=== PATIENT | male | born 1940 | race Caucasian/White ===

== ENCOUNTER → 2017-11-08 | Outpatient (CLI) | payer MEDICARE ==
--- NOTE | 2017-11-08 11:28 | US ---
EXAMINATION TYPE: US kidneys/renal and bladder DATE OF EXAM: 11/08/2017 COMPARISON: 06/03/[address] chest abdomen and pelvis June 01, 2015 CLINICAL HISTORY: N18.3 Stage Chronic Kidney Disease. EXAM MEASUREMENTS: Right Kidney: 9.7 x 4.4 x 6.0 cm Left Kidney: 10.9 x 5.2 x 4.8 cm Post Void Residual Volume: mL Right Kidney: 4.1 x 4.9 x 3.9 cyst on upper pole Left Kidney: No hydronephrosis or masses seen Bladder: Bilateral Jets seen: left only There is no evidence for hydronephrosis at this point in time. No nephrolithiasis is seen. No julia s are identified. The urinary bladder is not greatly distended. Distal left ureteral jet is seen. Ad jacent to bladder there is oval anechoic area correlates with reservoir from penile prosthesis. A 4.1 cm simple appearing exophytic cyst upper pole level right kidney is redemonstrated. IMPRESSION: No hydronephrosis is evident bilaterally.
== END | disposition home or self-care (01) ==
LOC: RADUSWWP 09:25
PROVIDERS: ATTEND Internal Medicine Nephrology
DX: N18.3 Chronic kidney disease, stage 3 (moderate) (principal)
CPT/HCPCS: 76770

== ENCOUNTER → 2017-12-28 | Day surgery (SDC) | payer MEDICARE ==
[2017-12-26 15:18] VITALS: BMI 30.5
[~2017-12-28] MED LIST: LACTATED RINGERS 1,000 ML IV ONE; LACTATED RINGERS 1,000 ML IV SCH; PROPOFOL 10 MG/ML 20 ML VIAL IV ONE
[2017-12-28 07:44] LABS: Glucose,Whole Blood 143 mg/dL (75-99)
[2017-12-28 08:18] VITALS: RESP 16; TEMP 98.3
--- NOTE | 2017-12-28 09:24 | P.PCN ---
Date of Procedure: 12/28/17 Procedure(s) Performed: Procedure: Total colonoscopy. Preoperative diagnosis: Screening for neoplasia, patient has history of polyps. Postoperative diagnosis: Exam within normal limits. Preparation: HalfLytely prep. Sedation: Was provided by anesthesia. Brief clinical history: The patient is a 77-year-old male who is scheduled for this evaluation for screening for neoplasia because of history of polyps. The patient has no abdominal complaints, bleeding or anemia. His last colonoscopy was around 5 years ago. Procedure: With the patient on his left lateral decubitus position and after informed consent and adequate sedation, the perianal area was inspected and it did not show any fissures or fistulas. There were no masses felt on digital rectal examination. The Olympus CFQ 160L video colonoscope was then inserted in the rectum in the usual fashion and advanced to the cecum. The mucosa appeared healthy. No polyps or tumors were seen or any obvious diverticular disease or other pathology. I retroflexed the endoscope in the rectum before the endoscope was withdrawn. The patient tolerated the procedure well. Plan: The patient was reassured. At his age, I did not recommend additional surveillance examinations and future colonoscopies can be based on his overall health and symptoms in the future. He will follow up with you as planned.
[2017-12-28 09:42] VITALS: BP 147/74; PULSE 70
== END ==
LOC: ORWHC2ENDO 07:17
DX: Z12.11 Encounter for screening for malignant neoplasm of colon (principal); Z86.010 Personal history of colon polyps; I25.10 Atherosclerotic heart disease of native coronary artery without angina pectoris; E11.9 Type 2 diabetes mellitus without complications; I10 Essential (primary) hypertension; E78.5 Hyperlipidemia, unspecified; K21.9 Gastro-esophageal reflux disease without esophagitis; I25.2 Old myocardial infarction; Z95.1 Presence of aortocoronary bypass graft; Z95.5 Presence of coronary angioplasty implant and graft; Z95.810 Presence of automatic (implantable) cardiac defibrillator; Z86.711 Personal history of pulmonary embolism; Z86.718 Personal history of other venous thrombosis and embolism; Z88.5 Allergy status to narcotic agent; Z88.0 Allergy status to penicillin; Z88.8 Allergy status to other drugs, medicaments and biological substances; Z91.041 Radiographic dye allergy status; Z91.048 Other nonmedicinal substance allergy status; Z79.890 Hormone replacement therapy; Z79.4 Long term (current) use of insulin; Z79.51 Long term (current) use of inhaled steroids; Z79.899 Other long term (current) drug therapy; Z79.01 Long term (current) use of anticoagulants; Z79.02 Long term (current) use of antithrombotics/antiplatelets
CPT/HCPCS: J2704; G0105

== ENCOUNTER → 2018-09-03 | Outpatient (CLI) | payer MEDICARE ==
--- NOTE | 2018-09-03 08:54 | CT ---
EXAMINATION TYPE: CT chest wo con DATE OF EXAM: 09/03/2018 COMPARISON: CT chest abdomen and pelvis June 01, 2015 HISTORY: asbestosis CT DLP: 844 mGycm. Automated Exposure Control for Dose Reduction was Utilized. TECHNIQUE: CT scan of the thorax is performed without IV contrast. FINDINGS: LUNGS: There is right greater than left bibasilar scarring and/or atelectasis redemonstrated. No susp icious parenchymal nodules or masses are identified. No calcified pleural plaques are clearly seen. N o pleural effusion or pneumothorax is noted. MEDIASTINUM: Lack of IV contrast is noted to limit evaluation for mediastinal and especially hilar ad enopathy. There are no definitive greater than 1 cm hilar or mediastinal lymph nodes. Sternotomy wire s are present. There is cardiomegaly seen. There is multilead pacemaker/AICD. Main pulmonary artery i s enlarged at 3.4 cm, CT findings suggesting underlying pulmonary artery hypertension. Enlarged right and left pulmonary arteries are noted. Post CABG changes with mediastinal clips are identified. Ther e is mild/moderate calcified plaque in the thoracic aorta noted. OTHER: There is redemonstration of 4.5 cm partially exophytic otherwise simple appearing cyst posteri or laterally upper pole level right kidney perhaps slightly larger from prior study. Dependent gallst one in gallbladder is seen. Moderate multilevel spurring in the mid to lower thoracic spine is seen. Bilateral gynecomastia is again seen. IMPRESSION: No calcified pleural plaques identified. Stable bibasilar scarring and/or atelectasis. No suspicious acute pulmonary process. Cardiomegaly redemonstrated.
== END | disposition home or self-care (01) ==
LOC: RADCTMAIN 07:42
PROVIDERS: ATTEND Internal Medicine Pulmonary Disease
DX: I51.7 Cardiomegaly (principal); J98.4 Other disorders of lung
CPT/HCPCS: 71250

== ENCOUNTER 2019-01-31 09:54 | Inpatient (IN) | payer MEDICARE ==
[2019-01-31] MEDS ORDERED: MAG HYDROX/AL HYDROX/SIMETH 30 ML, HYOSCYAMINE ELIXIR 10 ML, CIMETIDINE HCL 300 MG PO STA ×3 (10:18)
[2019-01-31] MEDS ORDERED: FAMOTIDINE 20 MG/2 ML VIAL IV STA (10:18)
--- NOTE | 2019-01-31 10:23 | ED ---
General Adult HPI - General Chief complaint: Chest Pain Stated complaint: chest pain Time Seen by Provider: 01/31/19 10:03 Source: patient, RN notes reviewed, old records reviewed Mode of arrival: wheelchair Limitations: no limitations - History of Present Illness Initial comments: 78-year-old male history of CAD, CK D, diabetes, hypertension presenting for evaluation of intermittent chest pain over the past one week. Pain has been nonexertional predominantly at rest. Describes it as a central chest pain with the burning sensation. Patient does have history of gastric reflux currently on omeprazole. Denies dyspnea, denies diaphoresis. Denies significant vomiting or diarrhea. He does report some radiating symptoms into his left arm and left neck. No sharp pain, no back pain. History of CAD status post CABG and stent placement approximately 3 years ago. Patient is currently anticoagulated on Eliquis, history of DVT PE. - Related Data Home Medications Medication Instructions Recorded Confirmed Isosorbide Mononitrate [Imdur] 30 mg PO DAILY 04/10/14 01/31/19 Multivitamin [Men's Multi-Vitamin] 1 tab PO DAILY 04/10/14 01/31/19 Simvastatin [Zocor] 40 mg PO HS 04/10/14 01/31/19 Aspirin 81 mg PO DAILY 04/11/14 01/31/19 Beclomethasone Dipropionate [Qvar 2 puff INHALATION RT-BID 05/29/15 01/31/19 80 mcg/puff] Carvedilol 25 mg PO BID 05/29/15 01/31/19 Insulin NPH/Reg Insulin 70/30 75 unit SQ AC-SUPPER 08/05/15 01/31/19 [humuLIN 70/30 VIAL] Montelukast [Singulair] 10 mg PO HS 08/05/15 01/31/19 Insulin NPH/Reg Insulin 70/30 65 unit SQ AC-BRKFST 05/11/16 01/31/19 [humuLIN 70/30 VIAL] Levothyroxine Sodium [Synthroid] 75 mcg PO DAILY 05/11/16 01/31/19 Losartan [Cozaar] 50 mg PO BID 05/11/16 01/31/19 Ergocalciferol (Vitamin D2) 50,000 unit PO Q30D 08/01/16 01/31/19 [Drisdol] Omeprazole 40 mg PO DAILY 08/01/16 01/31/19 Albuterol Inhaler [Ventolin Hfa 2 puff INHALATION RT-BID 12/26/17 01/31/19 Inhaler] Furosemide [Lasix] 40 mg PO BID 12/26/17 01/31/19 Gabapentin [Neurontin] 300 mg PO BID 12/26/17 01/31/19 Doxazosin [Cardura] 2 mg PO HS 01/31/19 01/31/19 Doxercalciferol [Hectorol] 0.5 mcg PO SUTUTHSA 01/31/19 01/31/19 Previous Rx's Medication Instructions Recorded amLODIPine [Norvasc] 10 mg PO DAILY #30 tab 08/10/15 Apixaban [Eliquis] 2.5 mg PO BID #60 tablet 05/16/16 Nitroglycerin Sl Tabs [Nitrostat] 0.4 mg SUBLINGUAL Q5M PRN #25 tab 05/16/16 Allergies Allergy/AdvReac Type Severity Reaction Status Date / Time adhesive Allergy Rash/Hives Verified 01/31/19 10:50 Iodinated Contrast- Oral and Allergy Rash/Hives,KIDNEY Verified 01/31/19 10:50 IV Dye PROBLEM [Iodinated Contrast Media - IV Dye] iodine Allergy Rash/Hives Verified 01/31/19 10:50 Penicillins Allergy Rash/Hives Verified 01/31/19 10:50 povidone-iodine Allergy Rash/Hives Verified 01/31/19 10:50 [From Betadine] baclofen AdvReac Confusion Verified 01/31/19 10:50 tramadol AdvReac Confusion Verified 01/31/19 10:50 Review of Systems ROS Statement: Those systems with pertinent positive or pertinent negative responses have been documented in the HPI. ROS Other: All systems not noted in ROS Statement are negative. 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 Last Myocardial Infarction Date:: 1991,2008, 04/2016 History of Any Multi-Drug Resistant Organisms: None Reported Past Surgical History: AICD, Coronary Bypass/CABG, Heart Catheterization With St ent, Orthopedic Surgery Additional Past Surgical History / Comment(s): PTCA with stent, bilateral carpal tunnel surgery, tendon repair on L ankle. debbie CATARACT SX with lens implants, penile implant, PTCA twice, 2009 quad bypass, DAVID Past Anesthesia/Blood Transfusion Reactions: No Reported Reaction Additional Past Anesthesia/Blood Transfusion Reaction / Comment(s): Pt states he received blood with his CABG-no reaction to his knowledge. Date of Last Stent Placement:: 2015 Type of Cardiac Device: AICD Device Placement Date:: 2012 Past Psychological History: Depression Smoking Status: Never smoker - Past Family History Father Family Medical History: Dementia, Diabetes Mellitus, Vascular Disorder Additional Family Medical History / Comment(s): AT AGE 84 VASCULAR ISSUES Mother Family Medical History: Congestive Heart Failure (CHF), Rheumatoid Arthritis (RA) Additional Family Medical History / Comment(s): bleeding ulcers General Exam Limitations: no limitations General appearance: alert, in no apparent distress Head exam: Present: atraumatic, normocephalic Eye exam: Present: normal appearance, PERRL, EOMI ENT exam: Present: normal exam Neck exam: Present: normal inspection. Absent: tenderness, meningismus Respiratory exam: Present: normal lung sounds bilaterally. Absent: respiratory distress, wheezes, rales Cardiovascular Exam: Present: regular rate, normal rhythm GI/Abdominal exam: Present: soft. Absent: distended, tenderness, guarding Extremities exam: Present: normal capillary refill, pedal edema (Trace pedal edema) Neurological exam: Present: alert, oriented X3, CN II-XII intact. Absent: motor sensory deficit Psychiatric exam: Present: normal affect, normal mood Skin exam: Present: warm, dry, intact. Absent: cyanosis, diaphoretic Course Vital Signs 01/31/19 01/31/19 01/31/19 09:55 10:08 11:20 Temperature 98.3 F Pulse Rate 79 60 Pulse Rate [ 62 Client Relationship Executive ] Respiratory 16 18 Rate Blood Pressure 150/78 146/71 O2 Sat by Pulse 98 95 Oximetry EKG Findings - EKG Comments: EKG Findings:: EKG: Interpreted as atrial paced rhythm with prolonged A-V, may be sinus rhythm, no definitive pacer spikes visualized on EKG, rate of 66, MS interval 254, QRS duration 108, QTC 461, T-wave flattening in the inferior leads, ST segment depression in lateral precordium, no ST segment elevation. Medical Decision Making - Medical Decision Making 78-year-old male presenting with a one-week history of intermittent chest pain which is nonexertional, central chest. Significant history of coronary artery disease with CABG and stenting. Patient is anticoagulated on Eliquis, he did take his morning dose this morning. EKG shows nonspecific ST segment changes, no ST segment elevation. Chest x-ray negative for acute cardiopulmonary disease, there is cardiomegaly noted. Patient has normal white blood cell count, stable hemoglobin, platelets are low at 110, creatinine 2.17 with history of chronic kidney disease, troponin is elevated 0.875. Patient is anticoagulated, nitroglycerin paste applied, given aspirin. We will be made for cardiology consultation, telemetry, serial cardiac enzymes. Case discussed with Dr. Quezada, we will admit. - Lab Data Result diagrams: 01/31/19 10:06 01/31/19 10:06 Lab Results 01/31/19 01/31/19 01/31/19 Range/Units 10:06 10:06 10:06 WBC 6.0 (3.8-10.6) k/uL RBC 4.51 (4.30-5.90) m/uL Hgb 14.0 (13.0-17.5) gm/dL Hct 41.6 (39.0-53.0) % MCV 92.2 (80.0-100.0) fL MCH 31.0 (25.0-35.0) pg MCHC 33.6 (31.0-37.0) g/dL RDW 14.2 (11.5-15.5) % Plt Count 110 L (150-450) k/uL Neutrophils % 74 % Lymphocytes % 14 % Monocytes % 7 % Eosinophils % 4 % Basophils % 0 % Neutrophils # 4.4 (1.3-7.7) k/uL Lymphocytes # 0.8 L (1.0-4.8) k/uL Monocytes # 0.4 (0-1.0) k/uL Eosinophils # 0.2 (0-0.7) k/uL Basophils # 0.0 (0-0.2) k/uL PT 10.3 (9.0-12.0) sec INR 1.0 (<1.2) APTT 23.4 (22.0-30.0) sec Sodium 143 (137-145) mmol/L Potassium 4.4 (3.5-5.1) mmol/L Chloride 112 H (98-107) mmol/L Carbon Dioxide 22 (22-30) mmol/L Anion Gap 9 mmol/L BUN 40 H (9-20) mg/dL Creatinine 2.17 H (0.66-1.25) mg/dL Est GFR (CKD-EPI)AfAm 33 (>60 ml/min/1.73 sqM) Est GFR (CKD-EPI)NonAf 28 (>60 ml/min/1.73 sqM) Glucose 180 H (74-99) mg/dL Calcium 9.0 (8.4-10.2) mg/dL Magnesium 2.2 (1.6-2.3) mg/dL Total Bilirubin 0.5 (0.2-1.3) mg/dL AST 36 (17-59) U/L ALT 42 (21-72) U/L Alkaline Phosphatase 66 (38-126) U/L Troponin I (0.000-0.034) ng/mL Total Protein 6.5 (6.3-8.2) g/dL Albumin 3.9 (3.5-5.0) g/dL 01/31/19 Range/Units 10:06 WBC (3.8-10.6) k/uL RBC (4.30-5.90) m/uL Hgb (13.0-17.5) gm/dL Hct (39.0-53.0) % MCV (80.0-100.0) fL MCH (25.0-35.0) pg MCHC (31.0-37.0) g/dL RDW (11.5-15.5) % Plt Count (150-450) k/uL Neutrophils % % Lymphocytes % % Monocytes % % Eosinophils % % Basophils % % Neutrophils # (1.3-7.7) k/uL Lymphocytes # (1.0-4.8) k/uL Monocytes # (0-1.0) k/uL Eosinophils # (0-0.7) k/uL Basophils # (0-0.2) k/uL PT (9.0-12.0) sec INR (<1.2) APTT (22.0-30.0) sec Sodium (137-145) mmol/L Potassium (3.5-5.1) mmol/L Chloride (98-107) mmol/L Carbon Dioxide (22-30) mmol/L Anion Gap mmol/L BUN (9-20) mg/dL Creatinine (0.66-1.25) mg/dL Est GFR (CKD-EPI)AfAm (>60 ml/min/1.73 sqM) Est GFR (CKD-EPI)NonAf (>60 ml/min/1.73 sqM) Glucose (74-99) mg/dL Calcium (8.4-10.2) mg/dL Magnesium (1.6-2.3) mg/dL Total Bilirubin (0.2-1.3) mg/dL AST (17-59) U/L ALT (21-72) U/L Alkaline Phosphatase (38-126) U/L Troponin I 0.874 H* (0.000-0.034) ng/mL Total Protein (6.3-8.2) g/dL Albumin (3.5-5.0) g/dL Critical Care Time Critical Care Time: Yes Total Critical Care Time: 35 Disposition Clinical Impression: NSTEMI (non-ST elevated myocardial infarction) Disposition: ADMITTED IP TO THIS [facility] Condition: Stable Is patient prescribed a controlled substance at d/c from ED?: No Referrals: Kuldeep Manjarrez MD [Primary Care Provider] - 1-2 days Decision to Admit Reason: Admit from EC Decision Date: 01/31/19 Decision Time: 12:08
[2019-01-31 10:34] LABS: Basophils % (A) 0 %; Eosinophils # (A) 0.2 k/uL (0-0.7); Eosinophils % (A) 4 %; HCT 41.6 % (39.0-53.0); Lymphocytes # (A) 0.8 k/uL (1.0-4.8); Lymphocytes % (A) 14 %; MCHC 33.6 g/dL (31.0-37.0); MCV 92.2 fL (80.0-100.0); Mean Platelet Volume 6.4; Monocytes # (A) 0.4 k/uL (0-1.0); Monocytes % (A) 7 %; Neutrophils # (A) 4.4 k/uL (1.3-7.7); Neutrophils % (A) 74 %; Platelet Count 110 k/uL (150-450); RBC 4.51 m/uL (4.30-5.90); RDW 14.2 % (11.5-15.5)
[2019-01-31 10:37] LABS: Partial Thromboplastin Time 23.4 sec (22.0-30.0); Prothrombin Time 10.3 sec (9.0-12.0)
[2019-01-31 10:41] LABS: Potassium 4.4 mmol/L (3.5-5.1)
--- NOTE | 2019-01-31 10:42 | XR ---
EXAMINATION TYPE: XR chest 2V DATE OF EXAM: 01/31/2019 COMPARISON: Chest x-ray November 12, 2017. CT chest September 03, 2018 HISTORY: Chest pain. TECHNIQUE: Frontal and lateral views of the chest are obtained. FINDINGS: Elevated right hemidiaphragm is redemonstrated. Overlying sternal wires and mediastinal cli ps are again seen. There is chronic parenchymal change without suspicious new focal air space opacit y, pleural effusion, or pneumothorax seen. The cardiac silhouette size is stable and mildly enlarged with dual lead pacemaker/AICD redemonstrated. The osseous structures are intact. IMPRESSION: Chronic parenchymal change and mild cardiomegaly without acute pulmonary process.
[2019-01-31 10:43] LABS: Albumin 3.9 g/dL (3.5-5.0); Magnesium 2.2 mg/dL (1.6-2.3); Total Bilirubin 0.5 mg/dL (0.2-1.3); Total Protein 6.5 g/dL (6.3-8.2)
[2019-01-31] MEDS ORDERED: NITROGLYCERIN OINT 1 INCH/GM PACKET TOPICAL STA (11:15)
[2019-01-31] MEDS ORDERED: ACETAMINOPHEN TAB 325 MG TAB PO PRN (11:58)
[2019-01-31] MEDS ORDERED: NALOXONE 0.4 MG/ML 1 ML VIAL IV PRN (11:58)
[2019-01-31] MEDS ORDERED: MORPHINE SULFATE 4 MG/ML SYRINGE IVP PRN (12:00)
[2019-01-31] MEDS ORDERED: ASPIRIN 325 MG TAB PO STA (12:00)
[2019-01-31] MEDS: SODIUM CHLORIDE 0.9% 1,000 ML IV SCH (13:16)
--- NOTE | 2019-01-31 14:38 | P.HPIM ---
History of Present Illness H&P Date: 01/31/19 Chief Complaint: Recurrent chest pain 1 week elevated troponin This is 78-year-old gentleman patient of Dr. 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 Patient was seen in emergency room secondary to chest discomfort off and on 1 week, radiating to the left arm, and the neck, right substernal chest discomfort, without relief using 2 sublingual nitroglycerin, however he found out nitroglycerin was patient's pain has been progressive now occurring at rest, patient does not have any exertional chest pain especially when he walks in the flat ground, patient denies any palpitations no syncope, no melena no GC, patient has GERD symptoms, Prior history included carries a defibrillator for a low ejection fraction also with a nonsustained arrhythmia he mentions that this current pain is different from his previous MO his first one in required 2 angioplasties in 1991, CABG in 2008 four-vessel disease. he has dye contrast ALLERGY secondary to CK D stage IV . He is off his Plavix a year ago, last cardiac cath was April 2016 no recent stress test, maintained on 3liquis currently In the emergency room, troponin was at 0.8, creatinine 2.17, hemoglobin 14, patient is on eliquis, Nitropaste was started, patient was chest pain-free at my evaluation in the emergency room today, EKG shows atrial paced 81, dr sevilla and Cardiology is requested. Review of Systems Constitutional: Reports as per HPI, Denies anorexia, Denies chills, Denies chronic headaches, Denies chronic pain, Denies daytime sleepiness, Denies fatigue, Denies fever, Denies lethargy, Denies malaise, Denies night sweats, Denies poor appetite, Denies sweats, Denies weakness, Denies weight gain, Denies weight loss Ears, nose, mouth and throat: Reports as per HPI, Denies ant. neck pain, Denies bleeding gums, Denies dental pain, Denies dysphagia, Denies epistaxis, Denies headache, Denies hoarseness, Denies mouth pain, Denies nasal congestion, Denies nasal discharge, Denies neck fullness/pressure, Denies neck lump, Denies nose pain, Denies odynophagia, Denies post-nasal drip, Denies sinus pain, Denies sinus pressure, Denies swelling in mouth, Denies swelling in throat, Denies sore throat, Denies vertigo, Denies voice changes Cardiovascular: Reports as per HPI, Reports chest pain, Denies claudication, Denies decreased exercise tolerance, Denies dyspnea on exertion, Denies edema, Denies high blood pressure, Denies irregular heart beat, Denies leg edema, Alonzo es lightheadedness, Denies orthopnea, Denies palpitations, Denies paroxysmal nocturnal dyspnea, Denies phlebitis, Denies rapid heart beat, Denies shortness of breath, Denies syncope Respiratory: Reports as per HPI Gastrointestinal: Reports as per HPI Genitourinary: Reports as per HPI, Denies decreased libido, Denies difficulties fathering child, Denies discharge, Denies dysuria, Denies erectile dysfunction, Denies flank pain, Denies genital pain, Denies genital sores, Denies hematuria, Denies impotence, Denies incontinence, Denies kidney stones, Denies nocturia, Denies polyuria, Denies testicular lump, Denies testicular pain, Denies urinary frequency, Denies urinary hesitancy, Denies urinary retention Musculoskeletal: Reports as per HPI Integumentary: Reports as per HPI Neurological: Reports as per HPI Psychiatric: Reports as per HPI Endocrine: Reports as per HPI Hematologic/Lymphatic: Reports as per HPI Allergic/Immunologic: Reports as per HPI Past Medical History Past Medical History: Blood Disorder, Coronary Artery Disease (CAD), CVA/TIA, Diabetes Mellitus, Deep Vein Thrombosis (DVT), GERD/Reflux, Hyperlipidemia, Hypertension, Myocardial Infarction (MO), Prostate Disorder, Pulmonary Embolus (PE), Renal Disease, Thyroid Disorder Additional Past Medical History / Comment(s): DVT L leg and pulmonary embolism in bilateral lungs, MTFHFR gene mutation/coagulopathy, IDDM type II, neuropathy bilateral feet, CKD stage III, kidney stone, BPH, TIA, ischemic cardiomyopathy, MIs, asbestosis, LULU with Cpap, lumbar stenosis with L side sciatica, falls, hypothyroid, 2ndary hyperparathyroidism in old PMH but pt does not recall this. Last Myocardial Infarction Date:: 1991,2008, 04/2016 History of Any Multi-Drug Resistant Organisms: None Reported Past Surgical History: AICD, Coronary Bypass/CABG, Heart Catheterization With Stent, Orthopedic Surgery Additional Past Surgical History / Comment(s): PCI/stent, DAVID, 2008 CABG 4 vessel, AICD, bilateral carpal tunnel releases, tendon repair L ankle, bilateral cataract removal/lens implants, colonoscopy, penile implant. Past Anesthesia/Blood Transfusion Reactions: No Reported Reaction Additional Past Anesthesia/Blood Transfusion Reaction / Comment(s): Pt states he received blood with his CABG-no reaction to his knowledge. Date of Last Stent Placement:: 2015 Type of Cardiac Device: AICD Device Placement Date:: 2012 Smoking Status: Never smoker - Past Family History Father Family Medical History: Dementia, Diabetes Mellitus, Vascular Disorder Additional Family Medical History / Comment(s): Father had vascular disease and from this at the age of 84 yrs. Mother Family Medical History: Congestive Heart Failure (CHF), Rheumatoid Arthritis (RA) Additional Family Medical History / Comment(s): Mother had bleeding ulcers and n ever recovered, she at the age of 67yrs. Medications and Allergies Home Medications Medication Instructions Recorded Confirmed Type Isosorbide Mononitrate [Imdur] 30 mg PO DAILY 04/10/14 01/31/19 History Multivitamin [Men's Multi-Vitamin] 1 tab PO DAILY 04/10/14 01/31/19 History Simvastatin [Zocor] 40 mg PO HS 04/10/14 01/31/19 History Aspirin 81 mg PO DAILY 04/11/14 01/31/19 History Beclomethasone Dipropionate [Qvar 2 puff INHALATION RT-BID 05/29/15 01/31/19 History 80 mcg/puff] Carvedilol 25 mg PO BID 05/29/15 01/31/19 History Insulin NPH/Reg Insulin 70/30 75 unit SQ AC-SUPPER 08/05/15 01/31/19 History [humuLIN 70/30 VIAL] Montelukast [Singulair] 10 mg PO HS 08/05/15 01/31/19 History amLODIPine [Norvasc] 10 mg PO DAILY #30 tab 08/10/15 01/31/19 Rx Insulin NPH/Reg Insulin 70/30 65 unit SQ AC-BRKFST 05/11/16 01/31/19 History [humuLIN 70/30 VIAL] Levothyroxine Sodium [Synthroid] 75 mcg PO DAILY 05/11/16 01/31/19 History Losartan [Cozaar] 50 mg PO BID 05/11/16 01/31/19 History Apixaban [Eliquis] 2.5 mg PO BID #60 tablet 05/16/16 01/31/19 Rx Nitroglycerin Sl Tabs [Nitrostat] 0.4 mg SUBLINGUAL Q5M PRN #25 tab 05/16/16 01/31/19 Rx Ergocalciferol (Vitamin D2) 50,000 unit PO Q30D 08/01/16 01/31/19 History [Drisdol] Omeprazole 40 mg PO DAILY 08/01/16 01/31/19 History Albuterol Inhaler [Ventolin Hfa 2 puff INHALATION RT-BID 12/26/17 01/31/19 History Inhaler] Furosemide [Lasix] 40 mg PO BID 12/26/17 01/31/19 History Gabapentin [Neurontin] 300 mg PO BID 12/26/17 01/31/19 History Doxazosin [Cardura] 2 mg PO HS 01/31/19 01/31/19 History Doxercalciferol [Hectorol] 0.5 mcg PO SUTUTHSA 01/31/19 01/31/19 History Allergies Allergy/AdvReac Type Severity Reaction Status Date / Time adhesive Allergy Rash/Hives Verified 01/31/19 10:50 Iodinated Contrast- Oral and Allergy Rash/Hives,KIDNEY Verified 01/31/19 10:50 IV Dye PROBLEM [Iodinated Contrast Media - IV Dye] iodine Allergy Rash/Hives Verified 01/31/19 10:50 Penicillins Allergy Rash/Hives Verified 01/31/19 10:50 povidone-iodine Allergy Rash/Hives Verified 01/31/19 10:50 [From Betadine] baclofen AdvReac Confusion Verified 01/31/19 10:50 tramadol AdvReac Confusion Verified 01/31/19 10:50 Physical Exam Vitals: Vital Signs Temp Pulse Pulse Resp BP Pulse Ox 01/31/19 13:17 63 18 138/71 96 01/31/19 11:20 60 18 146/71 95 01/31/19 10:08 62 01/31/19 09:55 98.3 F 79 16 150/78 98 Intake and Output 01/30/19 01/31/19 01/31/19 22:59 06:59 14:59 Other: Weight 102.058 kg - Constitutional General appearance: cooperative, no acute distress, obese - EENT Eyes: anicteric sclerae, EOMI, dentition normal, normal appearance ENT: NA/AT, normal oropharynx - Neck Neck: normal ROM - Respiratory Respiratory: bilateral: CTA, negative: diminished, dullness, rales, rhonchi, wheezing - Cardiovascular Rhythm: regular Heart sounds: normal: S1, S2 Abnormal Heart Sounds: no systolic murmur, no diastolic murmur, no rub, no S3 Gallop, no S4 Gallop, no click, no other - Gastrointestinal General gastrointestinal: normal bowel sounds, soft - Integumentary Integumentary: normal, normal turgor - Neurologic Neurologic: CNII-XII intact - Musculoskeletal Musculoskeletal: gait normal, strength equal bilaterally - Psychiatric Psychiatric: A&O x's 3, appropriate affect, intact judgment & insight Results CBC & Chem 7: 01/31/19 10:06 01/31/19 10:06 Labs: Abnormal Lab Results - Last 24 Hours (Table) 01/31/19 01/31/19 01/31/19 Range/Units 10:06 10:06 10:06 Plt Count 110 L (150-450) k/uL Lymphocytes # 0.8 L (1.0-4.8) k/uL Chloride 112 H (98-107) mmol/L BUN 40 H (9-20) mg/dL Creatinine 2.17 H (0.66-1.25) mg/dL Glucose 180 H (74-99) mg/dL Troponin I 0.874 H* (0.000-0.034) ng/mL Laboratory Results WBC 6.0 k/uL (3.8-10.6) 01/31/19 10:06 RBC 4.51 m/uL (4.30-5.90) 01/31/19 10:06 Hgb 14.0 gm/dL (13.0-17.5) 01/31/19 10:06 Hct 41.6 % (39.0-53.0) 01/31/19 10:06 MCV 92.2 fL (80.0-100.0) 01/31/19 10:06 MCH 31.0 pg (25.0-35.0) 01/31/19 10:06 MCHC 33.6 g/dL (31.0-37.0) 01/31/19 10:06 RDW 14.2 % (11.5-15.5) 01/31/19 10:06 Plt Count 110 k/uL (150-450) L 01/31/19 10:06 Neutrophils % 74 % 01/31/19 10:06 Lymphocytes % 14 % 01/31/19 10:06 Monocytes % 7 % 01/31/19 10:06 Eosinophils % 4 % 01/31/19 10:06 Basophils % 0 % 01/31/19 10:06 Neutrophils # 4.4 k/uL (1.3-7.7) 01/31/19 10:06 Lymphocytes # 0.8 k/uL (1.0-4.8) L 01/31/19 10:06 Monocytes # 0.4 k/uL (0-1.0) 01/31/19 10:06 Eosinophils # 0.2 k/uL (0-0.7) 01/31/19 10:06 Basophils # 0.0 k/uL (0-0.2) 01/31/19 10:06 PT 10.3 sec (9.0-12.0) 01/31/19 10:06 INR 1.0 (<1.2) 01/31/19 10:06 APTT 23.4 sec (22.0-30.0) 01/31/19 10:06 Sodium 143 mmol/L (137-145) 01/31/19 10:06 Potassium 4.4 mmol/L (3.5-5.1) 01/31/19 10:06 Chloride 112 mmol/L (98-107) H 01/31/19 10:06 Carbon Dioxide 22 mmol/L (22-30) 01/31/19 10:06 Anion Gap 9 mmol/L 01/31/19 10:06 BUN 40 mg/dL (9-20) H 01/31/19 10:06 Creatinine 2.17 mg/dL (0.66-1.25) H 01/31/19 10:06 Est GFR (CKD-EPI)AfAm 33 (>60 ml/min/1.73 sqM) 01/31/19 10:06 Est GFR (CKD-EPI)NonAf 28 (>60 ml/min/1.73 sqM) 01/31/19 10:06 Glucose 180 mg/dL (74-99) H 01/31/19 10:06 Calcium 9.0 mg/dL (8.4-10.2) 01/31/19 10:06 Magnesium 2.2 mg/dL (1.6-2.3) 01/31/19 10:06 Total Bilirubin 0.5 mg/dL (0.2-1.3) 01/31/19 10:06 AST 36 U/L (17-59) 01/31/19 10:06 ALT 42 U/L (21-72) 01/31/19 10:06 Alkaline Phosphatase 66 U/L (38-126) 01/31/19 10:06 Troponin I 0.874 ng/mL (0.000-0.034) H* 01/31/19 10:06 Total Protein 6.5 g/dL (6.3-8.2) 01/31/19 10:06 Albumin 3.9 g/dL (3.5-5.0) 01/31/19 10:06 Thrombosis Risk Factor Assmnt - DVT/VTE Prophylaxis DVT/VTE Prophylaxis: Pharmacologic Prophylaxis ordered - Choose All That Apply Any of the Below Risk Factors Present?: Yes Each Factor Represents 1 point: Acute MO, Obesity (BMI >25) Other Risk Factors: Yes Each Risk Factor Represents 3 Points: Positive Factor V Leiden, Age 75 years or older, History of DVT/PE Other congenital or acquired thrombophilia - If yes, enter type in comment: No Thrombosis Risk Factor Assessment Total Risk Factor Score: 11 Thrombosis Risk Factor Assessment Level: High Risk Assessment and Plan Plan: 1. 1. End STEMI suspected with Unstable Angina with prior hx of recent non-Q-wave MO inferior leads in 04/2016. with known history of CAD with prior CABG in the past in 2008 with risk factors to include hypertension ischemic cardiomyopathy with CK D stage IV AICD placement secondary to low ejection fraction coming in with crescendo type chest discomfort he will be seen consultation by cardiology, obtain with echocardiogram Nitropaste is currently maintained. Serial cardiac biomarkers will be obtained to include troponin and CK-MBs,. Patient's continue on aspirin and Coreg, losartan patient most likely would undergo cardiac cath however based on creatinine clearance, this needs to be evaluated fully regarding risk and benefit ratio of contrast-related injuries to the kidneys. he requires nephrology consultation secondary to contrast ALLERGY, and an elevated creatinine, oral prednisone is started for 624 maintain IV fluids at this time for the locations follow from nephrology regarding contrast prophylaxis, IV hydration 75 mL an hour, Mucomyst started, might need such a bicarb drip 2. History ischemic CVA. Continue eliquis2.5 bid , aspirin 162 mg orally once every day, correct and adjustments of of risk factors especially hypertension. 3. Spondylolithesis and left radiculopahy. Currently inactive exacerbation he is on gabapentin 300 mg twice a day no changes were made 4. CAD and ischemic cardiomyopathy S/P AICD placement. Continue aspirin 81 mg once every day, simvastatin 40 mg orally at bedtime, and Coreg 25 mg orally twice every day. 5. Hypertension and Hypertensive cardiovascular disease. , continue Coreg 25 mg orally twice every day, , Lasix 40 mg daily, losartan 50 mg twice a day and amlodipine 10 mg daily 6. Chronic Kidney disease stage 4. Appears to be stable at this time recheck CMP currently monitored and is at baseline. If patient would undergo cardiac cath, IV fluid for hydration, contrast prophylaxis started, consult nephrology 7. Secondary hyperparathyroidism. Stable. 8. Diabetes mellitus type 2. insulin 70/30 to 55 units breakfast 65 units bedtime units subcutaneously . 9. Hyperlipidemia. Continue simvastatin 40 mg orally at bedtime. 10. 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 Currently eliquis 2.5 mg twice a day history of recurrent PE in the past currently inactive 11. BPH. Continue Flomax 0.4 mg orally once every day. 12. Hypothyroidism. Continue Synthroid 175 g orally once every day. 13. GERD. Continue Prilosec 20 mg orally once every day. 14. DVT prophylaxis. Currently eliquis renal dose mg
[2019-01-31] MEDS: DOXERCALCIFEROL 0.5 MCG CAP PO SCH (16:12)
[2019-01-31] MEDS: FUROSEMIDE 40 MG TAB PO SCH (16:15)
--- NOTE | 2019-01-31 16:20 | US ---
EXAMINATION TYPE: US kidneys/renal and bladder DATE OF EXAM: 01/31/2019 COMPARISON: US CLINICAL HISTORY: alvin. ALVIN EXAM MEASUREMENTS: Right Kidney: 10.0 x 4.3 x 3.9 cm Left Kidney: 9.6 x 4.7 x 4.4 cm Right Kidney: Cyst with septation upper pole, increased in size since previous= 4.8 x 4.1 x 6.0 cm Left Kidney: Appeared wnl Bladder: New, echogenic linear focus posterior/rt= 3.5 x 1.5 x 2.8 cm/ cystic area sup to bladder vis ualized on previous- reservoir from penile prosthesis as on prior Bilateral Jets seen: No Incidental= echogenic lesion within spleen= 2.6 x 1.7 cm The upper pole cyst in the right kidney shows a similar appearance, there is internal septation. Cortical medullary differentiation is maintained. No hydronephrosis bilaterally. IMPRESSION: Findings are similar to prior exam. 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 Postop changes suspected w ithin the bladder.
[2019-01-31 16:25] LABS: Glucose,Whole Blood 81 mg/dL (75-99)
[2019-01-31] MEDS: INSULN ASP PRT/INSULIN ASPART 100 UNIT/ML 10 ML VIAL SQ SCH (17:54)
[2019-01-31] MEDS: CARVEDILOL 12.5 MG TAB PO SCH (17:54)
[2019-01-31] MEDS: ALBUTEROL NEBULIZED 2.5 MG/3 ML INHALATION SCH (19:36)
[2019-01-31] MEDS ORDERED: HEPARIN SODIUM,PORCINE 5,000 UNIT/ML 1 ML VIAL IV PRN (20:30)
[2019-01-31] MEDS ORDERED: HEPARIN SODIUM,PORCINE 5,000 UNIT/ML 1 ML VIAL IV ONE (20:30)
[2019-01-31 20:52] LABS: Glucose,Whole Blood 125 mg/dL (75-99)
[2019-01-31] MEDS: HEPARIN SOD,PORK IN 0.45% NACL 25,000 UNIT in 0.45% NACL 1 250ML.BAG IV SCH (20:56)
[2019-01-31] MEDS: DOXAZOSIN 2 MG TAB PO SCH (20:57)
[2019-01-31] MEDS: ATORVASTATIN 20 MG TAB PO SCH (20:57)
[2019-01-31] MEDS: LOSARTAN 50 MG TAB PO SCH (20:58)
[2019-01-31] MEDS: MONTELUKAST 10 MG TAB PO SCH (20:58)
[2019-01-31] MEDS: GABAPENTIN 300 MG CAP PO SCH (20:58)
[2019-01-31] MEDS ORDERED: APIXABAN 2.5 MG TABLET PO SCH (21:00)
[2019-02-01] MEDS: SODIUM CHLORIDE 0.9% 1,000 ML IV SCH ×3 (00:29→23:55)
[2019-02-01 04:05] LABS: Albumin 3.4 g/dL (3.5-5.0); Total Bilirubin 0.4 mg/dL (0.2-1.3); Total Protein 6.2 g/dL (6.3-8.2)
[2019-02-01 04:17] LABS: Basophils % (A) 0 %; Eosinophils # (A) 0.3 k/uL (0-0.7); Eosinophils % (A) 4 %; HCT 40.7 % (39.0-53.0); HGB 13.3 gm/dL (13.0-17.5); Lymphocytes # (A) 1.1 k/uL (1.0-4.8); Lymphocytes % (A) 15 %; MCH 29.9 pg (25.0-35.0); MCHC 32.5 g/dL (31.0-37.0); MCV 91.9 fL (80.0-100.0); Mean Platelet Volume 7.3; Monocytes # (A) 0.5 k/uL (0-1.0); Monocytes % (A) 7 %; Neutrophils # (A) 4.9 k/uL (1.3-7.7); Neutrophils % (A) 72 %; Platelet Count 102 k/uL (150-450); RBC 4.43 m/uL (4.30-5.90); RDW 14.3 % (11.5-15.5); WBC 6.8 k/uL (3.8-10.6)
[2019-02-01 05:02] LABS: Calcium 9.2 mg/dL (8.4-10.2); Magnesium 2.3 mg/dL (1.6-2.3); Potassium 4.2 mmol/L (3.5-5.1)
[2019-02-01 05:50] LABS: Glucose,Whole Blood 98 mg/dL (75-99)
[2019-02-01] MEDS: INSULN ASP PRT/INSULIN ASPART 100 UNIT/ML 10 ML VIAL SQ SCH ×2 (06:26→17:43)
[2019-02-01] MEDS: PANTOPRAZOLE 40 MG TABLET PO SCH (06:29)
[2019-02-01] MEDS: LEVOTHYROXINE 75 MCG TAB PO SCH (06:29)
[2019-02-01] MEDS: CARVEDILOL 12.5 MG TAB PO SCH ×2 (06:29→17:42)
[2019-02-01] MEDS: FUROSEMIDE 40 MG TAB PO SCH (08:19)
[2019-02-01] MEDS: GABAPENTIN 300 MG CAP PO SCH ×2 (08:19→21:11)
[2019-02-01] MEDS: ASPIRIN 81 MG PO SCH (08:19)
[2019-02-01] MEDS: amLODIPine 10 MG TAB PO SCH (08:19)
[2019-02-01] MEDS: LOSARTAN 50 MG TAB PO SCH (08:19)
[2019-02-01] MEDS: ALBUTEROL NEBULIZED 2.5 MG/3 ML INHALATION SCH ×2 (09:51→21:11)
[2019-02-01 09:59] LABS: Appearance,Urine Clear (Clear); Bilirubin,Urine Negative (Negative); Blood,Urine Negative (Negative); Color,Urine Light Yellow; Glucose,Urine (UA) Negative (Negative); Ketones,Urine Negative (Negative); Leukocyte Esterase,Urine Negative (Negative); Nitrite,Urine Negative (Negative); PH, Urine 5.5 (5.0-8.0); Protein,Urine Trace (Negative); Specific Gravity,Urine 1.013 (1.001-1.035); Urobilinogen,Urine <2.0 mg/dL (<2.0)
--- NOTE | 2019-02-01 11:11 | P.CRDCN ---
History of Present Illness Consult date: 02/01/19 History of present illness: This is a 78-year-old gentleman with history of ischemic heart disease with a previous bypass surgery and multiple stent placement and also, hyperlipidemia, chronic renal failure, factor V Leiden deficiency, cardiomyopathy, AICD implantation, comes here now with complaints of recurrent chest pains across the chest with some radiation to the jaw and also to the left hand. The pain seemed to mostly happening at rest. Patient took some nitroglycerin at home but they were not effective and apparently . Because of continued and recurrent pains patient came to the emergency room. He was put on Nitropaste with relief of pains. Currently is pain-free. Patient is also on anticoagulation therapy with eliquis. His troponin values showed mild elevation. The patient has underlying renal failure, the elevation of the troponins shows a trend suggestive of possible non-STEMI. Patient is advised to consider cardiac catheterization. Discussed with Dr. BART Shen who is planning to do a cardiac catheterization tomorrow. Meanwhile we'll continue with IV heparin, nitrates and rest of the medications along with aspirin. Prognosis is guarded. We'll also obtain an echocardiogram Review of Systems As per the chart Past Medical History Past Medical History: Blood Disorder, Coronary Artery Disease (CAD), CVA/TIA, Diabetes Mellitus, Deep Vein Thrombosis (DVT), GERD/Reflux, Hyperlipidemia, Hypertension, Myocardial Infarction ([place]), Prostate Disorder, Pulmonary Embolus (PE), Renal Disease, Thyroid Disorder Additional Past Medical History / Comment(s): DVT L leg and pulmonary embolism in bilateral lungs, MTFHFR gene mutation/coagulopathy, IDDM type II, neuropathy bilateral feet, CKD stage III, kidney stone, BPH, TIA, ischemic card iomyopathy, MIs, asbestosis, LULU with Cpap, lumbar stenosis with L side sciatica, falls, hypothyroid, 2ndary hyperparathyroidism in old PMH but pt does not recall this. Last Myocardial Infarction Date:: 1991,2008, 04/2016 History of Any Multi-Drug Resistant Organisms: None Reported Past Surgical History: AICD, Coronary Bypass/CABG, Heart Catheterization With Stent, Orthopedic Surgery Additional Past Surgical History / Comment(s): PCI/stent, DAVID, 2008 CABG 4 vessel, AICD, bilateral carpal tunnel releases, tendon repair L ankle, bilateral cataract removal/lens implants, colonoscopy, penile implant. Past Anesthesia/Blood Transfusion Reactions: No Reported Reaction Additional Past Anesthesia/Blood Transfusion Reaction / Comment(s): Pt states he received blood with his CABG-no reaction to his knowledge. Date of Last Stent Placement:: 2015 Type of Cardiac Device: AICD Device Placement Date:: 2012 Smoking Status: Never smoker - Past Family History Father Family Medical History: Dementia, Diabetes Mellitus, Vascular Disorder Additional Family Medical History / Comment(s): Father had vascular disease and from this at the age of 84 yrs. Mother Family Medical History: Congestive Heart Failure (CHF), Rheumatoid Arthritis (RA) Additional Family Medical History / Comment(s): Mother had bleeding ulcers and never recovered, she at the age of 67yrs. Medications and Allergies Home Medications Medication Instructions Recorded Confirmed Type Isosorbide Mononitrate [Imdur] 30 mg PO DAILY 04/10/14 01/31/19 History Multivitamin [Men's Multi-Vitamin] 1 tab PO DAILY 04/10/14 01/31/19 History Simvastatin [Zocor] 40 mg PO HS 04/10/14 01/31/19 History Aspirin 81 mg PO DAILY 04/11/14 01/31/19 History Beclomethasone Dipropionate [Qvar 2 puff INHALATION RT-BID 05/29/15 01/31/19 History 80 mcg/puff] Carvedilol 25 mg PO BID 05/29/15 01/31/19 History Insulin NPH/Reg Insulin 70/30 75 unit SQ AC-SUPPER 08/05/15 01/31/19 History [humuLIN 70/30 VIAL] Montelukast [Singulair] 10 mg PO HS 08/05/15 01/31/19 History amLODIPine [Norvasc] 10 mg PO DAILY #30 tab 08/10/15 01/31/19 Rx Insulin NPH/Reg Insulin 70/30 65 unit SQ AC-BRKFST 05/11/16 01/31/19 History [humuLIN 70/30 VIAL] Levothyroxine Sodium [Synthroid] 75 mcg PO DAILY 05/11/16 01/31/19 History Losartan [Cozaar] 50 mg PO BID 05/11/16 01/31/19 History Apixaban [Eliquis] 2.5 mg PO BID #60 tablet 05/16/16 01/31/19 Rx Nitroglycerin Sl Tabs [Nitrostat] 0.4 mg SUBLINGUAL Q5M PRN #25 tab 05/16/16 01/31/19 Rx Ergocalciferol (Vitamin D2) 50,000 unit PO Q30D 08/01/16 01/31/19 History [Drisdol] Omeprazole 40 mg PO DAILY 08/01/16 01/31/19 History Albuterol Inhaler [Ventolin Hfa 2 puff INHALATION RT-BID 12/26/17 01/31/19 History Inhaler] Furosemide [Lasix] 40 mg PO BID 12/26/17 01/31/19 History Gabapentin [Neurontin] 300 mg PO BID 12/26/17 01/31/19 History Doxazosin [Cardura] 2 mg PO HS 01/31/19 01/31/19 History Doxercalciferol [Hectorol] 0.5 mcg PO SUTUTHSA 01/31/19 01/31/19 History Allergies Allergy/AdvReac Type Severity Reaction Status Date / Time adhesive Allergy Rash/Hives Verified 01/31/19 10:50 Iodinated Contrast- Oral and Allergy Rash/Hives,KIDNEY Verified 01/31/19 10:50 IV Dye PROBLEM [Iodinated Contrast Media - IV Dye] iodine Allergy Rash/Hives Verified 01/31/19 10:50 Penicillins Allergy Rash/Hives Verified 01/31/19 10:50 povidone-iodine Allergy Rash/Hives Verified 01/31/19 10:50 [From Betadine] baclofen AdvReac Confusion Verified 01/31/19 10:50 tramadol AdvReac Confusion Verified 01/31/19 10:50 Physical Exam Vitals: Vital Signs Temp Pulse Pulse Resp BP BP Pulse Ox 02/01/19 10:00 60 02/01/19 09:51 60 02/01/19 08:00 97.9 F 61 18 147/64 95 02/01/19 04:00 98.4 F 61 16 158/74 92 L 02/01/19 00:00 61 18 145/68 92 L 01/31/19 20:00 98.3 F 60 18 160/72 93 L 01/31/19 19:44 70 16 01/31/19 19:36 72 16 01/31/19 15:00 98.5 F 61 18 161/73 93 L 01/31/19 13:17 63 18 138/71 96 01/31/19 11:20 60 18 146/71 95 Intake and Output 01/31/19 02/01/19 02/01/19 22:59 06:59 14:59 Intake Total 180 74.333 Output Total 300 275 Balance 180 -225.667 -275 Intake: Intake, IV Titration 74.333 Amount Heparin Sod,Pork in 0.45% 74.333 NaCl 25,000 unit In 0.45 % NaCl 1 250ml.bag @ 9. 798 UNITS/KG/HR 10 mls/hr IV .Q24H [facility] Rx#: [id number] Oral 180 Output: Urine 300 275 Other: Voiding Method Toilet Toilet Toilet # Voids 2 1 # Bowel Movements 1 Weight 100.5 kg GENERAL EXAM: Patient is alert and oriented and doesn't appear to be in any acute distress HEENT: Normocephalic. Normal reaction of pupils, equal size, normal range of extraocular motion. No erythema or exudates in the throat. NECK: No masses, no nuchal rigidity. CHEST: No chest wall deformity. LUNGS: Equal air entry with no crackles or wheeze. HEART: S1 and S2 normal with no audible mumurs or gallops. Regular rhythm, femorals equal on both sides.. ABDOMEN: No hepatosplenomegaly, normal bowel sounds, no guarding or rigidity. SKIN: No rashes CENTRAL NERVOUS SYSTEM: No focal deficits. EXTREMITIES: No cyanosis, clubbing or edema. Results 02/01/19 03:31 02/01/19 03:31 Cardiac Enzymes 01/31/19 01/31/19 01/31/19 Range/Units 10:06 15:33 21:48 AST (17-59) U/L Troponin I 0.874 H* 1.060 H* 1.210 H* (0.000-0.034) ng/mL 02/01/19 Range/Units 03:31 AST 42 (17-59) U/L Troponin I (0.000-0.034) ng/mL Coagulation 02/01/19 Range/Units 03:31 APTT 41.4 H (22.0-30.0) sec CBC 02/01/19 Range/Units 03:31 WBC 6.8 (3.8-10.6) k/uL RBC 4.43 (4.30-5.90) m/uL Hgb 13.3 (13.0-17.5) gm/dL Hct 40.7 (39.0-53.0) % Plt Count 102 L (150-450) k/uL Comprehensive Metabolic Panel 02/01/19 Range/Units 03:31 Sodium 144 (137-145) mmol/L Potassium 4.2 (3.5-5.1) mmol/L Chloride 115 H (98-107) mmol/L Carbon Dioxide 21 L (22-30) mmol/L BUN 44 H (9-20) mg/dL Creatinine 2.66 H (0.66-1.25) mg/dL Glucose 114 H (74-99) mg/dL Calcium 9.2 (8.4-10.2) mg/dL AST 42 (17-59) U/L ALT 35 (21-72) U/L Alkaline Phosphatase 69 (38-126) U/L Total Protein 6.2 L (6.3-8.2) g/dL Albumin 3.4 L (3.5-5.0) g/dL Current Medications Generic Name Dose Route Start Last Admin Trade Name Freq PRN Reason Stop Dose Admin Acetaminophen 650 mg 01/31/19 11:58 Tylenol Tab PO Q6HR PRN Mild Pain or Fever > 100.5 Albuterol Sulfate 2.5 mg 01/31/19 20:00 02/01/19 09:51 Ventolin Nebulized INHALATION 2.5 mg RT-BID [facility] Administration Amlodipine Besylate 10 mg 02/01/19 09:00 02/01/19 08:19 Norvasc PO 10 mg DAILY [facility]Y Administration Aspirin 81 mg 02/01/19 09:00 02/01/19 08:19 Aspirin PO 81 mg DAILY FREDY Administration Atorvastatin Calcium 20 mg 01/31/19 21:00 01/31/19 20:57 Lipitor PO 20 mg HS FREDY Administration Carvedilol 25 mg 01/31/19 17:30 02/01/19 06:29 Coreg PO 25 mg BID-W/MEALS FREDY Administration Doxazosin Mesylate 2 mg 01/31/19 21:00 01/31/19 20:57 Cardura PO 2 mg HS FREDY Administration Doxercalciferol 0.5 mcg 01/31/19 09:00 01/31/19 16:12 Hectorol PO Not Given SUTUTHSA [facility] Gabapentin 300 mg 01/31/19 21:00 02/01/19 08:19 Neurontin PO 300 mg BID FREDY Administration Heparin Sodium (Porcine) 0 unit 01/31/19 20:30 Heparin IV PER PROTOCOL PRN Low PTT Protocol Sodium Chloride 1,000 mls @ 75 mls/hr 01/31/19 12:00 02/01/19 00:29 Saline 0.9% IV Not Given .[id number] [facility] Heparin Sodium/Sodium Chloride 250 mls @ 10 mls/hr 01/31/19 20:30 02/01/19 04:22 25,000 unit/ Sodium Chloride IV 11.798 units/kg/hr .Q24H [facility] 12.041 mls/hr Titration Protocol 9.798 UNITS/KG/HR Insulin Aspart 65 unit 02/01/19 07:30 02/01/19 06:26 Novolog Mix 70-30 Vial SQ Not Given AC-BRKFST [facility] Insulin Aspart 75 unit 01/31/19 17:30 01/31/19 17:54 Novolog Mix 70-30 Vial SQ 75 unit AC-SUPPER [facility] Administration Levothyroxine Sodium 75 mcg 02/01/19 06:30 02/01/19 06:29 Synthroid PO 75 mcg 0630 [facility] Administration Montelukast Sodium 10 mg 01/31/19 21:00 01/31/19 20:58 Singulair PO 10 mg HS [facility] Administration Morphine Sulfate 4 mg 01/31/19 12:00 Morphine Sulfate (Inj) IVP Q4HR PRN Pain Naloxone HCl 0.2 mg 01/31/19 11:58 Narcan IV Q2M PRN Opioid Reversal Pantoprazole Sodium 40 mg 02/01/19 07:30 02/01/19 06:29 Protonix PO 40 mg AC-BRKFST [facility] Administration Intake and Output 01/31/19 02/01/19 02/01/19 22:59 06:59 14:59 Intake Total 180 74.333 Output Total 300 275 Balance 180 -225.667 -275 Intake: Intake, IV Titration 74.333 Amount Heparin Sod,Pork in 0.45% 74.333 NaCl 25,000 unit In 0.45 % NaCl 1 250ml.bag @ 9. 798 UNITS/KG/HR 10 mls/hr IV .Q24H [facility] Rx#: [id number] Oral 180 Output: Urine 300 275 Other: Voiding Method Toilet Toilet Toilet # Voids 2 1 # Bowel Movements 1 Weight 100.5 kg 02/01/19 03:31 02/01/19 03:31 EKG Interpretations (text) Atrial pacer rhythm, no acute ST-T changes Assessment and Plan (1) NSTEMI (non-ST elevated myocardial infarction) Current Visit: Yes Status: Acute Code(s): I21.4 - NON-ST ELEVATION (NSTEMI) MYOCARDIAL INFARCTION SNOMED Code(s): 93384349 (2) AICD (automatic cardioverter/defibrillator) present Current Visit: No Status: Acute Code(s): Z95.810 - PRESENCE OF AUTOMATIC (IMPLANTABLE) CARDIAC DEFIBRILLATOR SNOMED Code(s): 857158270 (3) CAD (coronary artery disease) Current Visit: No Status: Acute Code(s): I25.10 - ATHSCL HEART DISEASE OF [place] CORONARY ARTERY W/O ANG PCTRS SNOMED Code(s): 06268666 (4) CVA (cerebral infarction) Current Visit: No Status: Acute Code(s): I63.9 - CEREBRAL INFARCTION, UNSPECIFIED SNOMED Code(s): 821068022 (5) Chronic renal failure Current Visit: No Status: Acute Code(s): N18.9 - CHRONIC KIDNEY DISEASE, UNSPECIFIED SNOMED Code(s): 791591489 (6) Diabetes Current Visit: No Status: Acute Code(s): E11.9 - TYPE 2 DIABETES MELLITUS WITHOUT COMPLICATIONS SNOMED Code(s): 12455073 (7) Factor 5 Leiden mutation, heterozygous Current Visit: No Status: Acute Code(s): D68.51 - ACTIVATED PROTEIN C RESISTANCE SNOMED Code(s): 632929776 (8) HTN (hypertension) Current Visit: No Status: Acute Code(s): I10 - ESSENTIAL (PRIMARY) H YPERTENSION SNOMED Code(s): 38379950 Plan: We'll continue patient on IV heparin. Get an echocardiogram. Continue nitrates and the rest of the medication. Hold apixaban. Cardiac catheterization to be done by Dr. BART Shen tomorrow. Prognosis guarded
[2019-02-01 11:23] LABS: Glucose,Whole Blood 114 mg/dL (75-99)
[2019-02-01] MEDS ORDERED: ALPRAZolam 0.25 MG TAB PO PRN (11:31)
[2019-02-01] MEDS ORDERED: ALPRAZolam 0.5 MG TAB PO PRN (11:31)
[2019-02-01] MEDS ORDERED: SODIUM CHLORIDE 0.9% 1,000 ML in EMPTY BAG 1 BAG IV ONE (11:31)
[2019-02-01] MEDS ORDERED: NITROGLYCERIN SL TABS 0.4 MG TAB SUBLINGUAL PRN (11:31)
--- NOTE | 2019-02-01 12:22 | CONS ---
CONSULTATION REASON FOR CONSULT: Renal failure. HISTORY OF PRESENT ILLNESS: The patient is a 78-year-old male with history of CKD stage 4 secondary to nephrosclerosis and diabetic kidney disease. The patient's baseline creatinine has been about 2.5 to 2.7 mg/dL. He has been to education and will be proceeding with peritoneal dialysis down the road. This admission, however, he was admitted with chest pains. The troponin was 1.2 and it is currently increasing. Chest pain has resolved and patient is being considered for cardiac catheterization. He is maintained on Cozaar and patient get his Cozaar this morning. PAST MEDICAL HISTORY: Hypertension, type 2 diabetes, CKD stage 4, coronary artery disease, gastroesophageal reflux disease, CKD mineral bone disorder, history of PE, history of left leg DVT, history of TIA, lumbar stenosis, hypothyroidism, sciatica. PAST SURGICAL HISTORY: Coronary artery bypass surgery, cardiac catheterization, coronary stent placement, tendon repair, cataract surgery, lens implants, AICD. SOCIAL HISTORY: Negative for smoking, drug abuse or alcohol abuse. MEDICATIONS: Medications at home prior to admission: Imdur, multivitamin, Zocor, aspirin, Coreg, insulin, Singulair, Synthroid, Cozaar. Eliquis, Nitrostat, Drisdol, omeprazole, Lasix, Neurontin, Cardura, Hectorol. ALLERGIES: Allergies are multiple include IV DYE, PENICILLIN, BETADINE, BACLOFEN, TRAMADOL. REVIEW OF SYSTEMS: Review of systems as per HPI, other systems negative. PHYSICAL EXAMINATION: On examination, patient is comfortable, awake, not in any acute distress. He is alert and oriented x3. Blood pressure is 147/64, heart rate 60 per minute. He is afebrile. EXAMINATION OF THE HEART: S1, S2. EXAMINATION OF THE LUNGS: Bilateral breath sounds are heard. Abdomen is soft, nontender. Examination of the lower extremities shows trace edema bilaterally. ROOF FIXER exam is grossly intact. LABS: Labs show sodium 144, potassium 4.2, chloride 115, BUN 44, serum creatinine 2.6, hemoglobin 13.3 g/dL. Troponin 1.21. ASSESSMENT: 1. Chronic kidney disease and NKF stage 4 with serum creatinine not far from baseline. The patient was about 2.5 to 2.7 mg/dL in December of 2018 when he was seen in the office. His creatinine did go up from 2.1 to 2.6, however, we are not far from baseline at 2.6. Currently, patient is maintained on IV fluids. I will hold off on the Cozaar if we are planning for cardiac catheterization and we can proceed with the cardiac catheterization tomorrow. The patient did get his Cozaar today. He can be maintained on gentle IV hydration if the catheterization is planned. 2. Elevated troponin, rule out acute coronary syndrome and the patient is maintained on IV heparin. 3. Cardiomyopathy. 4. Chronic kidney disease mineral bone disorder, maintained on Hectorol. 5. Hypothyroidism. 6. Type 2 diabetes. PLAN: Hold Lasix, hold Cozaar. Start IV fluids if the catheterization is planned for tomorrow. Renal function is not far from baseline. However, patient did get his Cozaar today, so if we can wait one more day it might help the patient. He is aware of the risks of dye exposure and possible worsening of his renal function. MMODL / IJN: [id number] /
[2019-02-01] MEDS: diphenhydrAMINE ELIXIR 25 MG/10 ML CUP PO SCH ×2 (13:47→21:11)
[2019-02-01] MEDS: predniSONE 20 MG TAB PO SCH ×3 (13:48→21:11)
--- NOTE | 2019-02-01 15:21 | P.PN ---
Subjective Progress Note Date: 02/01/19 This is 78-year-old gentleman patient of Dr. 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 Patient was seen in emergency room secondary to chest discomfort off and on 1 week, radiating to the left arm, and the neck, right substernal chest discomfort, without relief using 2 sublingual nitroglycerin, however he found out nitroglycerin was patient's pain has been progressive now occurring at rest, patient does not have any exertional chest pain especially when he walks in the flat ground, patient denies any palpitations no syncope, no melena no GC, patient has GERD symptoms, Prior history included carries a defibrillator for a low ejection fraction also with a nonsustained arrhythmia he mentions that this current pain is different from his previous MS his first one in required 2 angioplasties in 1991, CABG in 2008 four-vessel disease. he has dye contrast ALLERGY secondary to CK D stage IV . He is off his Plavix a year ago, last cardiac cath was April 2016 no recent stress test, maintained on 3liquis currently In the emergency room, troponin was at 0.8, creatinine 2.17, hemoglobin 14, patient is on eliquis, Nitropaste was started, patient was chest pain-free at my evaluation in the emergency room today, EKG shows atrial paced 81, dr sevilla and Cardiology is requested. 02/01: Patient denies having any chest pain or shortness of breath and did okay through the night. He has been urinating without problems. He has been seen by cardiology with plan for heart catheterization tomorrow. Patient has been afebrile, heart rate in the 60s, blood pressure 133/73, pulse ox 92% on room air. Repeat troponins have been 1.060 and 1.210. BUN is 44 and creatinine 2.66. Urinalysis showed trace protein. Renal ultrasound showed similar findings with possible hemangioma within the spleen. Postop changes within the bladder. Cortical medullary differentiation is maintained. No hydronephrosis bilaterally. Patient is followed by Dr. Sevilla for chronic kidney disease stage IV with baseline of 2.6. Plan to hold Cozaar and Lasix, maintain IV fluids for planned heart catheterization. Review of Systems Constitutional: Reports as per HPI, Denies anorexia, Denies chills, Denies chronic headaches, Denies chronic pain, Denies daytime sleepiness, Denies fatigue, Denies fever, Denies lethargy, Denies malaise, Denies night sweats, Denies poor appetite, Denies sweats, Denies weakness, Denies weight gain, Denies weight loss Ears, nose, mouth and throat: Reports as per HPI, Denies ant. neck pain, Denies bleeding gums, Denies dental pain, Denies dysphagia, Denies epistaxis, Denies h eadache, Denies hoarseness, Denies mouth pain, Denies nasal congestion, Denies nasal discharge, Denies neck fullness/pressure, Denies neck lump, Denies nose pain, Denies odynophagia, Denies post-nasal drip, Denies sinus pain, Denies sinus pressure, Denies swelling in mouth, Denies swelling in throat, Denies sore throat, Denies vertigo, Denies voice changes Cardiovascular: Reports as per HPI, denies chest pain, Denies claudication, Denies decreased exercise tolerance, Denies dyspnea on exertion, Denies edema, Denies high blood pressure, Denies irregular heart beat, Denies leg edema, Denies lightheadedness, Denies orthopnea, Denies palpitations, Denies paroxysmal nocturnal dyspnea, Denies phlebitis, Denies rapid heart beat, Denies shortness of breath, Denies syncope Respiratory: Denies shortness of breath, denies cough, denies sputum production, denies hemoptysis Gastrointestinal: Reports as per HPI Genitourinary: Reports as per HPI, Denies decreased libido, Denies difficulties fathering child, Denies discharge, Denies dysuria, Denies erectile dysfunction, Denies flank pain, Denies genital pain, Denies genital sores, Denies hematuria, Denies impotence, Denies incontinence, Denies kidney stones, Denies nocturia, Denies polyuria, Denies testicular lump, Denies testicular pain, Denies urinary frequency, Denies urinary hesitancy, Denies urinary retention Musculoskeletal: No weakness, denies numbness Integumentary: Denies wounds, denies rash Neurological: Denies confusion, denies aphasia, denies seizure activity Objective - Vital Signs Vital signs: Vital Signs Temp 97.9 F 02/01/19 08:00 Pulse 60 02/01/19 10:00 Resp 18 02/01/19 08:00 BP 147/64 02/01/19 08:00 Pulse Ox 95 02/01/19 08:00 Intake & Output 01/31/19 02/01/19 02/01/19 18:59 06:59 18:59 Intake Total 180 74.333 91.712 Output Total 300 700 Balance 180 -225.667 -608.288 Weight 102.058 kg 100.5 kg Intake: Intake, IV Titration 74.333 91.712 Amount Heparin Sod,Pork in 0.45% 74.333 91.712 NaCl 25,000 unit In 0.45 % NaCl 1 250ml.bag @ 9. 798 UNITS/KG/HR 10 mls/hr IV .Q24H [facility] Rx#: [id number] Oral 180 Output: Urine 300 700 Other: Voiding Method Toilet Toilet # Voids 2 2 1 # Bowel Movements 1 - Exam General appearance: cooperative, no acute distress, obese patient resting comfor tably in recliner - EENT Eyes: anicteric sclerae, EOMI, dentition normal, normal appearance ENT: NA/AT, normal oropharynx - Neck Neck: normal ROM - Respiratory Respiratory: bilateral: CTA, negative: diminished, dullness, rales, rhonchi, wheezing - Cardiovascular Rhythm: regular Heart sounds: normal: S1, S2 Abnormal Heart Sounds: no systolic murmur, no diastolic murmur, no rub, no S3 Gallop, no S4 Gallop, no click, no other - Gastrointestinal General gastrointestinal: normal bowel sounds, soft - Integumentary Integumentary: normal, normal turgor - Neurologic Neurologic: CNII-XII intact - Musculoskeletal Musculoskeletal: gait normal, strength equal bilaterally - Psychiatric Psychiatric: A&O x's 3, appropriate affect, intact judgment & insight - Labs CBC & Chem 7: 02/01/19 03:31 02/01/19 03:31 Labs: Abnormal Lab Results - Last 24 Hours (Table) 01/31/19 01/31/19 01/31/19 Range/Units 15:33 20:49 21:48 Plt Count (150-450) k/uL APTT (22.0-30.0) sec Chloride (98-107) mmol/L Carbon Dioxide (22-30) mmol/L BUN (9-20) mg/dL Creatinine (0.66-1.25) mg/dL Glucose (74-99) mg/dL POC Glucose (mg/dL) 125 H (75-99) mg/dL Troponin I 1.060 H* 1.210 H* (0.000-0.034) ng/mL Total Protein (6.3-8.2) g/dL Albumin (3.5-5.0) g/dL Urine Protein (Negative) 02/01/19 02/01/19 02/01/19 Range/Units 03:31 03:31 03:31 Plt Count 102 L (150-450) k/uL APTT 41.4 H (22.0-30.0) sec Chloride 115 H (98-107) mmol/L Carbon Dioxide 21 L (22-30) mmol/L BUN 44 H (9-20) mg/dL Creatinine 2.66 H (0.66-1.25) mg/dL Glucose 114 H (74-99) mg/dL POC Glucose (mg/dL) (75-99) mg/dL Troponin I (0.000-0.034) ng/mL Total Protein 6.2 L (6.3-8.2) g/dL Albumin 3.4 L (3.5-5.0) g/dL Urine Protein (Negative) 02/01/19 02/01/19 02/01/19 Range/Units 04:15 10:28 11:21 Plt Count (150-450) k/uL APTT 56.9 H (22.0-30.0) sec Chloride (98-107) mmol/L Carbon Dioxide (22-30) mmol/L BUN (9-20) mg/dL Creatinine (0.66-1.25) mg/dL Glucose (74-99) mg/dL POC Glucose (mg/dL) 114 H (75-99) mg/dL Troponin I (0.000-0.034) ng/mL Total Protein (6.3-8.2) g/dL Albumin (3.5-5.0) g/dL Urine Protein Trace H (Negative) Assessment and Plan Plan: 1. NSTEMI. Cardiology consult appreciated. Continue IV heparin. Patient is scheduled for heart catheterization tomorrow with Dr. BART Shen. Nephrology is following in preparation for heart cath. Continue aspirin 81 mg daily, Lipitor 20 mg daily, Coreg 25 mg twice daily, morphine as needed for pain, Nitrostat for chest pain. 2. History ischemic CVA. Hold eliquis will patient is on heparin drip. Continue aspirin 81 mg daily and Lipitor 20 mg at bedtime. 3. Spondylolithesis and left radiculopahy. Currently inactive exacerbation he is on gabapentin 300 mg twice a day no changes were made 4. CAD and ischemic cardiomyopathy S/P AICD placement. Continue as in #1 5. Hypertension and Hypertensive cardiovascular disease. Continue oreg 25 mg orally twice every day and amlodipine 10 mg daily. Lasix and losartan on hold. 6. Chronic Kidney disease stage 4. Appears to be stable. Consult with nephrology appreciated. Patient is on IV fluids and Lasix and losartan on hold. Monitor renal function daily 7. Secondary hyperparathyroidism. Stable. 8. Diabetes mellitus type 2. insulin 70/30 to 55 units breakfast 65 units bedtime units subcutaneously . 9. Hyperlipidemia. Continue statin. 10. 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 Currently eliquis 2.5 mg twice a day history of recurrent PE in the past. Eliquis is currently on hold. 11. BPH. Continue Flomax 0.4 mg orally once every day. 12. Hypothyroidism. Continue Synthroid 175 g orally once every day. 13. GERD. Continue Prilosec 20 mg orally once every day. 14. DVT prophylaxis. Currently eliquis renal dose mg 15. Factor V Leiden mutation, stable Discharge plan: Home most likely on Monday Impression and plan of care have been directed as dictated by the signing physician. Jalyn Mohamud nurse practitioner acting as scribe for signing physician.
[2019-02-01 16:23] LABS: Glucose,Whole Blood 309 mg/dL (75-99)
--- NOTE | 2019-02-01 17:34 | ECHOF ---
Referral Reason:CP MEASUREMENTS -------- HEIGHT: 182.9 cm WEIGHT: 102.1 kg BP: 146/71 RVIDd: 3.7 cm (< 3.3) IVSd: 1.6 cm (0.6 - 1.1) LVIDd: 5.1 cm (3.9 - 5.3) LVPWd: 1.3 cm (0.6 - 1.1) IVSs: 1.9 cm LVIDs: 5.1 cm LVPWs: 1.6 cm LA Diam: 4.6 cm (2.7 - 3.8) LAESV Index (A-L): 30.18 ml/m Ao Diam: 3.4 cm (2.0 - 3.7) AV Cusp: 2.3 cm (1.5 - 2.6) MV EXCURSION: 17.701 mm (> 18.000) MV EF SLOPE: 33 mm/s (70 - 150) EPSS: 1.6 cm MV E Ezekiel: 0.83 m/s MV DecT: 379 ms MV A Ezekiel: 0.96 m/s MV E/A Ratio: 0.87 RAP: 5.00 mmHg RVSP: 57.23 mmHg FINDINGS -------- Sinus rhythm. Pacerwire seen in RV and RA. This was a technically difficult study with suboptimal apical views. The left ventricular size is normal. There is severe concentric left ventricular hypertrophy. Ove rall left ventricular systolic function is moderate-severely impaired with, an EF between 30 - 35 %. Basal inferior LV wall motion is akinetic. Basal inferoseptal LV wall motion is akinetic. Mid inferior LV wall motion is akinetic. Apical inferior LV wall motion is akinetic. The right ventricle is mildly enlarged. LA is midly dilated 29-33ml/m2. The right atrium is normal in size. There is mild aortic valve sclerosis. Mild mitral annular calcification present. Moderate mitral regurgitation is present. [id number] tricuspid regurgitation present. There is moderate pulmonary hypertension. The r ight ventricular systolic pressure, as measured by Doppler, is 57.23mmHg. The pulmonic valve was not well visualized. There is no pulmonic regurgitation present. The aortic root size is normal. IVC Not well visulized. There is no pericardial effusion. CONCLUSIONS -------- 1. Sinus rhythm. 2. Pacerwire seen in RV and RA. 3. This was a technically difficult study with suboptimal apical views. 4. The left ventricular size is normal. 5. There is severe concentric left ventricular hypertrophy. 6. Overall left ventricular systolic function is moderate-severely impaired with, an EF between 30 - 35 %. 7. Basal inferior LV wall motion is akinetic. 8. Basal inferoseptal LV wall motion is akinetic. 9. Mid inferior LV wall motion is akinetic. 10. Apical inferior LV wall motion is akinetic. 11. The right ventricle is mildly enlarged. 12. LA is midly dilated 29-33ml/m2. 13. There is mild aortic valve sclerosis. 14. Mild mitral annular calcification present. 15. Moderate mitral regurgitation is present. 16. [id number] tricuspid regurgitation present. 17. There is moderate pulmonary hypertension. 18. The pulmonic valve was not well visualized. 19. The aortic root size is normal. 20. IVC Not well visulized. 21. There is no pericardial effusion. [employer] SET UP OPERATOR: Cathy Hernandez RDCS
[2019-02-01] MEDS: HEPARIN SOD,PORK IN 0.45% NACL 25,000 UNIT in 0.45% NACL 1 250ML.BAG IV SCH (21:10)
[2019-02-01] MEDS: DOXAZOSIN 2 MG TAB PO SCH (21:11)
[2019-02-01] MEDS: MONTELUKAST 10 MG TAB PO SCH (21:11)
[2019-02-01] MEDS: ATORVASTATIN 20 MG TAB PO SCH (21:11)
[2019-02-01 21:18] LABS: Glucose,Whole Blood 278 mg/dL (75-99)
[2019-02-01] MEDS ORDERED: GABAPENTIN 300 MG CAP PO STA (22:47)
[2019-02-01] MEDS ORDERED: INSULN ASP PRT/INSULIN ASPART 100 UNIT/ML 10 ML VIAL SQ ONE (22:48)
[2019-02-01 22:59] LABS: Glucose,Whole Blood 308 mg/dL (75-99)
[2019-02-02 06:13] LABS: Glucose,Whole Blood 218 mg/dL (75-99)
[2019-02-02] MEDS: LEVOTHYROXINE 75 MCG TAB PO SCH (06:40)
[2019-02-02] MEDS: CARVEDILOL 12.5 MG TAB PO SCH ×2 (06:40→17:20)
[2019-02-02] MEDS: PANTOPRAZOLE 40 MG TABLET PO SCH (06:40)
[2019-02-02] MEDS: INSULIN ASPART (NovoLOG) 100 UNIT/ML VIAL SQ SCH ×4 (06:40→21:27)
[2019-02-02] MEDS: INSULN ASP PRT/INSULIN ASPART 100 UNIT/ML 10 ML VIAL SQ SCH ×3 (06:44→17:22)
--- NOTE | 2019-02-02 07:44 | P.PN ---
Subjective This is 78-year-old gentleman patient of Dr. 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 Patient was seen in emergency room secondary to chest discomfort off and on 1 week, radiating to the left arm, and the neck, right substernal chest discomfort, without relief using 2 sublingual nitroglycerin, however he found out nitroglycerin was patient's pain has been progressive now occurring at rest, patient does not have any exertional chest pain especially when he walks in the flat ground, patient denies any palpitations no syncope, no melena no GC, patient has GERD symptoms, Prior history included carries a defibrillator for a low ejection fraction also with a nonsustained arrhythmia he mentions that this current pain is different from his previous OR his first one in required 2 angioplasties in 1991, CABG in 2008 four-vessel disease. he has dye contrast ALLERGY secondary to CK D stage IV . He is off his Plavix a year ago, last cardiac cath was April 2016 no recent stress test, maintained on 3liquis currently In the emergency room, troponin was at 0.8, creatinine 2.17, hemoglobin 14, patient is on eliquis, Nitropaste was started, patient was chest pain-free at my evaluation in the emergency room today, EKG shows atrial paced 81, dr sevilla and Cardiology is requested. 02/01: Patient denies having any chest pain or shortness of breath and did okay through the night. He has been urinating without problems. He has been seen by cardiology with plan for heart catheterization tomorrow. Patient has been afebrile, heart rate in the 60s, blood pressure 133/73, pulse ox 92% on room air. Repeat troponins have been 1.060 and 1.210. BUN is 44 and creatinine 2.66. Urinalysis showed trace protein. Renal ultrasound showed similar findings with possible hemangioma within the spleen. Postop changes within the bladder. Cortical medullary differentiation is maintained. No hydronephrosis bilaterally. Patient is followed by Dr. Sevilla for chronic kidney disease stage IV with baseline of 2.6. Plan to hold Cozaar and Lasix, maintain IV fluids for planned heart catheterization. 02/02: Vital signs remain stable, he is afebrile, heart rate running in the 60s, blood pressure 166/78, 94% on room air. Echocardiogram shows severe left ventricular hypertrophy, moderate to severely impaired left ventricular systolic function with an ejection fraction between 30-35%, LV wall motion is akinetic, moderate mitral regurgitation, moderate tricuspid regurgitation, moderate pulmonary hypertension. He continues on IV heparin and nitrates, plans for cardiac catheterization today. Objective - Vital Signs Vital signs: Vital Signs Temp 97.4 F L 02/02/19 04:00 Pulse 64 02/02/19 04:00 Resp 18 02/02/19 04:00 BP 166/78 02/02/19 04:00 Pulse Ox 98 02/02/19 04:00 Intake & Output 02/01/19 02/02/19 02/02/19 18:59 06:59 18:59 Intake Total 895.667 Output Total 1350 200 Balance -454.333 -200 Weight 101.4 kg Intake: Intake, IV Titration 175.667 Amount Heparin Sod,Pork in 0.45% 175.667 NaCl 25,000 unit In 0.45 % NaCl 1 250ml.bag @ 9. 798 UNITS/KG/HR 10 mls/hr IV .Q24H [facility] Rx#: [id number] Oral 720 Output: Urine 1350 200 Other: Voiding Method Toilet Toilet Urinal # Voids 2 1 - Constitutional General appearance: Present: average body habitus, cooperative, no acute distress - EENT Eyes: Present: EOMI, PERRLA, normal appearance ENT: Present: hearing grossly normal, normal oropharynx - Respiratory Respiratory: bilateral: CTA, negative: dullness, rales, rhonchi, wheezing - Cardiovascular Rhythm: regular Heart sounds: normal: S1, S2 - Gastrointestinal General gastrointestinal: Present: normal bowel sounds, soft. Absent: distended, organomegaly, splenomegaly, tenderness - Neurologic Neurologic: Present: CNII-XII intact. Absent: focal deficits - Musculoskeletal Musculoskeletal: Present: gait normal - Psychiatric Psychiatric: Present: A&O x's 3, appropriate affect, intact judgment & insight - Labs CBC & Chem 7: 02/02/19 06:52 02/03/19 06:09 Labs: Abnormal Lab Results - Last 24 Hours (Table) 02/01/19 02/01/19 02/01/19 Range/Units 04:15 10:28 11:21 APTT 56.9 H (22.0-30.0) sec POC Glucose (mg/dL) 114 H (75-99) mg/dL Urine Protein Trace H (Negative) 02/01/19 02/01/19 02/01/19 Range/Units 16:12 21:17 22:57 APTT (22.0-30.0) sec POC Glucose (mg/dL) 309 H 278 H 308 H (75-99) mg/dL Urine Protein (Negative) 02/02/19 Range/Units 06:12 APTT (22.0-30.0) sec POC Glucose (mg/dL) 218 H (75-99) mg/dL Urine Protein (Negative) Assessment and Plan Plan: 1. NSTEMI. Cardiology consult appreciated. Continue IV heparin. Patient is scheduled for heart catheterization tomorrow with Dr. BART Shen. Nephrology is following in preparation for heart catheterization. Continue aspirin 81 mg daily, Lipitor 20 mg daily, Coreg 25 mg twice daily, morphine as needed for pain, Nitrostat for chest pain. 2. History ischemic CVA. Hold eliquis will patient is on heparin drip. Continue aspirin 81 mg daily and Lipitor 20 mg at bedtime. 3. Spondylolithesis and left radiculopahy. Currently inactive exacerbation he is on gabapentin 300 mg twice a day no changes were made 4. CAD and ischemic cardiomyopathy S/P AICD placement. Continue as in #1 5. Hypertension and Hypertensive cardiovascular disease. Continue Coreg 25 mg orally twice every day and amlodipine 10 mg daily. Lasix and losartan on hold. 6. Chronic Kidney disease stage 4. Stable. Consult with nephrology appreciated. Patient is on IV fluids and Lasix and losartan on hold. Monitor renal function daily 7. Secondary hyperparathyroidism. Stable. 8. Diabetes mellitus type 2. Insulin 70/30 to 55 units breakfast 65 units bedtime units subcutaneously. 9. Hyperlipidemia. Continue statin. 10. 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 Homed medication of Eliquis 2.5 mg twice a day, history of recurrent PE in the past, Eliquis is currently on hold, on IV Heparin. 11. BPH. Continue Flomax 0.4 mg orally once every day. 12. Hypothyroidism. Continue Synthroid 175 g orally once every day. 13. GERD. Continue Prilosec 20 mg orally once every day. 14. DVT prophylaxis. Heparin 15. Factor V Leiden mutation, stable Discharge plan: Home most likely on Monday The above impression and plan of care have been discussed and directed by signing physician. Christine Pepe nurse practitioner acting as scribe for signing physician.
[2019-02-02] MEDS: ALBUTEROL NEBULIZED 2.5 MG/3 ML INHALATION SCH ×2 (08:01→20:37)
[2019-02-02 08:15] LABS: Basophils % (A) 0 %; Eosinophils % (A) 0 %; HCT 42.7 % (39.0-53.0); HGB 14.2 gm/dL (13.0-17.5); Lymphocytes # (A) 0.5 k/uL (1.0-4.8); Lymphocytes % (A) 6 %; MCH 31.1 pg (25.0-35.0); MCHC 33.3 g/dL (31.0-37.0); MCV 93.4 fL (80.0-100.0); Monocytes # (A) 0.2 k/uL (0-1.0); Monocytes % (A) 2 %; Neutrophils # (A) 7.4 k/uL (1.3-7.7); Neutrophils % (A) 92 %; RBC 4.57 m/uL (4.30-5.90); RDW 14.4 % (11.5-15.5)
[2019-02-02 08:18] LABS: Calcium 8.8 mg/dL (8.4-10.2)
[2019-02-02] MEDS: DOXERCALCIFEROL 0.5 MCG CAP PO SCH (08:56)
[2019-02-02] MEDS: ASPIRIN 81 MG PO SCH (08:56)
[2019-02-02] MEDS: diphenhydrAMINE ELIXIR 25 MG/10 ML CUP PO SCH ×2 (08:56→20:22)
[2019-02-02] MEDS: GABAPENTIN 300 MG CAP PO SCH ×2 (08:57→20:22)
[2019-02-02] MEDS: amLODIPine 10 MG TAB PO SCH (08:57)
[2019-02-02] MEDS: predniSONE 20 MG TAB PO SCH ×3 (08:57→20:22)
[2019-02-02 10:20] LABS: Platelet Count 85 k/uL (150-450)
[2019-02-02 11:57] LABS: Glucose,Whole Blood 238 mg/dL (75-99)
[2019-02-02] MEDS ORDERED: INSULN ASP PRT/INSULIN ASPART 100 UNIT/ML 10 ML VIAL SQ ONE (12:56)
[2019-02-02] MEDS: HEPARIN SOD,PORK IN 0.45% NACL 25,000 UNIT in 0.45% NACL 1 250ML.BAG IV SCH (13:16)
--- NOTE | 2019-02-02 15:29 | PN ---
PROGRESS NOTE Patient is seen for followup for chronic kidney disease. He was admitted with chest pain and scheduled for cardiac catheterization today. Renal function is fairly stable. Serum creatinine is at 2.24 today from 2.6; however, his baseline has been at 2.6 to 2.7. Patient did receive IV fluids for a short period of time yesterday and it has been restarted as he is scheduled for cath today. The angiotensin receptor blockers are currently on hold. PHYSICAL EXAMINATION: Blood pressure this morning 168/76, heart rate 64 per minute. He is afebrile. Examination of the heart, S1, S2. Examination of the lungs, bilateral breath sounds are heard. Abdomen is soft, nontender. Examination of the lower extremities shows no significant edema. CUBING MACHINE TENDER exam is grossly intact. LABS: Show sodium of 142, potassium 5.0, BUN 40, serum creatinine 2.24, hemoglobin 14.2. ASSESSMENT: 1. Chronic kidney disease, NKF stage IV secondary to nephrosclerosis. Renal function at baseline. Scheduled for cardiac cath today. 2. Chest pain with elevated troponins, being followed by Cardiology and scheduled for cardiac cath today. 3. CKD mineral bone disorder, maintained on Hectorol. 4. Type 2 diabetes. 5. Hypothyroidism. 6. Cardiomyopathy. PLAN: Continue to hold off on the Cozaar, hold Lasix. Gentle IV hydration, cautiously and repeat labs in a.m. MMODL / IJN: [id number] /
[2019-02-02 17:15] LABS: Glucose,Whole Blood 254 mg/dL (75-99)
[2019-02-02] MEDS: SODIUM CHLORIDE 0.9% 1,000 ML IV SCH (17:21)
--- NOTE | 2019-02-02 18:43 | PN ---
PROGRESS NOTE Mr. De La Torre is in sinus rhythm, comfortable. He has had a non-ST elevation CT. He has chronic kidney disease, diabetes, hypertension, ischemic cardiomyopathy with prior bypass surgery and ICD. I am recommending coronary angiography. We plan to do it today, but because of unexpected emergency, this was delayed and we will perform the cardiac cath with possible PCI tomorrow. His [place] circumflex was stented through the graft. This was in 2015. Vital signs stable. S1-S2 heard normally. Short systolic murmur noted. Lungs revealed decent air entry. Abdomen and lower extremity exam is unchanged. PLAN: Continue IV heparin and hydrate him tomorrow. We will obtain BMP and proceed with cardiac cath and possible PCI around 10:30 am. MMODL / IJN: [id number] /
[2019-02-02] MEDS: MONTELUKAST 10 MG TAB PO SCH (20:22)
[2019-02-02] MEDS: DOXAZOSIN 2 MG TAB PO SCH (20:22)
[2019-02-02] MEDS: ATORVASTATIN 20 MG TAB PO SCH (20:22)
[2019-02-02 21:25] LABS: Glucose,Whole Blood 240 mg/dL (75-99)
[2019-02-03] MEDS: ALBUTEROL NEBULIZED 2.5 MG/3 ML INHALATION PRN ×2 (03:37→12:26)
[2019-02-03 06:16] LABS: Glucose,Whole Blood 162 mg/dL (75-99)
[2019-02-03] MEDS: INSULN ASP PRT/INSULIN ASPART 100 UNIT/ML 10 ML VIAL SQ SCH ×2 (06:22→17:43)
[2019-02-03] MEDS: FLUTICASONE 50MCG/SPRAY NASAL 16GM EA NOSTRIL SCH (06:28)
[2019-02-03] MEDS: SODIUM CHLORIDE 0.9% 1,000 ML IV SCH (06:31)
[2019-02-03] MEDS: LEVOTHYROXINE 75 MCG TAB PO SCH (06:31)
[2019-02-03] MEDS: CARVEDILOL 12.5 MG TAB PO SCH ×2 (06:34→16:49)
[2019-02-03] MEDS: INSULIN ASPART (NovoLOG) 100 UNIT/ML VIAL SQ SCH ×4 (06:35→21:47)
[2019-02-03] MEDS: DOXERCALCIFEROL 0.5 MCG CAP PO SCH (06:35)
[2019-02-03] MEDS: diphenhydrAMINE ELIXIR 25 MG/10 ML CUP PO SCH (06:35)
[2019-02-03] MEDS: ASPIRIN 81 MG PO SCH (06:35)
[2019-02-03] MEDS: amLODIPine 10 MG TAB PO SCH (06:35)
[2019-02-03] MEDS: PANTOPRAZOLE 40 MG TABLET PO SCH (06:35)
[2019-02-03] MEDS: GABAPENTIN 300 MG CAP PO SCH ×2 (06:36→20:16)
[2019-02-03] MEDS: predniSONE 20 MG TAB PO SCH (06:36)
[2019-02-03] MEDS: ALBUTEROL NEBULIZED 2.5 MG/3 ML INHALATION SCH ×2 (07:18→20:20)
[2019-02-03 08:03] LABS: Calcium 8.9 mg/dL (8.4-10.2); Potassium 4.9 mmol/L (3.5-5.1)
[2019-02-03] MEDS ORDERED: FUROSEMIDE 10 MG/ML 4 ML VIAL IV STA ×3 (09:58→19:38)
[2019-02-03] MEDS ORDERED: SODIUM CHLORIDE 0.9% 1,000 ML IV SCH (10:00)
[2019-02-03] MEDS ORDERED: LIDOCAINE 1% INJ 10MG/ML (20 ML MDV) ONE (10:10)
[2019-02-03] MEDS ORDERED: IV FLUID CONTINUATION 1,000 ML IV ONE (10:22)
[2019-02-03] MEDS ORDERED: LIDOCAINE 1% INJ 10MG/ML (20 ML MDV) SQ ONE (10:56)
[2019-02-03] MEDS ORDERED: MIDAZOLAM 2 MG/2 ML VIAL IV ONE (10:58)
[2019-02-03] MEDS ORDERED: MORPHINE SULFATE 4 MG/ML SYRINGE ONE (11:01)
[2019-02-03] MEDS ORDERED: BIVALIRUDIN BOLUS 250 MG/50 ML IV ONE (11:25)
[2019-02-03] MEDS: MORPHINE SULFATE 4 MG/ML SYRINGE IV ONE ×2 (11:25→11:39)
[2019-02-03] MEDS ORDERED: BIVALIRUDIN 250 MG in SODIUM CHLORIDE 0.9% 50 ML IV ONE (11:26)
[2019-02-03] MEDS ORDERED: IOPAMIDOL-370 100ML BTL INJ ONE ×2 (11:30→11:32)
[2019-02-03] MEDS ORDERED: NITROGLYCERIN 1000MCG/10ML SYRINGE INTRACORON ONE (11:32)
[2019-02-03] MEDS: NITROGLYCERIN 1000MCG/10ML SYRINGE INTRACORON ONE ×2 (11:32→11:39)
[2019-02-03] MEDS ORDERED: CLOPIDOGREL 75 MG TAB ONE (11:37)
[2019-02-03] MEDS ORDERED: CLOPIDOGREL 75 MG TAB PO ONE (11:44)
--- NOTE | 2019-02-03 11:54 | PN ---
PROGRESS NOTE Mr. De La Torre is in sinus rhythm. This gentleman is going for a cardiac cath today. We hydrated him and appears to be somewhat volume overloaded. Dr. Reyes felt that he was volume overloaded. We will give him some Lasix 40 mg IV push. Vital signs stable, otherwise S1-S2 heard normally. Fine rales over both bases. Short systolic murmur noted. Abdomen and lower extremity exam unchanged. The patient is going to for a cardiac cath today. We will give him the IV contrast very cautiously. Prognosis remains guarded. The patient and family understand the rationale, risks, benefits, options and wished to proceed. MMODL / IJN: [id number] /
[2019-02-03] MEDS ORDERED: ZOLPIDEM 5 MG TAB PO PRN (11:56)
[2019-02-03] MEDS ORDERED: RX INFO: IV CONTRAST WAS GIVEN 1 EACH MISC MISCELLANE PRN (11:56)
[2019-02-03] MEDS ORDERED: MAG HYDROX/AL HYDROX/SIMETH 30 ML CUP PO PRN (11:56)
[2019-02-03] MEDS ORDERED: ATROPINE SULFATE 0.1 MG/ML 10ML SYRINGE IV PRN (11:56)
[2019-02-03] MEDS ORDERED: NITROGLYCERIN SL TABS 0.4 MG TAB SUBLINGUAL PRN (11:56)
[2019-02-03 12:12] LABS: Glucose,Whole Blood 191 mg/dL (75-99)
--- NOTE | 2019-02-03 12:17 | P.PN ---
Subjective This is 78-year-old gentleman patient of Dr. 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 Patient was seen in emergency room secondary to chest discomfort off and on 1 week, radiating to the left arm, and the neck, right substernal chest discomfort, without relief using 2 sublingual nitroglycerin, however he found out nitroglycerin was patient's pain has been progressive now occurring at rest, patient does not have any exertional chest pain especially when he walks in the flat ground, patient denies any palpitations no syncope, no melena no GC, patient has GERD symptoms, Prior history included carries a defibrillator for a low ejection fraction also with a nonsustained arrhythmia he mentions that this current pain is different from his previous MD his first one in required 2 angioplasties in 1991, CABG in 2008 four-vessel disease. he has dye contrast ALLERGY secondary to CK D stage IV . He is off his Plavix a year ago, last cardiac cath was April 2016 no recent stress test, maintained on 3liquis currently In the emergency room, troponin was at 0.8, creatinine 2.17, hemoglobin 14, patient is on eliquis, Nitropaste was started, patient was chest pain-free at my evaluation in the emergency room today, EKG shows atrial paced 81, dr sevilla and Cardiology is requested. 02/01: Patient denies having any chest pain or shortness of breath and did okay through the night. He has been urinating without problems. He has been seen by cardiology with plan for heart catheterization tomorrow. Patient has been afebrile, heart rate in the 60s, blood pressure 133/73, pulse ox 92% on room air. Repeat troponins have been 1.060 and 1.210. BUN is 44 and creatinine 2.66. Urinalysis showed trace protein. Renal ultrasound showed similar findings with possible hemangioma within the spleen. Postop changes within the bladder. Cortical medullary differentiation is maintained. No hydronephrosis bilaterally. Patient is followed by Dr. Sevilla for chronic kidney disease stage IV with baseline of 2.6. Plan to hold Cozaar and Lasix, maintain IV fluids for planned heart catheterization. 02/02: Vital signs remain stable, he is afebrile, heart rate running in the 60s, blood pressure 166/78, 94% on room air. Echocardiogram shows severe left ventricular hypertrophy, moderate to severely impaired left ventricular systolic function with an ejection fraction between 30-35%, LV wall motion is akinetic, moderate mitral regurgitation, moderate tricuspid regurgitation, moderate pulmonary hypertension. He continues on IV heparin and nitrates, plans for cardiac catheterization today. 02/03: Cardiac catheterization was delayed yesterday due to unexpected emergency. He is currently having procedure done now. Vital signs are stable he is afebrile, heart rate running in the 60s, blood pressure 156/74, 94% on 2 L nasal cannula. Creatinine 2.32, BUN 45. Objective - Vital Signs Vital signs: Vital Signs Temp 97.5 F L 02/03/19 03:59 Pulse 60 02/03/19 06:30 Resp 18 02/03/19 06:30 BP 156/74 02/03/19 06:30 Pulse Ox 94 L 02/03/19 06:30 Intake & Output 02/02/19 02/03/19 02/03/19 18:59 06:59 18:59 Intake Total 793.86 0 Output Total 300 400 Balance 493.86 -400 0 Weight 103.3 kg Intake: Intake, IV Titration 193.86 Amount Heparin Sod,Pork in 0.45% 193.86 NaCl 25,000 unit In 0.45 % NaCl 1 250ml.bag @ 9. 798 UNITS/KG/HR 10 mls/hr IV .Q24H [facility] Rx#: [id number] Oral 600 0 Output: Urine 300 400 Other: Voiding Method Toilet Urinal # Voids 1 - Exam - Constitutional General appearance: Present: average body habitus, cooperative, no acute distress - EENT Eyes: Present: EOMI, PERRLA, normal appearance ENT: Present: hearing grossly normal, normal oropharynx - Respiratory Respiratory: bilateral: CTA, negative: dullness, rales, rhonchi, wheezing - Cardiovascular Rhythm: regular Heart sounds: normal: S1, S2 - Gastrointestinal General gastrointestinal: Present: normal bowel sounds, soft. Absent: distended, organomegaly, splenomegaly, tenderness - Neurologic Neurologic: Present: CNII-XII intact. Absent: focal deficits - Musculoskeletal Musculoskeletal: Present: gait normal - Psychiatric Psychiatric: Present: A&O x's 3, appropriate affect, intact judgment & insight - Labs CBC & Chem 7: 02/02/19 06:52 02/03/19 06:09 Labs: Abnormal Lab Results - Last 24 Hours (Table) 02/02/19 02/02/19 02/02/19 Range/Units 06:52 11:55 16:49 Plt Count 85 L (150-450) k/uL Lymphocytes # 0.5 L (1.0-4.8) k/uL APTT (22.0-30.0) sec Chloride (98-107) mmol/L Carbon Dioxide (22-30) mmol/L BUN (9-20) mg/dL Creatinine (0.66-1.25) mg/dL Glucose (74-99) mg/dL POC Glucose (mg/dL) 238 H 254 H (75-99) mg/dL 02/02/19 02/03/19 02/03/19 Range/Units 21:24 06:09 06:14 Plt Count (150-450) k/uL Lymphocytes # (1.0-4.8) k/uL APTT (22.0-30.0) sec Chloride 119 H (98-107) mmol/L Carbon Dioxide 19 L (22-30) mmol/L BUN 45 H (9-20) mg/dL Creatinine 2.32 H (0.66-1.25) mg/dL Glucose 158 H (74-99) mg/dL POC Glucose (mg/dL) 240 H 162 H (75-99) mg/dL 02/03/19 Range/Units 07:27 Plt Count (150-450) k/uL Lymphocytes # (1.0-4.8) k/uL APTT 57.0 H (22.0-30.0) sec Chloride (98-107) mmol/L Carbon Dioxide (22-30) mmol/L BUN (9-20) mg/dL Creatinine (0.66-1.25) mg/dL Glucose (74-99) mg/dL POC Glucose (mg/dL) (75-99) mg/dL Assessment and Plan Plan: 1. NSTEMI. Cardiology consult appreciated. Continue IV heparin. Patient is scheduled for heart catheterization today with Dr. BART Shen. Nephrology is following in preparation for heart catheterization. Continue aspirin 81 mg daily, Lipitor 20 mg daily, Coreg 25 mg twice daily, morphine as needed for pain, Nitrostat for chest pain. 2. History ischemic CVA. Hold eliquis, patient is on heparin drip. Continue aspirin 81 mg daily and Lipitor 20 mg at bedtime. 3. Spondylolithesis and left radiculopahy. Currently inactive exacerbation he is on gabapentin 300 mg twice a day no changes were made 4. CAD and ischemic cardiomyopathy S/P AICD placement. Continue as in #1 5. Hypertension and Hypertensive cardiovascular disease. Continue Coreg 25 mg orally twice every day and amlodipine 10 mg daily. Lasix and losartan on hold. 6. Chronic Kidney disease stage 4. Stable. Consult with nephrology appreciated. Patient is on IV fluids and Lasix and losartan on hold. Monitor renal function daily 7. Secondary hyperparathyroidism. Stable. 8. Diabetes mellitus type 2. Insulin 70/30 to 55 units breakfast 65 units bedtime units subcutaneously. 9. Hyperlipidemia. Continue statin. 10. 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 Homed medication of Eliquis 2.5 mg twice a day, history of recurrent PE in the past, Eliquis is currently on hold, on IV Heparin. 11. BPH. Continue Flomax 0.4 mg orally once every day. 12. Hypothyroidism. Continue Synthroid 175 g orally once every day. 13. GERD. Continue Prilosec 20 mg orally once every day. 14. DVT prophylaxis. Heparin 15. Factor V Leiden mutation, stable Discharge plan: Home most likely on Monday The above impression and plan of care have been discussed and directed by signing physician. Christine Pepe nurse practitioner acting as scribe for signing physician.
--- NOTE | 2019-02-03 14:30 | PN ---
PROGRESS NOTE Patient is seen for followup for chronic kidney disease. He is scheduled for cardiac catheterization today. The patient did not have the procedure yesterday. He is maintained on IV fluids. This morning he is complaining of mild shortness of breath. PHYSICAL EXAMINATION: Blood pressure was 156/74, heart rate 60 per minute. He is afebrile. Examination of the heart S1, S2. Examination of the lungs, decreased breath sounds bases. Abdomen is soft, nontender. There are bilateral basal crackles heard on examination of lungs. Examination lower extremity shows trace edema. SODA FLAKER exam is grossly intact. LABS: Show sodium 145, potassium 4.9, BUN 45, serum creatinine 2.32. ASSESSMENT: 1. Chronic kidney disease NKF stage IV, renal function fairly stable. 2. Acute non ST elevation myocardial infarction. Scheduled for cardiac catheterization today. 3. Mild volume overload. 4. Hypertension, currently controlled. 5. Cardiomyopathy, ejection fraction of 30-35 percent. PLAN: IV Lasix x1. Decrease IV fluids to 50 mL an hour and DC IV fluids about 4 hours after the catheterization. Repeat labs in a.m. Continue to avoid nephrotoxic agents. Avoid hypotension. MMODL / IJN: [id number] /
[2019-02-03 14:47] VITALS: BMI 30.9
--- NOTE | 2019-02-03 15:21 | CC ---
CARDIAC CATHETERIZATION REPORT CATHETERIZATION AND PCI OF VEIN GRAFT TO CIRCUMFLEX MARGINAL CORONARY ARTERY: PROCEDURE: 1. Left heart catheterization, coronary angiography and selective injection of bypass graft. 2. PTCA and stenting of a vein graft to the obtuse marginal branch of circumflex with a drug-eluting stent. PERFORMED BY: Dr. Sophia Shen. Moderate conscious sedation time was 50 minutes. Patient was administered a combination of Versed and morphine. His oxygen saturation, hemodynamics and EKG were monitored closely. CLINICAL INFORMATION: Mr. Perry De La Torre is a 78-year-old gentleman with a known history of CAD, type 2 diabetes, hypertension, hyperlipidemia, advanced renal failure secondary to diabetes. I performed multiple interventions of his various coronary arteries and this was starting way back in 1991. However, in 2008, he had aortocoronary bypass surgery with a SANCHEZ to LAD. The vein graft was placed to the 2 branches of the RCA and this was a jump graft with 2 anastomosis, one to the PDA and one to the PLV branches. Another vein graft was placed to the obtuse marginal branch of circumflex. He also had a SANCHEZ to LAD. However, in April of 2016 I performed stenting of the insertion site of the obtuse marginal graft and also the proximal portion of the obtuse marginal graft as well. In 2018 he came back with disease involving the obtuse marginal branch beyond insertion site. I had difficulty with guide support and I transferred him [place] [facility] [place] and there he had a stent placed to the obtuse marginal branch of circumflex beyond the insertion site. Since then he has done well, but he comes into the hospital with complaints of chest pain, had a troponin elevation suggestive of non-ST elevation KS. His creatinine is about 2.6. He also has ischemic cardiomyopathy with ejection fraction in the range of 30% to 35% with inferior wall hypokinesia. Because of his symptoms of chest pain and unstable angina and non ST elevation KS and known CAD, I recommended coronary angiography after adequate hydration and due discussion with Nephrology. The rationale, risks, benefits, options were explained to the patient. The patient and understood all details and wished to proceed with the procedure. PROCEDURE NOTE: Under local anesthesia and strict aseptic precautions, a 6-Sinhala introducer was placed in the right femoral artery. Using a standard left Iain catheter I performed selective coronary angiography of the left coronary artery and using a Dorothea catheter I performed selective coronary angiography of the [place] RCA, SANCHEZ as well as the vein graft to the 2 branches of RCA. An AR2 catheter was used to perform selective coronary angiography of the circumflex graft. A pigtail catheter was used to check LV pressure but LV gram was not performed. CATH FINDINGS: 1. This patient has a total occlusion of the left main coronary artery and RCA is totally occluded in the mid portion after an acute marginal branch. These findings are not new and these were also seen in April and July of 2016. 2. SAPHENOUS VEIN GRAFT TO THE RCA: This is a jump graft to 2 branches of RCA. The PDA and PLV branches have anastomosis from the same vein graft. Both the vein graft as well as the distal anastomotic sites are patent, but beyond insertion site, both the PDA and PLV have about a 50% to 55% blockage unchanged from 2016. 3. SAPHENOUS VEIN GRAFT TO THE OBTUSE MARGINAL BRANCH OF CIRCUMFLEX: This graft is widely patent at its origin, course and insertion site. The opacified obtuse marginal branch is also widely patent with good flow. However, just before the insertion site there is a 90% stenosis calcified and best seen in the AP cranial projection. This appears to be the culprit lesion. 4. LEFT INTERNAL MAMMARY ARTERY GRAFT TO LAD: This graft is widely patent at its origin, course and insertion site and opacified LAD has minor irregularities. No significant disease noted. FINAL IMPRESSION: This patient has a 95% stenosis involving the vein graft to the obtuse marginal in the body just before the insertion site. The vein graft to the RCA is patent with moderate disease in the branches of both PDA and PLV of RCA. The left main is totally occluded. RCA is totally occluded. SANCHEZ to LAD is patent and filling pressures are elevated at 21 mmHg. A pigtail catheter was used to check LV pressure, but LV gram was not performed and there was no gradient across aortic valve. PCI PROCEDURE DETAILS: I used a left coronary bypass guide catheter to cannulate the vein graft to the obtuse marginal branch of circumflex. A run-through wire was used to cross the lesion. Without predilatation I performed stenting of the body of the vein graft using a 3.5 caliber 12 mm long Xience stent. There was some difficulty and I had to deep throughout the guide catheter. Excellent angiographic result was achieved. Patient did not have any chest pain or new EKG changes. Excellent angiographic result without complication was achieved. The sheath was then taken out and I used a Perclose device to secure hemostasis. Because of some oozing FemoStop was applied. Patient tolerated procedure well without complication. He received Angiomax bolus and infusion and also received 600 mg of Plavix orally. Excellent angiographic result without complication was achieved. Results were discussed with the patient and family and I expect he will be discharged the next 24-48 hours. He was sent to the room in a stable condition. MMODL / IJN: [id number] /
[2019-02-03 16:38] LABS: Glucose,Whole Blood 246 mg/dL (75-99)
[2019-02-03] MEDS: MONTELUKAST 10 MG TAB PO SCH (20:16)
[2019-02-03] MEDS: DOXAZOSIN 2 MG TAB PO SCH (20:16)
[2019-02-03] MEDS: ATORVASTATIN 40 MG TAB PO SCH (20:16)
[2019-02-03 20:45] LABS: Glucose,Whole Blood 238 mg/dL (75-99)
[2019-02-04 05:51] LABS: Glucose,Whole Blood 107 mg/dL (75-99)
[2019-02-04] MEDS: CARVEDILOL 12.5 MG TAB PO SCH ×2 (06:43→17:46)
[2019-02-04] MEDS: LEVOTHYROXINE 75 MCG TAB PO SCH (06:43)
[2019-02-04] MEDS: INSULN ASP PRT/INSULIN ASPART 100 UNIT/ML 10 ML VIAL SQ SCH ×2 (06:45→17:46)
[2019-02-04] MEDS: INSULIN ASPART (NovoLOG) 100 UNIT/ML VIAL SQ SCH ×3 (06:48→16:45)
[2019-02-04] MEDS: PANTOPRAZOLE 40 MG TABLET PO SCH (06:51)
[2019-02-04 07:03] LABS: Basophils % (A) 0 %; Eosinophils # (A) 0.1 k/uL (0-0.7); Eosinophils % (A) 1 %; HCT 46.6 % (39.0-53.0); HGB 15.1 gm/dL (13.0-17.5); Lymphocytes # (A) 0.7 k/uL (1.0-4.8); Lymphocytes % (A) 5 %; MCH 30.3 pg (25.0-35.0); MCHC 32.3 g/dL (31.0-37.0); MCV 93.8 fL (80.0-100.0); Mean Platelet Volume 7.9; Monocytes # (A) 0.8 k/uL (0-1.0); Monocytes % (A) 7 %; Neutrophils # (A) 10.9 k/uL (1.3-7.7); Neutrophils % (A) 86 %; Platelet Count 102 k/uL (150-450); RBC 4.98 m/uL (4.30-5.90); RDW 14.5 % (11.5-15.5); WBC 12.6 k/uL (3.8-10.6)
[2019-02-04 07:19] LABS: Calcium 9.3 mg/dL (8.4-10.2); Potassium 4.5 mmol/L (3.5-5.1)
[2019-02-04] MEDS: ALBUTEROL NEBULIZED 2.5 MG/3 ML INHALATION SCH ×2 (08:39→20:25)
[2019-02-04] MEDS: FLUTICASONE 50MCG/SPRAY NASAL 16GM EA NOSTRIL SCH (09:09)
[2019-02-04] MEDS: GABAPENTIN 300 MG CAP PO SCH ×2 (09:09→20:02)
[2019-02-04] MEDS: amLODIPine 10 MG TAB PO SCH (09:09)
[2019-02-04] MEDS: CLOPIDOGREL 75 MG TAB PO SCH (09:09)
[2019-02-04] MEDS: FUROSEMIDE 40 MG TAB PO SCH (09:09)
[2019-02-04] MEDS: APIXABAN 2.5 MG TABLET PO SCH ×2 (09:09→20:02)
[2019-02-04] MEDS: ASPIRIN 81 MG PO SCH (09:09)
--- NOTE | 2019-02-04 09:16 | P.PN ---
Subjective Patient is seen in follow-up for acute kidney injury on chronic kidney disease. 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 Renal function is worsened with creatinine at 2.77 today. Patient underwent cardiac catheterization on February 03 and had a stent placed to the circumflex. He denies any chest pain or shortness of breath. He does of systolic CHF with ejection fraction of 30-35%. Good urine output. No vomiting or diarrhea. Vital signs are stable. General: The patient appeared well nourished and normally developed. HEENT: Head exam is unremarkable. Neck is without jugular venous distension. LUNGS: Lungs are clear to auscultation and percussion. Breath sounds decreased. HEART: Rate and Rhythm are regular. First and second heart sounds normal. No murmurs, rubs or gallops. ABDOMEN: Abdominal exam reveals normal bowel sounds. Non-tender and non- distended. No evidence of peritonitis. EXTREMITITES: No clubbing, cyanosis, or edema. Objective - Vital Signs Vital signs: Vital Signs Temp 98.5 F 02/04/19 07:39 Pulse 76 02/04/19 08:52 Resp 18 02/04/19 07:39 BP 168/78 02/04/19 07:39 Pulse Ox 93 L 02/04/19 07:39 Intake & Output 02/03/19 02/04/19 02/04/19 18:59 06:59 18:59 Intake Total 612.65 Output Total 1450 2750 Balance -837.35 -2750 Weight 103.3 kg 99.7 kg Intake: IV 132.65 Oral 480 Output: Urine 1450 2750 - Labs CBC & Chem 7: 02/04/19 06:14 02/04/19 06:14 Labs: Abnormal Lab Results - Last 24 Hours (Table) 02/03/19 02/03/19 02/03/19 Range/Units 12:09 16:36 20:44 WBC (3.8-10.6) k/uL Plt Count (150-450) k/uL Neutrophils # (1.3-7.7) k/uL Lymphocytes # (1.0-4.8) k/uL Sodium (137-145) mmol/L Chloride (98-107) mmol/L Carbon Dioxide (22-30) mmol/L BUN (9-20) mg/dL Creatinine (0.66-1.25) mg/dL POC Glucose (mg/dL) 191 H 246 H 238 H (75-99) mg/dL 02/04/19 02/04/19 02/04/19 Range/Units 05:50 06:14 06:14 WBC 12.6 H (3.8-10.6) k/uL Plt Count 102 L (150-450) k/uL Neutrophils # 10.9 H (1.3-7.7) k/uL Lymphocytes # 0.7 L (1.0-4.8) k/uL Sodium 146 H (137-145) mmol/L Chloride 113 H (98-107) mmol/L Carbon Dioxide 21 L (22-30) mmol/L BUN 58 H (9-20) mg/dL Creatinine 2.77 H (0.66-1.25) mg/dL POC Glucose (mg/dL) 107 H (75-99) mg/dL Assessment and Plan Plan: Assessment: 1. Acute kidney injury secondary to ATN secondary to contrast-induced nep hropathy as well as cardiorenal syndrome. Creatinine 2.77 today. 2. Chronic kidney disease stage IV secondary to diabetic kidney disease with baseline creatinine near 2. 3. Non-ST elevated myocardial infarction status post cardiac catheterization and stent placement to the circumflex on February 03. 4. Systolic CHF with ejection fraction of 30-35%. 5. Insulin-dependent diabetes mellitus. 6. Mild hypernatremia secondary to free water deficit from lack of oral water intake. 7. Mild metabolic acidosis secondary to acute kidney injury. 8. Hypertension with chronic kidney disease. Plan: Lasix 40 mg once daily was started this morning and can be continued. IV fluids have been discontinued. Avoid nephrotoxins. Continue to monitor renal function and urine output.
--- NOTE | 2019-02-04 10:28 | PN ---
PROGRESS NOTE Mr. De La Torre developed congestive heart failure yesterday after some hydration. He received additional Lasix this morning. He is resting comfortably. Breathing easier. Denies any chest pain. Right femoral cath site is clean and dry. Pulse is good. S1, S2 heard normally. Short systolic murmur noted. Lungs reveal improved air entry. Abdomen is soft. Lower extremities reveal diminished pulses. No edema. Plan is to switch him from IV to oral Lasix, increase activity and see how he does. His creatinine has gone up a little and we will continue to monitor this very closely. The patient underwent stenting of a vein graft to the obtuse marginal in the distal portion of the body of the graft with excellent result. Plan is to continue current medications including Eliquis which I will resume at 2.5 mg b.i.d. and aspirin and Plavix also will be continued. MMOSKARL / ARTUR: [id number] /
[2019-02-04 11:09] LABS: Glucose,Whole Blood 196 mg/dL (75-99)
--- NOTE | 2019-02-04 12:27 | P.PN ---
Subjective Progress Note Date: 02/04/19 This is 78-year-old gentleman patient of Dr. 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 Patient was seen in emergency room secondary to chest discomfort off and on 1 week, radiating to the left arm, and the neck, right substernal chest discomfort, without relief using 2 sublingual nitroglycerin, however he found out nitroglycerin was patient's pain has been progressive now occurring at rest, patient does not have any exertional chest pain especially when he walks in the flat ground, patient denies any palpitations no syncope, no melena no GC, patient has GERD symptoms, Prior history included carries a defibrillator for a low ejection fraction also with a nonsustained arrhythmia he mentions that this current pain is different from his previous [place] his first one in required 2 angioplasties in 1991, CABG in 2008 four-vessel disease. he has dye contrast ALLERGY secondary to CK D stage IV . He is off his Plavix a year ago, last cardiac cath was April 2016 no recent stress test, maintained on 3liquis currently In the emergency room, troponin was at 0.8, creatinine 2.17, hemoglobin 14, patient is on eliquis, Nitropaste was started, patient was chest pain-free at my evaluation in the emergency room today, EKG shows atrial paced 81, dr sevilla and Cardiology is requested. 02/01: Patient denies having any chest pain or shortness of breath and did okay through the night. He has been urinating without problems. He has been seen by cardiology with plan for heart catheterization tomorrow. Patient has been afebrile, heart rate in the 60s, blood pressure 133/73, pulse ox 92% on room air. Repeat troponins have been 1.060 and 1.210. BUN is 44 and creatinine 2.66. Urinalysis showed trace protein. Renal ultrasound showed similar findings with possible hemangioma within the spleen. Postop changes within the bladder. Cortical medullary differentiation is maintained. No hydronephrosis bilaterally. Patient is followed by Dr. Sevilla for chronic kidney disease stage IV with baseline of 2.6. Plan to hold Cozaar and Lasix, maintain IV fluids for planned heart catheterization. 02/02: Vital signs remain stable, he is afebrile, heart rate running in the 60s, blood pressure 166/78, 94% on room air. Echocardiogram shows severe left ventricular hypertrophy, moderate to severely impaired left ventricular systolic function with an ejection fraction between 30-35%, LV wall motion is akinetic, moderate mitral regurgitation, moderate tricuspid regurgitation, moderate pulmonary hypertension. He continues on IV heparin and nitrates, plans for cardiac catheterization today. 02/03: Cardiac catheterization was delayed yesterday due to unexpected emergency. He is currently having procedure done now. Vital signs are stable he is afebrile, heart rate running in the 60s, blood pressure 156/74, 94% on 2 L nasal cannula. Creatinine 2.32, BUN 45. 02/04: Patient underwent heart catheterization yesterday and PTCA and stenting of the vein graft to the obtuse marginal at the distal portion. He has been continued on eliquis at 2.5 mg twice daily, aspirin and Plavix. He has been afebrile, pulse ox 91% on 5 L, blood pressure 138/72, heart rate in the 70s and 80s. WBC 12.6, hemoglobin 15.1, platelet count 102. Sodium 146, potassium 4.5, chloride 113, CO2 21, BUN 58, creatinine 2.77. Capillary blood glucose running between 107-38. ProBNP this morning is 10,800. Dr. Lui recommends Lasix 40 mg daily starting this morning, DC IV fluids, avoid nephrotoxic agents and monitor urine output and renal function. Plan is to monitor overnight and discharged tomorrow. Review of Systems Constitutional: Denies anorexia, Denies chills, Denies chronic headaches, Denies chronic pain, Denies daytime sleepiness, Denies fatigue, Denies fever, Denies lethargy, Denies malaise, Denies night sweats, Denies poor appetite, Denies sweats, Denies weakness, Denies weight gain, Denies weight loss Ears, nose, mouth and throat: Denies ant. neck pain, Denies bleeding gums, Denies dental pain, Denies dysphagia, Denies epistaxis, Denies headache, Denies hoarseness, Denies mouth pain, Denies nasal congestion, Denies nasal discharge, Denies neck fullness/pressure, Denies neck lump, Denies nose pain, Denies odynophagia, Denies post-nasal drip, Denies sinus pain, Denies sinus pressure, Denies swelling in mouth, Denies swelling in throat, Denies sore throat, Denies vertigo, Denies voice changes Cardiovascular: denies chest pain, Denies claudication, Denies decreased exercise tolerance, Denies dyspnea on exertion, Denies edema, Denies high blood pressure, Denies irregular heart beat, Denies leg edema, Denies lightheadedness, Denies orthopnea, Denies palpitations, Denies paroxysmal nocturnal dyspnea, Denies phlebitis, Denies rapid heart beat, Denies shortness of breath, Denies syncope Respiratory: Denies shortness of breath, denies cough, denies sputum production, denies hemoptysis Gastrointestinal: Denies nausea, denies vomiting, denies diarrhea, denies abdominal pain, denies abdominal pain. Genitourinary: Reports as per HPI, Denies decreased libido, Denies difficulties fathering child, Denies discharge, Denies dysuria, Denies erectile dysfunction, Denies flank pain, Denies genital pain, Denies genital sores, Denies hematuria, Denies impotence, Denies incontinence, Denies kidney stones, Denies nocturia, Denies polyuria, Denies testicular lump, Denies testicular pain, Denies urinary frequency, Denies urinary hesitancy, Denies urinary retention Musculoskeletal: No weakness, denies numbness Integumentary: Denies wounds, denies rash Neurological: Denies confusion, denies aphasia, denies seizure activity Objective - Vital Signs Vital signs: Vital Signs Temp 98.8 F 02/04/19 11:50 Pulse 66 02/04/19 11:50 Resp 16 02/04/19 11:50 BP 138/72 02/04/19 11:50 Pulse Ox 88 L 02/04/19 11:50 Intake & Output 02/03/19 02/04/19 02/04/19 18:59 06:59 18:59 Intake Total 612.65 Output Total 1450 2750 Balance -837.35 -2750 Weight 103.3 kg 99.7 kg Intake: IV 132.65 Oral 480 Output: Urine 1450 2750 - Exam General appearance: cooperative, no acute distress, obese patient resting comfortably in bed - EENT Eyes: anicteric sclerae, EOMI, dentition normal, normal appearance ENT: NA/AT, normal oropharynx - Neck Neck: normal ROM - Respiratory Respiratory: bilateral: CTA, negative: diminished, dullness, rales, rhonchi, wheezing - Cardiovascular Rhythm: regular Heart sounds: normal: S1, S2 Abnormal Heart Sounds: no systolic murmur, no diastolic murmur, no rub, no S3 Gallop, no S4 Gallop, no click, no other - Gastrointestinal General gastrointestinal: normal bowel sounds, soft - Integumentary Integumentary: normal, normal turgor - Neurologic Neurologic: CNII-XII intact - Musculoskeletal Musculoskeletal: gait normal, strength equal bilaterally - Psychiatric Psychiatric: A&O x's 3, appropriate affect, intact judgment & insight - Labs CBC & Chem 7: 02/04/19 06:14 02/04/19 06:14 Labs: Abnormal Lab Results - Last 24 Hours (Table) 02/03/19 02/03/19 02/04/19 Range/Units 16:36 20:44 05:50 WBC (3.8-10.6) k/uL Plt Count (150-450) k/uL Neutrophils # (1.3-7.7) k/uL Lymphocytes # (1.0-4.8) k/uL Sodium (137-145) mmol/L Chloride (98-107) mmol/L Carbon Dioxide (22-30) mmol/L BUN (9-20) mg/dL Creatinine (0.66-1.25) mg/dL POC Glucose (mg/dL) 246 H 238 H 107 H (75-99) mg/dL 02/04/19 02/04/19 02/04/19 Range/Units 06:14 06:14 11:07 WBC 12.6 H (3.8-10.6) k/uL Plt Count 102 L (150-450) k/uL Neutrophils # 10.9 H (1.3-7.7) k/uL Lymphocytes # 0.7 L (1.0-4.8) k/uL Sodium 146 H (137-145) mmol/L Chloride 113 H (98-107) mmol/L Carbon Dioxide 21 L (22-30) mmol/L BUN 58 H (9-20) mg/dL Creatinine 2.77 H (0.66-1.25) mg/dL POC Glucose (mg/dL) 196 H (75-99) mg/dL Assessment and Plan Plan: 1. NSTEMI. Cardiology consult appreciated. Status post heart catheterization and PTCA and stent. Nephrology is following in preparation for heart cath. Continue aspirin 81 mg daily, eliquis 2.5 mg twice daily and Plavix 75 mg daily, Lipitor 40 mg daily, Coreg 25 mg twice daily. 2. History ischemic CVA. Hold eliquis will patient is on heparin drip. Continue aspirin 81 mg daily and Lipitor 20 mg at bedtime. 3. Spondylolithesis and left radiculopahy. Currently inactive exacerbation he is on gabapentin 300 mg twice a day no changes were made 4. CAD and ischemic cardiomyopathy S/P AICD placement. Continue as in #1 5. Hypertension and Hypertensive cardiovascular disease. Continue Coreg 25 mg orally twice every day and amlodipine 10 mg daily. Lasix at 40 mg daily and losartan on hold. 6. Chronic Kidney disease stage 4. Appears to be stable. Consult with nephrology appreciated. IV fluids discontinued and resume 40 mg oral daily of Lasix and losartan on hold. Monitor renal function daily 7. Secondary hyperparathyroidism. Stable. 8. Diabetes mellitus type 2. insulin 70/30 to 65 units breakfast 75 units bedtime units subcutaneously . 9. Hyperlipidemia. Continue statin. 10. 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 Currently eliquis 2.5 mg twice a day history of recurrent PE in the past. Eliquis is currently on hold. 11. BPH. Continue Flomax 0.4 mg orally once every day. 12. Hypothyroidism. Continue Synthroid 175 g orally once every day. 13. GERD. Continue Prilosec 20 mg orally once every day. 14. DVT prophylaxis. Currently eliquis renal dose mg Discharge plan: Home on Monday Impression and plan of care have been directed as dictated by the signing phys jevon. Jalyn Mohamud nurse practitioner acting as scribe for signing physician.
[2019-02-04 16:35] LABS: Glucose,Whole Blood 210 mg/dL (75-99)
[2019-02-04] MEDS: ATORVASTATIN 40 MG TAB PO SCH (20:02)
[2019-02-04] MEDS: DOXAZOSIN 2 MG TAB PO SCH (20:02)
[2019-02-04] MEDS: MONTELUKAST 10 MG TAB PO SCH (20:03)
[2019-02-04 20:29] LABS: Glucose,Whole Blood 163 mg/dL (75-99)
[2019-02-05] MEDS: INSULIN ASPART (NovoLOG) 100 UNIT/ML VIAL SQ SCH ×3 (00:11→11:47)
[2019-02-05 06:23] LABS: Glucose,Whole Blood 74 mg/dL (75-99)
[2019-02-05] MEDS: CARVEDILOL 12.5 MG TAB PO SCH (06:48)
[2019-02-05] MEDS: LEVOTHYROXINE 75 MCG TAB PO SCH (06:48)
[2019-02-05] MEDS: PANTOPRAZOLE 40 MG TABLET PO SCH (06:52)
[2019-02-05 06:57] LABS: Calcium 8.6 mg/dL (8.4-10.2); Magnesium 2.3 mg/dL (1.6-2.3)
[2019-02-05 07:35] VITALS: RESP 16; TEMP 98.4
[2019-02-05] MEDS: INSULN ASP PRT/INSULIN ASPART 100 UNIT/ML 10 ML VIAL SQ SCH (07:38)
[2019-02-05] MEDS: ALBUTEROL NEBULIZED 2.5 MG/3 ML INHALATION SCH (08:26)
[2019-02-05] MEDS: GABAPENTIN 300 MG CAP PO SCH (09:10)
[2019-02-05] MEDS: APIXABAN 2.5 MG TABLET PO SCH (09:10)
[2019-02-05] MEDS: amLODIPine 10 MG TAB PO SCH (09:10)
[2019-02-05] MEDS: CLOPIDOGREL 75 MG TAB PO SCH (09:10)
[2019-02-05] MEDS: FUROSEMIDE 40 MG TAB PO SCH (09:10)
[2019-02-05] MEDS: ASPIRIN 81 MG PO SCH (09:11)
[2019-02-05] MEDS: FLUTICASONE 50MCG/SPRAY NASAL 16GM EA NOSTRIL SCH (09:11)
--- NOTE | 2019-02-05 10:41 | P.PN ---
Subjective Patient is seen in follow-up for acute kidney injury on chronic kidney disease. 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 Renal function worsened with creatinine peaking at 2.77 this admission - 2.49 today. Patient underwent cardiac catheterization on February 03 and had a stent placed to the circumflex. He denies any chest pain or shortness of breath. He does of systolic CHF with ejection fraction of 30-35%. Good urine output. No vomiting or diarrhea. Vital signs are stable. General: The patient appeared well nourished and normally developed. HEENT: Head exam is unremarkable. Neck is without jugular venous distension. LUNGS: Lungs are clear to auscultation and percussion. Breath sounds decreased. HEART: Rate and Rhythm are regular. First and second heart sounds normal. No murmurs, rubs or gallops. ABDOMEN: Abdominal exam reveals normal bowel sounds. Non-tender and non- distended. No evidence of peritonitis. EXTREMITITES: No clubbing, cyanosis, or edema. Objective - Vital Signs Vital signs: Vital Signs Temp 98.4 F 02/05/19 07:31 Pulse 72 02/05/19 08:42 Resp 16 02/05/19 07:35 BP 154/70 02/05/19 07:31 Pulse Ox 92 L 02/05/19 07:35 Intake & Output 02/04/19 02/05/19 02/05/19 18:59 06:59 18:59 Intake Total 462 240 Output Total 600 2400 Balance -138 -2400 240 Weight 99 kg Intake: Oral 462 240 Output: Urine 600 2400 Other: # Voids 1 - Labs CBC & Chem 7: 02/04/19 06:14 02/05/19 06:04 Labs: Abnormal Lab Results - Last 24 Hours (Table) 02/04/19 02/04/19 02/04/19 Range/Units 11:07 16:32 20:27 Chloride (98-107) mmol/L BUN (9-20) mg/dL Creatinine (0.66-1.25) mg/dL Glucose (74-99) mg/dL POC Glucose (mg/dL) 196 H 210 H 163 H (75-99) mg/dL 02/05/19 02/05/19 Range/Units 06:04 06:22 Chloride 112 H (98-107) mmol/L BUN 49 H (9-20) mg/dL Creatinine 2.49 H (0.66-1.25) mg/dL Glucose 65 L (74-99) mg/dL POC Glucose (mg/dL) 74 L (75-99) mg/dL Assessment and Plan Plan: Assessment: 1. Acute kidney injury secondary to ATN secondary to contrast-induced nephropathy as well as cardiorenal syndrome. Creatinine peaked at 2.77 this admission and is down to 2.49 today. 2. Chronic kidney disease stage IV secondary to diabetic kidney disease with baseline creatinine near 2. 3. Non-ST elevated myocardial infarction status post cardiac catheterization and stent placement to the circumflex on February 03. 4. Systolic CHF with ejection fraction of 30-35%. 5. Insulin-dependent diabetes mellitus. 6. Mild hypernatremia secondary to free water deficit from lack of oral water intake. Better. 7. Mild metabolic acidosis secondary to acute kidney injury. Better. 8. Hypertension with chronic kidney disease. Plan: Maintain Lasix 40 mg once daily. Stable to be discharged home from nephrology standpoint. Follow up outpatient in the next 1-2 weeks.
[2019-02-05 11:41] LABS: Glucose,Whole Blood 124 mg/dL (75-99)
[2019-02-05] MEDS: DOXERCALCIFEROL 0.5 MCG CAP PO SCH (11:45)
[2019-02-05 11:52] VITALS: BP 162/72; PULSE 60
--- NOTE | 2019-02-05 13:17 | PN ---
PROGRESS NOTE Mr. De La Torre underwent stenting of a vein graft to the circumflex marginal performed on February 03. He is doing well. His right groin site is clean and dry. Vitals are stable. He is ambulating without symptoms. I will increase the Lasix to 40 mg b.i.d. and he will continue aspirin, Plavix, and Eliquis which will be a 2.5 mg b.i.d. and I will discontinue aspirin after 2 or 3 weeks. Vitals are stable, S1-S2 heard normally, short systolic murmur noted. Lungs reveal improved entry. Abdomen and lower extremity exam otherwise is unchanged. I expect that patient will be discharged today. We will increase activity and hopefully he will go home this afternoon. I will see him in the office as scheduled within the next 2 weeks or so. ELIZABETH / ARTUR: [id number] /
--- NOTE | 2019-02-05 14:27 | P.DS ---
Providers Date of admission: 01/31/19 12:00 Expected date of discharge: 02/05/19 Attending physician: Susie Quezada Consults: 01/31/19 11:59 Consult Physician Urgent Consulting Provider: Eloy Shen Consult Reason/Comments: NSTEMI Do you want consulting provider notified?: Yes 01/31/19 12:42 Consult Physician Routine Consulting Provider: Pavithra Sevilla Consult Reason/Comments: allan, may need heart cath Do you want consulting provider notified?: Yes 02/03/19 11:57 Consult Physician Routine Consulting Provider: [facility] Consult Reason/Comments: Post Interventional patient Do you want consulting provider notified?: Already Contacted Primary care physician: [facility] Course: This is 78-year-old gentleman patient of Dr. 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 Patient was seen in emergency room secondary to chest discomfort off and on 1 week, radiating to the left arm, and the neck, right substernal chest discomfort, without relief using 2 sublingual nitroglycerin, however he found out nitroglycerin was patient's pain has been progressive now occurring at rest, patient does not have any exertional chest pain especially when he walks in the flat ground, patient denies any palpitations no syncope, no melena no GC, patient has GERD symptoms, Prior history included carries a defibrillator for a low ejection fraction also with a nonsustained arrhythmia he mentions that this current pain is different from his previous [place] his first one in required 2 angioplasties in 1991, CABG in 2008 four-vessel disease. he has dye contrast ALLERGY secondary to CK D stage IV . He is off his Plavix a year ago, last cardiac cath was April 2016 no recent stress test, maintained on 3liquis currently In the emergency room, troponin was at 0.8, creatinine 2.17, hemoglobin 14, patient is on eliquis, Nitropaste was started, patient was chest pain-free at my evaluation in the emergency room today, EKG shows atrial paced 81, dr sevilla and Cardiology is requested. 02/01: Patient denies having any chest pain or shortness of breath and did okay through the night. He has been urinating without problems. He has been seen by cardiology with plan for heart catheterization tomorrow. Patient has been afebrile, heart rate in the 60s, blood pressure 133/73, pulse ox 92% on room air. Repeat troponins have been 1.060 and 1.210. BUN is 44 and creatinine 2.66. Urinalysis showed trace protein. Renal ultrasound showed similar findings with possible hemangioma within the spleen. Postop changes within the bladder. Cortical medullary differentiation is maintained. No hydronephrosis bilaterally. Patient is followed by Dr. Sevilla for chronic kidney disease stage IV with baseline of 2.6. Plan to hold Cozaar and Lasix, maintain IV fluids for planned heart catheterization. 02/02: Vital signs remain stable, he is afebrile, heart rate running in the 60s, blood pressure 166/78, 94% on room air. Echocardiogram shows severe left ventricular hypertrophy, moderate to severely impaired left ventricular systolic function with an ejection fraction between 30-35%, LV wall motion is akinetic, moderate mitral regurgitation, moderate tricuspid regurgitation, moderate pulmonary hypertension. He continues on IV heparin and nitrates, plans for cardiac catheterization today. 02/03: Cardiac catheterization was delayed yesterday due to unexpected emergency. He is currently having procedure done now. Vital signs are stable he is afebrile, heart rate running in the 60s, blood pressure 156/74, 94% on 2 L nasal cannula. Creatinine 2.32, BUN 45. 02/04: Patient underwent heart catheterization yesterday and PTCA and stenting of the vein graft to the obtuse marginal at the distal portion. He has been continued on eliquis at 2.5 mg twice daily, aspirin and Plavix. He has been afebrile, pulse ox 91% on 5 L, blood pressure 138/72, heart rate in the 70s and 80s. WBC 12.6, hemoglobin 15.1, platelet count 102. Sodium 146, potassium 4.5, chloride 113, CO2 21, BUN 58, creatinine 2.77. Capillary blood glucose running between 107-38. ProBNP this morning is 10,800. Dr. Lui recommends Lasix 40 mg daily starting this morning, DC IV fluids, avoid nephrotoxic agents and monitor urine output and renal function. Plan is to monitor overnight and discharged tomorrow. 02/05: Patient denies having any chest pain or shortness of breath. He states he has been ambulating in his room without any difficulty. He denies any lightheadedness or dizziness. He has been afebrile, heart rate in the 60s and 70s, blood pressure 162/72, pulse ox 89% on room air. Sodium 144, potassium 4.0, chloride 112, CO2 24, BUN 49 and creatinine 2.49. Patient has been cleared for discharge by cardiology and nephrology. Patient will be discharged home today in stable condition. Discharge diagnoses: 1. NSTEMI. 2. History ischemic CVA. 3. Spondylolithesis and left radiculopahy. 4. CAD and ischemic cardiomyopathy S/P AICD placement. 5. Hypertension and Hypertensive cardiovascular disease. 6. Chronic Kidney disease stage 4. 7. Secondary hyperparathyroidism. 8. Diabetes mellitus type 2. 9. Hyperlipidemia. 10. 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 11. BPH. 12. Hypothyroidism. 13. GERD. Discharge plan: Home Impression and plan of care have been directed as dictated by the signing physician. Jalyn Mohamud nurse practitioner acting as scribe for signing physician. Patient Condition at Discharge: Good Plan - Discharge Summary Discharge Rx Participant: No New Discharge Prescriptions: New Clopidogrel [Plavix] 75 mg PO DAILY #30 tab Continue Simvastatin [Zocor] 40 mg PO HS Isosorbide Mononitrate [Imdur] 30 mg PO DAILY Multivitamin [Men's Multi-Vitamin] 1 tab PO DAILY Aspirin 81 mg PO DAILY Carvedilol 25 mg PO BID Beclomethasone Dipropionate [Qvar 80 mcg/puff] 2 puff INHALATION RT-BID Montelukast [Singulair] 10 mg PO HS Insulin NPH/Reg Insulin 70/30 [humuLIN 70/30 VIAL] 75 unit SQ AC-SUPPER amLODIPine [Norvasc] 10 mg PO DAILY #30 tab Losartan [Cozaar] 50 mg PO BID Levothyroxine Sodium [Synthroid] 75 mcg PO DAILY Insulin NPH/Reg Insulin 70/30 [humuLIN 70/30 VIAL] 65 unit SQ AC-BRKFST Apixaban [Eliquis] 2.5 mg PO BID #60 tablet Nitroglycerin Sl Tabs [Nitrostat] 0.4 mg SUBLINGUAL Q5M PRN #25 tab PRN Reason: Chest Pain Omeprazole 40 mg PO DAILY Ergocalciferol (Vitamin D2) [Drisdol] 50,000 unit PO Q30D Gabapentin [Neurontin] 300 mg PO BID Albuterol Inhaler [Ventolin Hfa Inhaler] 2 puff INHALATION RT-BID Doxercalciferol [Hectorol] 0.5 mcg PO SUTUTHSA Doxazosin [Cardura] 2 mg PO HS Changed Furosemide [Lasix] 40 mg PO DAILY #0 Discharge Medication List Isosorbide Mononitrate [Imdur] 30 mg PO DAILY 04/10/14 [History] Multivitamin [Men's Multi-Vitamin] 1 tab PO DAILY 04/10/14 [History] Simvastatin [Zocor] 40 mg PO HS 04/10/14 [History] Aspirin 81 mg PO DAILY 04/11/14 [History] Beclomethasone Dipropionate [Qvar 80 mcg/puff] 2 puff INHALATION RT-BID 05/29/15 [History] Carvedilol 25 mg PO BID 05/29/15 [History] Insulin NPH/Reg Insulin 70/30 [humuLIN 70/30 VIAL] 75 unit SQ AC-SUPPER 08/05/15 [History] Montelukast [Singulair] 10 mg PO HS 08/05/15 [History] amLODIPine [Norvasc] 10 mg PO DAILY #30 tab 08/10/15 [Rx] Insulin NPH/Reg Insulin 70/30 [humuLIN 70/30 VIAL] 65 unit SQ AC-BRKFST 05/11/16 [History] Levothyroxine Sodium [Synthroid] 75 mcg PO DAILY 05/11/16 [History] Losartan [Cozaar] 50 mg PO BID 05/11/16 [History] Apixaban [Eliquis] 2.5 mg PO BID #60 tablet 05/16/16 [Rx] Nitroglycerin Sl Tabs [Nitrostat] 0.4 mg SUBLINGUAL Q5M PRN #25 tab 05/16/16 [Rx] Ergocalciferol (Vitamin D2) [Drisdol] 50,000 unit PO Q30D 08/01/16 [History] Omeprazole 40 mg PO DAILY 08/01/16 [History] Albuterol Inhaler [Ventolin Hfa Inhaler] 2 puff INHALATION RT-BID 12/26/17 [History] Gabapentin [Neurontin] 300 mg PO BID 12/26/17 [History] Doxazosin [Cardura] 2 mg PO HS 01/31/19 [History] Doxercalciferol [Hectorol] 0.5 mcg PO SUTUTHSA 01/31/19 [History] Clopidogrel [Plavix] 75 mg PO DAILY #30 tab 02/05/19 [Rx] Furosemide [Lasix] 40 mg PO DAILY #0 02/05/19 [Rx] Follow up Appointment(s)/Referral(s): Pavithra Sevilla MD [STAFF PHYSICIAN] - 03/07/19 1:40 pm Eloy Shen MD [STAFF PHYSICIAN] - 02/22/19 10:15 am (pacer interrogation and appointment combined) Kuldeep Manjarrez MD [Primary Care Provider] - 02/07/19 11:30 am ( with SCIENTIFIC PROGRAMMER ANALYST) Patient Instructions/Handouts: *Surgery [facility] - After Heart Catheterization - Copier Operator Instructions, Heart Failure (DC), Chronic Kidney Disease (DC), Coronary Intravascular Stent Placement (DC) Discharge Disposition: HOME SELF-CARE
== END 2019-02-05 13:20 | disposition home or self-care (01) | DRG 246 ==
LOC: EC 09:54 → 3SCARD 12:00
PROVIDERS: ADMIT Family Medicine; ATTEND Family Medicine
PROC: 027034Z Dilation of Coronary Artery, One Artery with Drug-eluting Intraluminal Device, Percutaneous Approach (ICD-10-PCS; principal; 2019-02-03 10:20)
PROC: 4A023N7 Measurement of Cardiac Sampling and Pressure, Left Heart, Percutaneous Approach (ICD-10-PCS; principal; 2019-02-03 10:20)
PROC: B2111ZZ Fluoroscopy of Multiple Coronary Arteries using Low Osmolar Contrast (ICD-10-PCS; principal; 2019-02-03 10:20)
DX: I21.4 Non-ST elevation (NSTEMI) myocardial infarction (principal); N17.0 Acute kidney failure with tubular necrosis; D68.51 Activated protein C resistance; D68.59 Other primary thrombophilia; E87.0 Hyperosmolality and hypernatremia; E87.2 Acidosis; I13.0 Hypertensive heart and chronic kidney disease with heart failure and stage 1 through stage 4 chronic kidney disease, or unspecified chronic kidney disease; I50.22 Chronic systolic (congestive) heart failure; N18.4 Chronic kidney disease, stage 4 (severe); N25.81 Secondary hyperparathyroidism of renal origin; E03.9 Hypothyroidism, unspecified; E11.22 Type 2 diabetes mellitus with diabetic chronic kidney disease; E78.5 Hyperlipidemia, unspecified; G47.33 Obstructive sleep apnea (adult) (pediatric); I08.1 Rheumatic disorders of both mitral and tricuspid valves; I25.5 Ischemic cardiomyopathy; I27.20 Pulmonary hypertension, unspecified; E11.40 Type 2 diabetes mellitus with diabetic neuropathy, unspecified; I25.710 Atherosclerosis of autologous vein coronary artery bypass graft(s) with unstable angina pectoris; K21.9 Gastro-esophageal reflux disease without esophagitis; M89.9 Disorder of bone, unspecified; N14.1 Nephropathy induced by other drugs, medicaments and biological substances; N40.0 Benign prostatic hyperplasia without lower urinary tract symptoms; T50.8X5A Adverse effect of diagnostic agents, initial encounter; Z79.01 Long term (current) use of anticoagulants; I25.2 Old myocardial infarction; Z79.4 Long term (current) use of insulin; Z79.82 Long term (current) use of aspirin; Z79.890 Hormone replacement therapy; Z79.899 Other long term (current) drug therapy; Z82.49 Family history of ischemic heart disease and other diseases of the circulatory system; Z83.3 Family history of diabetes mellitus; Z86.711 Personal history of pulmonary embolism; Z86.718 Personal history of other venous thrombosis and embolism; Z86.73 Personal history of transient ischemic attack (TIA), and cerebral infarction without residual deficits; Z87.442 Personal history of urinary calculi; Z91.041 Radiographic dye allergy status; Z95.810 Presence of automatic (implantable) cardiac defibrillator; Z98.42 Cataract extraction status, left eye; Z98.41 Cataract extraction status, right eye; Z96.1 Presence of intraocular lens
CPT/HCPCS: 36415; 71046; 76770; 80048; 80053; 81003; 83735; 83880; 84484; 85025; 85610; 85730; 93005; 93306; 93459; 94640; 94660; 94760; 96374; 99291; C1874

== ENCOUNTER 2020-03-03 06:44 | Emergency (ER) | payer MEDICARE ==
[2020-03-03 06:52] VITALS: TEMP 98
--- NOTE | 2020-03-03 07:36 | ED ---
Abdominal Pain HPI - General Chief Complaint: Abdominal Pain Stated Complaint: constipation Time Seen by Provider: 03/03/20 06:58 Source: patient, family, RN notes reviewed, old records reviewed Mode of arrival: ambulatory Limitations: no limitations - History of Present Illness Initial Comments: Patient is a 79-year-old male who presents emergency room today with complaints of urinary retention related to constipation. He's not had a bowel movement in 3 days. He also states that he has not been able to urinate since 2 PM yesterday afternoon. Patient states that he has had no fevers or chills. He reports that he is had history of constipation related to urinary retention in the past. Patient states that he's had no other significant complaints. Patient reports that he follows with Dr. Cutler. He denies any nausea or vomiting. Patient reports that he's had Dulcolax, Benefiber yesterday to promote a bowel movement was unsuccessful. - Related Data Home Medications Medication Instructions Recorded Confirmed Isosorbide Mononitrate [Imdur] 30 mg PO DAILY 04/10/14 01/31/19 Multivitamin [Men's Multi-Vitamin] 1 tab PO DAILY 04/10/14 01/31/19 Simvastatin [Zocor] 40 mg PO HS 04/10/14 01/31/19 Aspirin 81 mg PO DAILY 04/11/14 01/31/19 Beclomethasone Dipropionate [Qvar 2 puff INHALATION RT-BID 05/29/15 01/31/19 80 mcg/puff] Carvedilol 25 mg PO BID 05/29/15 01/31/19 Insulin NPH/Reg Insulin 70/30 75 unit SQ AC-SUPPER 08/05/15 01/31/19 [humuLIN 70/30 VIAL] Montelukast [Singulair] 10 mg PO HS 08/05/15 01/31/19 Insulin NPH/Reg Insulin 70/30 65 unit SQ AC-BRKFST 05/11/16 01/31/19 [humuLIN 70/30 VIAL] Levothyroxine Sodium [Synthroid] 75 mcg PO DAILY 05/11/16 01/31/19 Losartan [Cozaar] 50 mg PO BID 05/11/16 01/31/19 Ergocalciferol (Vitamin D2) 50,000 unit PO Q30D 08/01/16 01/31/19 [Drisdol] Omeprazole 40 mg PO DAILY 08/01/16 01/31/19 Albuterol Inhaler (Bulk) [Ventolin 2 puff INHALATION RT-BID 12/26/17 01/31/19 Hfa Inhaler (Bulk)] Gabapentin [Neurontin] 300 mg PO BID 12/26/17 01/31/19 Doxazosin [Cardura] 2 mg PO HS 01/31/19 01/31/19 Doxercalciferol [Hectorol] 0.5 mcg PO SUTUTHSA 01/31/19 01/31/19 Previous Rx's Medication Instructions Recorded amLODIPine [Norvasc] 10 mg PO DAILY #30 tab 08/10/15 Apixaban [Eliquis] 2.5 mg PO BID #60 tablet 05/16/16 Nitroglycerin Sl Tabs [Nitrostat] 0.4 mg SUBLINGUAL Q5M PRN #25 tab 05/16/16 Clopidogrel [Plavix] 75 mg PO DAILY #30 tab 02/05/19 Furosemide [Lasix] 40 mg PO DAILY #0 02/05/19 Allergies Allergy/AdvReac Type Severity Reaction Status Date / Time adhesive Allergy Rash/Hives Verified 01/31/19 10:50 Iodinated Contrast Media Allergy Rash/Hives,KIDNEY Verified 01/31/19 10:50 [Iodinated Contrast Media - PROBLEM IV Dye] iodine Allergy Rash/Hives Verified 01/31/19 10:50 Penicillins Allergy Rash/Hives Verified 01/31/19 10:50 povidone-iodine Allergy Rash/Hives Verified 01/31/19 10:50 [From Betadine] baclofen AdvReac Confusion Verified 01/31/19 10:50 tramadol AdvReac Confusion Verified 01/31/19 10:50 Review of Systems ROS Statement: Those systems with pertinent positive or pertinent negative responses have been documented in the HPI. ROS Other: All systems not noted in ROS Statement are negative. Past Medical History Past Medical History: Blood Disorder, Coronary Artery Disease (CAD), CVA/TIA, Diabetes Mellitus, Deep Vein Thrombosis (DVT), GERD/Reflux, Hyperlipidemia, Hypertension, Myocardial Infarction (CT), Prostate Disorder, Pulmonary Embolus (PE), Renal Disease, Thyroid Disorder Additional Past Medical History / Comment(s): DVT L leg and pulmonary embolism in bilateral lungs, MTFHFR gene mutation/coagulopathy, IDDM type II, neurop athy bilateral feet, CKD stage III, kidney stone, BPH, TIA, ischemic cardiomyopathy, MIs, asbestosis, LULU with Cpap, lumbar stenosis with L side sciatica, falls, hypothyroid, 2ndary hyperparathyroidism in old PMH but pt does not recall this. Last Myocardial Infarction Date:: 1991,2008, 04/2016 History of Any Multi-Drug Resistant Organisms: None Reported Past Surgical History: AICD, Coronary Bypass/CABG, Heart Catheterization With Stent, Orthopedic Surgery Additional Past Surgical History / Comment(s): PCI/stent, DAVID, 2008 CABG 4 vessel, AICD, bilateral carpal tunnel releases, tendon repair L ankle, bilateral cataract removal/lens implants, colonoscopy, penile implant. Past Anesthesia/Blood Transfusion Reactions: No Reported Reaction Additional Past Anesthesia/Blood Transfusion Reaction / Comment(s): Pt states he received blood with his CABG-no reaction to his knowledge. Date of Last Stent Placement:: 2015 Type of Cardiac Device: AICD Device Placement Date:: 2012 Past Psychological History: Depression Smoking Status: Never smoker Past Alcohol Use History: None Reported Past Drug Use History: None Reported - Past Family History Father Family Medical History: Dementia, Diabetes Mellitus, Vascular Disorder Additional Family Medical History / Comment(s): Father had vascular disease and from this at the age of 84 yrs. Mother Family Medical History: Congestive Heart Failure (CHF), Rheumatoid Arthritis (RA) Additional Family Medical History / Comment(s): Mother had bleeding ulcers and never recovered, she at the age of 67yrs. General Exam - General Exam Comments Initial Comments: 79-year-old male. Alert and oriented. No significant distress. Limitations: no limitations General appearance: alert, in no apparent distress Head exam: Present: atraumatic, normocephalic, normal inspection Eye exam: Present: normal appearance, PERRL, EOMI. Absent: scleral icterus, conjunctival injection, periorbital swelling ENT exam: Present: normal exam, mucous membranes moist Neck exam: Present: normal inspection Respiratory exam: Present: normal lung sounds bilaterally. Absent: respiratory distress, wheezes, rales, rhonchi, stridor Cardiovascular Exam: Present: regular rate, normal rhythm, normal heart sounds. Absent: systolic murmur, diastolic murmur, rubs, gallop, clicks GI/Abdominal exam: Present: soft, tenderness (bladder distension), normal bowel sounds. Absent: distended, guarding, rebound, rigid Extremities exam: Present: normal inspection, full ROM, normal capillary refill. Absent: tenderness, pedal edema, joint swelling, calf tenderness Back exam: Present: normal inspection Neurological exam: Present: alert, oriented X3, CN II-XII intact Psychiatric exam: Present: normal affect, normal mood Skin exam: Present: warm, dry, intact, normal color. Absent: rash Course Vital Signs 03/03/20 06:48 Temperature 98 F Pulse Rate 78 Respiratory 18 Rate Blood Pressure 150/80 O2 Sat by Pulse 97 Oximetry Medical Decision Making - Medical Decision Making Jason is a 79-year-old male with history of prostate disorder, multiple comorbid is. He presents today with lower abdominal pain unable to have bowel movement for 3 days. He tried fiber stool softeners. He states that since 2 PM last night he was unable to urinate. I examine him lower abdominal distention. Ultrasound of the bladder shows 1000 mL of urine in the bladder. Stat Wilcox was placed. He does have history of penile implant. After flatus please see reports significant improvement as lower abdominal pain. Approximately one liters drained of urine slowly, KUB shows normal bowel gas pattern. Monitor stools noted. He was given an enema. Rectal tone is normal. denies small bowel movement emergency department. I discussed using magnesium citrate to help prevent a bowel movement and Patient is follow-up with urology to have the Wilcox catheter removed in 3 days. Patient is agreeable to treatment plan will comply. Return parameters were discussed. - Lab Data Result diagrams: 03/03/20 07:38 03/03/20 07:38 Lab Results 03/03/20 03/03/20 03/03/20 Range/Units 07:38 07:38 07:38 WBC 10.0 (3.8-10.6) k/uL RBC 4.85 (4.30-5.90) m/uL Hgb 15.0 (13.0-17.5) gm/dL Hct 43.4 (39.0-53.0) % MCV 89.4 (80.0-100.0) fL MCH 30.8 (25.0-35.0) pg MCHC 34.5 (31.0-37.0) g/dL RDW 14.3 (11.5-15.5) % Plt Count 115 L (150-450) k/uL Neutrophils % 83 % Lymphocytes % 8 % Monocytes % 6 % Eosinophils % 2 % Basophils % 0 % Neutrophils # 8.3 H (1.3-7.7) k/uL Lymphocytes # 0.8 L (1.0-4.8) k/uL Monocytes # 0.6 (0-1.0) k/uL Eosinophils # 0.2 (0-0.7) k/uL Basophils # 0.0 (0-0.2) k/uL Sodium 136 L (137-145) mmol/L Potassium 4.1 (3.5-5.1) mmol/L Chloride 101 (98-107) mmol/L Carbon Dioxide 24 (22-30) mmol/L Anion Gap 11 mmol/L BUN 49 H (9-20) mg/dL Creatinine 2.36 H (0.66-1.25) mg/dL Est GFR (CKD-EPI)AfAm 29 (>60 ml/min/1.73 sqM) Est GFR (CKD-EPI)NonAf 25 (>60 ml/min/1.73 sqM) Glucose 191 H (74-99) mg/dL Calcium 9.0 (8.4-10.2) mg/dL Total Bilirubin 0.8 (0.2-1.3) mg/dL AST 33 (17-59) U/L ALT 29 (4-49) U/L Alkaline Phosphatase 84 (38-126) U/L Total Protein 7.6 (6.3-8.2) g/dL Albumin 4.3 (3.5-5.0) g/dL Urine Color Yellow Urine Appearance Clear (Clear) Urine pH 5.0 (5.0-8.0) Ur Specific [place] 1.011 (1.001-1.035) Urine Protein Negative (Negative) Urine Glucose (UA) Negative (Negative) Urine Ketones Negative (Negative) Urine Blood Negative (Negative) Urine Nitrite Negative (Negative) Urine Bilirubin Negative (Negative) Urine Urobilinogen <2.0 (<2.0) mg/dL Ur Leukocyte Esterase Negative (Negative) - Radiology Data Radiology results: report reviewed KUB shows a nonacute abdomen. Disposition Clinical Impression: Constipation, Urinary retention, Chronic renal failure Disposition: HOME SELF-CARE Condition: Good Instructions (If sedation given, give patient instructions): Urinary Retention in Men (ED), Constipation (ED) Additional Instructions: Is advised to increase fluid intake. Follow-up with urology to have the Wilcox catheter removed in 2-3 days. Patient should increase her daily fiber intake. Use magnesium citrate at home to help promote bowel movements. Is patient prescribed a controlled substance at d/c from ED?: No Referrals: Kuldeep Manjarrez MD [Primary Care Provider] - 1-2 days Geovani Soler MD [STAFF PHYSICIAN] - 1-2 days Time of Disposition: 09:21
[2020-03-03 07:49] LABS: Basophils % (A) 0 %; Eosinophils # (A) 0.2 k/uL (0-0.7); Eosinophils % (A) 2 %; HCT 43.4 % (39.0-53.0); Lymphocytes # (A) 0.8 k/uL (1.0-4.8); Lymphocytes % (A) 8 %; MCH 30.8 pg (25.0-35.0); MCHC 34.5 g/dL (31.0-37.0); MCV 89.4 fL (80.0-100.0); Mean Platelet Volume 7.4; Monocytes # (A) 0.6 k/uL (0-1.0); Monocytes % (A) 6 %; Neutrophils # (A) 8.3 k/uL (1.3-7.7); Neutrophils % (A) 83 %; Platelet Count 115 k/uL (150-450); RBC 4.85 m/uL (4.30-5.90); RDW 14.3 % (11.5-15.5)
[2020-03-03 07:53] LABS: Appearance,Urine Clear (Clear); Bilirubin,Urine Negative (Negative); Blood,Urine Negative (Negative); Color,Urine Yellow; Glucose,Urine (UA) Negative (Negative); Ketones,Urine Negative (Negative); Leukocyte Esterase,Urine Negative (Negative); Nitrite,Urine Negative (Negative); Protein,Urine Negative (Negative); Specific Gravity,Urine 1.011 (1.001-1.035); Urobilinogen,Urine <2.0 mg/dL (<2.0)
[2020-03-03 08:02] LABS: Albumin 4.3 g/dL (3.5-5.0); Potassium 4.1 mmol/L (3.5-5.1); Total Bilirubin 0.8 mg/dL (0.2-1.3); Total Protein 7.6 g/dL (6.3-8.2)
--- NOTE | 2020-03-03 08:21 | XR ---
EXAMINATION TYPE: XR KUB DATE OF EXAM: 03/03/2020 COMPARISON: NONE HISTORY: Pain TECHNIQUE: One view abdominal series FINDINGS: The osseous structures are intact. Hypertrophic and degenerative change of the spine. Arthropathy of the hips. Subsegmental changes at the lung bases. There is sternotomy wires and cardiac lead. The bow el gas pattern is nonspecific. IMPRESSION: 1. Nonspecific abdomen.
[2020-03-03] MEDS ORDERED: DOCUSATE 283 MG/5 ML ENEMA RECTAL STA (08:35)
[2020-03-03 10:45] VITALS: BP 142/79; PULSE 80; RESP 16
== END 2020-03-03 10:44 | disposition home or self-care (01) ==
LOC: EC 06:44
DX: K59.00 Constipation, unspecified (principal); R33.9 Retention of urine, unspecified; I13.10 Hypertensive heart and chronic kidney disease without heart failure, with stage 1 through stage 4 chronic kidney disease, or unspecified chronic kidney disease; E11.22 Type 2 diabetes mellitus with diabetic chronic kidney disease; I43 Cardiomyopathy in diseases classified elsewhere; N18.3 Chronic kidney disease, stage 3 (moderate); I25.10 Atherosclerotic heart disease of native coronary artery without angina pectoris; E11.40 Type 2 diabetes mellitus with diabetic neuropathy, unspecified; K21.9 Gastro-esophageal reflux disease without esophagitis; I25.2 Old myocardial infarction; E03.9 Hypothyroidism, unspecified; G47.33 Obstructive sleep apnea (adult) (pediatric); Z99.89 Dependence on other enabling machines and devices; Z86.73 Personal history of transient ischemic attack (TIA), and cerebral infarction without residual deficits; Z95.810 Presence of automatic (implantable) cardiac defibrillator; Z95.1 Presence of aortocoronary bypass graft; Z95.5 Presence of coronary angioplasty implant and graft; Z79.82 Long term (current) use of aspirin; Z79.51 Long term (current) use of inhaled steroids; Z79.4 Long term (current) use of insulin; Z79.890 Hormone replacement therapy; Z79.899 Other long term (current) drug therapy; Z91.048 Other nonmedicinal substance allergy status; Z91.041 Radiographic dye allergy status; Z88.0 Allergy status to penicillin; Z88.8 Allergy status to other drugs, medicaments and biological substances; Z88.5 Allergy status to narcotic agent
CPT/HCPCS: 36415; 51702; 74018; 80053; 81003; 85025; 99285

== ENCOUNTER 2020-03-24 13:16 | Inpatient (IN) | payer MEDICARE ==
[2020-03-24] MEDS ORDERED: SODIUM CHLORIDE 0.9% 500 ML 500 ML IV STA (14:12)
[2020-03-24 14:41] LABS: Basophils % (A) 0 %; Eosinophils % (A) 0 %; HCT 45.1 % (39.0-53.0); HGB 14.8 gm/dL (13.0-17.5); Lymphocytes # (A) 0.6 k/uL (1.0-4.8); Lymphocytes % (A) 6 %; MCH 30.8 pg (25.0-35.0); MCHC 32.8 g/dL (31.0-37.0); MCV 93.7 fL (80.0-100.0); Mean Platelet Volume 7.2; Monocytes # (A) 0.6 k/uL (0-1.0); Monocytes % (A) 6 %; Neutrophils # (A) 9.2 k/uL (1.3-7.7); Neutrophils % (A) 87 %; Platelet Count 137 k/uL (150-450); RBC 4.81 m/uL (4.30-5.90); RDW 14.1 % (11.5-15.5); WBC 10.6 k/uL (3.8-10.6)
[2020-03-24 14:56] LABS: Prothrombin Time 10.3 sec (9.0-12.0)
[2020-03-24 14:57] LABS: Albumin 4.2 g/dL (3.5-5.0); Calcium 9.3 mg/dL (8.4-10.2); Magnesium 2.4 mg/dL (1.6-2.3); Potassium 4.2 mmol/L (3.5-5.1); Total Bilirubin 0.5 mg/dL (0.2-1.3); Total Protein 7.2 g/dL (6.3-8.2)
--- NOTE | 2020-03-24 14:59 | ED ---
General Adult HPI <Flo Brewer - Last Filed: 03/24/20 16:17> - General Source: patient, RN notes reviewed Mode of arrival: EMS Limitations: no limitations <Bernard Manzanares - Last Filed: 03/24/20 16:22> - General Chief complaint: Syncope Stated complaint: syncope Time Seen by Provider: 03/24/20 13:33 - History of Present Illness Initial comments: 79-year-old male with a complicated past medical history including quadruple bypass, multiple MIs with stenting with the last one being in January 2019 pr esents to the emergency department for a chief complaint of near syncope. Patient was getting out of his car when he took a few steps and felt very lightheaded. CT did slowly lowered to the ground and fell as if he was going to pass out. He does not believe he lost consciousness. He did not hit his head or sustain injury injuries. He is currently anticoagulated on Plavix and I liquids. He is denying any chest pain or shortness of breath at this time. States he feels well at this time. Patient also has a defibrillator. States he was supposed to see his drywall hanger last month but with the pandemic was able to see them. (Bernard Manzanares) - Related Data Home Medications Medication Instructions Recorded Confirmed Isosorbide Mononitrate [Imdur] 30 mg PO DAILY 04/10/14 01/31/19 Multivitamin [Men's Multi-Vitamin] 1 tab PO DAILY 04/10/14 01/31/19 Simvastatin [Zocor] 40 mg PO HS 04/10/14 01/31/19 Aspirin 81 mg PO DAILY 04/11/14 01/31/19 Beclomethasone Dipropionate [Qvar 2 puff INHALATION RT-BID 05/29/15 01/31/19 80 mcg/puff] Carvedilol 25 mg PO BID 05/29/15 01/31/19 Insulin NPH/Reg Insulin 70/30 75 unit SQ AC-SUPPER 08/05/15 01/31/19 [humuLIN 70/30 VIAL] Montelukast [Singulair] 10 mg PO HS 08/05/15 01/31/19 Insulin NPH/Reg Insulin 70/30 65 unit SQ AC-BRKFST 05/11/16 01/31/19 [humuLIN 70/30 VIAL] Levothyroxine Sodium [Synthroid] 75 mcg PO DAILY 05/11/16 01/31/19 Losartan [Cozaar] 50 mg PO BID 05/11/16 01/31/19 Ergocalciferol (Vitamin D2) 50,000 unit PO Q30D 08/01/16 01/31/19 [Drisdol] Omeprazole 40 mg PO DAILY 08/01/16 01/31/19 Albuterol Inhaler (Mhu) [Ventolin 2 puff INHALATION RT-BID 12/26/17 01/31/19 Hfa Inhaler (Mhu)] Gabapentin [Neurontin] 300 mg PO BID 12/26/17 01/31/19 Doxazosin [Cardura] 2 mg PO HS 01/31/19 01/31/19 Doxercalciferol [Hectorol] 0.5 mcg PO SUTUTHSA 01/31/19 01/31/19 Previous Rx's Medication Instructions Recorded amLODIPine [Norvasc] 10 mg PO DAILY #30 tab 08/10/15 Apixaban [Eliquis] 2.5 mg PO BID #60 tablet 05/16/16 Nitroglycerin Sl Tabs [Nitrostat] 0.4 mg SUBLINGUAL Q5M PRN #25 tab 05/16/16 Clopidogrel [Plavix] 75 mg PO DAILY #30 tab 02/05/19 Furosemide [Lasix] 40 mg PO DAILY #0 02/05/19 Allergies Allergy/AdvReac Type Severity Reaction Status Date / Time adhesive Allergy Rash/Hives Verified 01/31/19 10:50 Iodinated Contrast Media Allergy Rash/Hives,KIDNEY Verified 01/31/19 10:50 [Iodinated Contrast Media - PROBLEM IV Dye] iodine Allergy Rash/Hives Verified 01/31/19 10:50 Penicillins Allergy Rash/Hives Verified 01/31/19 10:50 povidone-iodine Allergy Rash/Hives Verified 01/31/19 10:50 [From Betadine] baclofen AdvReac Confusion Verified 01/31/19 10:50 tramadol AdvReac Confusion Verified 01/31/19 10:50 Review of Systems ROS Other: All systems not noted in ROS Statement are negative. <Flo Brewer - Last Filed: 03/24/20 16:17> ROS Other: All systems not noted in ROS Statement are negative. <Bernard Manzanares P - Last Filed: 03/24/20 16:22> ROS Statement: Those systems with pertinent positive or pertinent negative responses have been documented in the HPI. Past Medical History Past Medical History: Blood Disorder, Coronary Artery Disease (CAD), CVA/TIA, Diabetes Mellitus, Deep Vein Thrombosis (DVT), GERD/Reflux, Hyperlipidemia, Hypertension, Myocardial Infarction (LA), Prostate Disorder, Pulmonary Embolus (PE), Renal Disease, Thyroid Disorder Additional Past Medical History / Comment(s): DVT L leg and pulmonary embolism in bilateral lungs, MTFHFR gene mutation/coagulopathy, IDDM type II, neuropathy bilateral feet, CKD stage III, kidney stone, BPH, TIA, ischemic cardiomyopathy, MIs, asbestosis, LULU with Cpap, lumbar stenosis with L side sciatica, falls, hypothyroid, 2ndary hyperparathyroidism in old PMH but pt does not recall this. Last Myocardial Infarction Date:: 1991,2008, 04/2016 History of Any Multi-Drug Resistant Organisms: None Reported Past Surgical History: AICD, Coronary Bypass/CABG, Heart Catheterization With Stent, Orthopedic Surgery Additional Past Surgical History / Comment(s): PCI/stent, DAVID, 2008 CABG 4 vessel, AICD, bilateral carpal tunnel releases, tendon repair L ankle, bilateral cataract removal/lens implants, colonoscopy, penile implant. Past Anesthesia/Blood Transfusion Reactions: No Reported Reaction Additional Past Anesthesia/Blood Transfusion Reaction / Comment(s): Pt states he received blood with his CABG-no reaction to his knowledge. Date of Last Stent Placement:: 2015 Type of Cardiac Device: AICD Device Placement Date:: 2012 Past Psychological History: Depression Smoking Status: Never smoker Past Alcohol Use History: None Reported Past Drug Use History: None Reported - Past Family History Father Family Medical History: Dementia, Diabetes Mellitus, Vascular Disorder Additional Family Medical History / Comment(s): Father had vascular disease and from this at the age of 84 yrs. Mother Family Medical History: Congestive Heart Failure (CHF), Rheumatoid Arthritis (RA) Additional Family Medical History / Comment(s): Mother had bleeding ulcers and never recovered, she at the age of 67yrs. <Bernard Manzanares P - Last Filed: 03/24/20 16:22> General Exam Limitations: no limitations General appearance: alert, in no apparent distress Head exam: Present: atraumatic, normocephalic, normal inspection Eye exam: Present: normal appearance, PERRL, EOMI. Absent: scleral icterus, conjunctival injection, periorbital swelling ENT exam: Present: normal exam, mucous membranes moist Neck exam: Present: normal inspection, full ROM Respiratory exam: Present: normal lung sounds bilaterally. Absent: respiratory distress, wheezes, rales, rhonchi, stridor Cardiovascular Exam: Present: regular rate, normal rhythm, normal heart sounds. Absent: systolic murmur, diastolic murmur, rubs, gallop, clicks Extremities exam: Absent: calf tenderness (no tenderness bilaterally) <Bernard Manzanares - Last Filed: 03/24/20 16:22> Course <Flo Brewer - Last Filed: 03/24/20 16:17> Vital Signs 03/24/20 03/24/20 13:22 16:02 Temperature 98.6 F Pulse Rate 81 68 Respiratory 18 17 Rate Blood Pressure 132/78 149/87 O2 Sat by Pulse 96 97 Oximetry - Reevaluation(s) Reevaluation #1: 03/24/20 16:17 PEs supervision: I proceeded evaluate this case patient did present with complains of a near syncopal episode. This time he is asymptomatic a my exam however patient will be admitted and evaluated for the same. Case was discussed with Dr. Quezada. (Flo Brewer) EKG Findings - EKG Comments: EKG Findings:: Normal sinus rhythm, ventricular rate 70, CO interval 164, QTc 447, compared to EKG from January 2019 <Bernard Manzanares - Last Filed: 03/24/20 16:22> Medical Decision Making - Lab Data Result diagrams: 03/24/20 13:55 03/24/20 13:55 <Flo Brewer - Last Filed: 03/24/20 16:17> - Lab Data Result diagrams: 03/24/20 13:55 03/24/20 13:55 <Bernard Manzanares - Last Filed: 03/24/20 16:22> - Medical Decision Making Vitals are stable. HPI and physical exam is negative. CBC unremarkable. CMP does show evidence of chronic kidney disease which appears to be patient's baseline. Sightly elevated troponin of 0.036 which could be related to kidney function but with near-syncope could also be cardiac. Chest x-ray shows chronic changes without acute process. Discussed case with Dr. Quezada who does accept the admission. Troponin is pending. Cardiology consulted. Patient is already anticoagulated. She does recommend echo as well as carotid Doppler. Home medications were not yet updated so were not ordered. (Bernard Manzanares) - Lab Data Lab Results 03/24/20 03/24/20 03/24/20 Range/Units 13:55 13:55 13:55 WBC 10.6 (3.8-10.6) k/uL RBC 4.81 (4.30-5.90) m/uL Hgb 14.8 (13.0-17.5) gm/dL Hct 45.1 (39.0-53.0) % MCV 93.7 (80.0-100.0) fL MCH 30.8 (25.0-35.0) pg MCHC 32.8 (31.0-37.0) g/dL RDW 14.1 (11.5-15.5) % Plt Count 137 L (150-450) k/uL Neutrophils % 87 % Lymphocytes % 6 % Monocytes % 6 % Eosinophils % 0 % Basophils % 0 % Neutrophils # 9.2 H (1.3-7.7) k/uL Lymphocytes # 0.6 L (1.0-4.8) k/uL Monocytes # 0.6 (0-1.0) k/uL Eosinophils # 0.0 (0-0.7) k/uL Basophils # 0.0 (0-0.2) k/uL PT 10.3 (9.0-12.0) sec INR 1.0 (<1.2) APTT 21.3 L (22.0-30.0) sec Sodium 139 (137-145) mmol/L Potassium 4.2 (3.5-5.1) mmol/L Chloride 105 (98-107) mmol/L Carbon Dioxide 22 (22-30) mmol/L Anion Gap 12 mmol/L BUN 68 H (9-20) mg/dL Creatinine 2.23 H (0.66-1.25) mg/dL Est GFR (CKD-EPI)AfAm 31 (>60 ml/min/1.73 sqM) Est GFR (CKD-EPI)NonAf 27 (>60 ml/min/1.73 sqM) Glucose 207 H (74-99) mg/dL Calcium 9.3 (8.4-10.2) mg/dL Magnesium 2.4 H (1.6-2.3) mg/dL Total Bilirubin 0.5 (0.2-1.3) mg/dL AST 27 (17-59) U/L ALT 29 (4-49) U/L Alkaline Phosphatase 67 (38-126) U/L Troponin I (0.000-0.034) ng/mL Total Protein 7.2 (6.3-8.2) g/dL Albumin 4.2 (3.5-5.0) g/dL /04/08 Range/Units 13:55 WBC (3.8-10.6) k/uL RBC (4.30-5.90) m/uL Hgb (13.0-17.5) gm/dL Hct (39.0-53.0) % MCV (80.0-100.0) fL MCH (25.0-35.0) pg MCHC (31.0-37.0) g/dL RDW (11.5-15.5) % Plt Count (150-450) k/uL Neutrophils % % Lymphocytes % % Monocytes % % Eosinophils % % Basophils % % Neutrophils # (1.3-7.7) k/uL Lymphocytes # (1.0-4.8) k/uL Monocytes # (0-1.0) k/uL Eosinophils # (0-0.7) k/uL Basophils # (0-0.2) k/uL PT (9.0-12.0) sec INR (<1.2) APTT (22.0-30.0) sec Sodium (137-145) mmol/L Potassium (3.5-5.1) mmol/L Chloride (98-107) mmol/L Carbon Dioxide (22-30) mmol/L Anion Gap mmol/L BUN (9-20) mg/dL Creatinine (0.66-1.25) mg/dL Est GFR (CKD-EPI)AfAm (>60 ml/min/1.73 sqM) Est GFR (CKD-EPI)NonAf (>60 ml/min/1.73 sqM) Glucose (74-99) mg/dL Calcium (8.4-10.2) mg/dL Magnesium (1.6-2.3) mg/dL Total Bilirubin (0.2-1.3) mg/dL AST (17-59) U/L ALT (4-49) U/L Alkaline Phosphatase (38-126) U/L Troponin I 0.036 H* (0.000-0.034) ng/mL Total Protein (6.3-8.2) g/dL Albumin (3.5-5.0) g/dL Disposition <Flo Brewer - Last Filed: 03/24/20 16:17> Is patient prescribed a controlled substance at d/c from ED?: No Time of Disposition: 16:22 <Bernard Manzanares - Last Filed: 03/24/20 16:22> Clinical Impression: Near syncope Disposition: ADMITTED IP TO THIS HOSP Condition: Fair Referrals: Kuldeep Manjarrez MD [Primary Care Provider] - 1-2 days
[2020-03-24 15:02] LABS: Partial Thromboplastin Time 21.3 sec (22.0-30.0)
--- NOTE | 2020-03-24 15:04 | XR ---
EXAMINATION TYPE: XR chest 1V portable DATE OF EXAM: 03/24/2020 COMPARISON: Chest CT September 03, 2018. Chest x-ray January 31, 2019. HISTORY: Cough. TECHNIQUE: Single AP portable frontal upright view of the chest is obtained. FINDINGS: There is chronic parenchymal changes with elevated right hemidiaphragm redemonstrated. Ther e is no new suspicious focal air space opacity, pleural effusion, or pneumothorax seen bilaterally. The cardiac silhouette size is stable and upper limits of normal with dual-lead pacemaker. Overlying sternal wires are redemonstrated. The osseous structures are intact. IMPRESSION: Chronic changes without acute process. No significant change from prior studies.
[2020-03-24] MEDS ORDERED: NITROGLYCERIN SL TABS 0.4 MG TAB SUBLINGUAL PRN (16:16)
[2020-03-24] MEDS ORDERED: ASPIRIN 81 MG PO STA (16:16)
[2020-03-24 16:27] LABS: Appearance,Urine Clear (Clear); Bilirubin,Urine Negative (Negative); Blood,Urine Negative (Negative); Color,Urine Yellow; Glucose,Urine (UA) Negative (Negative); Ketones,Urine Negative (Negative); Leukocyte Esterase,Urine Negative (Negative); Nitrite,Urine Negative (Negative); PH, Urine 5.5 (5.0-8.0); Protein,Urine Negative (Negative); Urobilinogen,Urine <2.0 mg/dL (<2.0)
--- NOTE | 2020-03-24 16:58 | US ---
EXAMINATION TYPE: US carotid duplex BILAT DATE OF EXAM: 03/24/2020 COMPARISON: Carotid ultrasound August 05, 2015 CLINICAL HISTORY: syncope. TIA x 6 years ago, HTN EXAM MEASUREMENTS: RIGHT: Peak Systolic Velocity (PSV) cm/sec ----- Right CCA: 45.3 ----- Right ICA: 72.4 ----- Right ECA: 102.1 ICA/CCA ratio: 1.6 RIGHT: End Diastole cm/sec ----- Right CCA: 0.0 ----- Right ICA: 8.7 ----- Right ECA: 0.0 LEFT: Peak Systolic Velocity (PSV) cm/sec ----- Left CCA: 44.1 ----- Left ICA: 62.7 ----- Left ECA: 85.6 ICA/CCA ratio: 1.4 LEFT: End Diastole cm/sec ----- Left CCA: 0.0 ----- Left ICA: 0.0 ----- Left ECA: 0.0 VERTEBRALS (direction of flow): Right Vertebral: Antegrade Left Vertebral: Antegrade Rhythm: Arrhythmia- seen on image 23 Persistent mild to moderate scattered peripheral plaque bilaterally with stable most prominent plaque right carotid bulb level. Velocity measurements and ratios remain within normal limits in both inter nal carotid arteries. IMPRESSION: No hemodynamically significant stenosis in either internal carotid artery. Note is made of arrhythmia noted during real-time scanning, correlate clinically. Criteria for Assigning % of Stenosis / Diameter reduction (Estimation based on the indirect measurements of the internal carotid artery velocities (ICA PSV). 1. Normal (no stenosis)=ICA PSV < 125 cm/s: ratio < 2.0: ICA EDV<40 cm/s. 2. Less than 50% stenosis=ICA PSV < 125 cm/s: ratio < 2.0: ICA EDV<40 cm/s. 3. 50 to 69% stenosis=ICA PSV of 125 to 230 cm/s: ration 2.0 ? 4.0: ICA EDV 40-100 cm/s. 4. Greater than 70% stenosis to near occlusion= ICA PSV > 230 cm/s: ratio > 4.0: ICA EDV > 100 cm/s. 5. Near occlusion= ICA PSV velocities may be low or undetectable: variable ratio and ICA EDV. 6. Total occlusion=unable to detect flow.
[2020-03-24 19:24] LABS: Glucose,Whole Blood 259 mg/dL (75-99)
[2020-03-24] MEDS ORDERED: ALBUTEROL NEBULIZED 2.5 MG/3 ML INHALATION PRN (19:50)
[2020-03-24] MEDS ORDERED: hydrALAZINE HCL 20 MG/ML 1 ML VIAL IVP PRN (19:56)
[2020-03-24] MEDS ORDERED: INSULN ASP PRT/INSULIN ASPART 100 UNIT/ML 10 ML VIAL SQ SCH (20:00)
[2020-03-24] MEDS: hydrALAZINE HCL 50 MG TAB PO SCH (20:30)
[2020-03-24] MEDS: APIXABAN 2.5 MG TABLET PO SCH (20:30)
[2020-03-24] MEDS ORDERED: MONTELUKAST 10 MG TAB PO SCH (21:00)
[2020-03-24] MEDS ORDERED: ATORVASTATIN 20 MG TAB PO SCH (21:00)
[2020-03-24] MEDS ORDERED: GABAPENTIN 300 MG CAP PO SCH (21:00)
[2020-03-24] MEDS ORDERED: DOXAZOSIN 2 MG TAB PO SCH (21:00)
[2020-03-25 03:27] LABS: Basophils % (A) 0 %; Eosinophils # (A) 0.1 k/uL (0-0.7); Eosinophils % (A) 1 %; HCT 42.7 % (39.0-53.0); HGB 14.1 gm/dL (13.0-17.5); Lymphocytes # (A) 1.1 k/uL (1.0-4.8); Lymphocytes % (A) 12 %; MCH 31.1 pg (25.0-35.0); MCV 94.4 fL (80.0-100.0); Mean Platelet Volume 7.3; Monocytes # (A) 0.6 k/uL (0-1.0); Monocytes % (A) 6 %; Neutrophils # (A) 7.4 k/uL (1.3-7.7); Neutrophils % (A) 79 %; Platelet Count 137 k/uL (150-450); RBC 4.52 m/uL (4.30-5.90); RDW 14.2 % (11.5-15.5); WBC 9.4 k/uL (3.8-10.6)
[2020-03-25 03:45] LABS: Albumin 3.5 g/dL (3.5-5.0); Calcium 8.8 mg/dL (8.4-10.2); Potassium 3.7 mmol/L (3.5-5.1); Total Bilirubin 0.3 mg/dL (0.2-1.3); Total Protein 6.3 g/dL (6.3-8.2)
[2020-03-25] MEDS: FLUTICASONE 110 MCG INHALER INHALATION SCH ×2 (04:03→09:07)
[2020-03-25 06:14] LABS: Glucose,Whole Blood 80 mg/dL (75-99)
[2020-03-25] MEDS ORDERED: LEVOTHYROXINE 75 MCG TAB PO SCH (06:30)
[2020-03-25] MEDS ORDERED: INSULN ASP PRT/INSULIN ASPART 100 UNIT/ML 10 ML VIAL SQ SCH (07:30)
[2020-03-25] MEDS ORDERED: CARVEDILOL 12.5 MG TAB PO SCH (07:30)
[2020-03-25] MEDS ORDERED: PANTOPRAZOLE 40 MG TABLET PO SCH (07:30)
[2020-03-25 08:29] VITALS: BP 134/75; PULSE 70; RESP 18; TEMP 97.7
[2020-03-25] MEDS ORDERED: FUROSEMIDE 80 MG TAB PO SCH (09:00)
[2020-03-25] MEDS ORDERED: ASPIRIN 81 MG PO SCH (09:00)
[2020-03-25] MEDS ORDERED: ASPIRIN 325 MG TAB PO SCH (09:00)
[2020-03-25] MEDS ORDERED: ISOSORBIDE MONONITRATE ER 30 MG TAB.ER.24H PO SCH (09:00)
[2020-03-25] MEDS ORDERED: LOSARTAN 50 MG TAB PO SCH (09:00)
[2020-03-25] MEDS ORDERED: GABAPENTIN 300 MG CAP PO SCH (09:00)
[2020-03-25] MEDS: APIXABAN 2.5 MG TABLET PO SCH (10:10)
[2020-03-25] MEDS: CLOPIDOGREL 75 MG TAB PO SCH (10:10)
[2020-03-25 10:19] LABS: Glucose,Whole Blood 85 mg/dL (75-99)
[2020-03-25] MEDS: hydrALAZINE HCL 50 MG TAB PO SCH (10:46)
--- NOTE | 2020-03-25 11:00 | ECHOF ---
Referral Reason:syncope MEASUREMENTS -------- HEIGHT: 182.9 cm WEIGHT: 86.2 kg BP: 126/65 RVIDd: 3.6 cm (< 3.3) IVSd: 1.6 cm (0.6 - 1.1) LVIDd: 5.0 cm (3.9 - 5.3) LVPWd: 1.6 cm (0.6 - 1.1) IVSs: 2.1 cm LVIDs: 3.6 cm LVPWs: 1.8 cm LA Diam: 4.1 cm (2.7 - 3.8) LAESV Index (A-L): 22.97 ml/m Ao Diam: 3.6 cm (2.0 - 3.7) AV Cusp: 2.0 cm (1.5 - 2.6) MV EXCURSION: 7.636 mm (> 18.000) MV EF SLOPE: 4 mm/s (70 - 150) EPSS: 1.6 cm MV E Ezekiel: 0.46 m/s MV DecT: 302 ms MV A Ezekiel: 0.94 m/s MV E/A Ratio: 0.49 RAP: 5.00 mmHg RVSP: 30.01 mmHg FINDINGS -------- AICD This was a technically adequate study. The left ventricular size is normal. There is moderate concentric left ventricular hypertrophy. O verall left ventricular systolic function is moderately impaired with, an EF between 35 - 40 %. The right ventricle is mildly enlarged. The left atrium is mildly dilated. The right atrium is normal in size. Interatrial and interventricular septum intact. There is mild aortic valve sclerosis. Mild mitral regurgitation is present. Mild tricuspid regurgitation present. Right ventricular systolic pressure is normal at < 35 mmHg. There is no pulmonic regurgitation present. The aortic root size is normal. IVC Not well visulized. There is no pericardial effusion. CONCLUSIONS -------- 1. AICD 2. This was a technically adequate study. 3. The left ventricular size is normal. 4. There is moderate concentric left ventricular hypertrophy. 5. Overall left ventricular systolic function is moderately impaired with, an EF between 35 - 40 %. 6. The right ventricle is mildly enlarged. 7. The left atrium is mildly dilated. 8. The right atrium is normal in size. 9. Interatrial and interventricular septum intact. 10. There is mild aortic valve sclerosis. 11. Mild mitral regurgitation is present. 12. Mild tricuspid regurgitation present. 13. Right ventricular systolic pressure is normal at < 35 mmHg. 14. There is no pulmonic regurgitation present. 15. The aortic root size is normal. 16. IVC Not well visulized. 17. There is no pericardial effusion. STEWARD/STEWARDESS THIRD: Cathy Hernandez RDCS
[2020-03-25 11:13] LABS: Glucose,Whole Blood 127 mg/dL (75-99)
--- NOTE | 2020-03-25 13:51 | P.HPIM ---
History of Present Illness H&P Date: 03/25/20 HISTORY AND PHYSICAL AND DISCHARGE SUMMARY: This is 79-year-old male patient of Dr. 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 The patient complains of near syncopal episode when he was getting out of his car he took a couple steps and he felt very lightheaded. He had not morning himself to the ground. He thought he was going to pass out. Patient denies loss of consciousness. He denies hitting his head or having any injuries. Patient was brought into [facility] emergency center by EMS for evaluation. He denied having any chest pain or shortness of breath. He was feeling back to his baseline. Blood pressure 132/78, heart rate 81, afebrile, pulse ox 96% on room air. EKG sinus rhythm with no acute changes. Hemoglobin 14.8, WBC 10.6, platelet count 137. Electrolytes normal, BUN 16 creatinine 2.23, blood sugar 207. Liver function tests normal, magnesium 2.4. Troponin 0.036. Patient placed on the cardiac stepdown unit and cardiology consult obtained. Echocardiogram reveals EF of 35-40%, mild mitral regurgitation, mild tricuspid regurgitation. Carotid ultrasound revealed no hemodynamically significant stenosis. Orthostatics were positive. Patient was evaluated by Dr. De Jesus with recommendations to decrease hydralazine to 25 mg twice daily. Patient was cleared for discharge and will be discharged home today in stable condition. Review of Systems Constitutional: Denies chills, Denies fatigue, Denies fever, Denies lethargy, Denies malaise, Denies poor appetite, Denies weight loss Eyes: denies blurred vision, denies pain Ears, nose, mouth and throat: Denies dysphagia, Denies headache, Denies nasal congestion, Denies nasal discharge, Denies sore throat, Denies vertigo Cardiovascular: Reports lightheadedness, Denies chest pain, Denies shortness of breath, Denies syncope Respiratory: Denies cough, Denies cough with sputum, Denies dyspnea, Denies excessive sputum, Denies hemoptysis, Denies home oxygen, Denies respiratory infections, Denies wheezing Gastrointestinal: Denies abdominal pain, Denies BRBPR, Denies diarrhea, Denies loss of appetite, Denies nausea, Denies vomiting Genitourinary: Denies dysuria, Denies urinary frequency, Denies urinary retention Musculoskeletal: Denies frequent falls, Denies gait dysfunction, Denies muscle weakness, Denies myalgias Integumentary: Denies pruritus, Denies rash, Denies wounds Neurological: Denies numbness, Denies weakness Psychiatric: Denies anxiety, Denies depression Endocrine: Denies fatigue, Denies weight change Past Medical History Past Medical History: Blood Disorder, Coronary Artery Disease (CAD), CVA/TIA, Diabetes Mellitus, Deep Vein Thrombosis (DVT), GERD/Reflux, Hyperlipidemia, Hypertension, Myocardial Infarction (ND), Prostate Disorder, Pulmonary Embolus (PE), Renal Disease, Thyroid Disorder Additional Past Medical History / Comment(s): DVT L leg and pulmonary embolism in bilateral lungs, MTFHFR gene mutation/coagulopathy, IDDM type II, neuropathy bilateral feet, CKD stage III, kidney stone, BPH, TIA, ischemic cardiomyopathy, MIs, asbestosis, LULU with Cpap, lumbar stenosis with L side sciatica, falls, hypothyroid, 2ndary hyperparathyroidism in old PMH but pt does not recall this. Last Myocardial Infarction Date:: 1991,2008, 04/2016 History of Any Multi-Drug Resistant Organisms: None Reported Past Surgical History: AICD, Coronary Bypass/CABG, Heart Catheterization With Stent, Orthopedic Surgery Additional Past Surgical History / Comment(s): PCI/stent, DAVID, 2008 CABG 4 vessel, AICD, bilateral carpal tunnel releases, tendon repair L ankle, bilateral cataract removal/lens implants, colonoscopy, penile implant. Past Anesthesia/Blood Transfusion Reactions: No Reported Reaction Additional Past Anesthesia/Blood Transfusion Reaction / Comment(s): Pt states he received blood with his CABG-no reaction to his knowledge. Date of Last Stent Placement:: 2015 Type of Cardiac Device: AICD Device Placement Date:: 2012 Past Psychological History: Depression Additional Psychological History / Comment(s): pt is retired from [employer], He also used to work at [employer]. Pt lives at home with his . He uses a cane and occasionally a walker-denies any falls. Pt states he drives. They have used [facility] in the past. Smoking Status: Never smoker Past Alcohol Use History: None Reported Past Drug Use History: None Reported - Past Family History Father Family Medical History: Dementia, Diabetes Mellitus, Vascular Disorder Additional Family Medical History / Comment(s): Father had vascular disease and from this at the age of 84 yrs. Mother Family Medical History: Congestive Heart Failure (CHF), Rheumatoid Arthritis (RA) Additional Family Medical History / Comment(s): Mother had bleeding ulcers and never recovered, she at the age of 67yrs. Medications and Allergies Home Medications Medication Instructions Recorded Confirmed Type Isosorbide Mononitrate [Imdur] 30 mg PO DAILY 04/10/14 03/24/20 History Multivitamin [Men's Multi-Vitamin] 1 tab PO DAILY 04/10/14 03/24/20 History Simvastatin [Zocor] 40 mg PO HS 04/10/14 03/24/20 History Aspirin 81 mg PO DAILY 04/11/14 03/24/20 History Beclomethasone Dipropionate [Qvar 2 puff INHALATION RT-BID 05/29/15 03/24/20 History 80 mcg/puff] Carvedilol 25 mg PO BID 05/29/15 03/24/20 History Insulin NPH/Reg Insulin 70/30 75 unit SQ AC-SUPPER 08/05/15 03/24/20 History [humuLIN 70/30 VIAL] Montelukast [Singulair] 10 mg PO HS 08/05/15 03/24/20 History Insulin NPH/Reg Insulin 70/30 65 unit SQ AC-BRKFST 05/11/16 03/24/20 History [humuLIN 70/30 VIAL] Levothyroxine Sodium [Synthroid] 75 mcg PO DAILY 05/11/16 03/24/20 History Apixaban [Eliquis] 2.5 mg PO BID #60 tablet 05/16/16 03/24/20 Rx Nitroglycerin Sl Tabs [Nitrostat] 0.4 mg SUBLINGUAL Q5M PRN #25 tab 05/16/16 03/24/20 Rx Ergocalciferol (Vitamin D2) 50,000 unit PO Q30D 08/01/16 03/24/20 History [Drisdol] Gabapentin [Neurontin] 300 mg PO DAILY 12/26/17 03/24/20 History Doxazosin [Cardura] 2 mg PO HS 01/31/19 03/24/20 History Doxercalciferol [Hectorol] 0.5 mcg PO SUTUTHSA 01/31/19 03/24/20 History Clopidogrel [Plavix] 75 mg PO DAILY #30 tab 02/05/19 03/24/20 Rx Acetaminophen/Chlorpheniramine 1 tab PO Q4H PRN 03/24/20 03/24/20 History [Coricidin Hbp Cold-Flu Tablet] Albuterol Inhaler [Ventolin Hfa 2 puff INHALATION BID PRN 03/24/20 03/24/20 History Inhaler] Furosemide [Lasix] 80 mg PO DAILY 03/24/20 03/24/20 History Gabapentin [Neurontin] 600 mg PO HS 03/24/20 03/24/20 History Insulin NPH/Reg Insulin 70/30 See Protocol SQ DAILY PRN 03/24/20 03/24/20 History [humuLIN 70/30 VIAL] Omeprazole 20 mg PO DAILY 03/24/20 03/24/20 History Semaglutide [Ozempic] 0.5 mg SQ Q7D 03/24/20 03/24/20 History methylPREDNISolone [Medrol Dose 4 mg PO DIRECTED 03/24/20 03/24/20 History Pack] hydrALAZINE HCL 25 mg PO BID #0 03/25/20 03/24/20 Rx Allergies Allergy/AdvReac Type Severity Reaction Status Date / Time adhesive Allergy Rash/Hives Verified 03/24/20 18:44 Iodinated Contrast Media Allergy Rash/Hives,KIDNEY Verified 03/24/20 18:44 [Iodinated Contrast Media - PROBLEM IV Dye] iodine Allergy Rash/Hives Verified 03/24/20 18:44 Penicillins Allergy Rash/Hives Verified 03/24/20 18:44 povidone-iodine Allergy Rash/Hives Verified 03/24/20 18:44 [From Betadine] baclofen AdvReac Confusion Verified 03/24/20 18:44 tramadol AdvReac Confusion Verified 03/24/20 18:44 Physical Exam Vitals: Vital Signs Temp Pulse Pulse Resp BP BP BP 03/25/20 09:19 70 03/25/20 09:08 70 03/25/20 08:00 97.7 F 70 18 134/75 114/67 03/25/20 06:34 72 140/92 03/25/20 03:56 97.8 F 68 16 03/24/20 23:30 71 16 143/75 148/78 03/24/20 20:21 204/94 169/66 03/24/20 19:47 97.9 F 73 18 190/86 143/81 03/24/20 18:21 75 17 167/89 03/24/20 16:02 68 17 149/87 03/24/20 13:22 98.6 F 81 18 132/78 BP Pulse Ox 03/25/20 09:19 03/25/20 09:08 03/25/20 08:00 157/76 95 03/25/20 06:34 03/25/20 03:56 126/65 97 03/24/20 23:30 157/78 96 03/24/20 20:21 209/95 03/24/20 19:47 98 03/24/20 18:21 100 03/24/20 16:02 97 03/24/20 13:22 96 Intake and Output 03/24/20 03/25/20 03/25/20 22:59 06:59 14:59 Other: # Voids 2 1 Weight 90.718 kg 86.5 kg - Constitutional General appearance: cooperative, no acute distress, obese - EENT Eyes: anicteric sclerae, EOMI, dentition normal, normal appearance ENT: NA/AT, normal oropharynx - Neck Neck: normal ROM - Respiratory Respiratory: bilateral: CTA, negative: diminished, dullness, rales, rhonchi, wheezing - Cardiovascular Rhythm: regular Heart sounds: normal: S1, S2 Abnormal Heart Sounds: no systolic murmur, no diastolic murmur, no rub, no S3 Gallop, no S4 Gallop, no click, no other - Gastrointestinal General gastrointestinal: normal bowel sounds, soft - Integumentary Integumentary: normal, normal turgor - Neurologic Neurologic: CNII-XII intact - Musculoskeletal Musculoskeletal: gait normal, strength equal bilaterally - Psychiatric Psychiatric: A&O x's 3, appropriate affect, intact judgment & insight Results CBC & Chem 7: 03/25/20 02:08 03/25/20 02:08 Labs: Abnormal Lab Results - Last 24 Hours (Table) 03/24/20 03/24/20 03/24/20 Range/Units 13:55 13:55 13:55 Plt Count 137 L (150-450) k/uL Neutrophils # 9.2 H (1.3-7.7) k/uL Lymphocytes # 0.6 L (1.0-4.8) k/uL APTT 21.3 L (22.0-30.0) sec Chloride (98-107) mmol/L Carbon Dioxide (22-30) mmol/L BUN 68 H (9-20) mg/dL Creatinine 2.23 H (0.66-1.25) mg/dL Glucose 207 H (74-99) mg/dL POC Glucose (mg/dL) (75-99) mg/dL Magnesium 2.4 H (1.6-2.3) mg/dL Troponin I (0.000-0.034) ng/mL Triglycerides (<150) mg/dL HDL Cholesterol (40-60) mg/dL 03/24/20 03/24/20 03/24/20 Range/Units 13:55 19:22 20:27 Plt Count (150-450) k/uL Neutrophils # (1.3-7.7) k/uL Lymphocytes # (1.0-4.8) k/uL APTT (22.0-30.0) sec Chloride (98-107) mmol/L Carbon Dioxide (22-30) mmol/L BUN (9-20) mg/dL Creatinine (0.66-1.25) mg/dL Glucose (74-99) mg/dL POC Glucose (mg/dL) 259 H (75-99) mg/dL Magnesium (1.6-2.3) mg/dL Troponin I 0.036 H* 0.036 H* (0.000-0.034) ng/mL Triglycerides (<150) mg/dL HDL Cholesterol (40-60) mg/dL 03/25/20 03/25/20 03/25/20 Range/Units 02:08 02:08 02:08 Plt Count 137 L (150-450) k/uL Neutrophils # (1.3-7.7) k/uL Lymphocytes # (1.0-4.8) k/uL APTT (22.0-30.0) sec Chloride 109 H (98-107) mmol/L Carbon Dioxide 21 L (22-30) mmol/L BUN 69 H (9-20) mg/dL Creatinine 2.14 H (0.66-1.25) mg/dL Glucose 112 H (74-99) mg/dL POC Glucose (mg/dL) (75-99) mg/dL Magnesium (1.6-2.3) mg/dL Troponin I 0.048 H* (0.000-0.034) ng/mL Triglycerides 294 H (<150) mg/dL HDL Cholesterol 31 L (40-60) mg/dL 03/25/20 Range/Units 11:11 Plt Count (150-450) k/uL Neutrophils # (1.3-7.7) k/uL Lymphocytes # (1.0-4.8) k/uL APTT (22.0-30.0) sec Chloride (98-107) mmol/L Carbon Dioxide (22-30) mmol/L BUN (9-20) mg/dL Creatinine (0.66-1.25) mg/dL Glucose (74-99) mg/dL POC Glucose (mg/dL) 127 H (75-99) mg/dL Magnesium (1.6-2.3) mg/dL Troponin I (0.000-0.034) ng/mL Triglycerides (<150) mg/dL HDL Cholesterol (40-60) mg/dL Thrombosis Risk Factor Assmnt - DVT/VTE Prophylaxis DVT/VTE Prophylaxis: Pharmacologic Prophylaxis ordered - Choose All That Apply Each Factor Represents 1 point: Varicose veins Each Risk Factor Represents 3 Points: Age 75 years or older, History of DVT/PE Thrombosis Risk Factor Assessment Total Risk Factor Score: 7 Thrombosis Risk Factor Assessment Level: High Risk Assessment and Plan Plan: 1. Near syncopal episode secondary to orthostatic hypotension. Consult with cardiology appreciated. Hydralazine dosing adjusted. 2. History ischemic CVA. 3. Spondylolithesis and left radiculopahy. 4. CAD and ischemic cardiomyopathy S/P AICD placement. 5. Hypertension and Hypertensive cardiovascular disease. 6. Chronic Kidney disease stage 4. 7. Secondary hyperparathyroidism. 8. Diabetes mellitus type 2. 9. Hyperlipidemia. 10. 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 11. BPH. 12. Hypothyroidism. 13. GERD. Patient admitted for 1 night stay. Discharge plan: Home Discharge Medication List Isosorbide Mononitrate [Imdur] 30 mg PO DAILY 04/10/14 [History] Multivitamin [Men's Multi-Vitamin] 1 tab PO DAILY 04/10/14 [History] Simvastatin [Zocor] 40 mg PO HS 04/10/14 [History] Aspirin 81 mg PO DAILY 04/11/14 [History] Beclomethasone Dipropionate [Qvar 80 mcg/puff] 2 puff INHALATION RT-BID 05/29/15 [History] Carvedilol 25 mg PO BID 05/29/15 [History] Insulin NPH/Reg Insulin 70/30 [humuLIN 70/30 VIAL] 75 unit SQ AC-SUPPER 08/05/15 [History] Montelukast [Singulair] 10 mg PO HS 08/05/15 [History] Insulin NPH/Reg Insulin 70/30 [humuLIN 70/30 VIAL] 65 unit SQ AC-BRKFST 05/11/16 [History] Levothyroxine Sodium [Synthroid] 75 mcg PO DAILY 05/11/16 [History] Apixaban [Eliquis] 2.5 mg PO BID #60 tablet 05/16/16 [Rx] Nitroglycerin Sl Tabs [Nitrostat] 0.4 mg SUBLINGUAL Q5M PRN #25 tab 05/16/16 [Rx] Ergocalciferol (Vitamin D2) [Drisdol] 50,000 unit PO Q30D 08/01/16 [History] Gabapentin [Neurontin] 300 mg PO DAILY 12/26/17 [History] Doxazosin [Cardura] 2 mg PO HS 01/31/19 [History] Doxercalciferol [Hectorol] 0.5 mcg PO SUTUTHSA 01/31/19 [History] Clopidogrel [Plavix] 75 mg PO DAILY #30 tab 02/05/19 [Rx] Acetaminophen/Chlorpheniramine [Coricidin Hbp Cold-Flu Tablet] 1 tab PO Q4H PRN 03/24/20 [History] Albuterol Inhaler [Ventolin Hfa Inhaler] 2 puff INHALATION BID PRN 03/24/20 [History] Furosemide [Lasix] 80 mg PO DAILY 03/24/20 [History] Gabapentin [Neurontin] 600 mg PO HS 03/24/20 [History] Insulin NPH/Reg Insulin 70/30 [humuLIN 70/30 VIAL] See Protocol SQ DAILY PRN 03/24/20 [History] Omeprazole 20 mg PO DAILY 03/24/20 [History] Semaglutide [Ozempic] 0.5 mg SQ Q7D 03/24/20 [History] methylPREDNISolone [Medrol Dose Pack] 4 mg PO DIRECTED 03/24/20 [History] hydrALAZINE HCL 25 mg PO BID #0 03/25/20 [Rx] Impression and plan of care have been directed as dictated by the signing physician. Jalyn Mohamud nurse practitioner acting as scribe for signing physician.
--- NOTE | 2020-03-25 14:04 | P.CRDCN ---
History of Present Illness History of present illness: This is Catia Starkey PA-C scribing on behalf of Dr. Morris The patient was interviewed and examined by Dr. Morris HPI Patient is a 79-year-old male with a history of CAD status post CABG and PCI, ischemic cardiomyopathy status post ICD, CKD, hypertension, diabetes, dyslipidemia. He follows with Dr. Shen in the office. In January 2019 he underwent a left heart catheterization and PTCA and stenting of the SVG to the OM. At that time she had patent SVG to the RCA, and 50-55% blockages of the PDA and PLV which were unchanged from 2016, patent SANCHEZ to the LAD, and left main an d RCA totally occluded which was unchanged again from 2016. Patient was recently started on azithromycin and steroids for an upper respiratory infection. Since then he had been experiencing intermittent dizzy spells. These symptoms were similar to symptoms he experienced when he had orthostatic h ypotension and has losartan dose was decreased at that time. Yesterday he was driving and then he got out of his car and walked about 15 steps. He got very dizzy and went down to the ground but did not have any complete syncope. No complete loss of consciousness. No chest pain or shortness of breath, palpitations or any other symptoms. Denies any shocks from the device. Upon arrival to the emergency department his blood pressure was 132/78 and heart rate was 81. EKG shows sinus mechanism with Q waves inferiorly, nonspecific ST segment changes, incomplete right bundle branch block. He is admitted for further workup. Orthostatic vital signs positive. Telemetry reveals no arrhythmias, PACs. Patient was examined by Dr. Morris this morning. No further syncopal episodes. No chest pain or shortness of breath. ROS: No fevers, chills or rigors, Positive for cough no nausea, vomiting or diarrhea, no hematuria, dysuria, no musculoskeletal complaints, no strokes or seizures, no skin lesions. EXAMINATION: Patient is afebrile, pulse in the 70s, respirations 18, blood pressure 140/92, oxygen saturation 95% on room air Positive orthostatic vital signs, there is a drop from 157/76 when the patient is supine down to 114/67 when the patient is standing Dr. Morris examined the patient Patient is in no acute distress Lungs clear to auscultation bilaterally Heart is regular, no audible murmurs No JVD No edema REVIEW OF LABS, ECG & MEDICAL DATA WBC 9.4, hemoglobin 14.1, platelets 137, potassium 3.7, BUN 69, creatinine 2.14 LDL 45 Troponin 0.048, 0.036 Coronavirus not detected Echocardiogram shows EF 35-40% IMPRESSION / ASSESSMENT: #1 presyncope, likely orthostatic hypotension #2 history of CAD status post CABG and PCI #3 known ischemic cardiomyopathy status post ICD, EF 35-40% by recent echocardiogram #4 hypertension #5 diabetes #6 dyslipidemia #7 chronic kidney disease #8 borderline abnormal troponins, flat, in the setting of CKD and known ischemic cardiomyopathy, no symptoms of angina or acute EKG changes to suggest ACS #9 history of atrial fibrillation, anticoagulated with eliquis PLAN: device interogation to look for any ventricular arrhythmias Decrease hydralazine to 25 mg twice daily If this is normal and his symptoms improve he may go home from a cardiac standpoint for outpatient follow-up with Dr. Shen in the office Past Medical History Past Medical History: Blood Disorder, Coronary Artery Disease (CAD), CVA/TIA, Diabetes Mellitus, Deep Vein Thrombosis (DVT), GERD/Reflux, Hyperlipidemia, Hypertension, Myocardial Infarction (VT), Prostate Disorder, Pulmonary Embolus (PE), Renal Disease, Thyroid Disorder Additional Past Medical History / Comment(s): DVT L leg and pulmonary embolism in bilateral lungs, MTFHFR gene mutation/coagulopathy, IDDM type II, neuropat hy bilateral feet, CKD stage III, kidney stone, BPH, TIA, ischemic cardiomyopathy, MIs, asbestosis, LULU with Cpap, lumbar stenosis with L side sciatica, falls, hypothyroid, 2ndary hyperparathyroidism in old PMH but pt does not recall this. Last Myocardial Infarction Date:: 1991,2008, 04/2016 History of Any Multi-Drug Resistant Organisms: None Reported Past Surgical History: AICD, Coronary Bypass/CABG, Heart Catheterization With Stent, Orthopedic Surgery Additional Past Surgical History / Comment(s): PCI/stent, DAVID, 2008 CABG 4 vessel, AICD, bilateral carpal tunnel releases, tendon repair L ankle, bilateral cataract removal/lens implants, colonoscopy, penile implant. Past Anesthesia/Blood Transfusion Reactions: No Reported Reaction Additional Past Anesthesia/Blood Transfusion Reaction / Comment(s): Pt states he received blood with his CABG-no reaction to his knowledge. Date of Last Stent Placement:: 2015 Type of Cardiac Device: AICD Device Placement Date:: 2012 Past Psychological History: Depression Additional Psychological History / Comment(s): pt is retired from [employer], He also used to work at [employer]. Pt lives at home with his . He uses a cane and occasionally a walker-denies any falls. Pt states he drives. They have used [facility] in the past. Smoking Status: Never smoker Past Alcohol Use History: None Reported Past Drug Use History: None Reported - Past Family History Father Family Medical History: Dementia, Diabetes Mellitus, Vascular Disorder Additional Family Medical History / Comment(s): Father had vascular disease and from this at the age of 84 yrs. Mother Family Medical History: Congestive Heart Failure (CHF), Rheumatoid Arthritis (RA) Additional Family Medical History / Comment(s): Mother had bleeding ulcers and never recovered, she at the age of 67yrs. Medications and Allergies Home Medications Medication Instructions Recorded Confirmed Type Isosorbide Mononitrate [Imdur] 30 mg PO DAILY 04/10/14 03/24/20 History Multivitamin [Men's Multi-Vitamin] 1 tab PO DAILY 04/10/14 03/24/20 History Simvastatin [Zocor] 40 mg PO HS 04/10/14 03/24/20 History Aspirin 81 mg PO DAILY 04/11/14 03/24/20 History Beclomethasone Dipropionate [Qvar 2 puff INHALATION RT-BID 05/29/15 03/24/20 History 80 mcg/puff] Carvedilol 25 mg PO BID 05/29/15 03/24/20 History Insulin NPH/Reg Insulin 70/30 75 unit SQ AC-SUPPER 08/05/15 03/24/20 History [humuLIN 70/30 VIAL] Montelukast [Singulair] 10 mg PO HS 08/05/15 03/24/20 History Insulin NPH/Reg Insulin 70/30 65 unit SQ AC-BRKFST 05/11/16 03/24/20 History [humuLIN 70/30 VIAL] Levothyroxine Sodium [Synthroid] 75 mcg PO DAILY 05/11/16 03/24/20 History Apixaban [Eliquis] 2.5 mg PO BID #60 tablet 05/16/16 03/24/20 Rx Nitroglycerin Sl Tabs [Nitrostat] 0.4 mg SUBLINGUAL Q5M PRN #25 tab 05/16/16 03/24/20 Rx Ergocalciferol (Vitamin D2) 50,000 unit PO Q30D 08/01/16 03/24/20 History [Drisdol] Gabapentin [Neurontin] 300 mg PO DAILY 12/26/17 03/24/20 History Doxazosin [Cardura] 2 mg PO HS 01/31/19 03/24/20 History Doxercalciferol [Hectorol] 0.5 mcg PO SUTUTHSA 01/31/19 03/24/20 History Clopidogrel [Plavix] 75 mg PO DAILY #30 tab 02/05/19 03/24/20 Rx Acetaminophen/Chlorpheniramine 1 tab PO Q4H PRN 03/24/20 03/24/20 History [Coricidin Hbp Cold-Flu Tablet] Albuterol Inhaler [Ventolin Hfa 2 puff INHALATION BID PRN 03/24/20 03/24/20 History Inhaler] Furosemide [Lasix] 80 mg PO DAILY 03/24/20 03/24/20 History Gabapentin [Neurontin] 600 mg PO HS 03/24/20 03/24/20 History Insulin NPH/Reg Insulin 70/30 See Protocol SQ DAILY PRN 03/24/20 03/24/20 History [humuLIN 70/30 VIAL] Omeprazole 20 mg PO DAILY 03/24/20 03/24/20 History Semaglutide [Ozempic] 0.5 mg SQ Q7D 03/24/20 03/24/20 History methylPREDNISolone [Medrol Dose 4 mg PO DIRECTED 03/24/20 03/24/20 History Pack] hydrALAZINE HCL 25 mg PO BID #0 03/25/20 03/24/20 Rx Allergies Allergy/AdvReac Type Severity Reaction Status Date / Time adhesive Allergy Rash/Hives Verified 03/24/20 18:44 Iodinated Contrast Media Allergy Rash/Hives,KIDNEY Verified 03/24/20 18:44 [Iodinated Contrast Media - PROBLEM IV Dye] iodine Allergy Rash/Hives Verified 03/24/20 18:44 Penicillins Allergy Rash/Hives Verified 03/24/20 18:44 povidone-iodine Allergy Rash/Hives Verified 03/24/20 18:44 [From Betadine] baclofen AdvReac Confusion Verified 03/24/20 18:44 tramadol AdvReac Confusion Verified 03/24/20 18:44 Physical Exam Vitals: Vital Signs Temp Pulse Pulse Resp BP BP BP 03/25/20 09:19 70 03/25/20 09:08 70 03/25/20 08:00 97.7 F 70 18 134/75 114/67 03/25/20 06:34 72 140/92 03/25/20 03:56 97.8 F 68 16 03/24/20 23:30 71 16 143/75 148/78 03/24/20 20:21 204/94 169/66 03/24/20 19:47 97.9 F 73 18 190/86 143/81 03/24/20 18:21 75 17 167/89 03/24/20 16:02 68 17 149/87 03/24/20 13:22 98.6 F 81 18 132/78 BP Pulse Ox 03/25/20 09:19 03/25/20 09:08 03/25/20 08:00 157/76 95 03/25/20 06:34 03/25/20 03:56 126/65 97 03/24/20 23:30 157/78 96 03/24/20 20:21 209/95 03/24/20 19:47 98 03/24/20 18:21 100 03/24/20 16:02 97 03/24/20 13:22 96 Intake and Output 03/24/20 03/25/20 03/25/20 22:59 06:59 14:59 Other: # Voids 2 Weight 90.718 kg 86.5 kg Results 03/25/20 02:08 03/25/20 02:08 Cardiac Enzymes 03/24/20 03/24/20 03/24/20 Range/Units 13:55 13:55 20:27 AST 27 (17-59) U/L Troponin I 0.036 H* 0.036 H* (0.000-0.034) ng/mL 03/25/20 03/25/20 Range/Units 02:08 02:08 AST 24 (17-59) U/L Troponin I 0.048 H* (0.000-0.034) ng/mL Coagulation 03/24/20 Range/Units 13:55 PT 10.3 (9.0-12.0) sec APTT 21.3 L (22.0-30.0) sec Lipids 03/25/20 Range/Units 02:08 Triglycerides 294 H (<150) mg/dL Cholesterol 135 (<200) mg/dL HDL Cholesterol 31 L (40-60) mg/dL CBC 03/24/20 03/25/20 Range/Units 13:55 02:08 WBC 10.6 9.4 (3.8-10.6) k/uL RBC 4.81 4.52 (4.30-5.90) m/uL Hgb 14.8 14.1 (13.0-17.5) gm/dL Hct 45.1 42.7 (39.0-53.0) % Plt Count 137 L 137 L (150-450) k/uL Comprehensive Metabolic Panel 03/24/20 03/25/20 Range/Units 13:55 02:08 Sodium 139 141 (137-145) mmol/L Potassium 4.2 3.7 (3.5-5.1) mmol/L Chloride 105 109 H (98-107) mmol/L Carbon Dioxide 22 21 L (22-30) mmol/L BUN 68 H 69 H (9-20) mg/dL Creatinine 2.23 H 2.14 H (0.66-1.25) mg/dL Glucose 207 H 112 H (74-99) mg/dL Calcium 9.3 8.8 (8.4-10.2) mg/dL AST 27 24 (17-59) U/L ALT 29 27 (4-49) U/L Alkaline Phosphatase 67 57 (38-126) U/L Total Protein 7.2 6.3 (6.3-8.2) g/dL Albumin 4.2 3.5 (3.5-5.0) g/dL Current Medications Generic Name Dose Route Start Last Admin Trade Name Freq PRN Reason Stop Dose Admin Albuterol Sulfate 2.5 mg 03/24/20 19:50 03/25/20 09:07 Ventolin Nebulized INHALATION 2.5 mg BID PRN Administration Shortness Of Breath Apixaban 2.5 mg 03/24/20 21:00 03/24/20 20:30 Eliquis PO 2.5 mg BID FREDY Administration Atorvastatin Calcium 20 mg 03/24/20 21:00 03/24/20 20:30 Lipitor PO 20 mg HS [facility] Administration Carvedilol 25 mg 03/25/20 07:30 03/25/20 06:34 Coreg PO 25 mg BID-W/MEALS FREDY Administration Clopidogrel Bisulfate 75 mg 03/25/20 09:00 Plavix PO DAILY [facility] Doxazosin Mesylate 2 mg 03/24/20 21:00 03/25/20 00:05 Cardura PO Not Given HS [facility] Fluticasone Propionate 2 puff 03/24/20 20:00 03/25/20 09:07 Flovent 110 Mcg Inhaler INHALATION 2 puff RT-BID [facility] Administration Furosemide 80 mg 03/25/20 09:00 Lasix PO DAILY [facility] Gabapentin 300 mg 03/25/20 09:00 Neurontin PO DAILY [facility] Gabapentin 600 mg 03/24/20 21:00 03/24/20 20:30 Neurontin PO 600 mg HS [facility] Administration Hydralazine HCl 10 mg 03/24/20 19:56 Apresoline IVP Q4HR PRN Blood Pressure - High Hydralazine HCl 25 mg 03/25/20 21:00 Apresoline PO BID [facility] Insulin Aspart 65 unit 03/25/20 07:30 Novolog Mix 70-30 Vial SQ AC-BRKFST [facility] Insulin Aspart 75 unit 03/24/20 20:00 03/24/20 20:30 Novolog Mix 70-30 Vial SQ 75 unit AC-SUPPER [facility] Administration Isosorbide Mononitrate 30 mg 03/25/20 09:00 Imdur PO DAILY [facility] Levothyroxine Sodium 75 mcg 03/25/20 06:30 03/25/20 06:34 Synthroid PO 75 mcg 0630 [facility] Administration Losartan Potassium 50 mg 03/25/20 09:00 03/25/20 09:39 Cozaar PO Not Given DAILY [facility] Montelukast Sodium 10 mg 03/24/20 21:00 03/24/20 20:30 Singulair PO 10 mg HS [facility] Administration Nitroglycerin 0.4 mg 03/24/20 16:16 Nitrostat SUBLINGUAL Q5M PRN Chest Pain Pantoprazole Sodium 40 mg 03/25/20 07:30 03/25/20 06:34 Protonix PO 40 mg AC-BRKFST [facility] Administration Intake and Output 03/24/20 03/25/20 03/25/20 22:59 06:59 14:59 Other: # Voids 2 Weight 90.718 kg 86.5 kg 03/25/20 02:08 03/25/20 02:08
[2020-03-25] MEDS ORDERED: hydrALAZINE HCL 50 MG TAB PO SCH (21:00)
== END 2020-03-25 12:54 | disposition home or self-care (01) | DRG 312 ==
LOC: EC 13:16 → 3SCARD 16:15
PROVIDERS: ADMIT Family Medicine; ATTEND Family Medicine
DX: I95.1 Orthostatic hypotension (principal); N25.81 Secondary hyperparathyroidism of renal origin; N18.4 Chronic kidney disease, stage 4 (severe); D68.59 Other primary thrombophilia; N40.0 Benign prostatic hyperplasia without lower urinary tract symptoms; Z96.1 Presence of intraocular lens; K21.9 Gastro-esophageal reflux disease without esophagitis; E03.9 Hypothyroidism, unspecified; E11.22 Type 2 diabetes mellitus with diabetic chronic kidney disease; E78.5 Hyperlipidemia, unspecified; F32.9 Major depressive disorder, single episode, unspecified; I25.10 Atherosclerotic heart disease of native coronary artery without angina pectoris; I25.5 Ischemic cardiomyopathy; I25.82 Chronic total occlusion of coronary artery; I45.10 Unspecified right bundle-branch block; I13.10 Hypertensive heart and chronic kidney disease without heart failure, with stage 1 through stage 4 chronic kidney disease, or unspecified chronic kidney disease; Z11.59 Encounter for screening for other viral diseases; Z83.3 Family history of diabetes mellitus; Z82.49 Family history of ischemic heart disease and other diseases of the circulatory system; Z81.8 Family history of other mental and behavioral disorders; Z79.4 Long term (current) use of insulin; Z79.02 Long term (current) use of antithrombotics/antiplatelets; Z79.82 Long term (current) use of aspirin; Z79.01 Long term (current) use of anticoagulants; Z79.890 Hormone replacement therapy; Z79.899 Other long term (current) drug therapy; Z88.6 Allergy status to analgesic agent; Z88.1 Allergy status to other antibiotic agents; Z91.041 Radiographic dye allergy status; Z88.0 Allergy status to penicillin; Z91.09 Other allergy status, other than to drugs and biological substances; Z86.711 Personal history of pulmonary embolism; Z87.442 Personal history of urinary calculi; Z95.1 Presence of aortocoronary bypass graft; Z95.810 Presence of automatic (implantable) cardiac defibrillator; Z86.73 Personal history of transient ischemic attack (TIA), and cerebral infarction without residual deficits; I25.2 Old myocardial infarction; Z95.5 Presence of coronary angioplasty implant and graft; Z98.890 Other specified postprocedural states
CPT/HCPCS: 36415; 71045; 80053; 80061; 81003; 83036; 83735; 84443; 84484; 85025; 85610; 85730; 87635; 93005; 93306; 93880; 94640; 96360; 96361; 99285

== ENCOUNTER → 2021-06-21 | Outpatient (CLI) | payer MEDICARE ==
--- NOTE | 2021-06-21 15:42 | XR ---
EXAMINATION TYPE: XR chest 2V DATE OF EXAM: 06/21/2021 COMPARISON: 03/24/2020 TECHNIQUE: PA and lateral views submitted. HISTORY: Cough. FINDINGS: Postsurgical change and cardiac device with subsegmental changes at the lung bases. Elevated right he midiaphragm. No overt failure or pneumothorax IMPRESSION: 1. No acute process basilar atelectasis with cardiomegaly favored..
== END | disposition home or self-care (01) ==
LOC: RADXRMAIN 15:15
PROVIDERS: ATTEND Nurse Practitioner Gerontology
DX: J98.6 Disorders of diaphragm (principal)
CPT/HCPCS: 71046

== ENCOUNTER 2021-06-26 13:38 | Observation (INO) | payer MEDICARE ==
[2021-06-26 15:09] LABS: Basophils % (A) 0 %; Eosinophils # (A) 0.1 k/uL (0-0.7); Eosinophils % (A) 2 %; HCT 41.4 % (39.0-53.0); HGB 13.6 gm/dL (13.0-17.5); Lymphocytes # (A) 0.6 k/uL (1.0-4.8); Lymphocytes % (A) 10 %; MCH 29.2 pg (25.0-35.0); MCV 88.6 fL (80.0-100.0); Monocytes # (A) 0.5 k/uL (0-1.0); Monocytes % (A) 8 %; Neutrophils # (A) 4.8 k/uL (1.3-7.7); Neutrophils % (A) 78 %; Platelet Count 102 k/uL (150-450); RBC 4.68 m/uL (4.30-5.90); RDW 14.7 % (11.5-15.5); WBC 6.2 k/uL (3.8-10.6)
[2021-06-26 15:11] LABS: Partial Thromboplastin Time 24.1 sec (22.0-30.0); Prothrombin Time 11.1 sec (9.0-12.0)
[2021-06-26 15:28] LABS: Appearance,Urine Clear (Clear); Bilirubin,Urine Negative (Negative); Blood,Urine Negative (Negative); Color,Urine Light Yellow; Glucose,Urine (UA) Negative (Negative); Ketones,Urine Negative (Negative); Leukocyte Esterase,Urine Negative (Negative); Nitrite,Urine Negative (Negative); Protein,Urine Trace (Negative); Specific Gravity,Urine 1.006 (1.001-1.035); Urobilinogen,Urine <2.0 mg/dL (<2.0)
--- NOTE | 2021-06-26 15:28 | XR ---
EXAMINATION TYPE: XR chest 2V DATE OF EXAM: 06/26/2021 COMPARISON: June 21, 2021 HISTORY: Weakness TECHNIQUE: 2 views FINDINGS: There is no heart failure nor confluent pneumonic infiltrate. There is left axillary pacema ker. There are sternal wires. Costophrenic angles are clear. IMPRESSION: No active cardiopulmonary disease. No change.
[2021-06-26 15:32] LABS: Albumin 3.7 g/dL (3.5-5.0); Calcium 8.9 mg/dL (8.4-10.2); Phosphorus 3.7 mg/dL (2.5-4.5); Potassium 4.2 mmol/L (3.5-5.1); Total Bilirubin 0.5 mg/dL (0.2-1.3); Total Protein 6.6 g/dL (6.3-8.2)
--- NOTE | 2021-06-26 17:27 | ED ---
Weakness HPI - General Chief complaint: Weakness Stated complaint: weakness, sent from Time Seen by Provider: 06/26/21 14:00 Source: patient, family, RN notes reviewed Mode of arrival: wheelchair Limitations: no limitations - History of Present Illness Initial comments: This is a 80-year-old male with a history of multiple medical issues who was sent in by his doctor for further evaluation because of generalized weakness lethargy and sleeping a lot. Patient does have a known history of abnormal kidney function and heart disease. He's had no chest pain fevers chills nausea vomiting sweats or other symptoms. He was noted apparently have some elevated lab work on outpatient labs I have no access to at this time. MD Complaint: generalized weakness - Related Data Home Medications Medication Instructions Recorded Confirmed Isosorbide Mononitrate [Imdur] 30 mg PO DAILY 04/10/14 06/26/21 Multivitamin [Men's Multi-Vitamin] 1 tab PO DAILY 04/10/14 06/26/21 Simvastatin [Zocor] 40 mg PO HS 04/10/14 06/26/21 Beclomethasone Dipropionate [Qvar 2 puff INHALATION RT-BID 05/29/15 06/26/21 80 mcg/puff] Carvedilol 25 mg PO BID 05/29/15 06/26/21 Insulin NPH/Reg Insulin 70/30 75 unit SQ AC-SUPPER 08/05/15 06/26/21 [humuLIN 70/30 VIAL] Montelukast [Singulair] 10 mg PO HS 08/05/15 06/26/21 Insulin NPH/Reg Insulin 70/30 65 unit SQ AC-BRKFST 05/11/16 06/26/21 [humuLIN 70/30 VIAL] Levothyroxine Sodium [Synthroid] 75 mcg PO DAILY 05/11/16 06/26/21 Ergocalciferol (Vitamin D2) 50,000 unit PO Q30D 08/01/16 06/26/21 [Drisdol] Gabapentin [Neurontin] 300 mg PO DAILY 12/26/17 06/26/21 Albuterol Inhaler [Ventolin Hfa 2 puff INHALATION RT-Q4H PRN 03/24/20 06/26/21 Inhaler] Furosemide [Lasix] 40 mg PO BID 03/24/20 06/26/21 Gabapentin [Neurontin] 600 mg PO HS 03/24/20 06/26/21 Insulin NPH/Reg Insulin 70/30 See Protocol SQ DAILY PRN 03/24/20 06/26/21 [humuLIN 70/30 VIAL] Omeprazole 20 mg PO DAILY 03/24/20 06/26/21 Dulaglutide [Trulicity] 1.5 mg SQ FR 06/26/21 06/26/21 Fluticasone Propionate [Flovent 2 puff INHALATION RT-BID PRN 06/26/21 06/26/21 Hfa 220 mcg] Ipratropium-Albuterol Nebulize 3 ml INHALATION RT-QID PRN 06/26/21 06/26/21 [Duoneb 0.5 mg-3 mg/3 ml Soln] Spironolactone [Aldactone] 12.5 mg PO DAILY 06/26/21 06/26/21 Previous Rx's Medication Instructions Recorded Apixaban [Eliquis] 2.5 mg PO BID #60 tablet 05/16/16 Nitroglycerin Sl Tabs [Nitrostat] 0.4 mg SUBLINGUAL Q5M PRN #25 tab 05/16/16 Clopidogrel [Plavix] 75 mg PO DAILY #30 tab 02/05/19 hydrALAZINE HCL 25 mg PO BID #0 03/25/20 Allergies Allergy/AdvReac Type Severity Reaction Status Date / Time adhesive Allergy Rash/Hives Verified 06/26/21 16:43 Iodinated Contrast Media Allergy Rash/Hives,KIDNEY Verified 06/26/21 16:43 [Iodinated Contrast Media - PROBLEM IV Dye] iodine Allergy Rash/Hives Verified 06/26/21 16:43 Penicillins Allergy Rash/Hives Verified 06/26/21 16:43 povidone-iodine Allergy Rash/Hives Verified 06/26/21 16:43 [From Betadine] baclofen AdvReac Confusion Verified 06/26/21 16:43 tramadol AdvReac Confusion Verified 06/26/21 16:43 Review of Systems ROS Statement: Those systems with pertinent positive or pertinent negative responses have been documented in the HPI. ROS Other: All systems not noted in ROS Statement are negative. Past Medical History Past Medical History: Blood Disorder, Coronary Artery Disease (CAD), CVA/TIA, Diabetes Mellitus, Deep Vein Thrombosis (DVT), GERD/Reflux, Hyperlipidemia, Hypertension, Myocardial Infarction (MO), Prostate Disorder, Pulmonary Embolus (PE), Renal Disease, Thyroid Disorder Additional Past Medical History / Comment(s): DVT L leg and pulmonary embolism in bilateral lungs, MTFHFR gene mutation/coagulopathy, IDDM type II, neuropathy bilateral feet, CKD stage III, kidney stone, BPH, TIA, ischemic cardiomyopathy, MIs, asbestosis, LULU with Cpap, lumbar stenosis with L side sciatica, falls, hypothyroid, 2ndary hyperparathyroidism in old PMH but pt does not recall this. Last Myocardial Infarction Date:: 1991,2008, 04/2016 History of Any Multi-Drug Resistant Organisms: None Reported Past Surgical History: AICD, Coronary Bypass/CABG, Heart Catheterization With Stent, Orthopedic Surgery Additional Past Surgical History / Comment(s): PCI/stent, DAVID, 2008 CABG 4 vessel, AICD, bilateral carpal tunnel releases, tendon repair L ankle, bilateral cataract removal/lens implants, colonoscopy, penile implant. Past Anesthesia/Blood Transfusion Reactions: No Reported Reaction Additional Past Anesthesia/Blood Transfusion Reaction / Comment(s): Pt states he received blood with his CABG-no reaction to his knowledge. Date of Last Stent Placement:: 2015 Type of Cardiac Device: AICD Device Placement Date:: 2012 Past Psychological History: Depression Smoking Status: Never smoker Past Alcohol Use History: None Reported Past Drug Use History: None Reported - Past Family History Father Family Medical History: Dementia, Diabetes Mellitus, Vascular Disorder Additional Family Medical History / Comment(s): Father had vascular disease and from this at the age of 84 yrs. Mother Family Medical History: Congestive Heart Failure (CHF), Rheumatoid Arthritis (RA) Additional Family Medical History / Comment(s): Mother had bleeding ulcers and never recovered, she at the age of 67yrs. General Exam - General Exam Comments Initial Comments: This is a well-developed well-nourished awake alert oriented 3 male Limitations: no limitations General appearance: alert, in no apparent distress Head exam: Present: atraumatic, normocephalic, normal inspection Eye exam: Present: normal appearance, PERRL, EOMI. Absent: scleral icterus, conjunctival injection, periorbital swelling ENT exam: Present: normal exam, mucous membranes moist Neck exam: Present: normal inspection, full ROM, other (No stridor JVD or bruits). Absent: tenderness, meningismus, lymphadenopathy Respiratory exam: Present: normal lung sounds bilaterally. Absent: respiratory distress, wheezes, rales, rhonchi, stridor Cardiovascular Exam: Present: regular rate, normal rhythm, normal heart sounds. Absent: systolic murmur, diastolic murmur, rubs, gallop, clicks GI/Abdominal exam: Present: soft, normal bowel sounds. Absent: distended, tenderness, guarding, rebound, rigid Extremities exam: Present: normal inspection, full ROM, normal capillary refill, pedal edema (Trace edema). Absent: tenderness, joint swelling, calf tenderness Back exam: Present: normal inspection Neurological exam: Present: alert, oriented X3, CN II-XII intact Psychiatric exam: Present: normal affect, normal mood Skin exam: Present: warm, dry, intact, normal color. Absent: rash Course Vital Signs 06/26/21 06/26/21 13:44 14:00 Temperature 97.9 F Pulse Rate 77 Respiratory 18 18 Rate Blood Pressure 153/79 O2 Sat by Pulse 98 Oximetry - Reevaluation(s) Reevaluation #1: 06/26/21 17:27 Old EKG compared with today's from 03/24/20 no overt changes EKG Findings - EKG Results: EKG: interpreted by ERMD, sinus rhythm (Sinus rhythm rate is 66. Interval 204 QRS duration 106 QT since QTC 42/505 and complete left bundle-branch block prolonged QT noted) Medical Decision Making - Medical Decision Making I did discuss [employer] the patient family members as well as with Dr. Manjarrez patient will be admitted for inpatient evaluation and treatment with cardiology and nephrology consultation. - Lab Data Result diagrams: 06/26/21 14:12 06/26/21 14:12 Lab Results 06/26/21 06/26/21 06/26/21 Range/Units 14:12 14:12 14:12 WBC 6.2 (3.8-10.6) k/uL RBC 4.68 (4.30-5.90) m/uL Hgb 13.6 (13.0-17.5) gm/dL Hct 41.4 (39.0-53.0) % MCV 88.6 (80.0-100.0) fL MCH 29.2 (25.0-35.0) pg MCHC 33.0 (31.0-37.0) g/dL RDW 14.7 (11.5-15.5) % Plt Count 102 L (150-450) k/uL MPV 8.0 Neutrophils % 78 % Lymphocytes % 10 % Monocytes % 8 % Eosinophils % 2 % Basophils % 0 % Neutrophils # 4.8 (1.3-7.7) k/uL Lymphocytes # 0.6 L (1.0-4.8) k/uL Monocytes # 0.5 (0-1.0) k/uL Eosinophils # 0.1 (0-0.7) k/uL Basophils # 0.0 (0-0.2) k/uL PT 11.1 (9.0-12.0) sec INR 1.0 (<1.2) APTT 24.1 (22.0-30.0) sec Sodium 137 (137-145) mmol/L Potassium 4.2 (3.5-5.1) mmol/L Chloride 106 (98-107) mmol/L Carbon Dioxide 21 L (22-30) mmol/L Anion Gap 10 mmol/L BUN 46 H (9-20) mg/dL Creatinine 2.31 H (0.66-1.25) mg/dL Est GFR (CKD-EPI)AfAm 30 (>60 ml/min/1.73 sqM) Est GFR (CKD-EPI)NonAf 26 (>60 ml/min/1.73 sqM) Glucose 145 H (74-99) mg/dL Plasma Lactic Acid Taye (0.7-2.0) mmol/L Calcium 8.9 (8.4-10.2) mg/dL Phosphorus 3.7 (2.5-4.5) mg/dL Total Bilirubin 0.5 (0.2-1.3) mg/dL AST 33 (17-59) U/L ALT 26 (4-49) U/L Alkaline Phosphatase 71 (38-126) U/L Creatine Kinase 216 H (55-170) U/L Troponin I (0.000-0.034) ng/mL NT-Pro-B Natriuret Pep pg/mL Total Protein 6.6 (6.3-8.2) g/dL Albumin 3.7 (3.5-5.0) g/dL Urine Color Urine Appearance (Clear) Urine pH (5.0-8.0) Ur Specific [place] (1.001-1.035) Urine Protein (Negative) Urine Glucose (UA) (Negative) Urine Ketones (Negative) Urine Blood (Negative) Urine Nitrite (Negative) Urine Bilirubin (Negative) Urine Urobilinogen (<2.0) mg/dL Ur Leukocyte Esterase (Negative) 06/26/21 06/26/21 06/26/21 Range/Units 14:12 14:12 14:12 WBC (3.8-10.6) k/uL RBC (4.30-5.90) m/uL Hgb (13.0-17.5) gm/dL Hct (39.0-53.0) % MCV (80.0-100.0) fL MCH (25.0-35.0) pg MCHC (31.0-37.0) g/dL RDW (11.5-15.5) % Plt Count (150-450) k/uL MPV Neutrophils % % Lymphocytes % % Monocytes % % Eosinophils % % Basophils % % Neutrophils # (1.3-7.7) k/uL Lymphocytes # (1.0-4.8) k/uL Monocytes # (0-1.0) k/uL Eosinophils # (0-0.7) k/uL Basophils # (0-0.2) k/uL PT (9.0-12.0) sec INR (<1.2) APTT (22.0-30.0) sec Sodium (137-145) mmol/L Potassium (3.5-5.1) mmol/L Chloride (98-107) mmol/L Carbon Dioxide (22-30) mmol/L Anion Gap mmol/L BUN (9-20) mg/dL Creatinine (0.66-1.25) mg/dL Est GFR (CKD-EPI)AfAm (>60 ml/min/1.73 sqM) Est GFR (CKD-EPI)NonAf (>60 ml/min/1.73 sqM) Glucose (74-99) mg/dL Plasma Lactic Acid Taye 1.1 (0.7-2.0) mmol/L Calcium (8.4-10.2) mg/dL Phosphorus (2.5-4.5) mg/dL Total Bilirubin (0.2-1.3) mg/dL AST (17-59) U/L ALT (4-49) U/L Alkaline Phosphatase (38-126) U/L Creatine Kinase (55-170) U/L Troponin I 0.090 H* (0.000-0.034) ng/mL NT-Pro-B Natriuret Pep 9830 pg/mL Total Protein (6.3-8.2) g/dL Albumin (3.5-5.0) g/dL Urine Color Urine Appearance (Clear) Urine pH (5.0-8.0) Ur Specific [place] (1.001-1.035) Urine Protein (Negative) Urine Glucose (UA) (Negative) Urine Ketones (Negative) Urine Blood (Negative) Urine Nitrite (Negative) Urine Bilirubin (Negative) Urine Urobilinogen (<2.0) mg/dL Ur Leukocyte Esterase (Negative) 06/26/21 Range/Units 15:14 WBC (3.8-10.6) k/uL RBC (4.30-5.90) m/uL Hgb (13.0-17.5) gm/dL Hct (39.0-53.0) % MCV (80.0-100.0) fL MCH (25.0-35.0) pg MCHC (31.0-37.0) g/dL RDW (11.5-15.5) % Plt Count (150-450) k/uL MPV Neutrophils % % Lymphocytes % % Monocytes % % Eosinophils % % Basophils % % Neutrophils # (1.3-7.7) k/uL Lymphocytes # (1.0-4.8) k/uL Monocytes # (0-1.0) k/uL Eosinophils # (0-0.7) k/uL Basophils # (0-0.2) k/uL PT (9.0-12.0) sec INR (<1.2) APTT (22.0-30.0) sec Sodium (137-145) mmol/L Potassium (3.5-5.1) mmol/L Chloride (98-107) mmol/L Carbon Dioxide (22-30) mmol/L Anion Gap mmol/L BUN (9-20) mg/dL Creatinine (0.66-1.25) mg/dL Est GFR (CKD-EPI)AfAm (>60 ml/min/1.73 sqM) Est GFR (CKD-EPI)NonAf (>60 ml/min/1.73 sqM) Glucose (74-99) mg/dL Plasma Lactic Acid Taye (0.7-2.0) mmol/L Calcium (8.4-10.2) mg/dL Phosphorus (2.5-4.5) mg/dL Total Bilirubin (0.2-1.3) mg/dL AST (17-59) U/L ALT (4-49) U/L Alkaline Phosphatase (38-126) U/L Creatine Kinase (55-170) U/L Troponin I (0.000-0.034) ng/mL NT-Pro-B Natriuret Pep pg/mL Total Protein (6.3-8.2) g/dL Albumin (3.5-5.0) g/dL Urine Color Light Yellow Urine Appearance Clear (Clear) Urine pH 6.0 (5.0-8.0) Ur Specific [place] 1.006 (1.001-1.035) Urine Protein Trace H (Negative) Urine Glucose (UA) Negative (Negative) Urine Ketones Negative (Negative) Urine Blood Negative (Negative) Urine Nitrite Negative (Negative) Urine Bilirubin Negative (Negative) Urine Urobilinogen <2.0 (<2.0) mg/dL Ur Leukocyte Esterase Negative (Negative) - Radiology Data Radiology results: report reviewed (Imaging reviewed no acute findings.), image reviewed Disposition Clinical Impression: Renal insufficiency, Elevated troponin, Generalized weakness, Failure to thrive Disposition: ADMITTED IP TO THIS [facility] Condition: Fair Referrals: Kuldeep Manjarrez MD [Primary Care Provider] - 1-2 days
[2021-06-26] MEDS ORDERED: ACETAMINOPHEN TAB 325 MG TAB PO PRN (17:29)
[2021-06-26] MEDS ORDERED: NALOXONE 0.4 MG/ML 1 ML VIAL IV PRN (17:29)
[2021-06-26] MEDS: SODIUM CHLORIDE 0.9% 1,000 ML IV SCH (18:59)
[2021-06-26] MEDS ORDERED: W ADAP INHALATION SCH (20:00)
[2021-06-26] MEDS ORDERED: BECLOMETHASONE DIPROPIONATE INHALATION SCH (20:00)
[2021-06-26 20:08] LABS: Glucose,Whole Blood 83 mg/dL (75-99)
[2021-06-26] MEDS: INSULIN ASPART (NovoLOG) 100 UNIT/ML VIAL SQ SCH (21:20)
[2021-06-26] MEDS: APIXABAN 2.5 MG TABLET PO SCH (21:27)
[2021-06-26] MEDS: ATORVASTATIN 20 MG TAB PO SCH (21:27)
[2021-06-26] MEDS: MONTELUKAST 10 MG TAB PO SCH (21:27)
[2021-06-26] MEDS: hydrALAZINE HCL 25 MG TAB PO SCH (21:28)
[2021-06-26] MEDS: GABAPENTIN 300 MG CAP PO SCH (21:28)
[2021-06-26] MEDS: FUROSEMIDE 40 MG TAB PO SCH (21:29)
[2021-06-26] MEDS: carvediloL 12.5 MG TAB PO SCH (21:31)
[2021-06-27 06:17] LABS: Glucose,Whole Blood 202 mg/dL (75-99)
[2021-06-27] MEDS: carvediloL 12.5 MG TAB PO SCH ×2 (06:47→16:27)
[2021-06-27] MEDS: INSULIN ASPART (NovoLOG) 100 UNIT/ML VIAL SQ SCH ×4 (06:47→21:58)
[2021-06-27] MEDS: LEVOTHYROXINE 75 MCG TAB PO SCH (06:47)
[2021-06-27] MEDS: INSULN ASP PRT/INSULIN ASPART 100 UNIT/ML 10 ML VIAL SQ SCH (07:48)
[2021-06-27] MEDS: APIXABAN 2.5 MG TABLET PO SCH ×2 (08:33→21:58)
[2021-06-27] MEDS: GABAPENTIN 300 MG CAP PO SCH ×2 (08:34→21:58)
[2021-06-27] MEDS: FUROSEMIDE 40 MG TAB PO SCH ×2 (08:34→21:58)
[2021-06-27] MEDS: CLOPIDOGREL 75 MG TAB PO SCH (08:34)
[2021-06-27] MEDS: ISOSORBIDE MONONITRATE ER 30 MG TAB.ER.24H PO SCH (08:34)
[2021-06-27] MEDS: PANTOPRAZOLE 40 MG TABLET PO SCH (08:34)
[2021-06-27] MEDS: MULTIVITAMINS, THERA 1 EACH TAB PO SCH (08:34)
[2021-06-27] MEDS: hydrALAZINE HCL 25 MG TAB PO SCH ×2 (08:34→21:58)
[2021-06-27] MEDS: ALBUTEROL NEBULIZED 2.5 MG/3 ML INHALATION PRN ×3 (10:54→20:05)
[2021-06-27] MEDS ORDERED: FUROSEMIDE 10 MG/ML 4 ML VIAL IV STA (11:02)
--- NOTE | 2021-06-27 11:09 | P.HPIM ---
History of Present Illness H&P Date: 06/27/21 Chief Complaint: Weakness History of present illness: His is an 80-year-old man known to Dr. Manjarrez past medical history significant for coronary artery disease, CVA, diverticulitis, DVT, GERD, hyperlipidemia, hypertension, myocardial infarction, chronic kidney disease stage III, BPH, ischemic cardio myopathy, obstructive sleep apnea to use plain a CPAP machine, hypothyroidism. Was sent to the emergency room for evaluation after called the office with complaints of generalized weakness, lethargy denies fatigue. Patient also stands some exertional dyspnea. Patient was supposed to attend a family reunion yesterday but due to his increased fatigue and shortness of breath with exertion he declined to go. Approximate 2 weeks ago patient did utilize a nebulizer due to some shortness of breath he did bring up some clear sputum however he did not have any fever or chills. Patient denies any syncope. She denies any chest pain. Upon evaluation patient has has had elevated troponin. At this time patient is resting, patient is found resting comfortably in bed without any complaints or concerns. Patient is in no acute distress. Patient states that he continues to have some fatigue and no shortness of breath or chest pain at this time. Patient denies any nausea or vomiting. Upon was 0.089, W BC 6.2, hemoglobin 13.6, potassium 4.2, BUN 46, creatinine 2.31, BNP 9830 Review Of Systems: Constitutional: No fever, no chills, no night sweats. No weight change. No weakness, fatigue or lethargy. No daytime sleepiness. EENT: No headache. No blurred vision or double vision, no loss of vision. No loss of Hearing, no ringing in the ears, no dizziness. No nasal drainage or congestion. No epistaxis. No sore throat. Lungs: No shortness of breath, cough, no sputum production. No wheezing. Cardiovascular: No chest pain, no lower extremity edema. No palpitations. No paroxysmal nocturnal dyspnea. No orthopnea. No lightheadedness or dizziness. No syncopal episodes. Abdominal: no abdominal discomfort. No nausea, vomiting. no diarrhea. No constipation. No bloody or tarry stools. no loss of appetite. Genitourinary: No dysuria, increased frequency, urgency. No urinary retention. Musculoskeletal: No myalgias. No muscle weakness, no gait dysfunction, no frequent falls. No back pain. No neck pain. Integumentary: No wounds, no lesions. No rash or pruritus. No unusual bruising. No change in hair or nails. Neurologic: No aphasia. No facial droop. No change in mentation. No head injury. No headache. No paralysis. No paresthesia. Psychiatric: No depression. No anxiety. No mood swings. Endocrine: No abnormal blood sugars. No weight change. No excessive sweating or thirst. Social history: Patient is started from [place] throat is better. He is m arried. He was at home with his . He utilizes a cane and occasional walker. It has CPAP machine at home. Patient is able to drive. Has used [facility] home care in the past. Family history: Patient has 3 children son with a history of diabetes and hypothyroidism, daughter history of fibromyalgia, other daughter healthy. One sister who has had breast cancer who is alive, mother at 67 related to coronary artery disease and rheumatoid arthritis, dad at 83 related to dementia and infection. Physical examination General Appearance: Alert, cooperative, no distress, this is an 80-year-old male appears younger stated age. Neck HEENT: Supple, no lymphadenopathy, no thyroid enlargement, no carotid bruits. Lungs: Clear to auscultation without crackles or wheezes no rhonchi, no deformity. Chest Wall: Chest wall normal expansion with deep inspiration no tenderness and no deformity was found on exam, no costochondral pain or discomfort. Heart: Regular rate and rhythm, S1, S2 normal, no murmur, rub or gallop. Back: Symmetric, no curvature, ROM normal, no CVA tenderness. Abdomen: Soft, non-tender, no rebound or rigidity, no hepatosplenomegaly. Extremities: Extremities normal, atraumatic, no cyanosis or edema. Pulses: 2+ and symmetric. Skin: Skin color, texture, tugor normal, no rashes or lesions. Neurologic: Alert oriented x3 cranial nerves II through XII intact, no motor deficit, no abnormal balance or gait Assessment and plan: 1. Weakness and fatigue. Consult cardiology, we will continue to monitor the patient's kidney function and repeat troponin. 2. Elevated troponin with history of coronary artery disease. Repeat troponin 0.089, cardiology consult appreciated. 3. Congestive heart failure. Lasix 40 mg by mouth twice a day, Imdur 30 mg by mouth 4. Chronic renal disease. Consult nephrology, continue to monitor BMP 5. Diabetes mellitus. Accu-Cheks before meals at bedtime, NovoLog sliding scale, NovoLog 70/30 50 units at breakfast, 50 units at dinner 6. Hyperlipidemia. Atorvastatin 20 mg by mouth at bedtime 7. Hypertension. Coreg 25 mg by mouth twice a day, hydralazine 25 mg by mouth twice a day 8. Osteoarthritis. Gabapentin 30 mg daily, 60 mg at night 9. Hypothyroidism Levothyroxine 75 MCG's by mouth 10. Coronary artery disease. Continue Plavix 75 mg by mouth daily 11. History of DVT and MTFHFR gene mutation/coagulopathy and DVT prophylaxis. Eliquis 2.5 mg twice a day 12. GERD and GI prophylaxis. Protonix 40 mg by mouth daily CODE STATUS: Full code Patient be admitted for minimum of 2 nights day. Discharge plan: Possible discharge tomorrow Impression and plan of care have been directed as dictated by the signing physician. Hallie Palacios nurse practitioner acting as scribe for signing physician. Past Medical History Past Medical History: Blood Disorder, Coronary Artery Disease (CAD), CVA/TIA, Diabetes Mellitus, Deep Vein Thrombosis (DVT), GERD/Reflux, Hyperlipidemia, Hypertension, Myocardial Infarction (TX), Prostate Disorder, Pulmonary Embolus (PE), Renal Disease, Thyroid Disorder Additional Past Medical History / Comment(s): DVT L leg and pulmonary embolism in bilateral lungs, MTFHFR gene mutation/coagulopathy, IDDM type II, neuropathy bilateral feet, CKD stage III, kidney stone, BPH, TIA, ischemic cardiomyopathy, MIs, asbestosis, LULU with Cpap, lumbar stenosis with L side sciatica, falls, hypothyroid, 2ndary hyperparathyroidism in old PMH but pt does not recall this. Last Myocardial Infarction Date:: 1991,2008, 04/2016 History of Any Multi-Drug Resistant Organisms: None Reported Past Surgical History: AICD, Coronary Bypass/CABG, Heart Catheterization With Stent, Orthopedic Surgery Additional Past Surgical History / Comment(s): PCI/stent, DAVID, 2008 CABG 4 vessel, AICD, bilateral carpal tunnel releases, tendon repair L ankle, bilateral cataract removal/lens implants, colonoscopy, penile implant. Past Anesthesia/Blood Transfusion Reactions: No Reported Reaction Additional Past Anesthesia/Blood Transfusion Reaction / Comment(s): Pt states he received blood with his CABG-no reaction to his knowledge. Date of Last Stent Placement:: 2015 Type of Cardiac Device: AICD Device Placement Date:: 2012 Past Psychological History: Depression Additional Psychological History / Comment(s): pt is retired from [employer], He also used to work at [employer]. Pt lives at home with his . He uses a cane and occasionally a walker-denies any falls. Pt states he drives. They have used [facility] in the past. Smoking Status: Never smoker Past Alcohol Use History: None Reported Past Drug Use History: None Reported - Past Family History Father Family Medical History: Dementia, Diabetes Mellitus, Vascular Disorder Additional Family Medical History / Comment(s): Father had vascular disease and from this at the age of 84 yrs. Mother Family Medical History: Congestive Heart Failure (CHF), Rheumatoid Arthritis (RA) Additional Family Medical History / Comment(s): Mother had bleeding ulcers and never recovered, she at the age of 67yrs. Medications and Allergies Home Medications Medication Instructions Recorded Confirmed Type Isosorbide Mononitrate [Imdur] 30 mg PO DAILY 04/10/14 06/26/21 History Multivitamin [Men's Multi-Vitamin] 1 tab PO DAILY 04/10/14 06/26/21 History Simvastatin [Zocor] 40 mg PO HS 04/10/14 06/26/21 History Beclomethasone Dipropionate [Qvar 2 puff INHALATION RT-BID 05/29/15 06/26/21 History 80 mcg/puff] Carvedilol 25 mg PO BID 05/29/15 06/26/21 History Insulin NPH/Reg Insulin 70/30 75 unit SQ AC-SUPPER 08/05/15 06/26/21 History [humuLIN 70/30 VIAL] Montelukast [Singulair] 10 mg PO HS 08/05/15 06/26/21 History Insulin NPH/Reg Insulin 70/30 65 unit SQ AC-BRKFST 05/11/16 06/26/21 History [humuLIN 70/30 VIAL] Levothyroxine Sodium [Synthroid] 75 mcg PO DAILY 05/11/16 06/26/21 History Apixaban [Eliquis] 2.5 mg PO BID #60 tablet 05/16/16 06/26/21 Rx Nitroglycerin Sl Tabs [Nitrostat] 0.4 mg SUBLINGUAL Q5M PRN #25 tab 05/16/16 06/26/21 Rx Ergocalciferol (Vitamin D2) 50,000 unit PO Q30D 08/01/16 06/26/21 History [Drisdol] Gabapentin [Neurontin] 300 mg PO DAILY 12/26/17 06/26/21 History Clopidogrel [Plavix] 75 mg PO DAILY #30 tab 02/05/19 06/26/21 Rx Albuterol Inhaler [Ventolin Hfa 2 puff INHALATION RT-Q4H PRN 03/24/20 06/26/21 History Inhaler] Furosemide [Lasix] 40 mg PO BID 03/24/20 06/26/21 History Gabapentin [Neurontin] 600 mg PO HS 03/24/20 06/26/21 History Insulin NPH/Reg Insulin 70/30 See Protocol SQ DAILY PRN 03/24/20 06/26/21 History [humuLIN 70/30 VIAL] Omeprazole 20 mg PO DAILY 03/24/20 06/26/21 History hydrALAZINE HCL 25 mg PO BID #0 03/25/20 06/26/21 Rx Dulaglutide [Trulicity] 1.5 mg SQ FR 06/26/21 06/26/21 History Fluticasone Propionate [Flovent 2 puff INHALATION RT-BID PRN 06/26/21 06/26/21 History Hfa 220 mcg] Ipratropium-Albuterol Nebulize 3 ml INHALATION RT-QID PRN 06/26/21 06/26/21 History [Duoneb 0.5 mg-3 mg/3 ml Soln] Spironolactone [Aldactone] 12.5 mg PO DAILY 06/26/21 06/26/21 History Allergies Allergy/AdvReac Type Severity Reaction Status Date / Time adhesive Allergy Rash/Hives Verified 06/26/21 16:43 Iodinated Contrast Media Allergy Rash/Hives,KIDNEY Verified 06/26/21 16:43 [Iodinated Contrast Media - PROBLEM IV Dye] iodine Allergy Rash/Hives Verified 06/26/21 16:43 Penicillins Allergy Rash/Hives Verified 06/26/21 16:43 povidone-iodine Allergy Rash/Hives Verified 06/26/21 16:43 [From Betadine] baclofen AdvReac Confusion Verified 06/26/21 16:43 tramadol AdvReac Confusion Verified 06/26/21 16:43 Physical Exam Vitals: Vital Signs Temp Pulse Pulse Resp BP BP Pulse Ox 06/27/21 08:00 98.4 F 63 20 146/84 94 L 06/27/21 04:50 97.8 F 68 18 155/86 96 06/26/21 23:15 76 18 161/88 93 L 06/26/21 19:30 98 F 67 18 163/96 94 L 06/26/21 18:57 98 F 75 16 126/71 98 06/26/21 17:30 65 17 149/87 95 06/26/21 17:00 65 18 144/88 93 L 06/26/21 16:30 63 19 142/85 92 L 06/26/21 16:00 66 18 137/80 96 06/26/21 15:30 61 17 141/80 93 L 06/26/21 15:00 65 19 135/72 92 L 06/26/21 14:30 60 17 148/85 91 L 06/26/21 14:10 97 06/26/21 14:00 18 06/26/21 13:44 97.9 F 77 18 153/79 98 Intake and Output 06/26/21 06/27/21 06/27/21 22:59 06:59 14:59 Intake Total 480 240 Output Total 325 825 Balance 155 -825 240 Intake: Oral 480 240 Output: Urine 325 825 Other: Voiding Method Urinal Urinal Weight 93.44 kg 92.4 kg Results CBC & Chem 7: 06/26/21 14:12 06/26/21 14:12 Labs: Abnormal Lab Results - Last 24 Hours (Table) 06/26/21 06/26/21 06/26/21 Range/Units 14:12 14:12 14:12 Plt Count 102 L (150-450) k/uL Lymphocytes # 0.6 L (1.0-4.8) k/uL Carbon Dioxide 21 L (22-30) mmol/L BUN 46 H (9-20) mg/dL Creatinine 2.31 H (0.66-1.25) mg/dL Glucose 145 H (74-99) mg/dL POC Glucose (mg/dL) (75-99) mg/dL Creatine Kinase 216 H (55-170) U/L Troponin I 0.090 H* (0.000-0.034) ng/mL Urine Protein (Negative) 06/26/21 06/26/21 06/26/21 Range/Units 15:14 18:43 21:31 Plt Count (150-450) k/uL Lymphocytes # (1.0-4.8) k/uL Carbon Dioxide (22-30) mmol/L BUN (9-20) mg/dL Creatinine (0.66-1.25) mg/dL Glucose (74-99) mg/dL POC Glucose (mg/dL) (75-99) mg/dL Creatine Kinase (55-170) U/L Troponin I 0.089 H* 0.089 H* (0.000-0.034) ng/mL Urine Protein Trace H (Negative) 06/27/21 Range/Units 06:15 Plt Count (150-450) k/uL Lymphocytes # (1.0-4.8) k/uL Carbon Dioxide (22-30) mmol/L BUN (9-20) mg/dL Creatinine (0.66-1.25) mg/dL Glucose (74-99) mg/dL POC Glucose (mg/dL) 202 H (75-99) mg/dL Creatine Kinase (55-170) U/L Troponin I (0.000-0.034) ng/mL Urine Protein (Negative)
[2021-06-27 11:30] LABS: Glucose,Whole Blood 146 mg/dL (75-99)
[2021-06-27 11:31] LABS: Calcium 9.1 mg/dL (8.4-10.2); Potassium 4.2 mmol/L (3.5-5.1)
--- NOTE | 2021-06-27 13:30 | CONS ---
CONSULTATION REASON FOR CONSULT: Renal failure. HISTORY OF PRESENT ILLNESS: Patient is an 80-year-old male with history of chronic kidney disease, NKF stage 3B to 4 with baseline creatinine about 2-2.3 mg/dL secondary to nephrosclerosis. The patient was admitted to the hospital with complaints of increased lethargy, fatigue. He had been having shortness of breath and increased sleepiness. Workup did not reveal any significant anemia and renal function is close to baseline. Patient was noted to have borderline elevated troponins and also volume overload. He has been diuresed and states he is feeling better. Patient also states that he had increase his Lasix a few days prior to admission and had noticed improvement in his lower extremity swelling and breathing. No history of fever, chills, nausea, vomiting, abdominal pain or diarrhea. No significant urinary symptoms. PAST MEDICAL HISTORY: Significant for CKD stage 3B to 4, hypertension, coronary artery disease, dyslipidemia, type 2 diabetes, neuropathy, gastroesophageal reflux disease, history of CVA, TIA, history of DVT, PE, hypothyroidism, MTHFR gene mutation/coagulopathy, cardiomyopathy, lumbar stenosis, CKD mineral bone disorder. PAST SURGICAL HISTORY: AICD, coronary artery bypass surgery, coronary stent placement, cataract surgeries, penile implant, colonoscopy. SOCIAL HISTORY: Negative for smoking, drug abuse or alcohol abuse. MEDICATIONS ON ADMISSION: Included Imdur, multivitamin, Zocor, carvedilol, insulin, Singulair, Synthroid vitamin D, Neurontin, Lasix, Trulicity, Aldactone, Eliquis, Nitrostat, Plavix, hydralazine. ALLERGIES: Include IV CONTRAST, ADHESIVE TAPE, IODINE, PENICILLIN, BACLOFEN, BETADINE, TRAMADOL causes confusion. REVIEW OF SYSTEMS: As per HPI. Other systems negative. EXAMINATION: Patient is comfortable, awake, alert, oriented x3, not in any acute distress. Blood pressure 146/84, heart rate 63 per minute, he is afebrile. Examination of the heart S1, S2. Examination of the lungs, bilateral breath sounds are heard. Abdomen is soft, nontender. Examination of lower extremities shows edema 1+ bilaterally, mainly in the ankles. 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 LAB: Shows on 06/26/2021, sodium 137, potassium 4.2, chloride 106, CO2 is 21, BUN 46, creatinine 2.3, hemoglobin 13.6 g/dL. UA shows trace protein, otherwise negative. Troponin borderline 0.89. ASSESSMENT: 1. Chronic kidney disease stage 3B to 4, renal function fairly stable. 2. Mild volume overload, currently maintained on oral Lasix. I will give one dose of IV Lasix and the patient can resume his usual dose of loop diuretics at 40 mg b.i.d. following that. 3. Borderline troponin. 4. Coronary artery disease with history of coronary stents. 5. Type 2 diabetes. 6. Chronic kidney disease mineral bone disorder. PLAN: IV Lasix x1 and following that patient can continue with his oral dose of loop diuretics. Repeat labs in a.m. Consider stress test as per Cardiology. Thank you for this consultation. Will continue to follow the patient with you during his hospitalization. MMODL / IJN: [id number] /
--- NOTE | 2021-06-27 14:14 | P.CRDCN ---
History of Present Illness Consult date: 06/27/21 History of present illness: HISTORY OF PRESENT ILLNESS: This is a 80-year-old male with a past medical history significant for ischemic cardiomyopathy with previous AICD implantation, coronary artery disease with previous CABG and PCI, hypertension, hyperlipidemia, diabetes, and chronic kidney disease. Patient follows in the office with Dr. Shen. We have been asked to see the patient in consultation for abnormal troponins. Patient examined at the bedside. Patient's family is also present at the time of examination. Patient reports he presented to the hospital secondary to generalized weakness and fatigue for the past 2 weeks. Patient's family member at the bedside states that the patient has been feeling short of breath with minimal exertion such as walking to the bathroom. Family also reports that they saw his personnel officer last week who increased his Lasix to twice a day dosing due to increased lower extremity edema. At the time of examination, the patient denies chest pain or pressure. He denies shortness of breath. EKG reveals sinus mechanism with no signs of acute ischemia. Incomplete left bundle-branch block. Prolonged QT. Chest xray no active cardiopulmonary disease. Laboratory data: WBC 6.2. Hemoglobin 13.6. Platelet count 102. Sodium 140. Potassium 4.2. BUN 45. Creatinine 2.44. Lactic acid 1.1. Troponin 0.090. 0.089. 0.089. 0.076. ProBNP 9830. Current home cardiac medications include Aldactone 12.5 mg daily, simvastatin 40 mg daily, Imdur 30 mg daily, hydralazine 25 mg twice a day, Lasix 40 mg twice a day, Plavix 75 mg daily, carvedilol 25 mg twice a day, and Eliquis 2.5 mg twice a day Most recent echocardiogram obtained in March 2020 revealed ejection fraction 35- 40%. Mild mitral regurgitation. Mild tricuspid regurgitation. REVIEW OF SYSTEMS: At the time of my exam: CONSTITUTIONAL: Denies fever or chills. HEENT: Denies blurred vision, vision changes, or eye pain. Denies hemoptysis CARDIOVASCULAR: Denies chest pain. Denies orthopnea. Denies PND. Denies palpitations RESPIRATORY: Denies shortness of breath. GASTROINTESTINAL: Denies abdominal pain. Denies nausea or vomiting. HEMATOLOGIC: Denies bleeding disorders. GENITOURINARY: Denies any blood in urine. SKIN: Denies pruitis. Denies rash. PHYSICAL EXAM: VITAL SIGNS: Reviewed. GENERAL: Well-developed in no acute distress. HEENT: Head is normocephalic. Pupils are equal, round. Sclerae anicteric. Mucous membranes of the mouth are moist. Neck supple. No JVD or thyromegaly LUNGS: Respirations even and unlabored. Lungs diminished bilaterally. HEART: Regular rate and rhythm. S1 and S2 heard. Systolic murmur noted. ABDOMEN: Soft. Nondistended. Nontender. EXTREMITIES: Normal range of motion. No clubbing or cyanosis. Peripheral pulses intact. Trace bilateral lower extremity edema NEUROLOGIC: Awake and alert. Oriented x 3. ASSESSMENT: Generalized weakness and fatigue History of ischemic cardiomyopathy with previous AICD implantation Coronary artery disease with previous CABG and PCI Possible mild acute exacerbation of chronic systolic congestive heart failure Hypertension Hyperlipidemia Diabetes mellitus History of DVT, on anticoagulation with Eliquis Chronic kidney disease Abnormal troponins, not suggestive of acute coronary syndrome, likely secondary to chronic kidney disease PLAN: Obtain 2-D echo to assess cardiac structure and function Continue anticoagulation with Eliquis Continue home cardiac medications Patient received one time dose of IV Lasix per nephrology. Continue oral Lasix at this time as patient appears to be relatively euvolemic. Further recommendations pending patient's course Nurse practitioner note has been reviewed by physician. Signing provider agrees with the documented findings, assessment, and plan of care. Past Medical History Past Medical History: Blood Disorder, Coronary Artery Disease (CAD), CVA/TIA, Diabetes Mellitus, Deep Vein Thrombosis (DVT), GERD/Reflux, Hyperlipidemia, Hypertension, Myocardial Infarction ([place]), Prostate Disorder, Pulmonary Embolus (PE), Renal Disease, Thyroid Disorder Additional Past Medical History / Comment(s): DVT L leg and pulmonary embolism i n bilateral lungs, MTFHFR gene mutation/coagulopathy, IDDM type II, neuropathy bilateral feet, CKD stage III, kidney stone, BPH, TIA, ischemic cardiomyopathy, MIs, asbestosis, LULU with Cpap, lumbar stenosis with L side sciatica, falls, hypothyroid, 2ndary hyperparathyroidism in old PMH but pt does not recall this. Last Myocardial Infarction Date:: 1991,2008, 04/2016 History of Any Multi-Drug Resistant Organisms: None Reported Past Surgical History: AICD, Coronary Bypass/CABG, Heart Catheterization With Stent, Orthopedic Surgery Additional Past Surgical History / Comment(s): PCI/stent, DAVID, 2008 CABG 4 vessel, AICD, bilateral carpal tunnel releases, tendon repair L ankle, bilateral cataract removal/lens implants, colonoscopy, penile implant. Past Anesthesia/Blood Transfusion Reactions: No Reported Reaction Additional Past Anesthesia/Blood Transfusion Reaction / Comment(s): Pt states he received blood with his CABG-no reaction to his knowledge. Date of Last Stent Placement:: 2015 Type of Cardiac Device: AICD Device Placement Date:: 2012 Past Psychological History: Depression Additional Psychological History / Comment(s): pt is retired from [employer], He also used to work at [employer]. Pt lives at home with his . He uses a cane and occasionally a walker-denies any falls. Pt states he drives. They have used [facility] in the past. Smoking Status: Never smoker Past Alcohol Use History: None Reported Past Drug Use History: None Reported - Past Family History Father Family Medical History: Dementia, Diabetes Mellitus, Vascular Disorder Additional Family Medical History / Comment(s): Father had vascular disease and from this at the age of 84 yrs. Mother Family Medical History: Congestive Heart Failure (CHF), Rheumatoid Arthritis (RA) Additional Family Medical History / Comment(s): Mother had bleeding ulcers and never recovered, she at the age of 67yrs. Medications and Allergies Home Medications Medication Instructions Recorded Confirmed Type Isosorbide Mononitrate [Imdur] 30 mg PO DAILY 04/10/14 06/26/21 History Multivitamin [Men's Multi-Vitamin] 1 tab PO DAILY 04/10/14 06/26/21 History Simvastatin [Zocor] 40 mg PO HS 04/10/14 06/26/21 History Beclomethasone Dipropionate [Qvar 2 puff INHALATION RT-BID 05/29/15 06/26/21 History 80 mcg/puff] Carvedilol 25 mg PO BID 05/29/15 06/26/21 History Insulin NPH/Reg Insulin 70/30 75 unit SQ AC-SUPPER 08/05/15 06/26/21 History [humuLIN 70/30 VIAL] Montelukast [Singulair] 10 mg PO HS 08/05/15 06/26/21 History Insulin NPH/Reg Insulin 70/30 65 unit SQ AC-BRKFST 05/11/16 06/26/21 History [humuLIN 70/30 VIAL] Levothyroxine Sodium [Synthroid] 75 mcg PO DAILY 05/11/16 06/26/21 History Apixaban [Eliquis] 2.5 mg PO BID #60 tablet 05/16/16 06/26/21 Rx Nitroglycerin Sl Tabs [Nitrostat] 0.4 mg SUBLINGUAL Q5M PRN #25 tab 05/16/16 06/26/21 Rx Ergocalciferol (Vitamin D2) 50,000 unit PO Q30D 08/01/16 06/26/21 History [Drisdol] Gabapentin [Neurontin] 300 mg PO DAILY 12/26/17 06/26/21 History Clopidogrel [Plavix] 75 mg PO DAILY #30 tab 02/05/19 06/26/21 Rx Albuterol Inhaler [Ventolin Hfa 2 puff INHALATION RT-Q4H PRN 03/24/20 06/26/21 History Inhaler] Furosemide [Lasix] 40 mg PO BID 03/24/20 06/26/21 History Gabapentin [Neurontin] 600 mg PO HS 03/24/20 06/26/21 History Insulin NPH/Reg Insulin 70/30 See Protocol SQ DAILY PRN 03/24/20 06/26/21 History [humuLIN 70/30 VIAL] Omeprazole 20 mg PO DAILY 03/24/20 06/26/21 History hydrALAZINE HCL 25 mg PO BID #0 03/25/20 06/26/21 Rx Dulaglutide [Trulicity] 1.5 mg SQ FR 06/26/21 06/26/21 History Fluticasone Propionate [Flovent 2 puff INHALATION RT-BID PRN 06/26/21 06/26/21 History Hfa 220 mcg] Ipratropium-Albuterol Nebulize 3 ml INHALATION RT-QID PRN 06/26/21 06/26/21 History [Duoneb 0.5 mg-3 mg/3 ml Soln] Spironolactone [Aldactone] 12.5 mg PO DAILY 06/26/21 06/26/21 History Allergies Allergy/AdvReac Type Severity Reaction Status Date / Time adhesive Allergy Rash/Hives Verified 06/26/21 16:43 Iodinated Contrast Media Allergy Rash/Hives,KIDNEY Verified 06/26/21 16:43 [Iodinated Contrast Media - PROBLEM IV Dye] iodine Allergy Rash/Hives Verified 06/26/21 16:43 Penicillins Allergy Rash/Hives Verified 06/26/21 16:43 povidone-iodine Allergy Rash/Hives Verified 06/26/21 16:43 [From Betadine] baclofen AdvReac Confusion Verified 06/26/21 16:43 tramadol AdvReac Confusion Verified 06/26/21 16:43 Physical Exam Vitals: Vital Signs Temp Pulse Pulse Resp BP BP Pulse Ox 06/27/21 12:00 98.0 F 62 18 124/62 99 06/27/21 11:05 62 06/27/21 10:54 61 06/27/21 08:00 98.4 F 63 20 146/84 94 L 06/27/21 04:50 97.8 F 68 18 155/86 96 06/26/21 23:15 76 18 161/88 93 L 06/26/21 19:30 98 F 67 18 163/96 94 L 06/26/21 18:57 98 F 75 16 126/71 98 06/26/21 17:30 65 17 149/87 95 06/26/21 17:00 65 18 144/88 93 L 06/26/21 16:30 63 19 142/85 92 L 06/26/21 16:00 66 18 137/80 96 06/26/21 15:30 61 17 141/80 93 L 06/26/21 15:00 65 19 135/72 92 L 06/26/21 14:30 60 17 148/85 91 L 06/26/21 14:10 97 Intake and Output 06/26/21 06/27/21 06/27/21 22:59 06:59 14:59 Intake Total 480 240 Output Total 325 825 500 Balance 155 825 -260 Intake: Oral 480 240 Output: Urine 325 825 500 Other: Voiding Method Urinal Urinal Weight 93.44 kg 92.4 kg Results 06/26/21 14:12 06/27/21 10:48 Cardiac Enzymes 06/26/21 06/26/21 06/26/21 Range/Units 14:12 14:12 18:43 AST 33 (17-59) U/L Troponin I 0.090 H* 0.089 H* (0.000-0.034) ng/mL 06/26/21 06/27/21 Range/Units 21:31 10:48 AST (17-59) U/L Troponin I 0.089 H* 0.076 H* (0.000-0.034) ng/mL Coagulation 06/26/21 Range/Units 14:12 PT 11.1 (9.0-12.0) sec APTT 24.1 (22.0-30.0) sec CBC 06/26/21 Range/Units 14:12 WBC 6.2 (3.8-10.6) k/uL RBC 4.68 (4.30-5.90) m/uL Hgb 13.6 (13.0-17.5) gm/dL Hct 41.4 (39.0-53.0) % Plt Count 102 L (150-450) k/uL Comprehensive Metabolic Panel 06/26/21 06/27/21 Range/Units 14:12 10:48 Sodium 137 140 (137-145) mmol/L Potassium 4.2 4.2 (3.5-5.1) mmol/L Chloride 106 107 (98-107) mmol/L Carbon Dioxide 21 L 23 (22-30) mmol/L BUN 46 H 45 H (9-20) mg/dL Creatinine 2.31 H 2.44 H (0.66-1.25) mg/dL Glucose 145 H 168 H (74-99) mg/dL Calcium 8.9 9.1 (8.4-10.2) mg/dL AST 33 (17-59) U/L ALT 26 (4-49) U/L Alkaline Phosphatase 71 (38-126) U/L Total Protein 6.6 (6.3-8.2) g/dL Albumin 3.7 (3.5-5.0) g/dL Current Medications Generic Name Dose Route Start Last Admin Trade Name Freq PRN Reason Stop Dose Admin Acetaminophen 650 mg 06/26/21 17:29 Acetaminophen Tab 325 Mg Tab PO Q6HR PRN Mild Pain or Fever > 100.5 Albuterol Sulfate 2.5 mg 06/26/21 17:32 06/27/21 10:54 Albuterol Nebulized 2.5 Mg/3 Ml INHALATION 2.5 mg RT-Q4H PRN Administration Shortness Of Breath Apixaban 2.5 mg 06/26/21 21:00 06/27/21 08:33 Apixaban 2.5 Mg Tablet PO 2.5 mg BID FREDY Administration Protocol Atorvastatin Calcium 20 mg 06/26/21 21:00 06/26/21 21:27 Atorvastatin 20 Mg Tab PO 20 mg HS FREDY Administration Carvedilol 25 mg 06/26/21 21:00 06/27/21 06:47 Carvedilol 12.5 Mg Tab PO 25 mg BID-W/MEALS FREDY Administration Clopidogrel Bisulfate 75 mg 06/27/21 09:00 06/27/21 08:34 Clopidogrel 75 Mg Tab PO 75 mg DAILY FREDY Administration Ergocalciferol 1,250 mcg 07/21/21 09:00 Ergocalciferol 1,250 Mcg (50,000 Iu) Capsule PO Q30D FREDY Fluticasone Propionate 2 puff 06/26/21 17:32 Fluticasone 220 Mcg Inhaler INHALATION RT-BID PRN Shortness Of Breath Furosemide 40 mg 06/26/21 21:00 06/27/21 08:34 Furosemide 40 Mg Tab PO 40 mg BID FREDY Administration Gabapentin 300 mg 06/27/21 09:00 06/27/21 08:34 Gabapentin 300 Mg Cap PO 300 mg DAILY FREDY Administration Gabapentin 600 mg 06/26/21 21:00 06/26/21 21:28 Gabapentin 300 Mg Cap PO 600 mg HS FREDY Administration Hydralazine HCl 25 mg 06/26/21 21:00 06/27/21 08:34 Hydralazine Hcl 25 Mg Tab PO 25 mg BID FREDY Administration Sodium Chloride 1,000 mls @ 20 mls/hr 06/26/21 17:30 06/26/21 18:59 Saline 0.9% IV 20 mls/hr .Q24H FREDY Administration Insulin Aspart 0 unit 06/26/21 21:00 06/27/21 12:24 Insulin Aspart (Novolog) 100 Unit/Ml Vial SQ 1 unit ACHS FREDY Administration Protocol Insulin Aspart 50 unit 06/27/21 07:30 06/27/21 07:48 Insuln Asp Prt/Insulin Aspart 100 Unit/Ml 10 Ml Vial SQ 50 unit AC-BRKFST FREDY Administration Insulin Aspart 50 unit 06/27/21 17:30 Insuln Asp Prt/Insulin Aspart 100 Unit/Ml 10 Ml Vial SQ AC-SUPPER [facility] Isosorbide Mononitrate 30 mg 06/27/21 09:00 06/27/21 08:34 Isosorbide Mononitrate Er 30 Mg Tab.Er.24h PO 30 mg DAILY FREDY Administration Levothyroxine Sodium 75 mcg 06/27/21 06:30 06/27/21 06:47 Levothyroxine 75 Mcg Tab PO 75 mcg DAILY@0630 FREDY Administration Montelukast Sodium 10 mg 06/26/21 21:00 06/26/21 21:27 Montelukast 10 Mg Tab PO 10 mg HS FREDY Administration Multivitamins 1 each 06/27/21 09:00 06/27/21 08:34 Multivitamins, Thera 1 Each Tab PO 1 each DAILY FREDY Administration Naloxone HCl 0.2 mg 06/26/21 17:29 Naloxone 0.4 Mg/Ml 1 Ml Vial IV Q2M PRN Opioid Reversal Non-Formulary Medication 1.5 mg 07/02/21 09:00 Dulaglutide [Trulicity] SQ FR FREDY Pantoprazole Sodium 40 mg 06/27/21 09:00 06/27/21 08:34 Pantoprazole 40 Mg Tablet PO 40 mg DAILY FREDY Administration Spironolactone 12.5 mg 06/28/21 09:00 Spironolactone 25 Mg Tab PO DAILY FREDY Intake and Output 06/26/21 06/27/21 06/27/21 22:59 06:59 14:59 Intake Total 480 240 Output Total 325 825 500 Balance 155 -825 -260 Intake: Oral 480 240 Output: Urine 325 825 500 Other: Voiding Method Urinal Urinal Weight 93.44 kg 92.4 kg 06/26/21 14:12 06/27/21 10:48
[2021-06-27 16:52] LABS: Glucose,Whole Blood 140 mg/dL (75-99)
[2021-06-27] MEDS ORDERED: INSULN ASP PRT/INSULIN ASPART 100 UNIT/ML 10 ML VIAL SQ SCH (17:30)
[2021-06-27] MEDS: FLUTICASONE 220 MCG INHALER INHALATION PRN (20:05)
[2021-06-27 20:09] LABS: Glucose,Whole Blood 162 mg/dL (75-99)
[2021-06-27] MEDS: SODIUM CHLORIDE 0.9% 1,000 ML IV SCH (21:46)
[2021-06-27] MEDS: MONTELUKAST 10 MG TAB PO SCH (21:58)
[2021-06-27] MEDS: ATORVASTATIN 20 MG TAB PO SCH (21:58)
[2021-06-28 06:16] LABS: Glucose,Whole Blood 153 mg/dL (75-99)
[2021-06-28] MEDS: LEVOTHYROXINE 75 MCG TAB PO SCH (06:49)
[2021-06-28] MEDS: carvediloL 12.5 MG TAB PO SCH (06:49)
[2021-06-28] MEDS: INSULIN ASPART (NovoLOG) 100 UNIT/ML VIAL SQ SCH ×2 (06:50→12:30)
[2021-06-28] MEDS: ALBUTEROL NEBULIZED 2.5 MG/3 ML INHALATION PRN ×2 (07:38→11:10)
[2021-06-28] MEDS: FLUTICASONE 220 MCG INHALER INHALATION PRN (07:39)
[2021-06-28 08:15] VITALS: TEMP 97.8
[2021-06-28] MEDS: MULTIVITAMINS, THERA 1 EACH TAB PO SCH (08:17)
[2021-06-28] MEDS: GABAPENTIN 300 MG CAP PO SCH (08:17)
[2021-06-28] MEDS: PANTOPRAZOLE 40 MG TABLET PO SCH (08:17)
[2021-06-28] MEDS: ISOSORBIDE MONONITRATE ER 30 MG TAB.ER.24H PO SCH (08:17)
[2021-06-28] MEDS: APIXABAN 2.5 MG TABLET PO SCH (08:17)
[2021-06-28] MEDS: CLOPIDOGREL 75 MG TAB PO SCH (08:17)
[2021-06-28] MEDS: INSULN ASP PRT/INSULIN ASPART 100 UNIT/ML 10 ML VIAL SQ SCH (08:17)
[2021-06-28] MEDS: hydrALAZINE HCL 25 MG TAB PO SCH (08:17)
[2021-06-28] MEDS: FUROSEMIDE 40 MG TAB PO SCH (08:17)
[2021-06-28] MEDS ORDERED: SPIRONOLACTONE 25 MG TAB PO SCH (09:00)
[2021-06-28 09:23] LABS: Basophils % (A) 0 %; Eosinophils # (A) 0.1 k/uL (0-0.7); Eosinophils % (A) 3 %; HCT 44.4 % (39.0-53.0); Hypochromasia Slight; Lymphocytes # (A) 0.5 k/uL (1.0-4.8); Lymphocytes % (A) 10 %; MCH 28.6 pg (25.0-35.0); MCHC 31.7 g/dL (31.0-37.0); MCV 90.4 fL (80.0-100.0); Mean Platelet Volume 8.2; Monocytes # (A) 0.4 k/uL (0-1.0); Monocytes % (A) 8 %; Neutrophils # (A) 3.6 k/uL (1.3-7.7); Neutrophils % (A) 76 %; Platelet Count 113 k/uL (150-450); RBC 4.91 m/uL (4.30-5.90); RDW 14.8 % (11.5-15.5); WBC 4.7 k/uL (3.8-10.6)
[2021-06-28] MEDS ORDERED: FUROSEMIDE 10 MG/ML 4 ML VIAL IV STA (10:08)
[2021-06-28 10:14] LABS: Albumin 3.6 g/dL (3.5-5.0); Calcium 9.3 mg/dL (8.4-10.2); Total Bilirubin 0.5 mg/dL (0.2-1.3); Total Protein 6.6 g/dL (6.3-8.2)
--- NOTE | 2021-06-28 10:28 | P.DS ---
Providers Date of admission: 06/26/21 17:30 Expected date of discharge: 06/28/21 Attending physician: Kuldeep Manjarrez Consults: 06/26/21 17:30 Consult Physician Routine Consulting Provider: Gonzalo Spears Consult Reason/Comments: Heart failure, elevated troponin Do you want consulting provider notified?: Yes 06/26/21 17:31 Consult Physician Routine Consulting Provider: Pavithra Reyes Consult Reason/Comments: Renal insufficiency Do you want consulting provider notified?: Yes Primary care physician: Kuldeep Loki [facility] Course: History of present illness: This is an 80-year-old man known to Dr. Manjarrez past medical history significant for coronary artery disease, CVA, diverticulitis, DVT, GERD, hyperlipidemia, hypertension, myocardial infarction, chronic kidney disease stage III, BPH, ischemic cardio myopathy, obstructive sleep apnea to use plain a CPAP machine, hypothyroidism. Was sent to the emergency room for evaluation after called the office with complaints of generalized weakness, lethargy denies fatigue. Patient also stands some exertional dyspnea. Patient was supposed to attend a family reunion yesterday but due to his increased f atigue and shortness of breath with exertion he declined to go. Approximate 2 weeks ago patient did utilize a nebulizer due to some shortness of breath he did bring up some clear sputum however he did not have any fever or chills. Patient denies any syncope. She denies any chest pain. Upon evaluation patient has has had elevated troponin. At this time patient is resting, patient is found resting comfortably in bed without any complaints or concerns. Patient is in no acute distress. Patient states that he continues to have some fatigue and no shortness of breath or chest pain at this time. Patient denies any nausea or vomiting. Upon was 0.089, W BC 6.2, hemoglobin 13.6, potassium 4.2, BUN 46, creatinine 2.31, BNP 9830 8/9: Patient denies any shortness of breath, chest pain, no nausea or vomiting. He has been seen by cardiology and cleared for discharge. Patient is also been seen by nephrology and cleared for discharge. Repeat blood work reveals CBC with platelet count 113 otherwise unremarkable. Electrolytes were normal. BUN 51 creatinine 2.48. Blood sugars are running between 140 and 240. Echocardiogram reveals EF of 25-30% with mild mitral regurgitation, mild tricu spid regurgitation, mild pulmonary hypertension. Patient will be discharged home today in stable condition. No changes made to his home medication list. Assessment and plan: 1. Weakness and fatigue. 2. Elevated troponin with history of coronary artery disease. Acute coronary syndrome ruled out. 3. Chronic systolic heart failure. 4. Chronic renal disease stage IIIb to IV 5. Diabetes mellitus2. 6. Hyperlipidemia. 7. Hypertension. 8. Osteoarthritis. 9. Hypothyroidism 10. Coronary artery disease. 11. History of DVT and MTFHFR gene mutation/coagulopathy. 12. GERD. Discharge plan: Home Impression and plan of care have been directed as dictated by the signing physician. Jalyn Mohamud nurse practitioner acting as scribe for signing physician. Patient Condition at Discharge: Good Plan - Discharge Summary New Discharge Prescriptions: Continue Simvastatin [Zocor] 40 mg PO HS Isosorbide Mononitrate [Imdur] 30 mg PO DAILY Multivitamin [Men's Multi-Vitamin] 1 tab PO DAILY Carvedilol 25 mg PO BID Beclomethasone Dipropionate [Qvar 80 mcg/puff] 2 puff INHALATION RT-BID Montelukast [Singulair] 10 mg PO HS Insulin NPH/Reg Insulin 70/30 [humuLIN 70/30 VIAL] 75 unit SQ AC-SUPPER Levothyroxine Sodium [Synthroid] 75 mcg PO DAILY Insulin NPH/Reg Insulin 70/30 [humuLIN 70/30 VIAL] 65 unit SQ AC-BRKFST Apixaban [Eliquis] 2.5 mg PO BID #60 tablet Nitroglycerin Sl Tabs [Nitrostat] 0.4 mg SUBLINGUAL Q5M PRN #25 tab PRN Reason: Chest Pain Ergocalciferol (Vitamin D2) [Drisdol] 50,000 unit PO Q30D Gabapentin [Neurontin] 300 mg PO DAILY Clopidogrel [Plavix] 75 mg PO DAILY #30 tab Gabapentin [Neurontin] 600 mg PO HS Albuterol Inhaler [Ventolin Hfa Inhaler] 2 puff INHALATION RT-Q4H PRN PRN Reason: Shortness Of Breath Omeprazole 20 mg PO DAILY Insulin NPH/Reg Insulin 70/30 [humuLIN 70/30 VIAL] See Protocol SQ DAILY PRN PRN Reason: Blood Sugar - High Furosemide [Lasix] 40 mg PO BID hydrALAZINE HCL 25 mg PO BID #0 Spironolactone [Aldactone] 12.5 mg PO DAILY Fluticasone Propionate [Flovent Hfa 220 mcg] 2 puff INHALATION RT-BID PRN PRN Reason: Shortness Of Breath Dulaglutide [Trulicity] 1.5 mg SQ FR Ipratropium-Albuterol Nebulize [Duoneb 0.5 mg-3 mg/3 ml Soln] 3 ml INHALATION RT-QID PRN PRN Reason: Shortness Of Breath Discharge Medication List Isosorbide Mononitrate [Imdur] 30 mg PO DAILY 04/10/14 [History] Multivitamin [Men's Multi-Vitamin] 1 tab PO DAILY 04/10/14 [History] Simvastatin [Zocor] 40 mg PO HS 04/10/14 [History] Beclomethasone Dipropionate [Qvar 80 mcg/puff] 2 puff INHALATION RT-BID 05/29/15 [History] Carvedilol 25 mg PO BID 05/29/15 [History] Insulin NPH/Reg Insulin 70/30 [humuLIN 70/30 VIAL] 75 unit SQ AC-SUPPER 08/05/15 [History] Montelukast [Singulair] 10 mg PO HS 08/05/15 [History] Insulin NPH/Reg Insulin 70/30 [humuLIN 70/30 VIAL] 65 unit SQ AC-BRKFST 05/11/16 [History] Levothyroxine Sodium [Synthroid] 75 mcg PO DAILY 05/11/16 [History] Apixaban [Eliquis] 2.5 mg PO BID #60 tablet 05/16/16 [Rx] Nitroglycerin Sl Tabs [Nitrostat] 0.4 mg SUBLINGUAL Q5M PRN #25 tab 05/16/16 [Rx] Ergocalciferol (Vitamin D2) [Drisdol] 50,000 unit PO Q30D 08/01/16 [History] Gabapentin [Neurontin] 300 mg PO DAILY 12/26/17 [History] Clopidogrel [Plavix] 75 mg PO DAILY #30 tab 02/05/19 [Rx] Albuterol Inhaler [Ventolin Hfa Inhaler] 2 puff INHALATION RT-Q4H PRN 03/24/20 [History] Furosemide [Lasix] 40 mg PO BID 03/24/20 [History] Gabapentin [Neurontin] 600 mg PO HS 03/24/20 [History] Insulin NPH/Reg Insulin 70/30 [humuLIN 70/30 VIAL] See Protocol SQ DAILY PRN 03/24/20 [History] Omeprazole 20 mg PO DAILY 03/24/20 [History] hydrALAZINE HCL 25 mg PO BID #0 03/25/20 [Rx] Dulaglutide [Trulicity] 1.5 mg SQ FR 06/26/21 [History] Fluticasone Propionate [Flovent Hfa 220 mcg] 2 puff INHALATION RT-BID PRN 06/26/21 [History] Ipratropium-Albuterol Nebulize [Duoneb 0.5 mg-3 mg/3 ml Soln] 3 ml INHALATION RT-QID PRN 06/26/21 [History] Spironolactone [Aldactone] 12.5 mg PO DAILY 06/26/21 [History] Follow up Appointment(s)/Referral(s): Pavithra Reyes MD [STAFF PHYSICIAN] - 1 Week (Office will call you with appointment date & time) Eloy Shen MD [STAFF PHYSICIAN] - 1 Week (Office will call you with appointment date & time) Kuldeep Manjarrez MD [Primary Care Provider] - 1-2 days Patient Instructions/Handouts: Heart Failure (DC), Chronic Kidney Disease (DC) Discharge Disposition: HOME SELF-CARE
--- NOTE | 2021-06-28 11:00 | ECHOF ---
Referral Reason:SOB, LV function MEASUREMENTS -------- HEIGHT: 177.8 cm WEIGHT: 90.7 kg BP: 163/89 IVSd: 1.0 cm (0.6 - 1.1) LVIDd: 5.7 cm (3.9 - 5.3) LVPWd: 1.3 cm (0.6 - 1.1) IVSs: 1.7 cm LVIDs: 4.8 cm LVPWs: 1.4 cm Ao Diam: 2.9 cm (2.0 - 3.7) AV Cusp: 2.0 cm (1.5 - 2.6) LA Diam: 3.1 cm (2.7 - 3.8) MV EXCURSION: 17.007 mm (> 18.000) MV EF SLOPE: 73 mm/s (70 - 150) EPSS: 0.7 cm MV E Ezekiel: 0.68 m/s MV DecT: 200 ms MV A Ezekiel: 0.94 m/s MV E/A Ratio: 0.73 RAP: 5.00 mmHg RVSP: 39.18 mmHg FINDINGS -------- AICD This was a technically difficult study with suboptimal views. The left ventricular size is normal. Left ventricular wall thickness is normal. Overall left vent ricular systolic function is severely impaired with, an EF between 25 - 30 %. The right ventricle is normal in size. The left atrial size is normal. The right atrial size is normal. Lumason used Aortic valve is trileaflet and is mildly thickened. The mitral valve is normal. The mitral valve leaflets are mildly thickened. Mild mitral annular c alcification present. Mild mitral regurgitation is present. The tricuspid valve appears structurally normal. Mild tricuspid regurgitation present. There is m ild pulmonary hypertension. The right ventricular systolic pressure, as measured by Doppler, is 39. 18mmHg. There is no pulmonic regurgitation present. The aortic root size is normal. IVC Not well visulized. There is no pericardial effusion. CONCLUSIONS -------- 1. AICD 2. The left ventricular size is normal. 3. Left ventricular wall thickness is normal. 4. Overall left ventricular systolic function is severely impaired with, an EF between 25 - 30 %. 5. Aortic valve is trileaflet and is mildly thickened. 6. The mitral valve leaflets are mildly thickened. 7. Mild mitral annular calcification present. 8. Mild mitral regurgitation is present. 9. Mild tricuspid regurgitation present. 10. There is mild pulmonary hypertension. 11. The right ventricular systolic pressure, as measured by Doppler, is 39.18mmHg. 12. There is no pericardial effusion. 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
[2021-06-28 11:31] VITALS: BP 167/78; PULSE 66; RESP 18
--- NOTE | 2021-06-28 11:40 | P.PN ---
Subjective Progress Note Date: 06/28/21 HISTORY OF PRESENT ILLNESS: This is a 80-year-old male with a past medical history significant for ischemic cardiomyopathy with previous AICD implantation, coronary artery disease with previous CABG and PCI, hypertension, hyperlipidemia, diabetes, and chronic kidney disease. Patient follows in the office with Dr. Shen. We have been asked to see the patient in consultation for abnormal troponins. Patient examined at the bedside. Patient's family is also present at the time of examination. Patient reports he presented to the hospital secondary to generalized weakness and fatigue for the past 2 weeks. Patient's family member at the bedside states that the patient has been feeling short of breath with minimal exertion such as walking to the bathroom. Family also reports that they saw his horse racing manager last week who increased his Lasix to twice a day dosing due to increased lower extremity edema. At the time of examination, the patient denies chest pain or pressure. He denies shortness of breath. EKG reveals sinus mechanism with no signs of acute ischemia. Incomplete left bundle-branch block. Prolonged QT. Chest xray no active cardiopulmonary disease. Laboratory data: WBC 6.2. Hemoglobin 13.6. Platelet count 102. Sodium 140. Potassium 4.2. BUN 45. Creatinine 2.44. Lactic acid 1.1. Troponin 0.090. 0.089. 0.089. 0.076. ProBNP 9830. Current home cardiac medications include Aldactone 12.5 mg daily, simvastatin 40 mg daily, Imdur 30 mg daily, hydralazine 25 mg twice a day, Lasix 40 mg twice a day, Plavix 75 mg daily, carvedilol 25 mg twice a day, and Eliquis 2.5 mg twice a day Most recent echocardiogram obtained in March 2020 revealed ejection fraction 35- 40%. Mild mitral regurgitation. Mild tricuspid regurgitation. 06/28/2021 Patient examined this morning. He denies shortness of breath. He denies chest pain or pressure. He has been up ambulating in the omhan with physical therapy. Vital signs are stable. Echocardiogram completed revealed ejection fraction 25- 30%. Mild mitral regurgitation. Mild tricuspid regurgitation. Mild pulmonary hypertension. PHYSICAL EXAM: VITAL SIGNS: Reviewed. GENERAL: Well-developed in no acute distress. HEENT: Head is normocephalic. Pupils are equal, round. Sclerae anicteric. Mucous membranes of the mouth are moist. Neck supple. No JVD or thyromegaly LUNGS: Respirations even and unlabored. Lungs diminished bilaterally. HEART: Regular rate and rhythm. S1 and S2 heard. Systolic murmur noted. ABDOMEN: Soft. Nondistended. Nontender. EXTREMITIES: Normal range of motion. No clubbing or cyanosis. Peripheral pulses intact. Trace bilateral lower extremity edema NEUROLOGIC: Awake and alert. Oriented x 3. ASSESSMENT: Generalized weakness and fatigue History of ischemic cardiomyopathy with previous AICD implantation Coronary artery disease with previous CABG and PCI Possible mild acute exacerbation of chronic systolic congestive heart failure Hypertension Hyperlipidemia Diabetes mellitus History of DVT, on anticoagulation with Eliquis Chronic kidney disease Abnormal troponins, not suggestive of acute coronary syndrome, likely secondary to chronic kidney disease PLAN: Continue current cardiac medications Patient may be discharged home today from a cardiac standpoint He is to follow up outpatient with Dr. Shen Nurse practitioner note has been reviewed by physician. Signing provider agrees with the documented findings, assessment, and plan of care. Objective - Vital Signs Vital signs: Vital Signs Temp 97.8 F 06/28/21 08:00 Pulse 66 06/28/21 11:31 Resp 18 06/28/21 11:31 BP 167/78 06/28/21 11:31 Pulse Ox 97 06/28/21 11:31 Intake & Output 06/27/21 06/28/21 06/28/21 18:59 06:59 18:59 Intake Total 360 240 Output Total 500 950 Balance -140 -950 240 Weight 91.1 kg Intake: Oral 360 240 Output: Urine 500 950 Other: Voiding Method Urinal - Labs CBC & Chem 7: 06/28/21 08:58 06/28/21 08:58 Labs: Abnormal Lab Results - Last 24 Hours (Table) 06/27/21 06/27/21 06/27/21 Range/Units 10:48 16:51 20:08 Plt Count (150-450) k/uL Lymphocytes # (1.0-4.8) k/uL BUN (9-20) mg/dL Creatinine (0.66-1.25) mg/dL Glucose (74-99) mg/dL POC Glucose (mg/dL) 140 H 162 H (75-99) mg/dL Troponin I 0.076 H* (0.000-0.034) ng/mL 06/28/21 06/28/2106/28/21 Range/Units 06:15 08:58 08:58 Plt Count 113 L (150-450) k/uL Lymphocytes # 0.5 L (1.0-4.8) k/uL BUN 51 H (9-20) mg/dL Creatinine 2.48 H (0.66-1.25) mg/dL Glucose 240 H (74-99) mg/dL POC Glucose (mg/dL) 153 H (75-99) mg/dL Troponin I (0.000-0.034) ng/mL
[2021-06-28 11:48] LABS: Glucose,Whole Blood 156 mg/dL (75-99)
--- NOTE | 2021-06-29 11:22 | CDI ---
Documentation Clarification Form Date: 06/29/2021 10:54:00 AM From: Marilin Mitchell Admit Date: 06/26/2021 05:30:00 PM Patient Name: Perry De La Torre Visit Number: [id number] Discharge Date: 06/28/2021 02:15:00 PM ATTENTION: The Clinical Documentation Specialists (CDI) and [facility] Coding Staff appreciate your assistance in clarifying documentation. Please respond to the clarification below the line at the bottom and electronically sign. The CDI & [facility] Coding staff will review the response and follow-up if needed. Please note: Queries are made part of the Legal Health Record. If you have any questions, please contact the author of this message via ITS. Dr. Kuldeep Manjarrez Per cardiac consult Patient has possible mild acute exacerbation of systolic CHF. Only CHF is documented in DCS and [facility] & [facility]. Please clarify if patient had possible acute/chronic systolic CHF. Possible diagnoses must be confirmed by attending. History/Risk Factors: CHF CKD 3B, HTN, CAD. patient is on home Lasix which recently was switched from once a day to twice a day. Clinical Indicators: VS/Pulse OX: As low as 91% RA BNP: 9830 Echocardiogram Results: Left systolic ventricular function severely impaired. Treatment: IV Lasix Oral Lasix I's and O's In your professional opinion, can you please clarify if you think the patient has possible A/C systolic CHF as documented by cardiology consult:? [ xx] Acute on Chronic Systolic Heart Failure (reduced EF) [ ] Other, please specify [ ] Unable to determine MTDD
--- NOTE | 2021-06-29 20:05 | PN ---
PROGRESS NOTE DATE OF SERVICE: 06/28/2021. The patient is seen for followup for acute kidney injury and chronic kidney disease. He was admitted with shortness of breath, found to be mildly volume overloaded. Patient was diuresed. He is currently feeling better. His troponin has been borderline and it was not further elevated. He currently feels very well and will be discharged home. PHYSICAL EXAMINATION: On examination today, blood pressure 167/78, heart rate 66 per minute, he is afebrile. Examination of the heart S1, S2. Examination of the lungs, bilateral breath sounds are heard. Abdomen is soft, nontender. Examination of lower extremities shows no significant edema. OFFICE MACHINERY OR EQUIPMENT INSTALLER exam grossly intact. LAB: Show sodium 138, potassium 4.0, BUN 51, creatinine 2.48, hemoglobin 14.0 g/dL. ASSESSMENT: 1. Chronic kidney disease, NKF stage 3B to 4 secondary to nephrosclerosis. 2. Mild volume overload, currently improved. 3. Coronary artery disease with history of coronary stents. 4. Chronic kidney disease mineral bone disorder. 5. Type 2 diabetes. PLAN: Patient can be discharged home. Continue Lasix p.o. b.i.d. at home post discharge. Followup as outpatient in about 2-3 days time. MMODL / IJN: [id number] /
[2021-07-02] MEDS ORDERED: NON FORMULARY DRUG (Dulaglutide [Trulicity] 1.5 MG/0.5 ML Pen.Injctr) SQ SCH (09:00)
[2021-07-21] MEDS ORDERED: ERGOCALCIFEROL 1,250 MCG (50,000 IU) CAPSULE PO SCH (09:00)
== END 2021-06-28 14:15 | disposition home or self-care (01) ==
LOC: EC 13:38 → 3SCARD 17:30 → INTOOBSV 17:30 → 3SCARD 17:47 → UNDODISIN 06-28 14:15
PROVIDERS: ADMIT Internal Medicine Geriatric Medicine; ATTEND Internal Medicine Geriatric Medicine
DX: R53.1 Weakness (principal); R53.83 Other fatigue; I13.0 Hypertensive heart and chronic kidney disease with heart failure and stage 1 through stage 4 chronic kidney disease, or unspecified chronic kidney disease; I50.23 Acute on chronic systolic (congestive) heart failure; E11.22 Type 2 diabetes mellitus with diabetic chronic kidney disease; N18.4 Chronic kidney disease, stage 4 (severe); I25.10 Atherosclerotic heart disease of native coronary artery without angina pectoris; E78.5 Hyperlipidemia, unspecified; M19.90 Unspecified osteoarthritis, unspecified site; E03.9 Hypothyroidism, unspecified; K21.9 Gastro-esophageal reflux disease without esophagitis; E72.12 Methylenetetrahydrofolate reductase deficiency; D68.9 Coagulation defect, unspecified; G47.33 Obstructive sleep apnea (adult) (pediatric); I25.2 Old myocardial infarction; N40.0 Benign prostatic hyperplasia without lower urinary tract symptoms; I25.5 Ischemic cardiomyopathy; J61 Pneumoconiosis due to asbestos and other mineral fibers; F32.9 Major depressive disorder, single episode, unspecified; G62.9 Polyneuropathy, unspecified; I27.20 Pulmonary hypertension, unspecified; R62.7 Adult failure to thrive; Z68.27 Body mass index [BMI] 27.0-27.9, adult; N28.9 Disorder of kidney and ureter, unspecified; E11.40 Type 2 diabetes mellitus with diabetic neuropathy, unspecified; I44.7 Left bundle-branch block, unspecified; E83.9 Disorder of mineral metabolism, unspecified; N25.81 Secondary hyperparathyroidism of renal origin; Z79.899 Other long term (current) drug therapy; Z79.51 Long term (current) use of inhaled steroids; Z79.890 Hormone replacement therapy; Z79.01 Long term (current) use of anticoagulants; Z79.02 Long term (current) use of antithrombotics/antiplatelets; Z79.4 Long term (current) use of insulin; Z86.718 Personal history of other venous thrombosis and embolism; Z87.19 Personal history of other diseases of the digestive system; Z86.73 Personal history of transient ischemic attack (TIA), and cerebral infarction without residual deficits; Z95.5 Presence of coronary angioplasty implant and graft; Z86.711 Personal history of pulmonary embolism; Z87.442 Personal history of urinary calculi; Z95.810 Presence of automatic (implantable) cardiac defibrillator; Z95.1 Presence of aortocoronary bypass graft; Z98.890 Other specified postprocedural states; Z91.041 Radiographic dye allergy status; Z88.5 Allergy status to narcotic agent; Z88.0 Allergy status to penicillin; Z88.8 Allergy status to other drugs, medicaments and biological substances; Z91.048 Other nonmedicinal substance allergy status; Z83.3 Family history of diabetes mellitus; Z83.79 Family history of other diseases of the digestive system; Z82.61 Family history of arthritis; Z80.3 Family history of malignant neoplasm of breast; Z81.8 Family history of other mental and behavioral disorders; Z82.49 Family history of ischemic heart disease and other diseases of the circulatory system; Z82.69 Family history of other diseases of the musculoskeletal system and connective tissue
CPT/HCPCS: 96376; 96374; 99285; 36415; 94640 ×4; 93005; 97161; 97165; 83880; 80053 ×2; 80048; 82550; 83605; 84100; 84484 ×2; 85025 ×2; 85610; 85730; 81003; 71046; G0378 ×3; C8929; J1940 ×2; Q9950; 93306

== ENCOUNTER 2021-07-31 19:47 | Emergency (ER) | payer MEDICARE ==
[2021-07-31] MEDS ORDERED: DIPH,PERTUS(ACELL)TETVAC-LF 0.5 ML VIAL IM ONE (19:52)
[2021-07-31 19:54] VITALS: RESP 18
--- NOTE | 2021-07-31 19:57 | ED ---
General Adult HPI - General Chief complaint: Fall Stated complaint: Fall Source: patient, EMS Mode of arrival: EMS Limitations: no limitations - History of Present Illness Initial comments: Patient presents to the ED by ambulance for evaluation status post falling. Per EMS, the patient fell from a height of one step while coming out of his house and going into his garage. Per EMS, the patient has a hematoma to the back of his head. Per EMS, the patient has also been repetitive in his questioning at times. Patient reports being on Plavix and Eliquis. Patient is currently only complaining of having a headache. Patient states that he is unsure of what caused him to fall, and he has also uncertain of LOC. Patient was placed in a c-collar by EMS. Patient denies focal numbness/weakness/neuro deficit, visual changes, speech difficulty, neck/back/extremity pain, chest pain, dyspnea, palpitations, dizziness, abdominal pain, nausea/vomiting/diarrhea, bloody or melanotic stool, dysuria or urinary symptoms, or any other symptoms or complaints. Patient is unsure of his last tetanus shot. Prior to 2 trauma was activated just prior to patient's arrival to the ED. - Related Data Home Medications Medication Instructions Recorded Confirmed Isosorbide Mononitrate [Imdur] 30 mg PO DAILY 04/10/14 06/26/21 Multivitamin [Men's Multi-Vitamin] 1 tab PO DAILY 04/10/14 06/26/21 Simvastatin [Zocor] 40 mg PO HS 04/10/14 06/26/21 Beclomethasone Dipropionate [Qvar 2 puff INHALATION RT-BID 05/29/15 06/26/21 80 mcg/puff] Carvedilol 25 mg PO BID 05/29/15 06/26/21 Insulin NPH/Reg Insulin 70/30 75 unit SQ AC-SUPPER 08/05/15 06/26/21 [humuLIN 70/30 VIAL] Montelukast [Singulair] 10 mg PO HS 08/05/15 06/26/21 Insulin NPH/Reg Insulin 70/30 65 unit SQ AC-BRKFST 05/11/16 06/26/21 [humuLIN 70/30 VIAL] Levothyroxine Sodium [Synthroid] 75 mcg PO DAILY 05/11/16 06/26/21 Ergocalciferol (Vitamin D2) 50,000 unit PO Q30D 08/01/16 06/26/21 [Drisdol] Gabapentin [Neurontin] 300 mg PO DAILY 12/26/17 06/26/21 Albuterol Inhaler [Ventolin Hfa 2 puff INHALATION RT-Q4H PRN 03/24/20 06/26/21 Inhaler] Furosemide [Lasix] 40 mg PO BID 03/24/20 06/26/21 Gabapentin [Neurontin] 600 mg PO HS 03/24/20 06/26/21 Insulin NPH/Reg Insulin 70/30 See Protocol SQ DAILY PRN 03/24/20 06/26/21 [humuLIN 70/30 VIAL] Omeprazole 20 mg PO DAILY 03/24/20 06/26/21 Dulaglutide [Trulicity] 1.5 mg SQ FR 06/26/21 06/26/21 Fluticasone Propionate [Flovent 2 puff INHALATION RT-BID PRN 06/26/21 06/26/21 Hfa 220 mcg] Ipratropium-Albuterol Nebulize 3 ml INHALATION RT-QID PRN 06/26/21 06/26/21 [Duoneb 0.5 mg-3 mg/3 ml Soln] Spironolactone [Aldactone] 12.5 mg PO DAILY 06/26/21 06/26/21 Previous Rx's Medication Instructions Recorded Apixaban [Eliquis] 2.5 mg PO BID #60 tablet 05/16/16 Nitroglycerin Sl Tabs [Nitrostat] 0.4 mg SUBLINGUAL Q5M PRN #25 tab 05/16/16 Clopidogrel [Plavix] 75 mg PO DAILY #30 tab 02/05/19 hydrALAZINE HCL 25 mg PO BID #0 03/25/20 Allergies Allergy/AdvReac Type Severity Reaction Status Date / Time adhesive Allergy Rash/Hives Verified 06/26/21 16:43 Iodinated Contrast Media Allergy Rash/Hives,KIDNEY Verified 06/26/21 16:43 [Iodinated Contrast Media - PROBLEM IV Dye] iodine Allergy Rash/Hives Verified 06/26/21 16:43 Penicillins Allergy Rash/Hives Verified 06/26/21 16:43 povidone-iodine Allergy Rash/Hives Verified 06/26/21 16:43 [From Betadine] baclofen AdvReac Confusion Verified 06/26/21 16:43 tramadol AdvReac Confusion Verified 06/26/21 16:43 Review of Systems ROS Statement: Those systems with pertinent positive or pertinent negative responses have been documented in the HPI. ROS Other: All systems not noted in ROS Statement are negative. Past Medical History Past Medical History: Blood Disorder, Coronary Artery Disease (CAD), CVA/TIA, Diabetes Mellitus, Deep Vein Thrombosis (DVT), GERD/Reflux, Hyperlipidemia, Hypertension, Myocardial Infarction (DE), Prostate Disorder, Pulmonary Embolus (PE), Renal Disease, Thyroid Disorder Additional Past Medical History / Comment(s): DVT L leg and pulmonary embolism in bilateral lungs, MTFHFR gene mutation/coagulopathy, IDDM type II, neuropathy bilateral feet, CKD stage III, kidney stone, BPH, TIA, ischemic cardiomyopathy, MIs, asbestosis, LULU with Cpap, lumbar stenosis with L side sciatica, falls, hypothyroid, 2ndary hyperparathyroidism in old PMH but pt does not recall this. Last Myocardial Infarction Date:: 1991,2008, 04/2016 History of Any Multi-Drug Resistant Organisms: None Reported Past Surgical History: AICD, Coronary Bypass/CABG, Heart Catheterization With Stent, Orthopedic Surgery Additional Past Surgical History / Comment(s): PCI/stent, DAVID, 2008 CABG 4 vessel, AICD, bilateral carpal tunnel releases, tendon repair L ankle, bilateral cataract removal/lens implants, colonoscopy, penile implant. Past Anesthesia/Blood Transfusion Reactions: No Reported Reaction Additional Past Anesthesia/Blood Transfusion Reaction / Comment(s): Pt states he received blood with his CABG-no reaction to his knowledge. Date of Last Stent Placement:: 2015 Type of Cardiac Device: AICD Device Placement Date:: 2012 Past Psychological History: Depression Smoking Status: Never smoker Past Alcohol Use History: None Reported Past Drug Use History: None Reported - Past Family History Father Family Medical History: Dementia, Diabetes Mellitus, Vascular Disorder Additional Family Medical History / Comment(s): Father had vascular disease and from this at the age of 84 yrs. Mother Family Medical History: Congestive Heart Failure (CHF), Rheumatoid Arthritis (RA) Additional Family Medical History / Comment(s): Mother had bleeding ulcers and never recovered, she at the age of 67yrs. General Exam Limitations: no limitations General appearance: alert, in no apparent distress Head exam: Present: other (A hematoma is noted to the patient's left occipital scalp) Eye exam: Present: normal appearance, PERRL, EOMI ENT exam: Present: mucous membranes moist, TM's normal bilaterally Neck exam: Present: other (Mild posterior cervical tenderness; no step-off deformity; c-collar is in place; trachea is in midline) Respiratory exam: Present: normal lung sounds bilaterally. Absent: respiratory distress, wheezes, rales, rhonchi, stridor, chest wall tenderness Cardiovascular Exam: Present: regular rate, normal rhythm, normal heart sounds, other (Normal radial and dorsalis pedis pulses bilaterally) GI/Abdominal exam: Present: soft. Absent: distended, tenderness, guarding Extremities exam: Present: full ROM, other (Pelvis is stable and nontender; patient has full range of motion at bilateral hips without any pain; superficial abrasions are noted to right lateral knee and dorsum of the left foot). Absent: tenderness, pedal edema Back exam: Present: normal inspection, other (No step-off deformity). Absent: tenderness Neurological exam: Present: alert, oriented X3, CN II-XII intact. Absent: motor sensory deficit Psychiatric exam: Present: normal affect, normal mood Skin exam: Present: warm, dry, normal color Course Vital Signs 07/31/21 19:47 Pulse Rate 76 Respiratory 18 Rate Blood Pressure 183/110 O2 Sat by Pulse 95 Oximetry - Reevaluation(s) Reevaluation #1: 07/31/21 20:31 Patient remains alert and breathing comfortably. Patient's head/cervical spine CT report was received from radiologist by telephone. K-Centra has been ordered for reversal of the patient's Eliquis. Patient's systolic blood pressure has currently improved to 140s. Patient's information has been supplied to [facility] for trauma transfer. They state that they will call us back. Patient and his family have been updated. 07/31/21 20:41 Case, H&P and test results were discussed with Dr. Sal (trauma surgery). He agrees with plan to transfer the patient to another facility with neurosurgical coverage. He has no further recommendations at this time. 07/31/21 20:59 Case, H&P and CT findings were discussed with Dr. Son (trauma surgeon at [facility]). He states that they are completely full, and he cannot accept patient due to bed/nursing limitations. 07/31/21 21:01 ED manager of community relations is currently on the phone with [facility] for attempted trauma transfer. 07/31/21 21:06 Case, H&P, test results and ED management were discussed with Dr. Leos (ER physician at [facility]). He accepts ambulance transfer to their ED. He has no further recommendations at this time. 07/31/21 21:10 Patient remains A&O x 4. Patient denies development of any new pain or symptoms while in the ED. Patient and family are aware of the patient's test results and my discussions as above. They all agree with transfer to [facility] this time. EKG Findings - EKG Comments: EKG Findings:: Normal sinus rhythm with frequent PVCs, ventricular rate of 78 bpm, normal CO and QRS intervals, mildly prolonged QTc interval of 469 ms, nonspecific T-wave abnormality, normal axis Medical Decision Making - Medical Decision Making Patient's trauma workup is significant for subarachnoid hemorrhage. Patient was given K Centra in the ED for reversal of his Eliquis. Patient has been alert and stable while in the ED. Patient's troponin is elevated, but he denies hav ing any chest pain, and his EKG does not show any ST elevation. Given the patient's intracranial hemorrhage, will abstain from aspirin and anticoagulation. Patient will be transferred to [facility] for trauma/neurosurgical management. - Lab Data Result diagrams: 07/31/21 19:54 07/31/21 19:54 Lab Results 07/31/21 07/31/21 07/31/21 Range/Units 19:54 19:54 19:54 WBC 6.4 (3.8-10.6) k/uL RBC 5.58 (4.30-5.90) m/uL Hgb 16.5 (13.0-17.5) gm/dL Hct 48.3 (39.0-53.0) % MCV 86.5 (80.0-100.0) fL MCH 29.6 (25.0-35.0) pg MCHC 34.2 (31.0-37.0) g/dL RDW 15.0 (11.5-15.5) % Plt Count 99 L (150-450) k/uL MPV 7.6 Neutrophils % 70 % Lymphocytes % 13 % Monocytes % 9 % Eosinophils % 4 % Basophils % 0 % Neutrophils # 4.5 (1.3-7.7) k/uL Lymphocytes # 0.8 L (1.0-4.8) k/uL Monocytes # 0.6 (0-1.0) k/uL Eosinophils # 0.3 (0-0.7) k/uL Basophils # 0.0 (0-0.2) k/uL PT 10.5 (9.0-12.0) sec INR 1.0 (<1.2) APTT 22.2 (22.0-30.0) sec Sodium 137 (137-145) mmol/L Potassium 4.8 (3.5-5.1) mmol/L Chloride 102 (98-107) mmol/L Carbon Dioxide 21 L (22-30) mmol/L Anion Gap 14 mmol/L BUN 64 H (9-20) mg/dL Creatinine 2.93 H (0.66-1.25) mg/dL Est GFR (CKD-EPI)AfAm 22 (>60 ml/min/1.73 sqM) Est GFR (CKD-EPI)NonAf 19 (>60 ml/min/1.73 sqM) Glucose 179 H (74-99) mg/dL Calcium 9.6 (8.4-10.2) mg/dL Total Bilirubin 0.7 (0.2-1.3) mg/dL AST 41 (17-59) U/L ALT 29 (4-49) U/L Alkaline Phosphatase 75 (38-126) U/L Troponin I (0.000-0.034) ng/mL Total Protein 7.8 (6.3-8.2) g/dL Albumin 4.4 (3.5-5.0) g/dL Serum Alcohol <10 mg/dL Blood Type Blood Type Recheck Bld Type Recheck Status Antibody Screen Spec Expiration Date 07/31/21 07/31/21 Range/Units 19:54 19:54 WBC (3.8-10.6) k/uL RBC (4.30-5.90) m/uL Hgb (13.0-17.5) gm/dL Hct (39.0-53.0) % MCV (80.0-100.0) fL MCH (25.0-35.0) pg MCHC (31.0-37.0) g/dL RDW (11.5-15.5) % Plt Count (150-450) k/uL MPV Neutrophils % % Lymphocytes % % Monocytes % % Eosinophils % % Basophils % % Neutrophils # (1.3-7.7) k/uL Lymphocytes # (1.0-4.8) k/uL Monocytes # (0-1.0) k/uL Eosinophils # (0-0.7) k/uL Basophils # (0-0.2) k/uL PT (9.0-12.0) sec INR (<1.2) APTT (22.0-30.0) sec Sodium (137-145) mmol/L Potassium (3.5-5.1) mmol/L Chloride (98-107) mmol/L Carbon Dioxide (22-30) mmol/L Anion Gap mmol/L BUN (9-20) mg/dL Creatinine (0.66-1.25) mg/dL Est GFR (CKD-EPI)AfAm (>60 ml/min/1.73 sqM) Est GFR (CKD-EPI)NonAf (>60 ml/min/1.73 sqM) Glucose (74-99) mg/dL Calcium (8.4-10.2) mg/dL Total Bilirubin (0.2-1.3) mg/dL AST (17-59) U/L ALT (4-49) U/L Alkaline Phosphatase (38-126) U/L Troponin I 0.046 H* (0.000-0.034) ng/mL Total Protein (6.3-8.2) g/dL Albumin (3.5-5.0) g/dL Serum Alcohol mg/dL Blood Type AB Positive Blood Type Recheck AB Pos Bld Type Recheck Status No Antibody Screen NEGATIVE Spec Expiration Date 08/03/20212353 - Radiology Data Radiology results: report reviewed (Noncontrast CT head and C-spine: Small areas of likely acute subarachnoid hemorrhage within the medial bifrontal lobes and superior left frontal lobe. No mass effect or midline shift. No acute fracture or traumatic subluxation of the cervical spine.), image reviewed (Chest and pelvis x-rays are negative) Critical Care Time Critical Care Time: Yes Total Critical Care Time: 60 Disposition Clinical Impression: Fall, Head injury, Scalp hematoma, Abrasions of multiple sites, Renal insufficiency, Elevated troponin, Subarachnoid hemorrhage Disposition: OTHER INSTITUTION NOT DEFINED Condition: Stable Is patient prescribed a controlled substance at d/c from ED?: No Referrals: Kuldeep Manjarrez MD [Primary Care Provider] - 1-2 days Time of Disposition: 21:06 - Out of Hospital Transfer - Req. Specs Out of Hospital Transfer - Requested Specifics: Other Emergency Center ([facility])
[2021-07-31 20:23] LABS: Partial Thromboplastin Time 22.2 sec (22.0-30.0); Prothrombin Time 10.5 sec (9.0-12.0)
[2021-07-31 20:29] LABS: ALT 29 U/L (4-49); AST 41 U/L (17-59); African American GFR (CKD) 22 (>60 ml/min/1.73 sqM); Albumin 4.4 g/dL (3.5-5.0); Alcohol <10 mg/dL; Alkaline Phosphatase 75 U/L (38-126); Anion Gap 14 mmol/L; Blood Urea Nitrogen 64 mg/dL (9-20); Calcium 9.6 mg/dL (8.4-10.2); Carbon Dioxide 21 mmol/L (22-30); Chloride 102 mmol/L (98-107); Glucose 179 mg/dL (74-99); Non-African American GFR(CKD) 19 (>60 ml/min/1.73 sqM); Potassium 4.8 mmol/L (3.5-5.1); Sodium 137 mmol/L (137-145); Total Bilirubin 0.7 mg/dL (0.2-1.3); Total Protein 7.8 g/dL (6.3-8.2)
[2021-07-31] MEDS ORDERED: Kcentra PER PHARMACY 1 EACH MISC MISCELLANE PRN (20:31)
--- NOTE | 2021-07-31 20:35 | CT ---
EXAMINATION TYPE: CT brain cspine wo con DATE OF EXAM: 07/31/2021 COMPARISON: CT head 08/06/2015 HISTORY: fall, hit head, on thinners CT DLP: 1568.3 mGycm. Automated Exposure Control for Dose Reduction was Utilized. TECHNIQUE: Multiple contiguous axial CT images of the head were performed from the skull base through the vertex without the administration of intravenous contrast. 2-D sagittal and coronal reformats were obtained . Multiple contiguous axial CT images of the cervical spine was performed from the skull bases through the lung apices without the administration of intravenous contrast. 2-D sagittal and coronal reformat s were obtained. FINDINGS: Head: Moderate diffuse irregular atrophy. Small areas of subarachnoid hemorrhage within the sulci of the me dial parafalcine bilateral frontal lobes additional multifocal areas of small subarachnoid hemorrhage within the sulci of the superior left frontal lobe. Significant mass effect or midline shift. Modera te burden of decreased attenuation within the periventricular and deep white matter bilaterally likel y chronic small vessel ischemic change. Ortiz-white differentiation is preserved. No ventriculomegaly. Calvarium appears intact. Visualized paranasal sinuses and mastoid air cells are clear. Bilateral gl obes appear symmetric and unremarkable. C-spine: Cervical vertebral body heights and alignment are maintained. No acute fracture or traumatic subluxat ion. Moderate degenerative disc changes at C5-6 C6-7 with osteophyte formation, disc height loss, and unco vertebral hypertrophy. Multilevel facet arthropathy most pronounced in the cervical spine, right grea ter than left. No significant spinal canal stenosis or neural foraminal narrowing. No prevertebral soft-tissue swelling. Paraspinal soft tissues appear unremarkable. Lung apices appear clear. IMPRESSION: 1. Small areas of likely acute subarachnoid hemorrhage within the medial bifrontal lobes and superior left frontal lobe. No mass effect or midline shift. 2. No acute fracture or traumatic subluxation of the cervical spine. Findings discussed with Dr. Steven, ER physician, by Dr. Cabello via telephone at 2030 on 07/31/2021
--- NOTE | 2021-07-31 20:37 | XR ---
EXAMINATION TYPE: XR pelvis AP view DATE OF EXAM: 07/31/2021 CLINICAL HISTORY: Fall, pain TECHNIQUE: A single AP view of the pelvis is obtained. COMPARISON: None. FINDINGS: No acute fracture or dislocation. Sacrum is obscured by overlying bowel gas. Moderate degenerative ch anges of the bilateral hips, sacroiliac joints, and lower lumbar spine. Atherosclerotic vascular calc ifications of the inguinal vessels bilaterally. IMPRESSION: No acute fracture or dislocation.
[2021-07-31 20:38] LABS: Basophils % (A) 0 %; Eosinophils # (A) 0.3 k/uL (0-0.7); Eosinophils % (A) 4 %; HCT 48.3 % (39.0-53.0); HGB 16.5 gm/dL (13.0-17.5); Lymphocytes # (A) 0.8 k/uL (1.0-4.8); Lymphocytes % (A) 13 %; MCH 29.6 pg (25.0-35.0); MCHC 34.2 g/dL (31.0-37.0); MCV 86.5 fL (80.0-100.0); Mean Platelet Volume 7.6; Monocytes # (A) 0.6 k/uL (0-1.0); Monocytes % (A) 9 %; Neutrophils # (A) 4.5 k/uL (1.3-7.7); Neutrophils % (A) 70 %; Platelet Count 99 k/uL (150-450); RBC 5.58 m/uL (4.30-5.90); WBC 6.4 k/uL (3.8-10.6)
--- NOTE | 2021-07-31 20:38 | XR ---
EXAMINATION TYPE: XR chest 1V portable DATE OF EXAM: 07/31/2021 COMPARISON: Chest radiograph 06/26/2021 HISTORY: Fall, pain TECHNIQUE: Single frontal view of the chest is obtained. FINDINGS: Dual-lead pacemaker and intracardiac device with power pack overlying the left chest. Multiple intact sternotomy wires. Unchanged appearance of the cardiomediastinal silhouette. No focal consolidation, pleural effusion, or pneumothorax. Visualized osseous structures appear intact. Limited views of the upper abdomen appear unremarkable. IMPRESSION: No acute cardiopulmonary process.
[2021-07-31] MEDS ORDERED: EMPTY BAG 1 BAG with HUMAN PROTHROMBIN COMPLX 2,220 UNIT IV ONE (20:45)
[2021-07-31] MEDS ORDERED: LABETALOL 5 MG/ML VIAL MDV IVP STA (21:33)
[2021-07-31 22:37] VITALS: BP 169/90; PULSE 71; TEMP 98
== END 2021-07-31 21:45 | disposition other institution (70) ==
LOC: EC 19:47
DX: S00.03XA Contusion of scalp, initial encounter (principal); S06.6X0A Traumatic subarachnoid hemorrhage without loss of consciousness, initial encounter; S80.211A Abrasion, right knee, initial encounter; N28.9 Disorder of kidney and ureter, unspecified; R77.8 Other specified abnormalities of plasma proteins; E11.22 Type 2 diabetes mellitus with diabetic chronic kidney disease; I12.9 Hypertensive chronic kidney disease with stage 1 through stage 4 chronic kidney disease, or unspecified chronic kidney disease; N18.30 Chronic kidney disease, stage 3 unspecified; I25.10 Atherosclerotic heart disease of native coronary artery without angina pectoris; Z23 Encounter for immunization; K21.9 Gastro-esophageal reflux disease without esophagitis; E78.5 Hyperlipidemia, unspecified; I25.2 Old myocardial infarction; E07.9 Disorder of thyroid, unspecified; F32.9 Major depressive disorder, single episode, unspecified; N40.0 Benign prostatic hyperplasia without lower urinary tract symptoms; Z79.4 Long term (current) use of insulin; Z79.02 Long term (current) use of antithrombotics/antiplatelets; Z79.01 Long term (current) use of anticoagulants; Z88.0 Allergy status to penicillin; Z91.041 Radiographic dye allergy status; Z88.1 Allergy status to other antibiotic agents; Z86.73 Personal history of transient ischemic attack (TIA), and cerebral infarction without residual deficits; Z86.718 Personal history of other venous thrombosis and embolism; Z86.711 Personal history of pulmonary embolism; Z87.442 Personal history of urinary calculi; Z95.1 Presence of aortocoronary bypass graft; Z88.5 Allergy status to narcotic agent; W10.8XXA Fall (on) (from) other stairs and steps, initial encounter
CPT/HCPCS: 99291; 96374; 96375; 90471; 93005; 86900; 86901; 80053; 84484; 85025; 85610; 85730; 86850; 72170; 71045; 72125; 70450; 90715; G0480; J7168; 80320

== ENCOUNTER 2021-08-12 06:54 | Emergency (ER) | payer MEDICARE ==
[2021-08-12 06:58] LABS: Glucose,Whole Blood 156 mg/dL (75-99)
[2021-08-12 07:03] VITALS: RESP 18; TEMP 97.4
[2021-08-12 07:45] LABS: Basophils % (A) 1 %; Eosinophils # (A) 0.2 k/uL (0-0.7); Eosinophils % (A) 3 %; HCT 48.4 % (39.0-53.0); HGB 16.2 gm/dL (13.0-17.5); Lymphocytes # (A) 0.6 k/uL (1.0-4.8); Lymphocytes % (A) 9 %; MCH 29.2 pg (25.0-35.0); MCHC 33.5 g/dL (31.0-37.0); MCV 87.1 fL (80.0-100.0); Mean Platelet Volume 8.5; Monocytes # (A) 0.5 k/uL (0-1.0); Monocytes % (A) 7 %; Neutrophils # (A) 5.2 k/uL (1.3-7.7); Neutrophils % (A) 78 %; Platelet Count 111 k/uL (150-450); RBC 5.56 m/uL (4.30-5.90); RDW 15.3 % (11.5-15.5); WBC 6.6 k/uL (3.8-10.6)
[2021-08-12 07:59] LABS: Calcium 8.9 mg/dL (8.4-10.2); Potassium 3.8 mmol/L (3.5-5.1); Total Bilirubin 0.6 mg/dL (0.2-1.3); Total Protein 7.5 g/dL (6.3-8.2)
[2021-08-12 08:06] VITALS: BP 149/85; PULSE 80
[2021-08-12] MEDS ORDERED: hydrALAZINE HCL 25 MG TAB PO STA (08:06)
--- NOTE | 2021-08-12 08:07 | ED ---
General Adult HPI - General Chief complaint: Recheck/Abnormal Lab/Rx Stated complaint: hypoglycemia Time Seen by Provider: 08/12/21 07:05 Source: patient, EMS, RN notes reviewed, old records reviewed Mode of arrival: EMS Limitations: no limitations - History of Present Illness Initial comments: 80 yo male presenting with episode of hypoglycemia and fall. Patient had been in his bed, was found by his had fallen next to the bed EMS arrived he was confused, blood sugar was in the 40s. He is a known diabetic he is on NovoLog 7030. He took his usual dose last night at dinner time. He has no complaints the time my evaluation. He had been given dextrose by paramedics prior to arrival. He is hemodynamically stable. He denies pain complaints. Uncertain if he had had head trauma but he did have a recent intracranial hemorrhage and is anticoagulated. He was followed at [facility] regarding this intracranial hemorrhage and did not require surgical management. - Related Data Home Medications Medication Instructions Recorded Confirmed Isosorbide Mononitrate [Imdur] 30 mg PO DAILY 04/10/14 06/26/21 Multivitamin [Men's Multi-Vitamin] 1 tab PO DAILY 04/10/14 06/26/21 Simvastatin [Zocor] 40 mg PO HS 04/10/14 06/26/21 Beclomethasone Dipropionate [Qvar 2 puff INHALATION RT-BID 05/29/15 06/26/21 80 mcg/puff] Carvedilol 25 mg PO BID 05/29/15 06/26/21 Insulin NPH/Reg Insulin 70/30 75 unit SQ AC-SUPPER 08/05/15 06/26/21 [humuLIN 70/30 VIAL] Montelukast [Singulair] 10 mg PO HS 08/05/15 06/26/21 Insulin NPH/Reg Insulin 70/30 65 unit SQ AC-BRKFST 05/11/16 06/26/21 [humuLIN 70/30 VIAL] Levothyroxine Sodium [Synthroid] 75 mcg PO DAILY 05/11/16 06/26/21 Ergocalciferol (Vitamin D2) 50,000 unit PO Q30D 08/01/16 06/26/21 [Drisdol] Gabapentin [Neurontin] 300 mg PO DAILY 12/26/17 06/26/21 Albuterol Inhaler [Ventolin Hfa 2 puff INHALATION RT-Q4H PRN 03/24/20 06/26/21 Inhaler] Furosemide [Lasix] 40 mg PO BID 03/24/20 06/26/21 Gabapentin [Neurontin] 600 mg PO HS 03/24/20 06/26/21 Insulin NPH/Reg Insulin 70/30 See Protocol SQ DAILY PRN 03/24/20 06/26/21 [humuLIN 70/30 VIAL] Omeprazole 20 mg PO DAILY 03/24/20 06/26/21 Dulaglutide [Trulicity] 1.5 mg SQ FR 06/26/21 06/26/21 Fluticasone Propionate [Flovent 2 puff INHALATION RT-BID PRN 06/26/21 06/26/21 Hfa 220 mcg] Ipratropium-Albuterol Nebulize 3 ml INHALATION RT-QID PRN 06/26/21 06/26/21 [Duoneb 0.5 mg-3 mg/3 ml Soln] Spironolactone [Aldactone] 12.5 mg PO DAILY 06/26/21 06/26/21 Previous Rx's Medication Instructions Recorded Apixaban [Eliquis] 2.5 mg PO BID #60 tablet 05/16/16 Nitroglycerin Sl Tabs [Nitrostat] 0.4 mg SUBLINGUAL Q5M PRN #25 tab 05/16/16 Clopidogrel [Plavix] 75 mg PO DAILY #30 tab 02/05/19 hydrALAZINE HCL 25 mg PO BID #0 03/25/20 Allergies Allergy/AdvReac Type Severity Reaction Status Date / Time adhesive Allergy Rash/Hives Verified 06/26/21 16:43 Iodinated Contrast Media Allergy Rash/Hives,KIDNEY Verified 06/26/21 16:43 [Iodinated Contrast Media - PROBLEM IV Dye] iodine Allergy Rash/Hives Verified 06/26/21 16:43 Penicillins Allergy Rash/Hives Verified 06/26/21 16:43 povidone-iodine Allergy Rash/Hives Verified 06/26/21 16:43 [From Betadine] baclofen AdvReac Confusion Verified 06/26/21 16:43 tramadol AdvReac Confusion Verified 06/26/21 16:43 Review of Systems ROS Statement: Those systems with pertinent positive or pertinent negative responses have been documented in the HPI. ROS Other: All systems not noted in ROS Statement are negative. Past Medical History Past Medical History: Blood Disorder, Coronary Artery Disease (CAD), COPD, CVA/TIA, Diabetes Mellitus, Deep Vein Thrombosis (DVT), GERD/Reflux, Hyperlipidemia, Hypertension, Myocardial Infarction (CO), Prostate Disorder, Pulmonary Embolus (PE), Renal Disease, Thyroid Disorder Additional Past Medical History / Comment(s): DVT L leg and pulmonary embolism in bilateral lungs, MTFHFR gene mutation/coagulopathy, IDDM type II, neuropath y bilateral feet, CKD stage III, kidney stone, BPH, TIA, ischemic cardiomyopathy, MIs, asbestosis, LULU with Cpap, lumbar stenosis with L side sciatica, falls, hypothyroid, 2ndary hyperparathyroidism in old PMH but pt does not recall this. Last Myocardial Infarction Date:: 1991,2008, 04/2016 History of Any Multi-Drug Resistant Organisms: None Reported Past Surgical History: AICD, Coronary Bypass/CABG, Heart Catheterization With Stent, Orthopedic Surgery Additional Past Surgical History / Comment(s): PCI/stent, DAVID, 2008 CABG 4 vessel, AICD, bilateral carpal tunnel releases, tendon repair L ankle, bilateral cataract removal/lens implants, colonoscopy, penile implant. Past Anesthesia/Blood Transfusion Reactions: No Reported Reaction Additional Past Anesthesia/Blood Transfusion Reaction / Comment(s): Pt states he received blood with his CABG-no reaction to his knowledge. Date of Last Stent Placement:: 2015 Type of Cardiac Device: AICD Device Placement Date:: 2012 Past Psychological History: Depression Smoking Status: Never smoker Past Alcohol Use History: None Reported Past Drug Use History: None Reported - Past Family History Father Family Medical History: Dementia, Diabetes Mellitus, Vascular Disorder Additional Family Medical History / Comment(s): Father had vascular disease and from this at the age of 84 yrs. Mother Family Medical History: Congestive Heart Failure (CHF), Rheumatoid Arthritis (RA) Additional Family Medical History / Comment(s): Mother had bleeding ulcers and never recovered, she at the age of 67yrs. General Exam Limitations: no limitations General appearance: alert, in no apparent distress Head exam: Present: atraumatic, normocephalic Eye exam: Present: normal appearance, PERRL ENT exam: Present: normal exam Neck exam: Present: normal inspection. Absent: tenderness, meningismus Respiratory exam: Present: normal lung sounds bilaterally. Absent: respiratory distress, wheezes Cardiovascular Exam: Present: regular rate, normal rhythm GI/Abdominal exam: Present: soft. Absent: distended, tenderness, guarding Extremities exam: Present: normal inspection, normal capillary refill. Absent: pedal edema Neurological exam: Present: alert, oriented X3, CN II-XII intact. Absent: motor sensory deficit Psychiatric exam: Present: normal affect, normal mood Skin exam: Present: warm, dry, intact. Absent: cyanosis, diaphoretic Course Vital Signs 08/12/21 08/12/21 06:55 08:05 Temperature 97.4 F L Pulse Rate 72 80 Respiratory 18 18 Rate Blood Pressure 158/81 149/85 O2 Sat by Pulse 93 L 94 L Oximetry Medical Decision Making - Medical Decision Making 80-year-old male presenting with hypoglycemic episode and fall. I did repeat a head CT on this patient with any recent intracranial hemorrhage. The previously noted traumatic subarachnoid hemorrhage is resolved. He has no complaints of headache, no pain complaints whatsoever. Laboratory studies are essentially unremarkable. He is stable CK D. Repeat blood sugar 87. Patient fed in the ED he has an appointment with his primary care physician this morning and will maintain this appointment. He will monitor his glucose closely and reduce insulin. - Lab Data Result diagrams: 08/12/21 07:38 08/12/21 07:38 Lab Results 08/12/21 08/12/21 08/12/21 Range/Units 06:57 07:38 07:38 WBC 6.6 (3.8-10.6) k/uL RBC 5.56 (4.30-5.90) m/uL Hgb 16.2 (13.0-17.5) gm/dL Hct 48.4 (39.0-53.0) % MCV 87.1 (80.0-100.0) fL MCH 29.2 (25.0-35.0) pg MCHC 33.5 (31.0-37.0) g/dL RDW 15.3 (11.5-15.5) % Plt Count 111 L (150-450) k/uL MPV 8.5 Neutrophils % 78 % Lymphocytes % 9 % Monocytes % 7 % Eosinophils % 3 % Basophils % 1 % Neutrophils # 5.2 (1.3-7.7) k/uL Lymphocytes # 0.6 L (1.0-4.8) k/uL Monocytes # 0.5 (0-1.0) k/uL Eosinophils # 0.2 (0-0.7) k/uL Basophils # 0.0 (0-0.2) k/uL Sodium 138 (137-145) mmol/L Potassium 3.8 (3.5-5.1) mmol/L Chloride 104 (98-107) mmol/L Carbon Dioxide 23 (22-30) mmol/L Anion Gap 11 mmol/L BUN 61 H (9-20) mg/dL Creatinine 2.74 H (0.66-1.25) mg/dL Est GFR (CKD-EPI)AfAm 24 (>60 ml/min/1.73 sqM) Est GFR (CKD-EPI)NonAf 21 (>60 ml/min/1.73 sqM) Glucose 116 H (74-99) mg/dL POC Glucose (mg/dL) 156 H (75-99) mg/dL POC Glu Php Mysql Web Developer ID Adam, [place] Calcium 8.9 (8.4-10.2) mg/dL Total Bilirubin 0.6 (0.2-1.3) mg/dL AST 31 (17-59) U/L ALT 23 (4-49) U/L Alkaline Phosphatase 87 (38-126) U/L Total Protein 7.5 (6.3-8.2) g/dL Albumin 4.0 (3.5-5.0) g/dL 08/12/21 Range/Units 08:40 WBC (3.8-10.6) k/uL RBC (4.30-5.90) m/uL Hgb (13.0-17.5) gm/dL Hct (39.0-53.0) % MCV (80.0-100.0) fL MCH (25.0-35.0) pg MCHC (31.0-37.0) g/dL RDW (11.5-15.5) % Plt Count (150-450) k/uL MPV Neutrophils % % Lymphocytes % % Monocytes % % Eosinophils % % Basophils % % Neutrophils # (1.3-7.7) k/uL Lymphocytes # (1.0-4.8) k/uL Monocytes # (0-1.0) k/uL Eosinophils # (0-0.7) k/uL Basophils # (0-0.2) k/uL Sodium (137-145) mmol/L Potassium (3.5-5.1) mmol/L Chloride (98-107) mmol/L Carbon Dioxide (22-30) mmol/L Anion Gap mmol/L BUN (9-20) mg/dL Creatinine (0.66-1.25) mg/dL Est GFR (CKD-EPI)AfAm (>60 ml/min/1.73 sqM) Est GFR (CKD-EPI)NonAf (>60 ml/min/1.73 sqM) Glucose (74-99) mg/dL POC Glucose (mg/dL) 87 (75-99) mg/dL POC Glu Php Mysql Web Developer ID Eric Luna Calcium (8.4-10.2) mg/dL Total Bilirubin (0.2-1.3) mg/dL AST (17-59) U/L ALT (4-49) U/L Alkaline Phosphatase (38-126) U/L Total Protein (6.3-8.2) g/dL Albumin (3.5-5.0) g/dL Disposition Clinical Impression: Diabetes, Hypoglycemia Disposition: HOME SELF-CARE Condition: Fair Instructions (If sedation given, give patient instructions): Hypoglycemia in a Person with Diabetes (ED) Is patient prescribed a controlled substance at d/c from ED?: No Referrals: Kuldeep Manjarrez MD [Primary Care Provider] - 1-2 days Time of Disposition: 08:39
--- NOTE | 2021-08-12 08:12 | CT ---
EXAMINATION TYPE: CT brain eliazar wo con DATE OF EXAM: 08/12/2021 COMPARISON: 07/31/2021 HISTORY: Fall from bed this am, Low blood sugar CT DLP: [address] of the brain was performed. The ventricles, basal cisterns and sulci overlying the cerebral convexities demonstrate mild enlargem ent. Previously noted small areas of subarachnoid hemorrhage have resolved in the interval. No new hemorrh age seen. No sulcal effacement noted. There is decreased attenuation about the periventricular white matter and deep white matter of both cerebral hemispheres, compatible with chronic small vessel ische luba. No mass effects are seen. If symptoms persist consider MRI. Osseous calvarium is intact. IMPRESSION: 1. Age related atrophic and chronic small vessel ischemic change without acute intracranial process seen at this time. CT Cervical Spine: Unenhanced CT of the cervical spine was performed with bone and soft tissue window settings submitted . Coronal and sagittal reconstruction is obtained. There is normal alignment and prevertebral soft tissues. No evidence for acute cervical fracture . Scattered degenerative disc disease and spondylosis. Biapical scarring. IMPRESSION: 1. No evidence for acute fracture or subluxation of the cervical spine.
[2021-08-12 08:41] LABS: Glucose,Whole Blood 87 mg/dL (75-99)
== END 2021-08-12 09:12 | disposition home or self-care (01) ==
LOC: EC 06:54
DX: E11.649 Type 2 diabetes mellitus with hypoglycemia without coma (principal); I12.9 Hypertensive chronic kidney disease with stage 1 through stage 4 chronic kidney disease, or unspecified chronic kidney disease; E11.22 Type 2 diabetes mellitus with diabetic chronic kidney disease; N18.30 Chronic kidney disease, stage 3 unspecified; I25.10 Atherosclerotic heart disease of native coronary artery without angina pectoris; I25.2 Old myocardial infarction; K21.9 Gastro-esophageal reflux disease without esophagitis; J44.9 Chronic obstructive pulmonary disease, unspecified; E07.9 Disorder of thyroid, unspecified; E78.5 Hyperlipidemia, unspecified; F32.9 Major depressive disorder, single episode, unspecified; Z79.4 Long term (current) use of insulin; Z79.01 Long term (current) use of anticoagulants; Z88.0 Allergy status to penicillin; Z88.5 Allergy status to narcotic agent; Z91.041 Radiographic dye allergy status; Z88.1 Allergy status to other antibiotic agents; Z86.73 Personal history of transient ischemic attack (TIA), and cerebral infarction without residual deficits; Z86.718 Personal history of other venous thrombosis and embolism; Z86.711 Personal history of pulmonary embolism; Z87.442 Personal history of urinary calculi; Z95.1 Presence of aortocoronary bypass graft; Z88.8 Allergy status to other drugs, medicaments and biological substances; Z79.02 Long term (current) use of antithrombotics/antiplatelets
CPT/HCPCS: 36415; 70450; 72125; 80053; 85025; 99285

== ENCOUNTER → 2021-10-12 | Outpatient (CLI) | payer MEDICARE ==
[2021-10-12 11:53] LABS: HCT 45.1 % (39.0-53.0); HGB 15.3 gm/dL (13.0-17.5); Hyperchromasia Slight; MCH 30.3 pg (25.0-35.0); MCHC 33.9 g/dL (31.0-37.0); MCV 89.4 fL (80.0-100.0); Platelet Count 122 k/uL (150-450); Poikilocytosis Slight; RBC 5.04 m/uL (4.30-5.90); RDW 15.5 % (11.5-15.5); WBC 8.8 k/uL (3.8-10.6)
[2021-10-12 12:03] LABS: Potassium 4.3 mmol/L (3.5-5.1)
== END | disposition home or self-care (01) ==
LOC: LABPAT 11:26
PROVIDERS: ATTEND Internal Medicine Clinical Cardiac Electrophysiology
DX: Z01.812 Encounter for preprocedural laboratory examination (principal); I47.2 Ventricular tachycardia
CPT/HCPCS: 80051; 82565; 84520; 85027

== ENCOUNTER 2021-10-18 09:34 | Day surgery (SDC) | payer MEDICARE ==
[2021-10-08 17:37] VITALS: BMI 26.4
[~2021-10-18 09:34] MED LIST changes: +CLINDAMYCIN 600 MG in SODIUM CHLORIDE 0.9% 250 ML IRRIGATION PRN; +CLINDAMYCIN 900 MG in DEXTROSE 5% IN WATER 50 ML IVPB PRN; -LACTATED RINGERS 1,000 ML IV ONE; -LACTATED RINGERS 1,000 ML IV SCH; -PROPOFOL 10 MG/ML 20 ML VIAL IV ONE; +SODIUM CHLORIDE 0.9% 1,000 ML IV SCH; +diphenhydrAMINE 50 MG/ML 1 ML VIAL IVP PRN; +methylPREDNISolone SOD SUCCI 125 MG/2 ML VIAL IV PRN
[2021-10-18 10:11] LABS: Glucose,Whole Blood 208 mg/dL (75-99)
[2021-10-18 10:13] VITALS: RESP 18
[2021-10-18] MEDS ORDERED: PROPOFOL 10 MG/ML 20 ML VIAL IV ONE (11:34)
[2021-10-18] MEDS ORDERED: .fentaNYL (PF) 50 MCG/ML AMP ONE (11:34)
[2021-10-18] MEDS ORDERED: MIDAZOLAM 2 MG/2 ML VIAL ONE (11:34)
[2021-10-18] MEDS ORDERED: LIDOCAINE 1% INJ 10MG/ML (20 ML MDV) ONE (12:06)
[2021-10-18] MEDS ORDERED: LIDOCAINE 1% INJ 10MG/ML (20 ML MDV) IM ONE (12:26)
[2021-10-18] MEDS ORDERED: INSULIN ASPART (NovoLOG) 100 UNIT/ML VIAL SQ SCH (12:30)
[2021-10-18] MEDS ORDERED: ACETAMINOPHEN IV (For NPO) 1,000 MG in EMPTY BAG 1 BAG IVPB ONE (13:14)
[2021-10-18] MEDS ORDERED: ACETAMINOPHEN TAB 325 MG TAB PO PRN (13:14)
--- NOTE | 2021-10-18 13:50 | P.PRLE ---
RE: Perry De La Torre Dear Leonie Perry underwent dual-chamber ICD generator change successfully His device testing parameters were within normal limits No changes in medications have been made at this time he will continue to follow-up with you and with Dr. Shen as before Thank you for entrusting me with the care of the patient Warm regards Sincerely Tano Morris
--- NOTE | 2021-10-18 14:12 | PCN ---
PROCEDURE NOTE Mr. De La Torre is a patient of Dr. Shen who has a dual-chamber ICD that was implanted many years back. His ICD is at [facility]. He has ischemic cardiomyopathy, ejection fraction 35%, class 2 CHF, chronic kidney disease. He underwent dual-chamber ICD generator change. Cinefluoroscopy of the leads showed chronically implanted atrial lead without any fractures or breaks. Lead position in the right atrial appendage. RV lead without any fractures or breaks screwed in the RV apex. The left pectoral area was prepped and draped as per protocol. Lidocaine 1% was used for local anesthesia. An incision was made directly over the previous surgical site and carried down to the level of the generator. Partial capsulectomy was performed and the generator was explanted. The old generator, Medtronic, was explanted. The new Medtronic generator was implanted. This was an ICD [place] DR MRI DF1 device, model number DDPB 3D1, serial number [id number]. The chronic right atrial lead was a Medtronic model number 5076, 52 cm in length and serial number [id number]. P waves were 1.8 mV. Pacing impedance 570 ohms, pacing threshold 0.75 V at 0.4 milliseconds. The RV lead was a Medtronic model number 6935, 65 cm in length and serial number [id number]. R-waves 20 mV, pacing impedance 494 ohms. High-voltage impedance 79 ohms, pacing threshold 0.75 V at 0.4 milliseconds. The wound was closed in 3 layers and dressed per protocol. Shock and T-wave was used to induce ventricular fibrillation. This resulted in several dropouts, but it was finally successfully defibrillated. Shocking impedance 77 ohms successfully 10 joules. beat was AX adequate charge time. No post-shock noise. RESULT: 1. Successful dual-chamber ICD generator change. 2. DFT at or below 10 joules. 3. The device was programmed programming at nominal sensitivity with appropriate antitachycardia pacing, cardioversion and defibrillation. PLAN: IV antibiotics. MMODL / IJN: [id number] /
[2021-10-18] MEDS ORDERED: CLINDAMYCIN 900 MG in DEXTROSE 5% IN WATER 50 ML IVPB SCH ×2 (17:00)
[2021-10-18 17:06] VITALS: BP 146/73; PULSE 67
== END 2021-10-18 17:08 | disposition home or self-care (01) ==
LOC: CATHEP 09:34
PROVIDERS: ATTEND Internal Medicine Clinical Cardiac Electrophysiology
DX: Z45.02 Encounter for adjustment and management of automatic implantable cardiac defibrillator (principal); I25.5 Ischemic cardiomyopathy; I13.0 Hypertensive heart and chronic kidney disease with heart failure and stage 1 through stage 4 chronic kidney disease, or unspecified chronic kidney disease; E11.22 Type 2 diabetes mellitus with diabetic chronic kidney disease; N18.9 Chronic kidney disease, unspecified; I50.9 Heart failure, unspecified; Z20.822 Contact with and (suspected) exposure to COVID-19; I25.2 Old myocardial infarction; G47.33 Obstructive sleep apnea (adult) (pediatric); J44.9 Chronic obstructive pulmonary disease, unspecified; J61 Pneumoconiosis due to asbestos and other mineral fibers; E07.9 Disorder of thyroid, unspecified; E11.40 Type 2 diabetes mellitus with diabetic neuropathy, unspecified; E78.5 Hyperlipidemia, unspecified; Z95.1 Presence of aortocoronary bypass graft; Z79.01 Long term (current) use of anticoagulants; Z79.890 Hormone replacement therapy; Z79.4 Long term (current) use of insulin; Z79.899 Other long term (current) drug therapy; Z88.0 Allergy status to penicillin; Z91.048 Other nonmedicinal substance allergy status; Z91.041 Radiographic dye allergy status; Z88.5 Allergy status to narcotic agent; Z91.09 Other allergy status, other than to drugs and biological substances
CPT/HCPCS: 33263; 93641; 87635; C1769; C1721; J2250; J2001; J3010; J2704

== ENCOUNTER → 2023-08-23 | Outpatient (CLI) | payer MEDICARE ==
--- NOTE | 2023-08-23 12:22 | CT ---
EXAMINATION TYPE: CT brain wo con CT DLP: 1126.5 mGycm, Automated exposure control for dose reduction was used. DATE OF EXAM: 08/23/2023 11:54 AM COMPARISON: 08/12/2021. CLINICAL INDICATION:Male, 83 years old with history of G93.40 ENCEPHALOPATHY, UNSPECIFIED, Encephalop athy, unspecified TECHNIQUE: Brain: Axial CT images of the brain were obtained with coronal and sagittal reformats created and rev iewed. Contrast used: None. Oral contrast used: None. FINDINGS: Brain: Extra-axial spaces: No abnormal extra-axial fluid collections. Ventricular system: Dilatation in proportion to cerebral atrophy. Cerebral parenchyma: Cerebral atrophy. No acute intraparenchymal hemorrhage or mass effect. The nobles -white junction is well differentiated. Scattered hypoattenuating areas are seen within the white mat ter. Cerebellum: Unremarkable. Mass effect: No evidence of midline shift. Intracranial vasculature: unremarkable Soft tissues: Normal. Calvarium/osseous structures: No depressed skull fracture. Paranasal sinuses and mastoid air cells: Mild scattered paranasal sinus disease. Visualized orbits: Bilateral aphakia IMPRESSION: 1. No acute intracranial process. 2. Nonspecific white matter changes, likely secondary to chronic small vessel ischemic disease.
== END | disposition home or self-care (01) ==
LOC: RADCTMAIN 11:24
PROVIDERS: ATTEND Internal Medicine Geriatric Medicine
DX: G93.40 Encephalopathy, unspecified (principal); R90.82 White matter disease, unspecified
CPT/HCPCS: 70450

== ENCOUNTER 2025-05-26 06:56 | Inpatient (IN) | payer MEDICARE ==
--- NOTE | 2025-05-26 07:35 | ED ---
SOB HPI - General Chief Complaint: Shortness of Breath Stated Complaint: KIARA Time Seen by Provider: 05/26/25 07:05 Source: patient, family Mode of arrival: wheelchair Limitations: no limitations - History of Present Illness Initial Comments: 84-year-old male presents emergency department reporting shortness of breath. Patient has history of coronary artery disease with bypass, asthma, PE on Eliquis. States that he started having shortness of breath over the past couple of days. Patient was up all night last night coughing. Denies that it is produ ctive. No sick contacts. Denies any chest pain. No lower extremity swelling. Has a history of PE however is compliant with his Eliquis and denies any missed doses. No nausea or vomiting. Does admit that he was on antibiotics for a left foot infection. Has had diarrhea for a month. Reports to 2 daily episodes. Denies black or bloody stools. No fevers. Patient admits that he used to take his Lasix twice a day, 3 times a week however as of a couple of months ago they reduced him down to once a day due to his chronic kidney disease. No other alleviating, precipitating modifying factors - Related Data Home Medications Medication Instructions Recorded Confirmed Isosorbide Mononitrate [Imdur] 30 mg PO DAILY 04/10/14 05/26/25 Simvastatin [Zocor] 40 mg PO 04/10/14 05/26/25 Insulin NPH/Reg Insulin 70/30 75 unit SQ DAILY 08/05/15 05/26/25 [humuLIN 70/30 VIAL] Montelukast [Singulair] 10 mg PO 08/05/15 05/26/25 Insulin NPH/Reg Insulin 70/30 65 unit SQ 05/11/16 05/26/25 [humuLIN 70/30 VIAL] Gabapentin [Neurontin] 300 mg PO DAILY 12/26/17 05/26/25 Albuterol Inhaler [Ventolin Hfa 2 puff INHALATION RT-BID 03/24/20 05/26/25 Inhaler] Furosemide [Lasix] 40 mg PO DAILY 03/24/20 05/26/25 Gabapentin [Neurontin] 600 mg PO 03/24/20 05/26/25 Omeprazole 20 mg PO DAILY 03/24/20 05/26/25 Dulaglutide [Trulicity] 3 mg SQ SA 05/26/25 05/26/25 Ergocalciferol [Vitamin D2 (1250 1,250 mcg PO Q14D 05/26/25 05/26/25 Mcg = 28121 Iu)] Levothyroxine Sodium [Synthroid] 88 mcg PO DAILY 05/26/25 05/26/25 Losartan [Cozaar] 25 mg PO DAILY 05/26/25 05/26/25 Metoprolol Tartrate [Lopressor] 50 mg PO BID 05/26/25 05/26/25 Nitroglycerin Sl Tabs [Nitrostat] 0.4 mg SL Q5M PRN 05/26/25 05/26/25 Vitamin B Complex W/Vitamin C 1 tab PO DAILY 05/26/25 05/26/25 allopurinoL 100 mg PO DAILY 05/26/25 05/26/25 calcitrioL 0.25 mcg PO MOTH 05/26/25 05/26/25 Previous Rx's Medication Instructions Recorded Apixaban [Eliquis] 2.5 mg PO BID #60 tablet 05/16/16 Dapagliflozin Propanediol [Farxiga] 5 mg PO DAILY 90 Days #90 tablet 05/28/25 Vericiguat [Verquvo] 2.5 mg PO DAILY 90 Days #90 tablet 05/28/25 Aspirin 81 mg PO DAILY tab 05/29/25 hydrALAZINE HCL [Apresoline] 25 mg PO TID 7 Days #21 tab 05/29/25 Allergies Allergy/AdvReac Type Severity Reaction Status Date / Time adhesive Allergy Rash/Hives Verified 05/26/25 11:00 empagliflozin Allergy Rapid Verified 05/26/25 11:00 [From Jardiance] Heart Rate Iodinated Contrast Media Allergy Rash/Hives,KIDNEY Verified 05/26/25 11:00 [Iodinated Contrast Media - PROBLEM IV Dye] iodine Allergy Rash/Hives Verified 05/26/25 11:00 Penicillins Allergy Rash/Hives Verified 05/26/25 11:00 povidone-iodine Allergy Rash/Hives Verified 05/26/25 11:00 [From Betadine] baclofen AdvReac Confusion Verified 05/26/25 11:00 tramadol AdvReac Confusion Verified 05/26/25 11:00 Review of Systems ROS Statement: Those systems with pertinent positive or pertinent negative responses have been documented in the HPI. ROS Other: All systems not noted in ROS Statement are negative. Past Medical History Past Medical History: Blood Disorder, Coronary Artery Disease (CAD), COPD, CVA/TIA, Diabetes Mellitus, Deep Vein Thrombosis (DVT), GERD/Reflux, Hearing Disorder / Deafness, Hyperlipidemia, Hypertension, Myocardial Infarction (DC), Prostate Disorder, Pulmonary Embolus (PE), Renal Disease, Sleep Apnea/CPAP/BIPAP, Thyroid Disorder Additional Past Medical History / Comment(s): DVT L leg and pulmonary embolism in bilateral lungs, MTHFR gene mutation/coagulopathy, IDDM type II, neuropathy bilateral feet, CKD stage IV, kidney stone, BPH, TIA, ischemic cardiomyopathy, MIs, asbestosis, LULU with Cpap, lumbar stenosis with L side sciatica, falls, hypothyroid,fall with brain bleed 07/31/[address] head now resolved Last Myocardial Infarction Date:: 1991,2008, 04/2016,2017 History of Any Multi-Drug Resistant Organisms: None Reported Past Surgical History: AICD, Coronary Bypass/CABG, Heart Catheterization With Stent, Orthopedic Surgery Additional Past Surgical History / Comment(s): PCI/stent, DAVID, 2008 CABG 4 vessel, AICD, bilateral carpal tunnel releases, tendon repair L ankle, bilateral cataract removal/lens implants, colonoscopy, penile implant. left foot Past Anesthesia/Blood Transfusion Reactions: No Reported Reaction Additional Past Anesthesia/Blood Transfusion Reaction / Comment(s): Pt states he received blood with his CABG-no reaction to his knowledge. Date of Last Stent Placement:: 2015 Type of Cardiac Device: AICD Device Placement Date:: 2012 Past Psychological History: Depression Smoking Status: Never smoker Past Alcohol Use History: None Reported Past Drug Use History: None Reported - Past Family History Father Family Medical History: Dementia, Diabetes Mellitus, Vascular Disorder Additional Family Medical History / Comment(s): Father had vascular disease and from this at the age of 84 yrs. Mother Family Medical History: Congestive Heart Failure (CHF), Rheumatoid Arthritis (RA) Additional Family Medical History / Comment(s): Mother had bleeding ulcers and never recovered, she at the age of 67yrs. General Exam Limitations: no limitations General appearance: alert, in no apparent distress Head exam: Present: atraumatic, normocephalic, normal inspection Eye exam: Present: normal appearance, PERRL, EOMI. Absent: scleral icterus, conjunctival injection, periorbital swelling ENT exam: Present: normal exam, mucous membranes moist Neck exam: Present: normal inspection. Absent: tenderness, meningismus, lymphadenopathy Respiratory exam: Present: normal lung sounds bilaterally. Absent: respiratory distress, wheezes, rales, rhonchi, stridor Cardiovascular Exam: Present: regular rate, normal rhythm, normal heart sounds. Absent: systolic murmur, diastolic murmur, rubs, gallop, clicks GI/Abdominal exam: Present: soft, normal bowel sounds. Absent: distended, tenderness, guarding, rebound, rigid Extremities exam: Present: normal inspection, full ROM, normal capillary refill. Absent: tenderness, pedal edema, joint swelling, calf tenderness Back exam: Present: normal inspection Neurological exam: Present: alert, oriented X3, CN II-XII intact Psychiatric exam: Present: normal affect, normal mood Skin exam: Present: warm, dry, intact, normal color. Absent: rash Course Vital Signs 05/26/25 05/26/25 05/26/25 06:59 09:00 10:22 Temperature 97.6 F Pulse Rate 82 79 84 Respiratory 18 18 16 Rate Blood Pressure 197/106 187/104 192/111 O2 Sat by Pulse 92 L 95 93 L Oximetry 05/26/25 05/26/25 05/26/25 12:00 14:48 15:24 Temperature Pulse Rate 85 80 73 Respiratory 16 18 18 Rate Blood Pressure 185/108 163/99 178/97 O2 Sat by Pulse 92 L 93 L 95 Oximetry 05/26/25 05/26/25 05/26/25 18:43 19:33 19:46 Temperature 97.6 F Pulse Rate 72 72 72 Respiratory 18 18 18 Rate Blood Pressure 171/102 178/97 178/97 O2 Sat by Pulse 93 L 94 L 94 L Oximetry Medical Decision Making - Medical Decision Making Was pt. sent in by a medical professional or institution (, PA, MARKET RESEARCH ASSISTANT, urgent care, hospital, or longterm...) When possible be specific @ -No Did you speak to anyone other than the patient for history (EMS, parent, family, police, friend...)? What history was obtained from this source @ -Spoke with for history Did you review nursing and triage notes (agree or disagree)? Why? @ -I reviewed and agree with nursing and triage notes Were old charts reviewed (outside hosp., previous admission, EMS record, old EKG, old radiological studies, urgent care reports/EKG's, longterm records)? Report findings @ -No old charts were reviewed Differential Diagnosis (chest pain, altered mental status, abdominal pain women, abdominal pain men, vaginal bleeding, weakness, fever, dyspnea, syncope, headache, dizziness, GI bleed, back pain, seizure, CVA, palpatations, mental health, musculoskeletal)? @ -Differential Dyspnea: Coronary syndrome, arrhythmia, tamponade, asthma, COPD, pulmonary embolism, pneumonia, pneumothorax, pulmonary effusion, anaphylaxis, diabetic ketoacidosis, flailed chest, pulmonary contusion, diaphragmatic rupture, anemia, neuromuscular, this is not meant to be an all-inclusive list. EKG interpreted by me (3pts min.). @ -Yes which demonstrates paced rhythm with a rate of 80. [place] interval 235. QRS 114. QTc of 445. No acute ST segment elevations or depressions X-rays interpreted by me (1pt min.). @ -Yes which demonstrates signs of CHF CT interpreted by me (1pt min.). @ -None done U/S interpreted by me (1pt. min.). @ -None done What testing was considered but not performed or refused? (CT, X-rays, U/S, labs)? Why? @ -None What meds were considered but not given or refused? Why? @ -None Did you discuss the management of the patient with other professionals (professionals i.e. , PA, MARKET RESEARCH ASSISTANT, lab, RT, psych nurse, social contact worker, research microbiologist, teacher, chief business development officer, family service caseworker)? Give summary @ -Spoke with Dr. Almanzar for admission Was smoking cessation discussed for >3mins.? @ -No Was critical care preformed (if so, how long)? @ -No Were there social determinants of health that impacted care today? How? (Homelessness, low income, unemployed, alcoholism, drug addiction, transportation, low edu. Level, literacy, decrease access to med. care, fdc, rehab)? @ -No Was there de-escalation of care discussed even if they declined (Discuss DNR or withdrawal of care, Hospice)? DNR status @ -No What co-morbidities impacted this encounter? (DM, HTN, Smoking, COPD, CAD, Cancer, CVA, ARF, Chemo, Hep., AIDS, mental health diagnosis, sleep apnea, morbid obesity)? @ -Congestive heart failure, COPD Was patient admitted / discharged? Hospital course, mention meds given and route, prescriptions, significant lab abnormalities, going to OR and other pertinent info. @ -Upon arrival patient seen and evaluated bed 17. Thorough history and physical exam was performed. IV access was established. Laboratory studies were conducted. Chest x-ray was performed. Patient appears to be having exacerbation of heart failure. Recommended admission. Patient was agreeable to this. Spoke with For the admission Sheet Undiagnosed new problem with uncertain prognosis? @ -No Drug Therapy requiring intensive monitoring for toxicity (Heparin, Nitro, Insulin, Cardizem)? @ -No Were any procedures done? @ -No Diagnosis/symptom? @ -Acute respiratory insufficiency, acute exacerbation of CHF at Acute, or Chronic, or Acute on Chronic? @ -Acute on chronic Uncomplicated (without systemic symptoms) or Complicated (systemic symptoms)? @ -Complicated Side effects of treatment? @ -No Exacerbation, Progression, or Severe Exacerbation? @ -No Poses a threat to life or bodily function? How? (Chest pain, USA, DC, pneumonia, PE, COPD, DKA, ARF, appy, cholecystitis, CVA, Diverticulitis, Homicidal, Suicidal, threat to staff... and all critical care pts) @ -No - Lab Data Result diagrams: 05/29/25 06:09 05/29/25 06:09 Lab Results 05/26/25 05/26/25 05/26/25 Range/Units 07:33 07:33 07:33 WBC 7.85 (4.50-10.00) 10*3/uL RBC 4.99 (4.40-5.60) 10*6/uL Hgb 16.3 (13.0-17.0) g/dL Hct 48.2 (39.6-50.0) % MCV 96.6 (80.0-97.0) fL MCH 32.7 H (27.0-32.0) pg MCHC 33.8 (32.0-37.0) g/dL Plt Count 68 L (140-440) 10*3/uL MPV 11.2 (9.5-12.2) fL Immature Gran % (Auto) 0.3 % Neutrophils % 80.9 % Lymphocytes % 9.7 % Monocytes % 7.9 % Eosinophils % 1.1 % Basophils % 0.1 % Immature Gran # 0.02 (0.00-0.04) 10*3/uL Neutrophils # 6.35 (1.80-7.70) 10*3/uL Lymphocytes # 0.76 L (0.90-5.00) 10*3/uL Monocytes # 0.62 (0.20-1.00) 10*3/uL Eosinophils # 0.09 (0.04-0.35) 10*3/uL Basophils # 0.01 (0.00-0.10) 10*3/uL Manual Slide Review Performed Immature Plt Fraction 2.7 (1.1-6.1) % PT 12.8 H (10.0-12.5) sec INR 1.2 H (<1.2) APTT 24.4 (22.0-30.0) sec Sodium 145 (137-145) mmol/L Potassium 4.3 (3.5-5.1) mmol/L Chloride 114 H (98-107) mmol/L Carbon Dioxide 12 L (22-30) mmol/L Anion Gap 19 mmol/L BUN 54 H (9-20) mg/dL Creatinine 2.42 H (0.66-1.25) mg/dL Est GFR (CKD-EPI)AfAm 27 (>60 ml/min/1.73 sqM) Est GFR (CKD-EPI)NonAf 24 (>60 ml/min/1.73 sqM) Glucose 192 H (74-99) mg/dL Lactic Ac Sepsis Rflx Plasma Lactic Acid Taye (0.7-2.0) mmol/L Calcium 9.3 (8.4-10.2) mg/dL Total Bilirubin 1.4 H (0.2-1.3) mg/dL AST 33 (17-59) U/L ALT 22 (4-49) U/L Alkaline Phosphatase 118 (38-126) U/L Troponin I (0.000-0.034) ng/mL NT-Pro-B Natriuret Pep 81005 pg/mL Total Protein 6.6 (6.3-8.2) g/dL Albumin 4.2 (3.5-5.0) g/dL 07/07/25 07/07/25 07/07/25 Range/Units 07:33 07:33 09:07 WBC (4.50-10.00) 10*3/uL RBC (4.40-5.60) 10*6/uL Hgb (13.0-17.0) g/dL Hct (39.6-50.0) % MCV (80.0-97.0) fL MCH (27.0-32.0) pg MCHC (32.0-37.0) g/dL Plt Count (140-440) 10*3/uL MPV (9.5-12.2) fL Immature Gran % (Auto) % Neutrophils % % Lymphocytes % % Monocytes % % Eosinophils % % Basophils % % Immature Gran # (0.00-0.04) 10*3/uL Neutrophils # (1.80-7.70) 10*3/uL Lymphocytes # (0.90-5.00) 10*3/uL Monocytes # (0.20-1.00) 10*3/uL Eosinophils # (0.04-0.35) 10*3/uL Basophils # (0.00-0.10) 10*3/uL Manual Slide Review Immature Plt Fraction (1.1-6.1) % PT (10.0-12.5) sec INR (<1.2) APTT (22.0-30.0) sec Sodium (137-145) mmol/L Potassium (3.5-5.1) mmol/L Chloride (98-107) mmol/L Carbon Dioxide (22-30) mmol/L Anion Gap mmol/L BUN (9-20) mg/dL Creatinine (0.66-1.25) mg/dL Est GFR (CKD-EPI)AfAm (>60 ml/min/1.73 sqM) Est GFR (CKD-EPI)NonAf (>60 ml/min/1.73 sqM) Glucose (74-99) mg/dL Lactic Ac Sepsis Rflx Y Plasma Lactic Acid Taye 2.5 H* (0.7-2.0) mmol/L Calcium (8.4-10.2) mg/dL Total Bilirubin (0.2-1.3) mg/dL AST (17-59) U/L ALT (4-49) U/L Alkaline Phosphatase (38-126) U/L Troponin I 0.171 H* (0.000-0.034) ng/mL NT-Pro-B Natriuret Pep pg/mL Total Protein (6.3-8.2) g/dL Albumin (3.5-5.0) g/dL Disposition Clinical Impression: Chronic renal failure, Elevated troponin, Acute respiratory insufficiency, Acute CHF Disposition: ADMITTED IP TO THIS [facility] Condition: Stable Is patient prescribed a controlled substance at d/c from ED?: No Time of Disposition: 10:11 Decision to Admit Reason: Admit from EC Decision Date: 05/26/25 Decision Time: 10:11
[2025-05-26 08:22] LABS: Basophils # (A) 0.01 10*3/uL (0.00-0.10); Basophils % (A) 0.1 %; Eosinophils # (A) 0.09 10*3/uL (0.04-0.35); Eosinophils % (A) 1.1 %; HCT 48.2 % (39.6-50.0); HGB 16.3 g/dL (13.0-17.0); Immature Platelet Fraction 2.7 % (1.1-6.1); Lymphocytes # (A) 0.76 10*3/uL (0.90-5.00); Lymphocytes % (A) 9.7 %; MCH 32.7 pg (27.0-32.0); MCHC 33.8 g/dL (32.0-37.0); MCV 96.6 fL (80.0-97.0); Monocytes # (A) 0.62 10*3/uL (0.20-1.00); Monocytes % (A) 7.9 %; Neutrophils # (A) 6.35 10*3/uL (1.80-7.70); Neutrophils % (A) 80.9 %; RBC 4.99 10*6/uL (4.40-5.60); RDW 15.5 % (11.5-14.5); WBC 7.85 10*3/uL (4.50-10.00)
--- NOTE | 2025-05-26 08:23 | XR ---
EXAMINATION TYPE: XR chest 2V DATE OF EXAM: 05/26/2025 8:16 AM COMPARISON: Chest radiographs from 07/31/2021 TECHNIQUE: XR chest 2V Frontal and lateral views of the chest. CLINICAL INDICATION:Male, 84 years old with history of difficulty breathing; FINDINGS: Lungs/Pleura: There is no evidence of focal consolidation or pneumothorax. Trace bilateral pleural ef fusions. Chronic elevation of the right hemidiaphragm. Pulmonary vascularity: Unremarkable. Heart/mediastinum: Cardiomediastinal silhouette is enlarged and stable. Two lead cardiac conduction d evice overlying the left hemithorax with lead tips projecting over the right ventricle and right atri um. Musculoskeletal: No acute osseous pathology. Midline sternotomy wires are noted and stable. IMPRESSION: Trace bilateral pleural effusions. [facility], , 05/26/2025 8:20 AM
[2025-05-26 08:31] LABS: INR 1.2 (<1.2); Partial Thromboplastin Time 24.4 sec (22.0-30.0); Prothrombin Time 12.8 sec (10.0-12.5)
[2025-05-26 08:47] LABS: ALT 22 U/L (4-49); AST 33 U/L (17-59); African American GFR (CKD) 27 (>60 ml/min/1.73 sqM); Albumin 4.2 g/dL (3.5-5.0); Alkaline Phosphatase 118 U/L (38-126); Anion Gap 19 mmol/L; Blood Urea Nitrogen 54 mg/dL (9-20); Calcium 9.3 mg/dL (8.4-10.2); Carbon Dioxide 12 mmol/L (22-30); Chloride 114 mmol/L (98-107); Glucose 192 mg/dL (74-99); Non-African American GFR(CKD) 24 (>60 ml/min/1.73 sqM); Potassium 4.3 mmol/L (3.5-5.1); Sodium 145 mmol/L (137-145); Total Protein 6.6 g/dL (6.3-8.2)
[2025-05-26 09:10] LABS: Platelet Count 68 10*3/uL (140-440)
[2025-05-26 09:18] LABS: NT-Pro-B-Type Natriuretic Pept 32600 pg/mL
[2025-05-26] MEDS ORDERED: NALOXONE 0.4 MG/ML 1 ML VIAL IV PRN (10:11)
[2025-05-26] MEDS: FUROSEMIDE 10 MG/ML 10 ML VIAL IV STA (10:23)
[2025-05-26] MEDS: APIXABAN 2.5 MG TABLET PO SCH (11:33)
[2025-05-26] MEDS: SPIRONOLACTONE 25 MG TAB PO SCH (11:45)
[2025-05-26] MEDS: NON FORMULARY DRUG (Vitamin B Complex W/Vitamin C 1 TAB) PO SCH (11:45)
[2025-05-26] MEDS: NON FORMULARY DRUG (Omeprazole [Omeprazole] 20 MG Capsule.Dr) PO SCH (11:46)
[2025-05-26] MEDS: INSULIN NPH SQ SCH (11:46)
[2025-05-26] MEDS: REG INSULIN SQ SCH (11:46)
[2025-05-26] MEDS: GABAPENTIN 300 MG CAP PO SCH (12:06)
[2025-05-26] MEDS: METOPROLOL TARTRATE 50 MG TAB PO SCH (12:07)
[2025-05-26] MEDS: LOSARTAN 25 MG TAB PO SCH (12:07)
[2025-05-26] MEDS: LEVOTHYROXINE 88 MCG TAB PO SCH (12:07)
[2025-05-26] MEDS: ISOSORBIDE MONONITRATE ER 15 MG TAB PO SCH (12:09)
--- NOTE | 2025-05-26 13:42 | P.HPIM ---
History of Present Illness 84-year-old present male came in with complaints of shortness of breath orthopnea paroxysmal nocturnal dyspnea.. Patient does have history of congestive heart failure EF of around 20 to 25%. Patient's symptoms are worse for last couple days has been going on for some time patient denied any noncompliance with diet or medications. Patient takes 40 mg of Lasix at home. Patient does have chronic kidney disease with baseline creatinine of around 2.4 his present creatinine is around that. Patient does have history of coronary artery disease ischemic cardiomyopathy had a history of CABG in the past. Patient any fever chills complaining of cough without any significant sputum production chest x-ray showed bilateral pleural effusions elevated proBNP of 32,000. REVIEW OF SYSTEMS: All other systems are negative except those mentioned in the HPI PHYSICAL EXAMINATION: GENERAL: The patient is alert and oriented x3, not in any acute distress. Well developed, well nourished. HEENT: Pupils are round and equally reacting to light. EOMI. No scleral icterus. No conjunctival pallor. Normocephalic, atraumatic. No pharyngeal erythema. No thyromegaly. CARDIOVASCULAR: S1 and S2 present. No murmurs, rubs, or gallops. PULMONARY: Chest is clear to auscultation, no wheezing or crackles. ABDOMEN: Soft, nontender, nondistended, normoactive bowel sounds. No palpable organomegaly. MUSCULOSKELETAL: No joint swelling or deformity. EXTREMITIES: No cyanosis, clubbing, or pedal edema. NEUROLOGICAL: Gross neurological examination did not reveal any focal deficits. SKIN: No rashes. Assessment and plan -Congestive heart failure chronic systolic dysfunction EF of around 20 to 25%, ischemic cardiomyopathy with acute exacerbation: Patient was started on 40 mg of IV twice daily of Lasix close clinical monitoring I's and O's resume on lisinopril, hydralazine, Imdur. These medications can be optimized. - Chronic kidney disease stage IV from probably diabetic nephropathy - Type 2 diabetes mellitus patient was resumed on insulin regimen along with sliding scale insulin -Troponin elevation probably type II MT from congestive heart failure patient denied any complaints of chest pain - Hypertension - Thrombocytopenia chronic etiology is not clear - Diabetic peripheral neuropathy condition chronic kidney disease I will change Neurontin to pregabalin - Hypothyroidism continue levothyroxine - History of PE in the past, patient is on anticoagulation with Eliquis but is on a lower dose unknown whether patient has history of atrial fibrillation in the past. Patient does have history of MTHFR gene mutation - Sleep apnea DVT prophylaxis: On anticoagulation with Eliquis which was resumed Past Medical History Past Medical History: Blood Disorder, Coronary Artery Disease (CAD), COPD, CVA/TIA, Diabetes Mellitus, Deep Vein Thrombosis (DVT), GERD/Reflux, Hearing Disorder / Deafness, Hyperlipidemia, Hypertension, Myocardial Infarction (MT), Prostate Disorder, Pulmonary Embolus (PE), Renal Disease, Sleep Apnea/CPAP/BIPAP, Thyroid Disorder Additional Past Medical History / Comment(s): DVT L leg and pulmonary embolism in bilateral lungs, MTHFR gene mutation/coagulopathy, IDDM type II, neuropathy bilateral feet, CKD stage IV, kidney stone, BPH, TIA, ischemic cardiomyopathy, MIs, asbestosis, LULU with Cpap, lumbar stenosis with L side sciatica, falls, hypothyroid,fall with brain bleed 07/31/[address] head now resolved Last Myocardial Infarction Date:: 1991,2008, 04/2016,2017 History of Any Multi-Drug Resistant Organisms: None Reported Past Surgical History: AICD, Coronary Bypass/CABG, Heart Catheterization With Stent, Orthopedic Surgery Additional Past Surgical History / Comment(s): PCI/stent, DAVID, 2008 CABG 4 vessel, AICD, bilateral carpal tunnel releases, tendon repair L ankle, bilateral cataract removal/lens implants, colonoscopy, penile implant. left foot Past Anesthesia/Blood Transfusion Reactions: No Reported Reaction Additional Past Anesthesia/Blood Transfusion Reaction / Comment(s): Pt states he received blood with his CABG-no reaction to his knowledge. Date of Last Stent Placement:: 2015 Type of Cardiac Device: AICD Device Placement Date:: 2012 Past Psychological History: Depression Smoking Status: Never smoker Past Alcohol Use History: None Reported Past Drug Use History: None Reported - Past Family History Father Family Medical History: Dementia, Diabetes Mellitus, Vascular Disorder Additional Family Medical History / Comment(s): Father had vascular disease and from this at the age of 84 yrs. Mother Family Medical History: Congestive Heart Failure (CHF), Rheumatoid Arthritis (RA) Additional Family Medical History / Comment(s): Mother had bleeding ulcers and never recovered, she at the age of 67yrs. Medications and Allergies Home Medications Medication Instructions Recorded Confirmed Type Isosorbide Mononitrate [Imdur] 30 mg PO DAILY 04/10/14 05/26/25 History Simvastatin [Zocor] 40 mg PO HS 04/10/14 05/26/25 History Insulin NPH/Reg Insulin 70/30 75 unit SQ DAILY 08/05/15 05/26/25 History [humuLIN 70/30 VIAL] Montelukast [Singulair] 10 mg PO HS 08/05/15 05/26/25 History Insulin NPH/Reg Insulin 70/30 65 unit SQ HS 05/11/16 05/26/25 History [humuLIN 70/30 VIAL] Apixaban [Eliquis] 2.5 mg PO BID #60 tablet 05/16/16 05/26/25 Rx Gabapentin [Neurontin] 300 mg PO DAILY 12/26/17 05/26/25 History Albuterol Inhaler [Ventolin Hfa 2 puff INHALATION RT-BID 03/24/20 05/26/25 History Inhaler] Furosemide [Lasix] 40 mg PO DAILY 03/24/20 05/26/25 History Gabapentin [Neurontin] 600 mg PO HS 03/24/20 05/26/25 History Omeprazole 20 mg PO DAILY 03/24/20 05/26/25 History Spironolactone [Aldactone] 12.5 mg PO DAILY 06/26/21 05/26/25 History Dulaglutide [Trulicity] 3 mg SQ SA 05/26/25 05/26/25 History Ergocalciferol [Vitamin D2 (1250 1,250 mcg PO Q14D 05/26/25 05/26/25 History Mcg = 11180 Iu)] Levothyroxine Sodium [Synthroid] 88 mcg PO DAILY 05/26/25 05/26/25 History Losartan [Cozaar] 25 mg PO DAILY 05/26/25 05/26/25 History Metoprolol Tartrate [Lopressor] 50 mg PO BID 05/26/25 05/26/25 History Nitroglycerin Sl Tabs [Nitrostat] 0.4 mg SL Q5M PRN 05/26/25 05/26/25 History Vitamin B Complex W/Vitamin C 1 tab PO DAILY 05/26/25 05/26/25 History allopurinoL 100 mg PO DAILY 05/26/25 05/26/25 History calcitrioL 0.25 mcg PO MOTH 05/26/25 05/26/25 History hydrALAZINE HCL [Apresoline] 25 mg PO BID 05/26/25 05/26/25 History Allergies Allergy/AdvReac Type Severity Reaction Status Date / Time adhesive Allergy Rash/Hives Verified 05/26/25 11:00 empagliflozin Allergy Rapid Verified 05/26/25 11:00 [From Jardiance] Heart Rate Iodinated Contrast Media Allergy Rash/Hives,KIDNEY Verified 05/26/25 11:00 [Iodinated Contrast Media - PROBLEM IV Dye] iodine Allergy Rash/Hives Verified 05/26/25 11:00 Penicillins Allergy Rash/Hives Verified 05/26/25 11:00 povidone-iodine Allergy Rash/Hives Verified 05/26/25 11:00 [From Betadine] baclofen AdvReac Confusion Verified 05/26/25 11:00 tramadol AdvReac Confusion Verified 05/26/25 11:00 Physical Exam Vitals: Vital Signs Temp Pulse Resp BP Pulse Ox 05/26/25 12:00 85 16 185/108 92 L 05/26/25 10:22 84 16 192/111 93 L 05/26/25 09:00 79 18 187/104 95 05/26/25 06:59 97.6 F 82 18 197/106 92 L Intake and Output 05/25/25 05/26/25 05/26/25 22:59 06:59 14:59 Output Total 200 Balance -200 Output: Urine 200 Other: Weight 88.451 kg Results CBC & Chem 7: 05/26/25 07:33 05/26/25 07:33 Labs: Abnormal Lab Results - Last 24 Hours (Table) 05/26/25 05/26/25 05/26/25 Range/Units 07:33 07:33 07:33 MCH 32.7 H (27.0-32.0) pg Plt Count 68 L (140-440) 10*3/uL Lymphocytes # 0.76 L (0.90-5.00) 10*3/uL PT 12.8 H (10.0-12.5) sec INR 1.2 H (<1.2) Chloride 114 H (98-107) mmol/L Carbon Dioxide 12 L (22-30) mmol/L BUN 54 H (9-20) mg/dL Creatinine 2.42 H (0.66-1.25) mg/dL Glucose 192 H (74-99) mg/dL Plasma Lactic Acid Taye (0.7-2.0) mmol/L Total Bilirubin 1.4 H (0.2-1.3) mg/dL Troponin I (0.000-0.034) ng/mL 05/26/25 05/26/25 05/26/25 Range/Units 07:33 07:33 11:12 MCH (27.0-32.0) pg Plt Count (140-440) 10*3/uL Lymphocytes # (0.90-5.00) 10*3/uL PT (10.0-12.5) sec INR (<1.2) Chloride (98-107) mmol/L Carbon Dioxide (22-30) mmol/L BUN (9-20) mg/dL Creatinine (0.66-1.25) mg/dL Glucose (74-99) mg/dL Plasma Lactic Acid Taye 2.5 H* (0.7-2.0) mmol/L Total Bilirubin (0.2-1.3) mg/dL Troponin I 0.171 H* 0.179 H* (0.000-0.034) ng/mL 05/26/25 Range/Units 11:12 MCH (27.0-32.0) pg Plt Count (140-440) 10*3/uL Lymphocytes # (0.90-5.00) 10*3/uL PT (10.0-12.5) sec INR (<1.2) Chloride (98-107) mmol/L Carbon Dioxide (22-30) mmol/L BUN (9-20) mg/dL Creatinine (0.66-1.25) mg/dL Glucose (74-99) mg/dL Plasma Lactic Acid Taye 2.7 H* (0.7-2.0) mmol/L Total Bilirubin (0.2-1.3) mg/dL Troponin I (0.000-0.034) ng/mL
[2025-05-26 17:31] LABS: Glucose,Whole Blood 190 mg/dL (70-110)
[2025-05-26] MEDS: INSULIN LISPRO (HumaLOG) 100 UNIT/ML 10 mL VL SQ SCH (17:49)
[2025-05-26 20:05] LABS: Glucose,Whole Blood 208 mg/dL (70-110)
[2025-05-26] MEDS: ALBUTEROL NEBULIZED 2.5 MG/3 ML INHALATION SCH (20:21)
[2025-05-26] MEDS: PREGABALIN 100 MG CAP PO SCH (20:40)
[2025-05-26] MEDS: MONTELUKAST 10 MG TAB PO SCH (20:40)
[2025-05-26] MEDS: ATORVASTATIN 20 MG TAB PO SCH (20:40)
[2025-05-26] MEDS: FUROSEMIDE 10 MG/ML 4 ML VIAL IV SCH (20:41)
[2025-05-26] MEDS: INSULIN NPL/INSULIN LISPRO 100 UNIT/ML 10 ML VL (Humalog 75/25) SQ SCH (20:44)
[2025-05-26] MEDS ORDERED: GABAPENTIN 300 MG CAP PO SCH (21:00)
[2025-05-27 05:57] LABS: Glucose,Whole Blood 89 mg/dL (70-110)
[2025-05-27 06:02] LABS: Basophils # (A) 0.02 10*3/uL (0.00-0.10); Basophils % (A) 0.2 %; Eosinophils # (A) 0.28 10*3/uL (0.04-0.35); Eosinophils % (A) 3.0 %; HCT 49.0 % (39.6-50.0); HGB 16.3 g/dL (13.0-17.0); Immature Platelet Fraction 3.2 % (1.1-6.1); Lymphocytes # (A) 1.06 10*3/uL (0.90-5.00); Lymphocytes % (A) 11.4 %; MCH 32.9 pg (27.0-32.0); MCHC 33.3 g/dL (32.0-37.0); MCV 99.0 fL (80.0-97.0); Monocytes # (A) 0.99 10*3/uL (0.20-1.00); Monocytes % (A) 10.7 %; Neutrophils # (A) 6.89 10*3/uL (1.80-7.70); Neutrophils % (A) 74.4 %; RBC 4.95 10*6/uL (4.40-5.60); RDW 15.7 % (11.5-14.5); WBC 9.27 10*3/uL (4.50-10.00)
[2025-05-27 06:18] LABS: African American GFR (CKD) 24 (>60 ml/min/1.73 sqM); Anion Gap 17 mmol/L; Blood Urea Nitrogen 66 mg/dL (9-20); Calcium 9.0 mg/dL (8.4-10.2); Carbon Dioxide 14 mmol/L (22-30); Chloride 114 mmol/L (98-107); Glucose 104 mg/dL (74-99); Magnesium 2.2 mg/dL (1.6-2.3); Non-African American GFR(CKD) 21 (>60 ml/min/1.73 sqM); Potassium 3.6 mmol/L (3.5-5.1); Sodium 145 mmol/L (137-145)
[2025-05-27 06:44] LABS: Platelet Count 77 10*3/uL (140-440)
[2025-05-27] MEDS ORDERED: CAFFEINE CITRATE 60 MG/3 ML VIAL IV PRN (08:57)
[2025-05-27] MEDS ORDERED: REGADENOSON 0.4 MG/5 ML SYRINGE IV PRN (08:57)
[2025-05-27] MEDS ORDERED: AMINOPHYLLINE 500 MG/20 ML VIAL IV PRN (08:57)
[2025-05-27 09:33] LABS: INR 1.2 (<1.2); Partial Thromboplastin Time 24.5 sec (22.0-30.0); Prothrombin Time 12.6 sec (10.0-12.5)
[2025-05-27 09:34] LABS: Basophils # (A) 0.01 10*3/uL (0.00-0.10); Basophils % (A) 0.1 %; Eosinophils # (A) 0.18 10*3/uL (0.04-0.35); Eosinophils % (A) 2.5 %; HCT 47.2 % (39.6-50.0); HGB 15.9 g/dL (13.0-17.0); Immature Platelet Fraction 3.7 % (1.1-6.1); Lymphocytes # (A) 0.71 10*3/uL (0.90-5.00); Lymphocytes % (A) 9.8 %; MCH 32.5 pg (27.0-32.0); MCHC 33.7 g/dL (32.0-37.0); MCV 96.5 fL (80.0-97.0); Monocytes # (A) 0.69 10*3/uL (0.20-1.00); Monocytes % (A) 9.5 %; Neutrophils # (A) 5.63 10*3/uL (1.80-7.70); Neutrophils % (A) 77.5 %; RBC 4.89 10*6/uL (4.40-5.60); RDW 15.3 % (11.5-14.5); WBC 7.26 10*3/uL (4.50-10.00)
[2025-05-27 09:36] LABS: Magnesium 2.2 mg/dL (1.6-2.3)
[2025-05-27 09:38] LABS: Platelet Count 62 10*3/uL (140-440)
[2025-05-27] MEDS: PANTOPRAZOLE 40 MG TABLET PO SCH (10:25)
[2025-05-27] MEDS: HEPARIN SOD,PORK IN 0.45% NACL 25,000 UNIT in 0.45% NACL 1 250ML.BAG IV SCH (10:27)
[2025-05-27] MEDS: INSULIN NPL/INSULIN LISPRO 100 UNIT/ML 10 ML VL (Humalog 75/25) SQ SCH (10:27)
[2025-05-27] MEDS: ASPIRIN 81 MG PO SCH (10:27)
[2025-05-27] MEDS: NON FORMULARY DRUG (Vitamin B Complex W/Vitamin C 1 TAB) PO SCH (10:54)
[2025-05-27 11:07] LABS: T4, Free (Free Thyroxine) 1.46 ng/dL (0.78-2.19)
[2025-05-27 11:24] LABS: Glucose,Whole Blood 159 mg/dL (70-110)
--- NOTE | 2025-05-27 13:02 | P.PN ---
Subjective 84-year-old present male came in with complaints of shortness of breath orthopnea paroxysmal nocturnal dyspnea.. Patient does have history of congestive heart failure EF of around 20 to 25%. Patient's symptoms are worse for last couple days has been going on for some time patient denied any noncompliance with diet or medications. Patient takes 40 mg of Lasix at home. Patient does have chronic kidney disease with baseline creatinine of around 2.4 his present creatinine is around that. Patient does have history of coronary artery disease ischemic cardiomyopathy had a history of CABG in the past. Patient any fever chills complaining of cough without any significant sputum production chest x-ray showed bilateral pleural effusions elevated proBNP of 32,000. 05/27/25: Pt seen at bedside, he reports feeling much improved. Shortness of breath is significantly better than on discharge. He denies fever, chills, chest pain, worsening shortness of breath. REVIEW OF SYSTEMS: All other systems are negative except those mentioned in the HPI PHYSICAL EXAMINATION: GENERAL: The patient is alert and oriented x3, not in any acute distress. Well developed, well nourished. HEENT: Pupils are round and equally reacting to light. EOMI. No scleral icterus. No conjunctival pallor. Normocephalic, atraumatic. No pharyngeal erythema. No thyromegaly. CARDIOVASCULAR: S1 and S2 present. No murmurs, rubs, or gallops. PULMONARY: Chest is clear to auscultation, no wheezing or crackles. ABDOMEN: Soft, nontender, nondistended, normoactive bowel sounds. No palpable organomegaly. MUSCULOSKELETAL: No joint swelling or deformity. EXTREMITIES: No cyanosis, clubbing, or pedal edema. NEUROLOGICAL: Gross neurological examination did not reveal any focal deficits. SKIN: No rashes. Assessment and plan -Congestive heart failure chronic systolic dysfunction EF of around 20 to 25%, ischemic cardiomyopathy with acute exacerbation: Patient was started on 40 mg of IV twice daily of Lasix close clinical monitoring I's and O's resume on lisinopril, hydralazine, Imdur. These medications can be optimized. - Chronic kidney disease stage IV from probably diabetic nephropathy - Type 2 diabetes mellitus patient was resumed on insulin regimen along with sliding scale insulin -Troponin elevation probably type II MN from congestive heart failure patient denied any complaints of chest pain - Hypertension - Thrombocytopenia chronic etiology is not clear - Diabetic peripheral neuropathy condition chronic kidney disease I will change Neurontin to pregabalin - Hypothyroidism continue levothyroxine - History of PE in the past, patient is on anticoagulation with Eliquis but is on a lower dose unknown whether patient has history of atrial fibrillation in the past. Patient does have history of MTHFR gene mutation - Sleep apnea #-Congestive heart failure chronic systolic dysfunction EF of around 20 to 25%, ischemic cardiomyopathy with acute exacerbation: -Patient was started on 40 mg of IV twice daily of Lasix close clinical monitor ing I's and O's -resume on lisinopril, hydralazine, Imdur. These medications can be optimized. - Wean to room air - transition to PO lasix DVT prophylaxis: On anticoagulation with Eliquis which was resumed Code: Full DC: PO lasix and nuclear stress test tomorrow Objective - Vital Signs Vital signs: Vital Signs Temp 97.5 F L 05/27/25 08:00 Pulse 61 05/27/25 08:00 Resp 16 05/27/25 08:00 BP 148/89 05/27/25 08:00 Pulse Ox 96 05/27/25 08:00 FiO2 Intake & Output 05/26/25 05/27/25 05/27/25 18:59 06:59 18:59 Intake Total 118 Output Total 200 700 Balance -200 -700 118 Weight 85.8 kg Intake: Oral 118 Output: Urine 200 700 Other: Voiding Method Toilet # Voids 1 - Labs CBC & Chem 7: 05/27/25 09:09 05/27/25 05:38 Labs: Abnormal Lab Results - Last 24 Hours (Table) 05/26/25 05/26/25 05/26/25 Range/Units 07:33 07:33 07:33 MCV (80.0-97.0) fL MCH (27.0-32.0) pg Plt Count 68 L (140-440) 10*3/uL Lymphocytes # 0.76 L (0.90-5.00) 10*3/uL Chloride (98-107) mmol/L Carbon Dioxide (22-30) mmol/L BUN (9-20) mg/dL Creatinine (0.66-1.25) mg/dL Glucose (74-99) mg/dL POC Glucose (mg/dL) (70-110) mg/dL Plasma Lactic Acid Taye 2.5 H* (0.7-2.0) mmol/L Troponin I 0.171 H* (0.000-0.034) ng/mL 05/26/25 05/26/25 05/26/25 Range/Units 11:12 11:12 14:18 MCV (80.0-97.0) fL MCH (27.0-32.0) pg Plt Count (140-440) 10*3/uL Lymphocytes # (0.90-5.00) 10*3/uL Chloride (98-107) mmol/L Carbon Dioxide (22-30) mmol/L BUN (9-20) mg/dL Creatinine (0.66-1.25) mg/dL Glucose (74-99) mg/dL POC Glucose (mg/dL) (70-110) mg/dL Plasma Lactic Acid Taye 2.7 H* 3.9 H* (0.7-2.0) mmol/L Troponin I 0.179 H* (0.000-0.034) ng/mL 05/26/25 05/26/25 05/26/25 Range/Units 15:29 17:30 18:59 MCV (80.0-97.0) fL MCH (27.0-32.0) pg Plt Count (140-440) 10*3/uL Lymphocytes # (0.90-5.00) 10*3/uL Chloride (98-107) mmol/L Carbon Dioxide (22-30) mmol/L BUN (9-20) mg/dL Creatinine (0.66-1.25) mg/dL Glucose (74-99) mg/dL POC Glucose (mg/dL) 190 H (70-110) mg/dL Plasma Lactic Acid Taye 2.8 H* (0.7-2.0) mmol/L Troponin I 0.210 H* (0.000-0.034) ng/mL 05/26/25 05/26/25 05/27/25 Range/Units 20:03 22:01 01:35 MCV (80.0-97.0) fL MCH (27.0-32.0) pg Plt Count (140-440) 10*3/uL Lymphocytes # (0.90-5.00) 10*3/uL Chloride (98-107) mmol/L Carbon Dioxide (22-30) mmol/L BUN (9-20) mg/dL Creatinine (0.66-1.25) mg/dL Glucose (74-99) mg/dL POC Glucose (mg/dL) 208 H (70-110) mg/dL Plasma Lactic Acid Taye 2.3 H* 2.1 H* (0.7-2.0) mmol/L Troponin I (0.000-0.034) ng/mL 05/27/25 05/27/25 Range/Units 05:38 05:38 MCV 99.0 H (80.0-97.0) fL MCH 32.9 H (27.0-32.0) pg Plt Count 77 L (140-440) 10*3/uL Lymphocytes # (0.90-5.00) 10*3/uL Chloride 114 H (98-107) mmol/L Carbon Dioxide 14 L (22-30) mmol/L BUN 66 H (9-20) mg/dL Creatinine 2.67 H (0.66-1.25) mg/dL Glucose 104 H (74-99) mg/dL POC Glucose (mg/dL) (70-110) mg/dL Plasma Lactic Acid Taye (0.7-2.0) mmol/L Troponin I (0.000-0.034) ng/mL
--- NOTE | 2025-05-27 14:28 | CA ---
Transthoracic Echo Report Name: Perry De La Torre Age: 84 Gender: M : 1940 Exam Date: 05/27/2025 10:39 Exam Location: [facility] Ht (in): 72 Wt (lb): 189 Ordering Physician: Zay Shields MD ([id number]) Attending/Referring Phys: Comic Artist Cathy Hernandez RDCS Procedure CPT: Indications: dilated cardiomyopathy Cardiac Hx: CABG, pacemaker Technical Quality: Technically difficult study Contrast 1: Definity Total Dose (mL): 2 Contrast 2: Total Dose (mL): MEASUREMENTS (Male / Female) Normal Values 2D ECHO LV Diastolic Diameter PLAX 5.2 cm 4.2 - 5.9 / 3.9 - 5.3 cm LV Systolic Diameter PLAX 5.2 cm IVS Diastolic Thickness 1.4 cm 0.6 - 1.0 / 0.6 - 0.9 cm LVPW Diastolic Thickness 1.3 cm 0.6 - 1.0 / 0.6 - 0.9 cm LV Relative Wall Thickness 0.5 RV Internal Dim ED PLAX 3.9 cm LA Systolic Diameter LX 4.7 cm 3.0 - 4.0 / 2.7 - 3.8 cm LA Volume 92.0 cm??? 18 - 58 / 22 - 52 cm??? LA Volume Index 43.9 cm???/m??? 16 - 28 cm???/m??? M-MODE Aortic Root Diameter MM 3.2 cm AV Cusp Separation MM 1.6 cm DOPPLER AV Peak Velocity 100.1 cm/s AV Peak Gradient 4.0 mmHg MV Area PHT 1.9 cm??? MV Deceleration Time 506.5 ms TR Peak Velocity 390.2 cm/s TR Peak Gradient 60.9 mmHg Right Ventricular Systolic Press 64.1 mmHg FINDINGS Left Ventricle Left ventricular ejection fraction is estimated at 15-20 %. Left ventricular cavity size normal. Moderate concentric left ventricular hypertrophy. Severely reduced global left ventricular systolic function. Right Ventricle Moderate right ventricular dilatation. Severe pulmonary hypertension. Right ventricular systolic pressure estimated at 64 mm hg. Right Atrium Normal right atrial size. No right atrial thrombus or mass seen. Left Atrium Moderately increased left atrial diameter. Severely increased left atrial volume. Mildly increased left atrial area. No left atrial thrombus or mass present. Mitral Valve Structurally normal mitral valve. Mild mitral regurgitation. Aortic Valve Trileaflet aortic valve. Thickened aortic valve without stenosis. Trace to mild aortic regurgitation. Tricuspid Valve Structurally normal tricuspid valve. Mild tricuspid regurgitation. Pulmonic Valve Structurally normal pulmonic valve. Trace to mild pulmonic regurgitation. Pericardium No pericardial effusion. Aorta Normal size aortic root and proximal ascending aorta. CONCLUSIONS Diagnosis shortness of breath non-Q wave ME Dilated LV with severe LV dysfunction, global RV enlargement Left atrial enlargement Previewed by: Dr. Tano Morris MD (Electronically Signed) Final Date: 27 May 2025 14:27
[2025-05-27 15:44] LABS: Cholesterol 108.00 mg/dL (0.00-200.00); HDL Cholesterol 33.10 mg/dL (40.00-60.00); LDL Cholesterol,Calculated 52.7 mg/dL (0.0-131.0); Triglycerides 111.00 mg/dL (0.00-149.00); VLDL Calculation 22.20 mg/dL (5.00-40.00)
[2025-05-27 16:27] LABS: Glucose,Whole Blood 123 mg/dL (70-110)
[2025-05-27] MEDS: FUROSEMIDE 40 MG TAB PO SCH (17:05)
[2025-05-27 20:06] LABS: Glucose,Whole Blood 102 mg/dL (70-110)
[2025-05-28 05:04] LABS: Glucose,Whole Blood 46 mg/dL (70-110)
[2025-05-28 05:04] LABS: Glucose,Whole Blood 44 mg/dL (70-110)
[2025-05-28] MEDS: DEXTROSE 50% SYRINGE 50 ML IVP STA (05:05)
[2025-05-28 05:23] LABS: Glucose,Whole Blood 133 mg/dL (70-110)
[2025-05-28 05:35] LABS: Glucose,Whole Blood 145 mg/dL (70-110)
[2025-05-28] MEDS ORDERED: REGADENOSON 0.4 MG/5 ML SYRINGE IV PRN (06:00)
[2025-05-28 06:11] LABS: Basophils # (A) 0.01 10*3/uL (0.00-0.10); Basophils % (A) 0.2 %; Eosinophils # (A) 0.11 10*3/uL (0.04-0.35); Eosinophils % (A) 1.8 %; HCT 42.8 % (39.6-50.0); HGB 14.7 g/dL (13.0-17.0); Lymphocytes # (A) 0.41 10*3/uL (0.90-5.00); Lymphocytes % (A) 6.9 %; MCH 33.0 pg (27.0-32.0); MCHC 34.3 g/dL (32.0-37.0); MCV 96.0 fL (80.0-97.0); Monocytes # (A) 0.48 10*3/uL (0.20-1.00); Monocytes % (A) 8.0 %; Neutrophils # (A) 4.94 10*3/uL (1.80-7.70); Neutrophils % (A) 82.8 %; RBC 4.46 10*6/uL (4.40-5.60); RDW 15.0 % (11.5-14.5); WBC 5.97 10*3/uL (4.50-10.00)
[2025-05-28] MEDS ORDERED: DEXTROSE 50% SYRINGE 50 ML IVP PRN ×2 (06:21)
[2025-05-28 06:25] LABS: INR 1.2 (<1.2); Partial Thromboplastin Time 33.6 sec (22.0-30.0); Prothrombin Time 12.7 sec (10.0-12.5)
[2025-05-28 06:27] LABS: Platelet Count 62 10*3/uL (140-440)
[2025-05-28 06:29] LABS: ALT 21 U/L (4-49); AST 36 U/L (17-59); African American GFR (CKD) 25 (>60 ml/min/1.73 sqM); Albumin 3.3 g/dL (3.5-5.0); Alkaline Phosphatase 98 U/L (38-126); Anion Gap 11 mmol/L; Blood Urea Nitrogen 66 mg/dL (9-20); Calcium 8.5 mg/dL (8.4-10.2); Carbon Dioxide 20 mmol/L (22-30); Chloride 111 mmol/L (98-107); Glucose 151 mg/dL (74-99); Non-African American GFR(CKD) 21 (>60 ml/min/1.73 sqM); Potassium 2.8 mmol/L (3.5-5.1); Sodium 142 mmol/L (137-145); Total Protein 5.5 g/dL (6.3-8.2)
[2025-05-28] MEDS: hydrALAZINE HCL 20 MG/ML 1 ML VIAL IVP STA (06:31)
[2025-05-28] MEDS ORDERED: Potassium Replacement Protocol 1 EACH MISC MISCELLANE PRN (07:45)
[2025-05-28] MEDS: HEPARIN SODIUM 1,000 UN/ML (10ML VL) IV PRN (10:39)
[2025-05-28] MEDS: POTASSIUM CHLORIDE ER 20 MEQ TAB.ER PO SCH (10:40)
--- NOTE | 2025-05-28 10:45 | NM ---
EXAMINATION TYPE: NM stress lexiscan cardiolite DATE OF EXAM: 05/28/2025 COMPARISON: NONE CLINICAL INDICATION: Male, 84 years old with history of Chest pain; history of hypertension and diabe lu. History of heart attack 4 vessel CABG procedure. TECHNIQUE: After the intravenous administration of 10.9 mCi Tc 99m Sestamibi - Cardiolite resting SP ECT images acquired 45 minutes post injection. The patient received 0.4mg Lexiscan, 25.4 mCi Tc 99m Sestamibi - Stress images obtained [address] injection FINDINGS: Review of stress and rest SPECT images demonstrates large area of diminished uptake involving the inf erior left ventricular wall extending into the septum and lateral wall on stress and rest images cons istent with large old infarct. A smaller area of old infarct suspected towards the apex in the anteri or wall. Subtle area of radiotracer uptake anteroseptal wall towards the apex on rest images is less well-seen on stressed images. Cannot exclude acute ischemia at this level. Abnormal end diastolic vol ume of 1 70 cc noted. Abnormal estimated left ventricular ejection fraction of 28% noted. IMPRESSION: There is evidence of dilated cardiomyopathy from old infarct. Cannot exclude a small area of acute ischemia anteroseptal wall near the apex . Consider direct catheter angiogram to further ev aluate. [facility], , 05/28/2025 10:43 AM
[2025-05-28 11:51] LABS: Glucose,Whole Blood 121 mg/dL (70-110)
--- NOTE | 2025-05-28 11:53 | CA ---
Lexiscan Nuclear Stress Test Report Name: Perry De La Torre Exam Date: 05/28/2025 08:58 Exam Location: [facility] Ht (in): 72 Wt (lb): 189 BSA: 2.08 Ordering Phys: Zay Shields MD Referring Phys: ROSSY Technologist: Osman Nam Age: 84 Gender: M : 1940 Procedure CPT: Indications: Reflex order-Stress test ICD-10 Codes: Patient History: DIFFICULTY IN BREATHING, HTN, DIABETIC, PRIOR STROKE, HYPERCHOLESTEROLEMIA, FAMILY HX OF HEART DISEASE, PRIOR FL, PRIOR HEART CATH WITH STENT X 2, CABG X 4 VESSEL, ASTHMA Medications: Meds past 24 hrs: Pretest Chest Pain: STRESS TEST Lexiscan Protocol Exercise Duration (min:sec): 01:[address] Depressions (mm): Angina Score: Hayes Score: Resting HR (bpm): 78 Peak HR (bpm): 95 Resting BP (mmHg): 139 / 96 Peak BP (mmHg): 176 / 84 MPHR: 136 Target HR: 116 % MPHR: 70 METS: 1.0 Total Dose: Peak Dose: Atropine: Double Product: 58428 BP Response: Stress Termination: INFUSION COMPLETE Stress Symptoms: DIFFICULTY IN BREATHING Stress Summary: ECG ANALYSIS Resting ECG: Stress ECG: CONCLUSIONS History of hypertension diabetes CVA dyslipidemia and coronary artery disease. Shortness of breath on exertion Abnormal EKG at baseline but no new ECG abnormalities with Lexiscan infusion frequent PVCs Dr. Tano Morris MD (Electronically Signed) Final Date: 28 May 2025 11:52
--- NOTE | 2025-05-28 12:19 | P.CRDCN ---
History of Present Illness Consult date: 05/27/25 History of present illness: HISTORY OF PRESENTING ILLNESS: Patient was previously known to Dr. Shen. He has history of ischemic cardiomyopathy with previous primary prevention AICD. In 2019 he had a heart catheterization which showed severe [place] vessel disease, with 90% stenosis in SVG to OM graft status post PCI with 3.5 x 12 Xience. This time he presented to the hospital because of increased worsening shortness of breath and difficulty in breathing. He was also endorsing symptoms of orthopnea and paroxysmal nocturnal dyspnea. He has been compliant to low-salt diet and his medications. He takes Lasix 40 mg at home once a day. Home cardiac medications Zocor 40 mg, losartan 25, metoprolol 50 twice daily, hydralazine 25 twice daily, Aldactone 12.5 mg daily, Imdur 30 daily, Lasix 40, Eliquis 2.5 twice daily Admission Vitals: BP 188/112, repeat 148/89, heart rate 72 bpm Admission Labs: Hb 14.7, BUN 54, creatinine 2.4, lactate was elevated at 2.7, r epeat 2.3, troponin was elevated at 0.17, repeat 0.2. NT-proBNP 36,000. A1c 6.0, LDL 52, TG 111, TSH 8.4, free T41.4 Admission EKG: Atrial paced V sensed rhythm, with nonspecific T wave flattening and minimal ST depressions. When compared to old EKG appears somewhat similar. Imaging: Chest x-ray shows mild increased interstitial marking with no signs of consolidation or pneumonia. Prior cardiac testing: Heart cath from 2019: Occluded mid RCA, patent vein graft to RCA with supply to PDA and PL branches. Beyond insertion PDA and PL branch has 50 to 55% blockage. Unchanged from 2016. SVG to OM has 90% stenosis just before the insertion site. SANCHEZ to LAD was patent. Status post PCI to SVG to OM. Echo from 2019: EF 30 to 35%, basal inferior inferoseptal wall hypokinesia, apical inferior and mid inferior wall hypokinesia, moderate MR, moderate TR, moderate pulmonary hypertension. REVIEW OF SYSTEMS: 14 point review of system is negative except what is mentioned above in HPI. PHYSICAL EXAMINATION: Neck: Brisk carotid upstroke, elevated JVP Lungs: Mild crackles with diminished inspiratory effort. Heart: Regular rate and rhythm, S1-S2, , no murmur or rub. Abdomen: Soft nontender, positive bowel sounds. Extremities: Minimal swelling in the legs, intact distal pulses. Neuro: Alert, oritented, no focal deficits. Detailed neuro exam was not performed. ASSESSMENT: # Acute HFrEF exacerbation # Type II NSTEMI # Nonischemic cardiomyopathy with a EF of 30% # CAD status post CABG. Status post PCI in 2019 to SVG to OM. Residual moderate distal disease. # CKD # Essential hypertension # Dyslipidemia # Thrombocytopenia # Type 2 diabetes # History of PE on anticoagulation. # History of sleep apnea PLAN: Obtain echocardiogram, obtain Lexiscan nuclear stress test Continue IV Lasix, aspirin, Lipitor, Optimize GDMT Start IV heparin drip for 48 hours Monitor kidney function and electrolytes and hemodynamics. Hold Hussain Shields MD, FAC, VI Thank you for allowing [facility] to participate in this patient's care. Feel free to reach out in case of any followup questions. Past Medical History Past Medical History: Blood Disorder, Coronary Artery Disease (CAD), COPD, CVA/TIA, Diabetes Mellitus, Deep Vein Thrombosis (DVT), GERD/Reflux, Hearing Disorder / Deafness, Hyperlipidemia, Hypertension, Myocardial Infarction ([place]), Prostate Disorder, Pulmonary Embolus (PE), Renal Disease, Sleep Apnea/CPAP/B IPAP, Thyroid Disorder Additional Past Medical History / Comment(s): DVT L leg and pulmonary embolism in bilateral lungs, MTHFR gene mutation/coagulopathy, IDDM type II, neuropathy bilateral feet, CKD stage IV, kidney stone, BPH, TIA, ischemic cardiomyopathy, MIs, asbestosis, LULU with Cpap, lumbar stenosis with L side sciatica, falls, hypothyroid,fall with brain bleed 07/31/[address] head now resolved Last Myocardial Infarction Date:: 1991,2008, 04/2016,2017 History of Any Multi-Drug Resistant Organisms: None Reported Past Surgical History: AICD, Coronary Bypass/CABG, Heart Catheterization With Stent, Orthopedic Surgery Additional Past Surgical History / Comment(s): PCI/stent, DAVID, 2008 CABG 4 vessel, AICD, bilateral carpal tunnel releases, tendon repair L ankle, bilateral cataract removal/lens implants, colonoscopy, penile implant. left foot Past Anesthesia/Blood Transfusion Reactions: No Reported Reaction Additional Past Anesthesia/Blood Transfusion Reaction / Comment(s): Pt states he received blood with his CABG-no reaction to his knowledge. Date of Last Stent Placement:: 2015 Type of Cardiac Device: AICD Device Placement Date:: 2012 Past Psychological History: Depression Additional Psychological History / Comment(s): pt is retired from [employer], He also used to work at [employer]. Pt lives at home with his . He uses a cane and occasionally a walker-denies any falls. Pt states he drives. They have used [facility] in the past. Smoking Status: Never smoker Past Alcohol Use History: None Reported Past Drug Use History: None Reported - Past Family History Father Family Medical History: Dementia, Diabetes Mellitus, Vascular Disorder Additional Family Medical History / Comment(s): Father had vascular disease and from this at the age of 84 yrs. Mother Family Medical History: Congestive Heart Failure (CHF), Rheumatoid Arthritis (RA) Additional Family Medical History / Comment(s): Mother had bleeding ulcers and never recovered, she at the age of 67yrs. Medications and Allergies Home Medications Medication Instructions Recorded Confirmed Type Isosorbide Mononitrate [Imdur] 30 mg PO DAILY 04/10/14 05/26/25 History Simvastatin [Zocor] 40 mg PO HS 04/10/14 05/26/25 History Insulin NPH/Reg Insulin 70/30 75 unit SQ DAILY 08/05/15 05/26/25 History [humuLIN 70/30 VIAL] Montelukast [Singulair] 10 mg PO HS 08/05/15 05/26/25 History Insulin NPH/Reg Insulin 70/30 65 unit SQ HS 05/11/16 05/26/25 History [humuLIN 70/30 VIAL] Apixaban [Eliquis] 2.5 mg PO BID #60 tablet 05/16/16 05/26/25 Rx Gabapentin [Neurontin] 300 mg PO DAILY 12/26/17 05/26/25 History Albuterol Inhaler [Ventolin Hfa 2 puff INHALATION RT-BID 03/24/20 05/26/25 Hist ory Inhaler] Furosemide [Lasix] 40 mg PO DAILY 03/24/20 05/26/25 History Gabapentin [Neurontin] 600 mg PO HS 03/24/20 05/26/25 History Omeprazole 20 mg PO DAILY 03/24/20 05/26/25 History Spironolactone [Aldactone] 12.5 mg PO DAILY 06/26/21 05/26/25 History Dulaglutide [Trulicity] 3 mg SQ SA 05/26/25 05/26/25 History Ergocalciferol [Vitamin D2 (1250 1,250 mcg PO Q14D 05/26/25 05/26/25 History Mcg = 55213 Iu)] Levothyroxine Sodium [Synthroid] 88 mcg PO DAILY 05/26/25 05/26/25 History Losartan [Cozaar] 25 mg PO DAILY 05/26/25 05/26/25 History Metoprolol Tartrate [Lopressor] 50 mg PO BID 05/26/25 05/26/25 History Nitroglycerin Sl Tabs [Nitrostat] 0.4 mg SL Q5M PRN 05/26/25 05/26/25 History Vitamin B Complex W/Vitamin C 1 tab PO DAILY 05/26/25 05/26/25 History allopurinoL 100 mg PO DAILY 05/26/25 05/26/25 History calcitrioL 0.25 mcg PO MOTH 05/26/25 05/26/25 History hydrALAZINE HCL [Apresoline] 25 mg PO BID 05/26/25 05/26/25 History Allergies Allergy/AdvReac Type Severity Reaction Status Date / Time adhesive Allergy Rash/Hives Verified 05/26/25 11:00 empagliflozin Allergy Rapid Verified 05/26/25 11:00 [From Jardiance] Heart Rate Iodinated Contrast Media Allergy Rash/Hives,KIDNEY Verified 05/26/25 11:00 [Iodinated Contrast Media - PROBLEM IV Dye] iodine Allergy Rash/Hives Verified 05/26/25 11:00 Penicillins Allergy Rash/Hives Verified 05/26/25 11:00 povidone-iodine Allergy Rash/Hives Verified 05/26/25 11:00 [From Betadine] baclofen AdvReac Confusion Verified 05/26/25 11:00 tramadol AdvReac Confusion Verified 05/26/25 11:00 Physical Exam Vitals: Vital Signs Temp Pulse Pulse Resp BP Pulse Ox 05/28/25 12:00 96.5 F L 74 16 156/71 94 L 05/28/25 08:00 63 16 171/79 95 05/28/25 04:00 62 16 165/79 95 05/27/25 23:10 72 16 154/68 93 L 05/27/25 21:24 64 05/27/25 21:09 63 05/27/25 19:30 98.1 F 65 16 155/68 94 L 05/27/25 17:00 97.5 F L 63 17 138/74 94 L Intake and Output 05/27/25 05/28/25 05/28/25 22:59 06:59 14:59 Intake Total 244.684 Output Total 850 Balance -850 244.684 Intake: Intake, IV Titration 244.684 Amount Heparin Sod,Pork in 0.45% 244.684 NaCl 25,000 unit In 0.45 % NaCl 1 250ml.bag @ 11.6 UNITS/KG/HR 9.953 mls/hr IV .Q24H [facility] Rx#: [id number] Output: Urine 850 Other: Voiding Method Toilet Toilet # Voids 1 # Bowel Movements 1 Weight 85 kg Results 05/28/25 05:15 05/28/25 05:15 Cardiac Enzymes 05/28/25 Range/Units 05:15 AST 36 (17-59) U/L Coagulation 05/27/25 05/28/25 Range/Units 16:39 05:15 PT 12.7 H (10.0-12.5) sec APTT 44.7 H 33.6 H (22.0-30.0) sec Lipids 05/27/25 Range/Units 09:09 Triglycerides 111.00 (0.00-149.00) mg/dL Cholesterol 108.00 (0.00-200.00) mg/dL HDL Cholesterol 33.10 L (40.00-60.00) mg/dL Cholesterol/HDL Ratio 3.26 Ratio CBC 05/28/25 Range/Units 05:15 WBC 5.97 (4.50-10.00) 10*3/uL RBC 4.46 (4.40-5.60) 10*6/uL Hgb 14.7 (13.0-17.0) g/dL Hct 42.8 (39.6-50.0) % Plt Count 62 L (140-440) 10*3/uL Comprehensive Metabolic Panel 05/28/25 Range/Units 05:15 Sodium 142 (137-145) mmol/L Potassium 2.8 L (3.5-5.1) mmol/L Chloride 111 H (98-107) mmol/L Carbon Dioxide 20 L (22-30) mmol/L BUN 66 H (9-20) mg/dL Creatinine 2.65 H (0.66-1.25) mg/dL Glucose 151 H (74-99) mg/dL Calcium 8.5 (8.4-10.2) mg/dL AST 36 (17-59) U/L ALT 21 (4-49) U/L Alkaline Phosphatase 98 (38-126) U/L Total Protein 5.5 L (6.3-8.2) g/dL Albumin 3.3 L (3.5-5.0) g/dL Current Medications Generic Name Dose Route Start Last Admin Trade Name Wilfredoq PRN Reason Stop Dose Admin Albuterol Sulfate 2.5 mg 05/26/25 20:00 05/28/25 09:48 Albuterol Nebulized 2.5 Mg/3 Ml INHALATION Not Given RT-BID FREDY Allopurinol 100 mg 05/26/25 11:45 05/28/25 10:50 Allopurinol 100 Mg Tab PO 100 mg DAILY FREDY Administration Aspirin 81 mg 05/27/25 09:00 05/28/25 10:50 Aspirin 81 Mg PO 81 mg DAILY FREDY Administration Atorvastatin Calcium 20 mg 05/26/25 21:00 05/27/25 20:31 Atorvastatin 20 Mg Tab PO 20 mg HS FREDY Administration Calcitriol 0.25 mcg 05/26/25 11:45 05/26/25 12:09 Calcitriol 0.25 Mcg Cap PO Not Given MOTH FREDY Dextrose/Water 25 ml 05/28/25 06:21 Dextrose 50% Syringe 50 Ml IVP PER PROTOCOL PRN Hypoglycemia Protocol Dextrose/Water 50 ml 05/28/25 06:21 Dextrose 50% Syringe 50 Ml IVP PER PROTOCOL PRN Hypoglycemia Protocol Furosemide 40 mg 05/27/25 16:00 05/28/25 10:49 Furosemide 40 Mg Tab PO 40 mg BID@0900,1600 FREDY Administration Heparin Sodium (Porcine) 0 unit 05/27/25 08:57 05/28/25 10:39 Heparin Sodium 1,000 Un/Ml (10ml Vl) IV 2,125 unit PER PROTOCOL PRN Administration Low PTT Protocol Hydralazine HCl 50 mg 05/26/25 16:00 05/28/25 10:49 Hydralazine Hcl 50 Mg Tab PO 50 mg TID FREDY Administration Heparin Sodium/Sodium Chloride 250 mls @ 9.953 mls/hr 05/27/25 09:00 05/28/25 11:01 25,000 unit/ Sodium Chloride IV 13.6 units/kg/hr .Q24H FREDY 11.669 mls/hr Administration Protocol 11.6 UNITS/KG/HR Insulin Human Lispro 0 unit 05/26/25 17:30 05/28/25 06:08 Insulin Lispro (Humalog) 100 Unit/Ml 10 Ml Vl SQ Not Given ACHS FREDY Protocol Insulin Lispro Protam/Lispro Human 65 unit 05/26/25 21:00 05/27/25 20:31 Insulin Npl/Insulin Lispro 100 Unit/Ml 10 Ml Vl (Humalog 75/25) SQ 32 unit HS FREDY Administration Insulin Lispro Protam/Lispro Human 75 unit 05/26/25 12:01 05/27/25 10:27 Insulin Npl/Insulin Lispro 100 Unit/Ml 10 Ml Vl (Humalog 75/25) SQ 75 unit DAILY FREDY Administration Isosorbide Mononitrate 30 mg 05/26/25 11:45 05/28/25 10:50 Isosorbide Mononitrate Er 15 Mg Tab PO 30 mg DAILY FREDY Administration Levothyroxine Sodium 88 mcg 05/26/25 11:45 05/28/25 10:49 Levothyroxine 88 Mcg Tab PO 88 mcg DAILY FREDY Administration Losartan Potassium 25 mg 05/26/25 11:45 05/28/25 10:50 Losartan 25 Mg Tab PO 25 mg DAILY FREDY Administration Metoprolol Tartrate 50 mg 05/26/25 11:45 05/28/25 10:50 Metoprolol Tartrate 50 Mg Tab PO 50 mg BID FREDY Administration Miscellaneous Information 1 each 05/28/25 07:45 Potassium Replacement Protocol 1 Each Misc MISCELLANE DAILY PRN Per Protocol Protocol Montelukast Sodium 10 mg 05/26/25 21:00 05/27/25 20:31 Montelukast 10 Mg Tab PO 10 mg HS FREDY Administration Naloxone HCl 0.2 mg 05/26/25 10:11 Naloxone 0.4 Mg/Ml 1 Ml Vial IV Q2M PRN Opioid Reversal Non-Formulary Medication 1 tab 05/26/25 12:07 05/28/25 11:06 Vitamin B Complex W/Vitamin C PO Not Given DAILY FREDY Pantoprazole Sodium 40 mg 05/26/25 12:03 05/28/25 10:49 Pantoprazole 40 Mg Tablet PO 40 mg DAILY FREDY Administration Pregabalin 100 mg 05/26/25 21:00 05/28/25 10:50 Pregabalin 100 Mg Cap PO 100 mg BID FREDY Administration Regadenoson 0.4 mg 05/28/25 06:00 Regadenoson 0.4 Mg/5 Ml Syringe IV 05/28/25 23:00 ONCE PRN Per Protocol Spironolactone 12.5 mg 05/26/25 11:45 05/28/25 10:49 Spironolactone 25 Mg Tab PO 12.5 mg DAILY FREDY Administration Intake and Output 05/27/25 05/28/25 05/28/25 22:59 06:59 14:59 Intake Total 244.684 Output Total 850 Balance -850 244.684 Intake: Intake, IV Titration 244.684 Amount Heparin Sod,Pork in 0.45% 244.684 NaCl 25,000 unit In 0.45 % NaCl 1 250ml.bag @ 11.6 UNITS/KG/HR 9.953 mls/hr IV .Q24H [facility] Rx#: [id number] Output: Urine 850 Other: Voiding Method Toilet Toilet # Voids 1 # Bowel Movements 1 Weight 85 kg 05/28/25 05:15 05/28/25 05:15
--- NOTE | 2025-05-28 12:31 | P.PN ---
Subjective Progress Note Date: 05/28/25 HISTORY OF PRESENTING ILLNESS: Patient was previously known to Dr. Shen. He has history of ischemic card iomyopathy with previous primary prevention AICD. In 2019 he had a heart catheterization which showed severe [place] vessel disease, with 90% stenosis in SVG to OM graft status post PCI with 3.5 x 12 Xience. This time he presented to the hospital because of increased worsening shortness of breath and difficulty in breathing. He was also endorsing symptoms of orthopnea and paroxysmal nocturnal dyspnea. He has been compliant to low-salt diet and his medications. He takes Lasix 40 mg at home once a day. Home cardiac medications Zocor 40 mg, losartan 25, metoprolol 50 twice daily, hydralazine 25 twice daily, Aldactone 12.5 mg daily, Imdur 30 daily, Lasix 40, Eliquis 2.5 twice daily Admission Vitals: BP 188/112, repeat 148/89, heart rate 72 bpm Admission Labs: Hb 14.7, BUN 54, creatinine 2.4, lactate was elevated at 2.7, repeat 2.3, troponin was elevated at 0.17, repeat 0.2. NT-proBNP 36,000. A1c 6.0, LDL 52, TG 111, TSH 8.4, free T41.4 Admission EKG: Atrial paced V sensed rhythm, with nonspecific T wave flattening and minimal ST depressions. When compared to old EKG appears somewhat similar. Imaging: Chest x-ray shows mild increased interstitial marking with no signs of consolidation or pneumonia. Prior cardiac testing: Heart cath from 2019: Occluded mid RCA, patent vein graft to RCA with supply to PDA and PL branches. Beyond insertion PDA and PL branch has 50 to 55% blockage. Unchanged from 2016. SVG to OM has 90% stenosis just before the insertion site. SANCHEZ to LAD was patent. Status post PCI to SVG to OM. Echo from 2019: EF 30 to 35%, basal inferior inferoseptal wall hypokinesia, apical inferior and mid inferior wall hypokinesia, moderate MR, moderate TR, moderate pulmonary hypertension. Progress note Echo shows EF of 15 to 20%. Moderate concentric LVH, severe pulmonary hypertension RVSP 64 mmHg, severe left atrial dilatation, mild MR, mild TR Lexiscan nuclear shows large fixed inferior inferolateral wall infarct with preserved perfusion in anterior and anterolateral wall. BP 154/68, heart rate 72 bpm Hb 14.7, sodium 142, potassium 2.8, creatinine 2.65 PHYSICAL EXAMINATION: Neck: Brisk carotid upstroke, elevated JVP Lungs: Mild crackles with diminished inspiratory effort. Heart: Regular rate and rhythm, S1-S2, , no murmur or rub. Abdomen: Soft nontender, positive bowel sounds. Extremities: Minimal swelling in the legs, intact distal pulses. Neuro: Alert, oritented, no focal deficits. Detailed neuro exam was not performed. ASSESSMENT: # Acute HFrEF exacerbation # Type II NSTEMI # Nonischemic cardiomyopathy with known inferior inferolateral wall infarct. Current LVEF 15 to 20%. Previous LVEF was 30%. # CAD status post CABG. Status post PCI in 2019 to SVG to OM. Residual moderate distal disease. # Essential hypertension, poorly controlled # CKD # Essential hypertension # Dyslipidemia # Thrombocytopenia # Type 2 diabetes # History of PE on anticoagulation. # History of sleep apnea PLAN: Agree with changing Lasix to 40 p.o. twice daily. Continue Aldactone 12.5 daily, losartan 25 daily Discontinue IV heparin drip. Resume Eliquis 2.5 twice daily Continue aspirin, Lipitor 20 Continue metoprolol 50 twice daily. Increase hydralazine to 75 twice daily, Imdur 60 mg daily Monitor blood pressure. Repeat orthostatic vital signs tomorrow. If BP normal and orthostats negative discharge tomorrow with recommended close outpatient follow-up with me Is not wanting to take Farxiga but open to try Jardiance. Send this on discharge. Also send Verquvo 2.5 mg on discharge HFMS device setup No plan for cardiac authorization at this time considering no new ischemia and, poor kidney function. Replace electrolytes keep potassium at 2 magnesium at 4. Repeat BMP tomorrow Objective - Vital Signs Vital signs: Vital Signs Temp 96.5 F L 05/28/25 12:00 Pulse 74 05/28/25 12:00 Resp 16 05/28/25 12:00 BP 156/71 05/28/25 12:00 Pulse Ox 94 L 05/28/25 12:00 FiO2 Intake & Output 05/27/25 05/28/25 05/28/25 18:59 06:59 18:59 Intake Total 118 484.684 Output Total 850 300 Balance -732 184.684 Weight 85 kg Intake: Intake, IV Titration 244.684 Amount Heparin Sod,Pork in 0.45% 244.684 NaCl 25,000 unit In 0.45 % NaCl 1 250ml.bag @ 11.6 UNITS/KG/HR 9.953 mls/hr IV .Q24H [facility] Rx#: [id number] Oral 118 240 Output: Urine 850 300 Other: Voiding Method Toilet # Voids 1 # Bowel Movements 1 - Labs CBC & Chem 7: 05/28/25 05:15 05/28/25 05:15 Labs: Abnormal Lab Results - Last 24 Hours (Table) 05/27/25 05/27/25 05/27/25 Range/Units 09:09 16:26 16:39 MCH (27.0-32.0) pg Plt Count (140-440) 10*3/uL Lymphocytes # (0.90-5.00) 10*3/uL PT (10.0-12.5) sec INR (<1.2) APTT 44.7 H (22.0-30.0) sec Potassium (3.5-5.1) mmol/L Chloride (98-107) mmol/L Carbon Dioxide (22-30) mmol/L BUN (9-20) mg/dL Creatinine (0.66-1.25) mg/dL Glucose (74-99) mg/dL POC Glucose (mg/dL) 123 H (70-110) mg/dL Total Protein (6.3-8.2) g/dL Albumin (3.5-5.0) g/dL HDL Cholesterol 33.10 L (40.00-60.00) mg/dL 05/28/25 05/28/25 05/28/25 Range/Units 04:55 04:57 05:15 MCH 33.0 H (27.0-32.0) pg Plt Count 62 L (140-440) 10*3/uL Lymphocytes # 0.41 L (0.90-5.00) 10*3/uL PT (10.0-12.5) sec INR (<1.2) APTT (22.0-30.0) sec Potassium (3.5-5.1) mmol/L Chloride (98-107) mmol/L Carbon Dioxide (22-30) mmol/L BUN (9-20) mg/dL Creatinine (0.66-1.25) mg/dL Glucose (74-99) mg/dL POC Glucose (mg/dL) 44 L* 46 L* (70-110) mg/dL Total Protein (6.3-8.2) g/dL Albumin (3.5-5.0) g/dL HDL Cholesterol (40.00-60.00) mg/dL 05/28/25 05/28/25 05/28/25 Range/Units 05:15 05:15 05:22 MCH (27.0-32.0) pg Plt Count (140-440) 10*3/uL Lymphocytes # (0.90-5.00) 10*3/uL PT 12.7 H (10.0-12.5) sec INR 1.2 H (<1.2) APTT 33.6 H (22.0-30.0) sec Potassium 2.8 L (3.5-5.1) mmol/L Chloride 111 H (98-107) mmol/L Carbon Dioxide 20 L (22-30) mmol/L BUN 66 H (9-20) mg/dL Creatinine 2.65 H (0.66-1.25) mg/dL Glucose 151 H (74-99) mg/dL POC Glucose (mg/dL) 133 H (70-110) mg/dL Total Protein 5.5 L (6.3-8.2) g/dL Albumin 3.3 L (3.5-5.0) g/dL HDL Cholesterol (40.00-60.00) mg/dL 05/28/25 05/28/25 Range/Units 05:33 11:35 MCH (27.0-32.0) pg Plt Count (140-440) 10*3/uL Lymphocytes # (0.90-5.00) 10*3/uL PT (10.0-12.5) sec INR (<1.2) APTT (22.0-30.0) sec Potassium (3.5-5.1) mmol/L Chloride (98-107) mmol/L Carbon Dioxide (22-30) mmol/L BUN (9-20) mg/dL Creatinine (0.66-1.25) mg/dL Glucose (74-99) mg/dL POC Glucose (mg/dL) 145 H 121 H (70-110) mg/dL Total Protein (6.3-8.2) g/dL Albumin (3.5-5.0) g/dL HDL Cholesterol (40.00-60.00) mg/dL
[2025-05-28] MEDS: APIXABAN 2.5 MG TABLET PO SCH (12:39)
[2025-05-28] MEDS: ISOSORBIDE MONONITRATE ER 30 MG TAB.ER.24H PO STA (12:39)
--- NOTE | 2025-05-28 15:16 | P.PN ---
Subjective 84-year-old present male came in with complaints of shortness of breath orthopnea paroxysmal nocturnal dyspnea.. Patient does have history of congesti ve heart failure EF of around 20 to 25%. Patient's symptoms are worse for last couple days has been going on for some time patient denied any noncompliance with diet or medications. Patient takes 40 mg of Lasix at home. Patient does have chronic kidney disease with baseline creatinine of around 2.4 his present creatinine is around that. Patient does have history of coronary artery disease ischemic cardiomyopathy had a history of CABG in the past. Patient any fever chills complaining of cough without any significant sputum production chest x- ray showed bilateral pleural effusions elevated proBNP of 32,000. 05/27/25: Pt seen at bedside, he reports feeling much improved. Shortness of breath is significantly better than on discharge. He denies fever, chills, chest pain, worsening shortness of breath. REVIEW OF SYSTEMS: All other systems are negative except those mentioned in the HPI PHYSICAL EXAMINATION: GENERAL: The patient is alert and oriented x3, not in any acute distress. Well developed, well nourished. HEENT: Pupils are round and equally reacting to light. EOMI. No scleral icterus. No conjunctival pallor. Normocephalic, atraumatic. No pharyngeal erythema. No thyromegaly. CARDIOVASCULAR: S1 and S2 present. No murmurs, rubs, or gallops. PULMONARY: Chest is clear to auscultation, no wheezing or crackles. ABDOMEN: Soft, nontender, nondistended, normoactive bowel sounds. No palpable organomegaly. MUSCULOSKELETAL: No joint swelling or deformity. EXTREMITIES: No cyanosis, clubbing, or pedal edema. NEUROLOGICAL: Gross neurological examination did not reveal any focal deficits. SKIN: No rashes. Assessment and plan -Congestive heart failure chronic systolic dysfunction EF of around 20 to 25%, ischemic cardiomyopathy with acute exacerbation: Patient was started on 40 mg of IV twice daily of Lasix close clinical monitoring I's and O's resume on lisinopril, hydralazine, Imdur. These medications can be optimized. - Chronic kidney disease stage IV from probably diabetic nephropathy - Type 2 diabetes mellitus patient was resumed on insulin regimen along with sliding scale insulin -Troponin elevation probably type II IN from congestive heart failure patient denied any complaints of chest pain - Hypertension - Thrombocytopenia chronic etiology is not clear - Diabetic peripheral neuropathy condition chronic kidney disease I will change Neurontin to pregabalin - Hypothyroidism continue levothyroxine - History of PE in the past, patient is on anticoagulation with Eliquis but is on a lower dose unknown whether patient has history of atrial fibrillation in the past. Patient does have history of MTHFR gene mutation - Sleep apnea #-Congestive heart failure chronic systolic dysfunction EF of around 20 to 25%, ischemic cardiomyopathy with acute exacerbation: -Med recs per cardiology - transition to PO lasix -Continue metoprolol 50 twice daily. Increase hydralazine to 75 twice daily, Imdur 60 mg daily -Resume Eliquis 2.5 twice daily -Continue aspirin, Lipitor 20, Aldactone 12.5 daily, losartan 25 daily -Dc w/ Jardiance and Verquvo 2.5 mg -Nuc stress test reveals possible small ischemia at cardiac apex, discussed with cardiology, no inpt cath planned at this time due to poor renal function -Monitor BP overnight, Repeat orthostatic vitals tomorow DVT prophylaxis: On anticoagulation with Eliquis which was resumed Code: Full DC:Orthostatic vitals monitor overnight per cardiology Objective - Vital Signs Vital signs: Vital Signs Temp 96.5 F L 05/28/25 12:00 Pulse 74 05/28/25 12:00 Resp 16 05/28/25 12:00 BP 156/71 05/28/25 12:00 Pulse Ox 94 L 05/28/25 12:00 FiO2 Intake & Output 05/27/25 05/28/25 05/28/25 18:59 06:59 18:59 Intake Total 118 484.684 Output Total 850 300 Balance -732 184.684 Weight 85 kg Intake: Intake, IV Titration 244.684 Amount Heparin Sod,Pork in 0.45% 244.684 NaCl 25,000 unit In 0.45 % NaCl 1 250ml.bag @ 11.6 UNITS/KG/HR 9.953 mls/hr IV .Q24H [facility] Rx#: [id number] Oral 118 240 Output: Urine 850 300 Other: Voiding Method Toilet # Voids 1 # Bowel Movements 1 - Labs CBC & Chem 7: 05/28/25 05:15 05/28/25 05:15 Labs: Abnormal Lab Results - Last 24 Hours (Table) 05/27/25 05/27/2525 Range/Units 09:09 16:26 16:39 MCH (27.0-32.0) pg Plt Count (140-440) 10*3/uL Lymphocytes # (0.90-5.00) 10*3/uL PT (10.0-12.5) sec INR (<1.2) APTT 44.7 H (22.0-30.0) sec Potassium (3.5-5.1) mmol/L Chloride (98-107) mmol/L Carbon Dioxide (22-30) mmol/L BUN (9-20) mg/dL Creatinine (0.66-1.25) mg/dL Glucose (74-99) mg/dL POC Glucose (mg/dL) 123 H (70-110) mg/dL Total Protein (6.3-8.2) g/dL Albumin (3.5-5.0) g/dL HDL Cholesterol 33.10 L (40.00-60.00) mg/dL 05/28/25 05/28/25 05/28/25 Range/Units 04:55 04:57 05:15 MCH 33.0 H (27.0-32.0) pg Plt Count 62 L (140-440) 10*3/uL Lymphocytes # 0.41 L (0.90-5.00) 10*3/uL PT (10.0-12.5) sec INR (<1.2) APTT (22.0-30.0) sec Potassium (3.5-5.1) mmol/L Chloride (98-107) mmol/L Carbon Dioxide (22-30) mmol/L BUN (9-20) mg/dL Creatinine (0.66-1.25) mg/dL Glucose (74-99) mg/dL POC Glucose (mg/dL) 44 L* 46 L* (70-110) mg/dL Total Protein (6.3-8.2) g/dL Albumin (3.5-5.0) g/dL HDL Cholesterol (40.00-60.00) mg/dL 05/28/25 05/28/25 05/28/25 Range/Units 05:15 05:15 05:22 MCH (27.0-32.0) pg Plt Count (140-440) 10*3/uL Lymphocytes # (0.90-5.00) 10*3/uL PT 12.7 H (10.0-12.5) sec INR 1.2 H (<1.2) APTT 33.6 H (22.0-30.0) sec Potassium 2.8 L (3.5-5.1) mmol/L Chloride 111 H (98-107) mmol/L Carbon Dioxide 20 L (22-30) mmol/L BUN 66 H (9-20) mg/dL Creatinine 2.65 H (0.66-1.25) mg/dL Glucose 151 H (74-99) mg/dL POC Glucose (mg/dL) 133 H (70-110) mg/dL Total Protein 5.5 L (6.3-8.2) g/dL Albumin 3.3 L (3.5-5.0) g/dL HDL Cholesterol (40.00-60.00) mg/dL 05/28/25 05/28/25 Range/Units 05:33 11:35 MCH (27.0-32.0) pg Plt Count (140-440) 10*3/uL Lymphocytes # (0.90-5.00) 10*3/uL PT (10.0-12.5) sec INR (<1.2) APTT (22.0-30.0) sec Potassium (3.5-5.1) mmol/L Chloride (98-107) mmol/L Carbon Dioxide (22-30) mmol/L BUN (9-20) mg/dL Creatinine (0.66-1.25) mg/dL Glucose (74-99) mg/dL POC Glucose (mg/dL) 145 H 121 H (70-110) mg/dL Total Protein (6.3-8.2) g/dL Albumin (3.5-5.0) g/dL HDL Cholesterol (40.00-60.00) mg/dL
[2025-05-28 16:55] LABS: Glucose,Whole Blood 168 mg/dL (70-110)
[2025-05-28 20:10] LABS: Glucose,Whole Blood 149 mg/dL (70-110)
[2025-05-29 06:11] LABS: Glucose,Whole Blood 133 mg/dL (70-110)
[2025-05-29 07:00] LABS: Basophils # (A) 0.01 10*3/uL (0.00-0.10); Basophils % (A) 0.2 %; Eosinophils # (A) 0.25 10*3/uL (0.04-0.35); Eosinophils % (A) 4.7 %; HCT 43.8 % (39.6-50.0); HGB 14.6 g/dL (13.0-17.0); Immature Platelet Fraction 2.7 % (1.1-6.1); Lymphocytes # (A) 0.83 10*3/uL (0.90-5.00); Lymphocytes % (A) 15.6 %; MCH 32.0 pg (27.0-32.0); MCHC 33.3 g/dL (32.0-37.0); MCV 96.1 fL (80.0-97.0); Monocytes # (A) 0.55 10*3/uL (0.20-1.00); Monocytes % (A) 10.4 %; Neutrophils # (A) 3.65 10*3/uL (1.80-7.70); Neutrophils % (A) 68.7 %; RBC 4.56 10*6/uL (4.40-5.60); RDW 15.5 % (11.5-14.5); WBC 5.31 10*3/uL (4.50-10.00)
[2025-05-29 07:05] LABS: Platelet Count 72 10*3/uL (140-440)
[2025-05-29 07:15] LABS: ALT 22 U/L (4-49); AST 36 U/L (17-59); African American GFR (CKD) 20 (>60 ml/min/1.73 sqM); Albumin 3.5 g/dL (3.5-5.0); Alkaline Phosphatase 102 U/L (38-126); Anion Gap 12 mmol/L; Blood Urea Nitrogen 64 mg/dL (9-20); Calcium 8.6 mg/dL (8.4-10.2); Carbon Dioxide 19 mmol/L (22-30); Chloride 114 mmol/L (98-107); Glucose 127 mg/dL (74-99); Non-African American GFR(CKD) 18 (>60 ml/min/1.73 sqM); Potassium 3.6 mmol/L (3.5-5.1); Sodium 145 mmol/L (137-145); Total Protein 5.7 g/dL (6.3-8.2)
[2025-05-29] MEDS: ISOSORBIDE MONONITRATE ER 60 MG TAB.ER.24H PO SCH (08:27)
[2025-05-29 08:31] VITALS: TEMP 97.7
[2025-05-29 08:38] LABS: Glucose,Whole Blood 155 mg/dL (70-110)
[2025-05-29 11:46] LABS: Glucose,Whole Blood 97 mg/dL (70-110)
[2025-05-29 11:57] VITALS: BP 130/79; PULSE 73; RESP 17
--- NOTE | 2025-05-29 13:08 | P.PN ---
Subjective Progress Note Date: 05/29/25 HISTORY OF PRESENTING ILLNESS: Patient was previously known to Dr. Shen. He has history of ischemic card iomyopathy with previous primary prevention AICD. In 2019 he had a heart catheterization which showed severe [place] vessel disease, with 90% stenosis in SVG to OM graft status post PCI with 3.5 x 12 Xience. This time he presented to the hospital because of increased worsening shortness of breath and difficulty in breathing. He was also endorsing symptoms of orthopnea and paroxysmal nocturnal dyspnea. He has been compliant to low-salt diet and his medications. He takes Lasix 40 mg at home once a day. Home cardiac medications Zocor 40 mg, losartan 25, metoprolol 50 twice daily, hydralazine 25 twice daily, Aldactone 12.5 mg daily, Imdur 30 daily, Lasix 40, Eliquis 2.5 twice daily Admission Vitals: BP 188/112, repeat 148/89, heart rate 72 bpm Admission Labs: Hb 14.7, BUN 54, creatinine 2.4, lactate was elevated at 2.7, repeat 2.3, troponin was elevated at 0.17, repeat 0.2. NT-proBNP 36,000. A1c 6.0, LDL 52, TG 111, TSH 8.4, free T41.4 Admission EKG: Atrial paced V sensed rhythm, with nonspecific T wave flattening and minimal ST depressions. When compared to old EKG appears somewhat similar. Imaging: Chest x-ray shows mild increased interstitial marking with no signs of consolidation or pneumonia. Prior cardiac testing: Heart cath from 2019: Occluded mid RCA, patent vein graft to RCA with supply to PDA and PL branches. Beyond insertion PDA and PL branch has 50 to 55% blockage. Unchanged from 2016. SVG to OM has 90% stenosis just before the insertion site. SANCHEZ to LAD was patent. Status post PCI to SVG to OM. Echo from 2019: EF 30 to 35%, basal inferior inferoseptal wall hypokinesia, apical inferior and mid inferior wall hypokinesia, moderate MR, moderate TR, moderate pulmonary hypertension. Progress note 05/28/2025 Echo shows EF of 15 to 20%. Moderate concentric LVH, severe pulmonary hypertension RVSP 64 mmHg, severe left atrial dilatation, mild MR, mild TR Lexiscan nuclear shows large fixed inferior inferolateral wall infarct with preserved perfusion in anterior and anterolateral wall. BP 154/68, heart rate 72 bpm Hb 14.7, sodium 142, potassium 2.8, creatinine 2.65 05/29/2025 Seen and examined at bedside this a.m. Worsened today to 3.08. Yesterday creatinine was 2.6. BUN is 64, bicarb is 19. He appears euvolemic to dry side. I will hold his diuretics today, hold his Aldactone and losartan. He is tolerating Imdur hydralazine well 7 9PHYSICAL EXAMINATION: Neck: Brisk carotid upstroke, elevated JVP Lungs: Mild crackles with diminished inspiratory effort. Heart: Regular rate and rhythm, S1-S2, , no murmur or rub. Abdomen: Soft nontender, positive bowel sounds. Extremities: Minimal swelling in the legs, intact distal pulses. Neuro: Alert, oritented, no focal deficits. Detailed neuro exam was not performed. ASSESSMENT: # Acute HFrEF exacerbation # Type II NSTEMI # Nonischemic cardiomyopathy with known inferior inferolateral wall infarct. Current LVEF 15 to 20%. Previous LVEF was 30%. # CAD status post CABG. Status post PCI in 2019 to SVG to OM. Residual moderate distal disease. # Essential hypertension, poorly controlled # CKD # Essential hypertension # Dyslipidemia # Thrombocytopenia # Type 2 diabetes # History of PE on anticoagulation. # History of sleep apnea PLAN: Hold Lasix Aldactone losartan today. From tomorrow he can resume his Lasix but only 40 mg daily, losartan 25 mg daily. Do not resume Aldactone on discharge Do Farxiga 5 mg, vericiquat 2.5 mg daily at discharge Repeat blood work in 3 to 4 days after discharge HF MS device to go home with Eliquis 2.5 twice daily, Continue aspirin, Lipitor 20, continue metoprolol 50 twice daily. Increase hydralazine to 75 twice daily, Imdur 60 mg daily Check orthostatic vital signs. If orthostats negative, he can be cleared from cardiovascular standpoint. Outpatient follow-up with Dr. Shields in 1 weeks Objective - Vital Signs Vital signs: Vital Signs Temp 97.7 F 05/29/25 08:30 Pulse 73 05/29/25 11:57 Resp 17 05/29/25 11:57 BP 130/79 05/29/25 11:57 Pulse Ox 93 L 05/29/25 11:57 FiO2 Intake & Output 05/28/25 05/29/25 05/29/25 18:59 06:59 18:59 Intake Total 1594.684 20 370 Output Total 800 300 Balance 794.684 -280 370 Weight 140 kg Intake: IV 10 20 10 Invasive Line 3 10 20 10 Intake, IV Titration 244.684 Amount Heparin Sod,Pork in 0.45% 244.684 NaCl 25,000 unit In 0.45 % NaCl 1 250ml.bag @ 11.6 UNITS/KG/HR 9.953 mls/hr IV .Q24H [facility] Rx#: [id number] Oral 1340 360 Output: Urine 800 300 Other: Voiding Method Toilet Toilet - Labs CBC & Chem 7: 05/29/25 06:09 05/29/25 06:09 Labs: Abnormal Lab Results - Last 24 Hours (Table) 05/28/25 05/28/25 05/29/25 Range/Units 16:53 20:09 06:09 Plt Count 72 L (140-440) 10*3/uL Lymphocytes # 0.83 L (0.90-5.00) 10*3/uL Chloride (98-107) mmol/L Carbon Dioxide (22-30) mmol/L BUN (9-20) mg/dL Creatinine (0.66-1.25) mg/dL Glucose (74-99) mg/dL POC Glucose (mg/dL) 168 H 149 H (70-110) mg/dL Total Protein (6.3-8.2) g/dL 05/29/25 05/29/25 05/29/25 Range/Units 06:09 06:10 08:34 Plt Count (140-440) 10*3/uL Lymphocytes # (0.90-5.00) 10*3/uL Chloride 114 H (98-107) mmol/L Carbon Dioxide 19 L (22-30) mmol/L BUN 64 H (9-20) mg/dL Creatinine 3.08 H (0.66-1.25) mg/dL Glucose 127 H (74-99) mg/dL POC Glucose (mg/dL) 133 H 155 H (70-110) mg/dL Total Protein 5.7 L (6.3-8.2) g/dL
--- NOTE | 2025-05-29 15:04 | P.DS ---
Providers Date of admission: 05/26/25 10:28 Attending physician: Deon Serrano Consults: 05/26/25 10:11 Consult Physician Urgent Consulting Provider: [facility] Consult Reason/Comments: aechf, nstemi Do you want consulting provider notified?: Yes Primary care physician: Kuldeep Manjarrez Hospital Course: Discharge Diagnosis: -Congestive heart failure chronic systolic dysfunction EF of around 20 to 25%, ischemic cardiomyopathy with acute exacerbation - Chronic kidney disease stage IV from probably diabetic nephropathy - Type 2 diabetes mellitus -Troponin elevation - Hypertension - Thrombocytopenia chronic - Diabetic peripheral neuropathy - Hypothyroidism - History of PE - Sleep apnea Hospital Course: 84-year-old present male came in with complaints of shortness of breath orthopnea paroxysmal nocturnal dyspnea.. Patient does have history of congestive heart failure EF of around 20 to 25%. Patient's symptoms are worse for last couple days has been going on for some time patient denied any noncompliance with diet or medications. Patient takes 40 mg of Lasix at home. Patient does have history of coronary artery disease ischemic cardiomyopathy had a history of CABG in the past. Patient denies any fever chills complaining of cough without any significant sputum production. In the ER he recieved a Chest x-ray for evaluation of shortness of breath which showed bilateral pleural effusions. Further lab work revealed proBNP of 32,000. While admitted he was diuresed for CHF and weaned off nasal canula, he is on room air at time of discharge. He was seen and evaluated by cardiology, he recieved an echo and stress test to evaluate for degree of disease progression. Stress test revealed small area of ischemic changes at the cardiac apex, cardiology decided no cath was necessary in patient due to kidney disease and size of lesion. Other chronic conditions were managed with home medications. Far cixa, verquvo were added, spirinolactone was discontinued, PO elequis was resumed, he is scheduled to followup with PCP in 1-2 days and cardiology was schedule in 1-2 weeks. At time of discharge he is hemodynamically stable. Pt seen and examined at bedside: Vital signs reveiwed and stable: PHYSICAL EXAMINATION: GENERAL: The patient is alert and oriented x3, not in any acute distress. Well developed, well nourished. HEENT: Pupils are round and equally reacting to light. EOMI. No scleral icterus. No conjunctival pallor. Normocephalic, atraumatic. No pharyngeal erythema. No thyromegaly. CARDIOVASCULAR: S1 and S2 present. No murmurs, rubs, or gallops. PULMONARY: Chest is clear to auscultation, no wheezing or crackles. ABDOMEN: Soft, nontender, nondistended, normoactive bowel sounds. No palpable organomegaly. MUSCULOSKELETAL: No joint swelling or deformity. EXTREMITIES: No cyanosis, clubbing, or pedal edema. NEUROLOGICAL: Gross neurological examination did not reveal any focal deficits. SKIN: No rashes. A total of 30 minutes were spent preparing this complex discarge summary. Patient was discharged on 05/29. Patient Condition at Discharge: Stable Plan - Discharge Summary Discharge Rx Participant: No New Discharge Prescriptions: New Vericiguat [Verquvo] 2.5 mg PO DAILY 90 Days #90 tablet Aspirin 81 mg PO DAILY tab Dapagliflozin Propanediol [Farxiga] 5 mg PO DAILY 90 Days #90 tablet Continue Simvastatin [Zocor] 40 mg PO HS Isosorbide Mononitrate [Imdur] 30 mg PO DAILY Montelukast [Singulair] 10 mg PO HS Insulin NPH/Reg Insulin 70/30 [humuLIN 70/30 VIAL] 75 unit SQ DAILY Insulin NPH/Reg Insulin 70/30 [humuLIN 70/30 VIAL] 65 unit SQ HS Apixaban [Eliquis] 2.5 mg PO BID #60 tablet Gabapentin [Neurontin] 300 mg PO DAILY Gabapentin [Neurontin] 600 mg PO HS Albuterol Inhaler [Ventolin Hfa Inhaler] 2 puff INHALATION RT-BID Omeprazole 20 mg PO DAILY Furosemide [Lasix] 40 mg PO DAILY Losartan [Cozaar] 25 mg PO DAILY allopurinoL 100 mg PO DAILY Metoprolol Tartrate [Lopressor] 50 mg PO BID calcitrioL 0.25 mcg PO MOTH Dulaglutide [Trulicity] 3 mg SQ SA Levothyroxine Sodium [Synthroid] 88 mcg PO DAILY Vitamin B Complex W/Vitamin C 1 tab PO DAILY Ergocalciferol [Vitamin D2 (1250 Mcg = 68964 Iu)] 1,250 mcg PO Q14D Nitroglycerin Sl Tabs [Nitrostat] 0.4 mg SL Q5M PRN PRN Reason: Chest Pain Changed hydrALAZINE HCL [Apresoline] 25 mg PO TID 7 Days #21 tab Discontinued Spironolactone [Aldactone] 12.5 mg PO DAILY Discharge Medication List Isosorbide Mononitrate [Imdur] 30 mg PO DAILY 04/10/14 [History] Simvastatin [Zocor] 40 mg PO HS 04/10/14 [History] Insulin NPH/Reg Insulin 70/30 [humuLIN 70/30 VIAL] 75 unit SQ DAILY 08/05/15 [History] Montelukast [Singulair] 10 mg PO HS 08/05/15 [History] Insulin NPH/Reg Insulin 70/30 [humuLIN 70/30 VIAL] 65 unit SQ HS 05/11/16 [History] Apixaban [Eliquis] 2.5 mg PO BID #60 tablet 05/16/16 [Rx] Gabapentin [Neurontin] 300 mg PO DAILY 12/26/17 [History] Albuterol Inhaler [Ventolin Hfa Inhaler] 2 puff INHALATION RT-BID 03/24/20 [History] Furosemide [Lasix] 40 mg PO DAILY 03/24/20 [History] Gabapentin [Neurontin] 600 mg PO HS 03/24/20 [History] Omeprazole 20 mg PO DAILY 03/24/20 [History] Dulaglutide [Trulicity] 3 mg SQ SA 05/26/25 [History] Ergocalciferol [Vitamin D2 (1250 Mcg = 77258 Iu)] 1,250 mcg PO Q14D 05/26/25 [History] Levothyroxine Sodium [Synthroid] 88 mcg PO DAILY 05/26/25 [History] Losartan [Cozaar] 25 mg PO DAILY 05/26/25 [History] Metoprolol Tartrate [Lopressor] 50 mg PO BID 05/26/25 [History] Nitroglycerin Sl Tabs [Nitrostat] 0.4 mg SL Q5M PRN 05/26/25 [History] Vitamin B Complex W/Vitamin C 1 tab PO DAILY 05/26/25 [History] allopurinoL 100 mg PO DAILY 05/26/25 [History] calcitrioL 0.25 mcg PO MOTH 05/26/25 [History] Dapagliflozin Propanediol [Farxiga] 5 mg PO DAILY 90 Days #90 tablet 05/28/25 [Rx] Vericiguat [Verquvo] 2.5 mg PO DAILY 90 Days #90 tablet 05/28/25 [Rx] Aspirin 81 mg PO DAILY tab 05/29/25 [Rx] hydrALAZINE HCL [Apresoline] 25 mg PO TID 7 Days #21 tab 05/29/25 [Rx] Follow up Appointment(s)/Referral(s): Zay Shields MD [Medical Doctor] - 1 Week (Please call to schedule hospital follow up) Kuldeep Manjarrez MD [Primary Care Provider] - 1-2 days (Please call to schedule hospital follow up apt. ) [facility] [NON-STAFF] - (Homecare will call you for setup ) Patient Instructions/Handouts: Heart Failure (DC), Chronic Kidney Disease (DC) Discharge Disposition: HOME SELF-CARE
== END 2025-05-29 14:43 | disposition home or self-care (01) | DRG 280 ==
LOC: EC 06:56 → 3SCARD 10:28 → OBSVTOIN 10:28 → 3SCARD 18:35
PROVIDERS: ADMIT Hospitalist; ATTEND Hospitalist
DX: I13.0 Hypertensive heart and chronic kidney disease with heart failure and stage 1 through stage 4 chronic kidney disease, or unspecified chronic kidney disease (principal); I50.23 Acute on chronic systolic (congestive) heart failure; I21.A1 Myocardial infarction type 2; D69.6 Thrombocytopenia, unspecified; N18.4 Chronic kidney disease, stage 4 (severe); E87.20 Acidosis, unspecified; E11.22 Type 2 diabetes mellitus with diabetic chronic kidney disease; I27.20 Pulmonary hypertension, unspecified; J44.89 Other specified chronic obstructive pulmonary disease; E03.9 Hypothyroidism, unspecified; E72.12 Methylenetetrahydrofolate reductase deficiency; I42.8 Other cardiomyopathies; E11.42 Type 2 diabetes mellitus with diabetic polyneuropathy; Z79.4 Long term (current) use of insulin; I25.5 Ischemic cardiomyopathy; G47.33 Obstructive sleep apnea (adult) (pediatric); E78.5 Hyperlipidemia, unspecified; I25.10 Atherosclerotic heart disease of native coronary artery without angina pectoris; I25.2 Old myocardial infarction; N40.0 Benign prostatic hyperplasia without lower urinary tract symptoms; Z79.01 Long term (current) use of anticoagulants; Z86.711 Personal history of pulmonary embolism; Z96.1 Presence of intraocular lens; Z79.890 Hormone replacement therapy; Z79.899 Other long term (current) drug therapy; Z86.73 Personal history of transient ischemic attack (TIA), and cerebral infarction without residual deficits; Z95.1 Presence of aortocoronary bypass graft; Z98.61 Coronary angioplasty status; Z82.49 Family history of ischemic heart disease and other diseases of the circulatory system
CPT/HCPCS: 36415; 71046; 78452; 80048; 80053; 80061; 83036; 83605; 83735; 83880; 84439; 84443; 84484; 85025; 85610; 85730; 93005; 93017; 93306; 94640; 96374; 99285